=== PATIENT | male | born 1965 | race Caucasian/White ===

== ENCOUNTER → 2017-02-23 | Outpatient (CLI) | payer OTHER ==
[~2017-02-23] MED LIST: ALBUAER19 INH; ALFU10TA2 PO; ASPI81TA28 PO; CIPR-255 PO; COEN50CA2 PO; DTRSR/10 PO; ERGO500037 PO; GLIM4TAB2 PO; HYDC25 PO; HYDR25TA4 PO; LIRA18IN SQ; LOSA50TA6 PO; METF1000 PO; OMEP20TA PO; ROSU5TAB PO; SERT-234 PO; VNTHFA/IN INH
[2017-02-23 13:44] LABS: ESTIMATED AVERAGE GLUCOSE 131 mg/dl; HA1C FLAG Normal (Normal)
[2017-02-23 14:56] LABS: ALT/SGPT 41 U/L (12-78); AST/SGOT 20 U/L (15-37); BLOOD UREA NITROGEN 22 mg/dl (7-18); BUN/CREATININE RATIO 27.2 (10-20); CALCIUM 8.6 mg/dl (8.5-10.1); CARBON DIOXIDE 26 mmol/L (21-32); CHLORIDE 109 mmol/L (98-107); CREATININE 0.82 mg/dl (0.60-1.40); GLUCOSE 101 mg/dl (70-99); POTASSIUM 4.1 mmol/L (3.5-5.1); SODIUM 142 mmol/L (136-145)
[2017-02-23 14:59] LABS: ALKALINE PHOSPHATASE 99 U/L (45-117); CHOLESTEROL 157 mg/dl (0-200); CHOLESTEROL/HDL RATIO 3.9; HDL CHOLESTEROL 40 mg/dl; LDL CHOLESTEROL CALCULATED 63 mg/dl; TRIGLYCERIDES 268 mg/dl (0-150); VERY LOW DENSITY LIPOPROT CALC 54 mg/dl
== END | disposition home or self-care (01) ==
LOC: C.LABBC 10:54
PROVIDERS: ATTEND Internal Medicine Geriatric Medicine
DX: I10 Essential (primary) hypertension (principal); E11.9 Type 2 diabetes mellitus without complications; E66.01 Morbid (severe) obesity due to excess calories; F41.8 Other specified anxiety disorders; E78.5 Hyperlipidemia, unspecified; E55.9 Vitamin D deficiency, unspecified

== ENCOUNTER → 2017-02-26 | Outpatient (CLI) | payer OTHER ==
--- NOTE | 2017-02-26 19:17 | DIAGNOSTIC IMAGING REPORT ---
ULTRASOUND VENOUS DOPPLER LWR EXT BILA CLINICAL HISTORY: Lower extremity swelling COMPARISON STUDY: No previous studies for comparison. FINDINGS: Real-time and color flow Doppler imaging were performed. Flow was seen within the femoral, popliteal and calf veins with no intraluminal thrombus demonstrated. The saphenous vein is patent. IMPRESSION: No evidence of lower extremity DVT. Electronically signed by: Neal Richardson M.D. 02/26/2017 7:16 PM Dictated Date/Time: 02/26/2017 7:15 PM
== END | disposition home or self-care (01) ==
LOC: C.ULTR 18:40
PROVIDERS: ATTEND Internal Medicine Geriatric Medicine
DX: M79.89 Other specified soft tissue disorders (principal)

== ENCOUNTER → 2017-04-23 | Outpatient (CLI) | payer OTHER ==
[2017-04-23 16:43] LABS: URINE APPEARANCE CLEAR (CLEAR); URINE BILIRUBIN NEG (NEG); URINE COLOR YELLOW; URINE EPITHELIAL CELL AUTO 0-5 /lpf (0-5); URINE NITRITE NEG (NEG); URINE PH 5.5 (4.5-7.5); URINE SPECIFIC GRAVITY 1.029 (1.000-1.030); UROBILINOGEN NEG (NEG)
[2017-04-23 16:50] LABS: MANUAL MICROSCOPIC REQUIRED? NO; REVIEW REQ? YES
[2017-04-23 18:28] LABS: LYME DISEASE AB IGG NEG (NEG); LYME DISEASE AB IGM NEG (NEG)
== END ==
LOC: C.LABBC 14:18
PROVIDERS: ATTEND Physician Assistant Medical
DX: N40.1 Benign prostatic hyperplasia with lower urinary tract symptoms (principal); R39.9 Unspecified symptoms and signs involving the genitourinary system; W57.XXXA Bitten or stung by nonvenomous insect and other nonvenomous arthropods, initial encounter; Z11.59 Encounter for screening for other viral diseases

== ENCOUNTER → 2017-05-01 | Outpatient (CLI) | payer OTHER ==
[~2017-05-01] MED LIST changes: -ALFU10TA2 PO; +ALFU10TA30 PO
--- NOTE | 2017-05-01 14:54 | DIAGNOSTIC IMAGING REPORT ---
SCROTAL ULTRASOUND CLINICAL HISTORY: Orchialgia. COMPARISON STUDY: None. TECHNIQUE: Grayscale and color and duplex Doppler sonography of the scrotum was performed. FINDINGS: The right testis measures 4 x 3.2 x 2.8 cm and the left measures 5.1 x 3 x 2.4 cm. There is no testicular mass. Color flow within each testis is symmetric. There is no evidence of epididymitis. There are small bilateral hydroceles. IMPRESSION: 1. Normal sonographic appearance of the testes. No evidence of testicular torsion. No testicular mass. 2. No evidence of epididymitis. 3. Small bilateral hydroceles. Electronically signed by: Karlos Hahn M.D. 05/01/2017 2:52 PM Dictated Date/Time: 05/01/2017 2:51 PM
--- NOTE | 2017-05-01 14:56 | DIAGNOSTIC IMAGING REPORT ---
RENAL ULTRASOUND CLINICAL HISTORY: Low back pain. Urinary incontinence. COMPARISON STUDY: None. TECHNIQUE: Sonography of the kidneys and the urinary bladder was performed. FINDINGS: The right kidney measures 12.5 cm in maximal dimension and the left measures 12.3 cm. There is no hydronephrosis. This exam is mildly compromised by suboptimal penetration but no calculus or mass identified by sonography. The bladder was normal. Both ureteral jets were identified. IMPRESSION: Unremarkable renal ultrasound. No hydronephrosis. Electronically signed by: Karlos Hahn M.D. 05/01/2017 2:54 PM Dictated Date/Time: 05/01/2017 2:53 PM
--- NOTE | 2017-05-01 15:12 | DIAGNOSTIC IMAGING REPORT ---
KUB CLINICAL HISTORY: Low back pain. COMPARISON STUDY: Renal ultrasound performed earlier today. FINDINGS: This exam is compromised by suboptimal penetration related to body habitus. However, no urinary calculi are visualized. Bowel gas pattern is normal. IMPRESSION: 1. No urinary calculi identified although study compromised due to body habitus. 2. No bowel obstruction. Electronically signed by: Karlos Hahn M.D. 05/01/2017 3:11 PM Dictated Date/Time: 05/01/2017 3:08 PM
== END | disposition home or self-care (01) ==
LOC: C.ULTRBC 13:46
PROVIDERS: ATTEND Urology
DX: M54.5 Low back pain (principal); R32 Unspecified urinary incontinence; N50.819 Testicular pain, unspecified

== ENCOUNTER → 2017-05-21 | Outpatient (CLI) | payer OTHER ==
--- NOTE | 2017-05-22 06:28 | PAP/PSG TECHNICIAN REPORT ---
[facility] Production Control Scheduler Polysomnogram Report Study name: None Report date: 05/22/2017 Study date: 05/21/2017 Referring Physician: Alicia Slaughter PA-C Name: ONDINA COSME Interpreting Physician: Julio Fragoso D.O. Date of : 1965 Production Control Scheduler: Mehdi Shea RPSGT. Sex: Male Age: 51 StudyType: PSG Weight: 382 lbs Height: 51 years, Height 5' 8" BMI: 58.08 Medications: SERTRALINE HCL 100 MG, GLIMEPIRIDE 4 MG, METFORMIN HCL 1000 MG, ASPIRIN 81 MG, ATORVASTATIN CALCIUM 20 MG, OMEPRAZOLE 20 MG, HYDROCHLOROTHIAZIDE 25 MG, LOSARTAN POTASSIUM 50 MG, ALFUZOSIN HCL ER 10 MG, VENTOLIN HFA 108 (90) BASE, VITAMIN D, OXYBUTYNIN CHLORIDE ER 10 MG Patient History PATIENT HAS HISTORY OF MAC. HE CURRENTLY WEARS CPAP BUT HAS BEEN EXPERIENCE FATIGUE AND LACK OF ENERGY DURING THE DAY. ALSO HAS DAYTIME SLEEPINESS. HE IS HERE TODAY FOR AN UPDATE ON HIS PRESSURE. ESS = 9 RM 5 Parameters Monitored NPSG: E1-M2, E2-M1, Fp1-M2, Fp2-M1, F3-M2, F4-M2, F4-M1, C3-M2, C4-M2, C4-M1, O1-M2, O2-M2, O2-M1, T3-M2, T4-M1, P3-M2, P4-M1, CHIN1, CHIN2, HR, EKG, Legs, PFLOW, SNOR, FLOW, CFLOW, Tidal Volume, THOR, ABDO, SpO2, PLTH, CPRESS, ETCO2 Wave, ETCO2, pH Sleep Architecture Sleep Stages Time at Lights Off 9:14:38 PM STAGES Time (min.) TST (%) Time at Lights On 5:18:38 AM Wake 127.0 -- Total Recording Time (TRT) 484.50 min. N1 20.5 6 Total Sleep Period (TSP) 465.5 min. N2 166.0 46 Total Sleep Time (TST) 357.0min. N3 107.5 30 Awake Time 127.5 min. REM 63.0 18 Wake after Sleep Onset 113.0 min. Sleep Efficiency (SE) 74 % Sleep Onset Latency (CHARMAINE) 14.0 min. Number of Stage 1 Shifts None Awakenings 33 Stage Changes 102 Number of REM periods 3 REM 63.0 18 REM Latency 249.5 min. NREM 294.0 82 Body Position Analysis Supine Right Left Side Prone Vertical Total Sleep Time (min.) 55.2 129.6 182.5 312.12 0.0 0.0 Total Sleep Time (%) 13% 36% 51% 87 0% N/A% Total Sleep Time REM (min.) 25.5 0.0 37.5 None 0.0 0.0 Total Sleep Time NREM (min.) 19.4 129.6 145.0 None 0.0 0.0 Intermittent Wake (min.) 10.3 70.0 46.7 None 0.0 0.0 Total Sleep Period (%) 11% None None None None None Arousals Myoclonus (PLM) * Events Count Index Events Count Index Spontaneous 50 8 Events Awake (PLMW) 125 59.1 Respiratory 15 2.4 Events Asleep w/ Arousal (PLMA) 5 0.8 PLM 4 1 Events Asleep w/o Arousal (PLMS) 130 21.8 Snoring 9 2 Total Asleep 135 22.7 Total 77 13 Total 260 32 Respiratory Analysis * CA OA MA CH H RERA Total Count 1 0 0 0 52 4 53 Index 0.2 0.0 0.0 0 8.7 1 9.6 Mean Duration 11.4 0.0 0.0 0.00 14.5 12.3 14.3 Longest Duration 11.4 0.0 0.0 0.00 0.0 15.6 21.6 Respiratory Event Summary Total Supine ~Supine Right Left Prone REM NREM Apneas Count 1 0 1 0 1 N/A 1 0 Index 0.2 0 0 0.0 0.3 N/A 1 0 Hypopneas (4% Desat) Count 52 6 46 25 21 N/A 20 32 Index 8.7 8.0 9 11.6 6.9 N/A 19.0 6.5 Apneas & All Hypopneas Count 53 6 47 25 22 N/A 21 32 Index 8.9 8 9 12 7 N/A 20.0 6.5 Respiratory Events (Credit Compliance Officer+All Hyp+RERA) Count 53 6 51 28 23 N/A 21 32 Index 9.6 8 10 13.0 7.6 N/A 21.0 7.1 Respiratory Related Arousal Count 15 6 14 12 2 N/A 1 13 Index 2.4 0 3 6 1 N/A 1 3 Snoring Analysis Supine Right Left Prone REM NREM Total Snore duration 2.0 min Snores count 4 97 8 N/A 3 106 109 Snore mean duration 1.1 Sec Snores index 5 45 3 N/A 2.9 21.6 18.3 TST with snoring (%) 0.6% Desaturation Event Summary: Minimum %SpO2 Event Count Mean/Min/Max Duration(sec.) Desaturation Index % Time In Bed > 90 87 21.9 / 5.8 / 58.8 19.3 57.8 86 - 90 46 16.8 / 6.5 / 34.3 14.1 41.9 81 - 85 0 N/A 0.0 0.3 76 - 80 0 N/A 0.0 0.0 71 - 75 0 N/A 0.0 0.0 66 - 70 0 N/A 0.0 0.0 61 - 65 0 N/A 0.0 0.0 56 - 60 0 N/A 0.0 0.0 51 - 55 0 N/A 0.0 0.0 < 50 0 N/A 0.0 0.0 Total REM NREM Awake <50% 0.0 min. 0.0 min. 0.0 min. 0.0 min. 51 - 60% 0.0 min. 0.0 min. 0.0 min. 0.0 min. 61 - 70% 0.0 min. 0.0 min. 0.0 min. 0.0 min. 71 - 80% 0.0 min. 0.0 min. 0.0 min. 0.0 min. 81 - 90% 197.5 min. 37.7 min. 125.6 min. 34.3 min. 91 - 100% 270.3 min. 25.3 min. 167.9 min. 77.0 min. Average 91 90 90 92 Minimum SpO2 83 83 84 85 Desaturation Event Index 12.5 20.0 7.3 21.7 # Desat. Events below 89% 71 18 27 26 Time(%) with Saturation below 89% 13.1 2.7 8.4 2.0 Time(min.) with Saturation below 89% 61.2 12.5 39.2 9.5 Time (mins) REM (mins) NREM (mins) % of TST SpO2 Below 90% 56 21 N35 27.8 SpO2 Below 88% 16 0 0 5 Heart Rate Analysis Min (bpm) Max (bpm) Average (bpm) Awake 50 136 73 NREM 52 86 67 REM 51 76 62 Overall 51 86 66 Supplemental O2 Values Minimum O2 level: None Value Start Time End Time Production Control Scheduler Comments Mr. Cosme slept in the right, left and supine positions. No cardiac arrhythmia noted. Leg movements noted. No bruxism noted. CPAP was initiated at +4 CMH2O and up-titrated to an optimal level of +14 CMH2O, which nearly eliminated all respiratory events and snoring. The patient brought in his own mask that was used during titration Mr. Cosme awoke to use the restroom 3 times during the night. Mr. Cosme stated I slept as well as I do when I am in my own bed. The final report will be interpreted and signed by a sleep physician. The completed physician report will then be placed in the patient medical record. Therapy Event: Therapy (cm H20) 4 5 6 8 9 10 12 13 14 Total Time at Pressure (min.) 51.9 4.5 12.6 106.6 84.8 12.3 125.8 21.0 64.5 TST at Pressure (min.) 7.9 4.0 12.6 81.6 76.3 12.3 90.3 20.0 52.0 # Periods 1 1 1 1 1 1 1 1 1 Sleep Onset (min.) 14.0 0.0 0.0 0.0 0.0 0.0 0.0 0.0 0.0 REM Onset (min.) N/A N/A N/A N/A N/A 3.1 0.0 0.0 0.0 Sleep Efficiency % 15 88 100 76 90 100 71 95 80 Wakefulness (%) 84.7 11.2 0.0 23.5 10.0 0.0 28.2 4.8 19.4 Wakefulness (min.) 44.0 0.5 0.0 25.0 8.5 0.0 35.5 1.0 12.5 NREM 1 (%) 14.3 34.7 0.0 4.7 2.4 0.0 2.0 2.4 2.3 NREM 1 (min.) 7.4 1.6 0.0 5.0 2.0 0.0 2.5 0.5 1.5 NREM 2 (%) 1.0 54.1 100.0 35.2 39.9 25.1 39.4 2.4 40.3 NREM 2 (min.) 0.5 2.4 12.6 37.6 33.8 3.1 49.5 0.5 26.0 NREM 3 (%) 0.0 0.0 0.0 36.6 47.7 0.0 15.9 0.0 12.4 NREM 3 (min.) 0.0 0.0 0.0 39.0 40.5 0.0 20.0 0.0 8.0 REM (%) 0.0 0.0 0.0 0.0 0.0 74.9 14.5 90.5 25.6 REM (min.) 0.0 0.0 0.0 0.0 0.0 9.2 18.3 19.0 16.5 # Arousals 11 5 10 25 10 1 10 1 4 Arousal Index 83.0 75.6 47.6 18.4 7.9 4.9 6.6 3.0 4.6 # Snore 0 5 86 6 8 1 2 0 1 Snore Index 0.0 75.6 409.2 4.4 6.3 4.9 1.3 0.0 1.2 AHI 52.8 60.5 42.8 5.1 3.9 38.9 5.3 12.0 1.2 AHI Supine N/A N/A N/A N/A 6.3 N/A N/A 19.2 3.6 AHI Non-Supine 52.8 60.5 42.8 5.1 3.1 38.9 5.3 5.7 0.0 NREM AHI 52.8 60.5 42.8 5.1 3.9 0.0 0.0 0.0 0.0 REM AHI N/A N/A N/A N/A N/A 52.0 26.3 12.6 3.6 RDI 52.8 60.5 57.1 5.1 3.9 38.9 6.0 12.0 1.2 # Obstructive 0 0 0 0 0 0 0 0 0 # Central Ap 0 0 0 0 0 1 0 0 0 # Mixed 0 0 0 0 0 0 0 0 0 # Hypopneas 7 4 9 7 5 7 8 4 1 RERAS 0 0 3 0 0 0 1 0 0 Total Respiratory Events 7 4 12 7 5 8 9 4 1 Time Below SpO2 89.00% (min.) 4.3 1.1 1.5 2.6 29.4 3.7 5.8 2.8 0.5 Mean NREM SpO2 (%) 88 89 90 91 89 89 91 91 92 Mean REM SpO2 (%) N/A N/A N/A N/A N/A 89 90 90 91 Mean Sleep SpO2 (%) 88 89 90 91 89 89 91 90 91 Min NREM SpO2 (%) 86 86 85 86 84 88 87 89 90 Min REM SpO2 (%) N/A N/A N/A N/A N/A 83 86 83 88 Position Supine (min.) 0.0 0.0 0.0 0.0 19.0 0.0 0.0 9.4 16.5 Position Non-supine (min.) 7.9 4.0 12.6 81.6 57.3 12.3 90.3 10.6 35.5 LM Index Sleep 0.0 15.1 33.3 75.8 4.7 14.6 4.7 3.0 8.1 LM Index NREM 0.0 15.1 33.3 75.8 4.7 19.4 4.2 0.0 3.4 LM Index REM N/A N/A N/A N/A N/A 13.0 6.6 3.2 18.2 Mean Heart Rate (bpm) 80 79 80 74 65 64 61 61 59 Min Heart Rate (bpm) 77 75 71 64 58 56 52 51 52
--- NOTE | 2017-05-24 09:40 | Sleep Study ---
Sleep Study Report Date of Service: 05/21/2017 Sleep Study Report Clinical data: The patient is a 51-year-old male who was referred for a CPAP re-titration study by Alicia Slaughter PA-C. His BMI is 58.08. Patient has a history of sleep apnea for longer than 10 years. He has been wearing nasal CPAP but he has had increased fatigue and decreased energy level along with daytime somnolence. His Daisy Sleepiness Scale score is 9. Sleep architecture: The total sleep period was 465.5 minutes. The total sleep time was 357.0 minutes. Sleep efficiency was moderately reduced to 74 percent. The sleep latency was normal at 14 minutes. Wake after sleep onset was prolonged to 113 minutes. REM latency was prolonged to 249.5 minutes. Sleep consisted of stage N1 6 percent, stage N2 46 percent, stage N3 30 percent , stage REM 18 percent. Arousal data: The patient had a total of 77 arousals including 50 spontaneous arousals, 15 respiratory arousals, 4 PLM arousals, and 9 snoring arousals. The arousal index was 13. PLM data: The patient had a total of 135 periodic limb movements of sleep for a PLM index of 22.7. There were 5 arousals associated with limb movements for a PLM arousal index of 0.8. EKG: The underlying cardiac rhythm was normal sinus. The cardiac rates ranged from 51 to 86 beats per minute. No cardiac arrhythmia was noted. Respiratory data: The patient's nocturnal respiratory events were treated with nasal CPAP up to a final pressure of 14 centimeters. For the night he had a total of 53 respiratory events including 1 central apnea and 52 hypopneas. Hypopneas were scored according to the 4 percent desaturation rule. Apnea-hypopnea index was 8.9. The mean duration of hypopneas was 14.5 seconds. He also had 4 RERAS. At the final pressure of 14 centimeters he had only 1 hypopnea and his apnea- hypopnea index was 1.2. He was at that pressure for 64.5 minutes. Oximetry data: The average oxygen saturation was 91 percent. Minimum saturation was 83 percent. The patient had a total of 61.2 minutes with saturations less than 89 percent. At the final pressure there was no significant desaturations. Knitter Operator's comments: The patient slept on the right, left, and supine positions. No cardiac arrhythmia noted. Leg movements noted. No bruxism noted. CPAP was initiated at 4 centimeters and up titrated to an optimal level of 14 centimeters which nearly eliminated all respiratory events and snoring. Patient used his own mask during the titration. He did awaken to use the restroom 3 times during the night. Impressions: 1. Obstructive sleep apnea-resolved with nasal CPAP at 14 centimeters 2. Periodic limb movement disorder Comments: The patient had a lower sleep efficiency than anticipated considering he is accustomed to wearing nasal CPAP. Although his sleep latency was normal it took approximately 1 hour or longer to have continuous sleep. He did have 3 awakenings to go to the restroom. It is noted that he does take Alfuzosin which could suggest prostate disease. This may be contributing to his disturbed sleep. He had a modest number of leg movements but with few arousals. Thus it seems unlikely the leg movements are disturbing his sleep significantly. At the final pressure he did very well and his oxygenation was normalized Recommendations: 1. It is advised that the patient CPAP be adjusted to 14 centimeters. 2. Clinical follow-up is then required to evaluate his response to the change in the CPAP pressure. 3. Patient has a severe elevation of body mass index of 58.08. Weight reduction is advised. 4. It is suggested that the patient avoid sleeping in the supine position. There is typically more respiratory events and snoring while supine. During this study he only spent 11 percent of the night in the supine position. Copies To 1: Julio Fragoso DO; Alicia Slaughter PAC
== END | disposition home health service (06) ==
LOC: C.NEUR 20:00
PROVIDERS: ATTEND Physician Assistant Medical
DX: G47.33 Obstructive sleep apnea (adult) (pediatric) (principal); G47.61 Periodic limb movement disorder

== ENCOUNTER 2017-07-12 08:49 | Emergency (ER) | payer OTHER ==
[~2017-07-12] VITALS: Ht 175.3 cm; Wt 166.0 kg
[~2017-07-12 08:49] MED LIST changes: -ALFU10TA30 PO; -ASPI81TA28 PO; -CIPR-255 PO; -COEN50CA2 PO; -DTRSR/10 PO; -ERGO500037 PO; -HYDR25TA4 PO; -LIRA18IN SQ; -ROSU5TAB PO; -VNTHFA/IN INH
[2017-07-12 08:54] VITALS: TEMP 36.6; Ht 175.3 cm; Wt 166.0 kg
[2017-07-12] MEDS ORDERED: SODIUM CHLORIDE 0.9% 1000ML 1,000 ML IV STA (09:07)
[2017-07-12 09:30] LABS: BASO % 0.2 %; BASO ABS # 0.02 K/uL (0-0.2); COMPLETE YES; EOS % 3.3 %; HEMATOCRIT 42.5 % (42-52); IG% 0.2 %; LYMPH % 23.2 %; LYMPH ABS # 2.16 K/uL (1.2-3.4); MEAN CELL VOLUME 88.5 fL (80-100); MEAN CORPUSCULAR HEMOGLOBIN 29.6 pg (25-34); MEAN CORPUSCULAR HGB CONC 33.4 g/dl (32-36); MEAN PLATELET VOLUME 9.5 fL (7.4-10.4); MONO % 9.8 %; NEUT % 63.3 %; PLATELET COUNT 265 K/uL (130-400)
[2017-07-12 09:33] LABS: URINE APPEARANCE CLEAR (CLEAR); URINE BILIRUBIN NEG (NEG); URINE COLOR YELLOW; URINE EPITHELIAL CELL AUTO 0-5 /lpf (0-5); URINE NITRITE NEG (NEG); URINE PH 6.5 (4.5-7.5); URINE SPECIFIC GRAVITY 1.017 (1.000-1.030); UROBILINOGEN NEG (NEG); ZZUR CULT IF INDIC CLEAN CATCH NO
[2017-07-12 09:36] LABS: MANUAL MICROSCOPIC REQUIRED? NO; REVIEW REQ? NO
[2017-07-12] MEDS ORDERED: COEN50CA2 PO (09:43)
[2017-07-12] MEDS ORDERED: SERT-234 PO (09:43)
[2017-07-12] MEDS ORDERED: VNTHFA/IN INH (09:43)
[2017-07-12] MEDS ORDERED: ALFU10TA30 PO (09:43)
[2017-07-12] MEDS ORDERED: ERGO500037 PO (09:43)
[2017-07-12] MEDS ORDERED: HYDR25TA4 PO (09:43)
[2017-07-12] MEDS ORDERED: LIRA18IN SQ (09:43)
[2017-07-12] MEDS ORDERED: DTRSR/10 PO (09:43)
[2017-07-12] MEDS ORDERED: ASPI81TA28 PO (09:43)
[2017-07-12] MEDS ORDERED: ROSU5TAB PO (09:43)
[2017-07-12 09:46] LABS: BUN/CREATININE RATIO 21.7 (10-20); CALCIUM 9.6 mg/dl (8.5-10.1); CREATININE 0.86 mg/dl (0.60-1.40)
[2017-07-12] MEDS ORDERED: OPTIRAY 320 IV PRN (10:00)
--- NOTE | 2017-07-12 12:47 | DIAGNOSTIC IMAGING REPORT ---
ABD/PELVIS IV AND ORAL CONT CT DOSE: 2269.09 mGy.cm HISTORY: Pain lower abd pain, urinary symptoms, constipation TECHNIQUE: Multiaxial CT images of the abdomen and pelvis were performed following the use of intravenous and oral contrast. A dose lowering technique was utilized adhering to the principles of ALARA. COMPARISON STUDY: None. FINDINGS: Lung bases are clear. Liver spleen and pancreas are unremarkable. No evidence for gallbladder distention. Moderate adrenal hyperplastic change bilaterally. Kidneys negative for hydronephrosis. Bowel pattern is nonobstructive throughout. Scattered colonic and sigmoid diverticulosis. No evidence for acute diverticulitis. No evidence for obstruction. Normal appendix. Bladder is midline. Inguinal regions are unremarkable. IMPRESSION: 1. Mild chronic colonic diverticulosis. No evidence for diverticulitis. 2. Otherwise negative study. The above report was generated using voice recognition software. It may contain grammatical, syntax or spelling errors. Electronically signed by: Grady Akins M.D. 07/12/2017 12:46 PM Dictated Date/Time: 07/12/2017 12:41 PM
[2017-07-12] MEDS ORDERED: CIPROFLOXACIN 500 MG TAB PO STA ×2 (15:04)
[2017-07-12] MEDS ORDERED: CIPR-255 PO (15:06)
[2017-07-12 15:10] VITALS: BP 124/68; PULSE 86; O2SAT 95
--- NOTE | 2017-07-12 16:22 | EMERGENCY ROOM VISIT NOTE ---
History Report prepared by Stephanie: Kat Garcia Under the Supervision of: Dr. Jame Quick M.D. First contact with patient: 09:07 Chief Complaint: OTHER COMPLAINT Stated Complaint: CONSTIPATION X1 WEEK,UPSET STOMACH,FREQ URINATION History of Present Illness The patient is a 52 year old male who presents to the Emergency Room with complaints of abdominal pain beginning 5 days ago. The patient describes the pain as being tight and rates it at a 3/10. He states that he is also constipated. He also complains of knee pain. The patient states that he took Miralax last night for his symptoms and has been urinating at night. He reports that he has been eating at irregular times due to his job and that sometimes he will feel "out of it." The patient reports that he has also been diaphoretic. The patient denies a history of abdominal surgeries. Pt denies LOC , headache, fevers, chills, visual changes, neck pain, chest pain, breathing difficulties, nausea, vomiting, back pain, melena, hematochezia, numbness, weakness, lymphadenopathy, rash, or other complaints. Source of History: patient Onset: 5 days ago Position: abdomen Symptom Intensity: rated at a 3/10 Quality: other (tight) Associated Symptoms: + diaphoresis, No chest pain Note: additional symptoms: constipation, knee pain Review of Systems See HPI for pertinent positives and negatives. A total of ten systems were reviewed and were otherwise negative. Past Medical & Surgical Medical Problems: (1) Asthma (2) Diabetes (3) Hernia (4) Hypertension (5) Sleep apnea (6) Stomach problems Family History Diabetes mellitus Heart disease Hypertension Social History Smoking Status: Never Smoker Alcohol Use: none Drug Use: none Marital Status: single Housing Status: lives alone Occupation Status: employed Current/Historical Medications Scheduled Alfuzosin Hcl (Uroxatral), 10 MG PO QDD Aspirin (Aspirin Ec), 81 MG PO DAILY Ciprofloxacin Hcl (Cipro), 500 MG PO BID Coenzyme Q10 (Ubidecarenone) (Co Q-10), 50 MG PO DAILY Ergocalciferol (Vitamin D 28926 Unit), 50,000 UNIT PO WK Glimepiride (Glimepiride), 2 MG PO QAM Hydrochlorothiazide (Hctz), 12.5 MG PO DAILY Liraglutide (Victoza), 0.6-1.8 MG SQ UD Losartan Potassium (Cozaar), 50 MG PO QAM Metformin Hcl (Glucophage), 1,000 MG PO BID Omeprazole (Eql Omeprazole), 20 MG PO DAILY Oxybutynin Chloride (Oxybutynin Chloride ER), 10 MG PO DAILY Rosuvastatin Calcium (Crestor), 5 MG PO DAILY Sertraline (Zoloft), 150 MG PO DAILY Scheduled PRN Albuterol Hfa (Ventolin Hfa), 2-4 PUFFS INH Q6H PRN for Wheezing Allergies Coded Allergies: Penicillins (Verified Allergy, Intermediate, RASH, 07/12/17) Sulfamethoxazole w/Trimethoprim (Verified Allergy, Unknown, ., 07/12/17) Physical Exam Vital Signs Date Time Temp Pulse Resp B/P (MAP) Pulse Ox O2 Delivery O2 Flow Rate FiO2 07/12/17 15:10 86 18 124/68 95 Room Air 07/12/17 14:15 75 21 94 07/12/17 14:01 141/78 07/12/17 14:00 77 23 94 07/12/17 13:45 81 18 93 07/12/17 13:31 127/72 07/12/17 13:30 75 17 96 07/12/17 13:15 78 19 96 07/12/17 13:01 133/71 07/12/17 13:00 76 22 07/12/17 12:54 91 139/77 91 Room Air 07/12/17 12:54 07/12/17 12:15 79 20 95 07/12/17 12:10 80 23 92 07/12/17 12:00 121/71 07/12/17 11:55 76 23 96 07/12/17 11:50 89 95 07/12/17 11:35 76 24 93 07/12/17 11:30 120/67 07/12/17 11:20 71 17 97 07/12/17 11:05 86 21 92 07/12/17 11:01 122/70 07/12/17 10:50 77 22 94 07/12/17 10:45 74 19 95 07/12/17 10:09 78 16 96 07/12/17 10:04 83 22 94 07/12/17 10:01 146/83 07/12/17 09:59 78 16 96 07/12/17 09:54 78 21 93 07/12/17 09:49 81 15 96 07/12/17 09:44 81 24 92 07/12/17 09:39 80 23 97 07/12/17 09:34 84 22 93 07/12/17 09:31 144/79 07/12/17 09:29 85 07/12/17 09:24 156/83 07/12/17 08:54 36.6 82 18 144/80 98 Room Air Physical Exam GENERAL: Awake, alert, well-appearing, in no distress HENT: Normocephalic, atraumatic. Oropharynx unremarkable. EYES: Normal conjunctiva. Sclera non-icteric. NECK: Supple. No nuchal rigidity. FROM. No JVD. RESPIRATORY: Clear to auscultation. CARDIAC: Regular rate, normal rhythm. Extremities warm and well perfused. Pulses equal. ABDOMEN: Soft, non-distended. Mild lower abdominal discomfort. No rebound or guarding. No masses. RECTAL: Deferred. MUSCULOSKELETAL: Chest examination reveals no tenderness. The back is symmetrical on inspection without obvious abnormality. There is no CVA tenderness to palpation. No joint edema. LOWER EXTREMITIES: Calves are equal size bilaterally and non-tender. No edema. No discoloration. NEURO: Normal sensorium. No sensory or motor deficits noted. SKIN: No rash or jaundice noted. Medical Decision & Procedures ER Provider Diagnostic Interpretation: Radiology results as stated below per my review and radiologist interpretation: ABD/PELVIS IV AND ORAL CONT CT DOSE: 2269.09 mGy.cm HISTORY: Pain lower abd pain, urinary symptoms, constipation TECHNIQUE: Multiaxial CT images of the abdomen and pelvis were performed following the use of intravenous and oral contrast. A dose lowering technique was utilized adhering to the principles of ALARA. COMPARISON STUDY: None. FINDINGS: Lung bases are clear. Liver spleen and pancreas are unremarkable. No evidence for gallbladder distention. Moderate adrenal hyperplastic change bilaterally. Kidneys negative for hydronephrosis. Bowel pattern is nonobstructive throughout. Scattered colonic and sigmoid diverticulosis. No evidence for acute diverticulitis. No evidence for obstruction. Normal appendix. Bladder is midline. Inguinal regions are unremarkable. IMPRESSION: 1. Mild chronic colonic diverticulosis. No evidence for diverticulitis. 2. Otherwise negative study. The above report was generated using voice recognition software. It may contain grammatical, syntax or spelling errors. Electronically signed by: Grady Akins M.D. 07/12/2017 12:46 PM Dictated Date/Time: 07/12/2017 12:41 PM Laboratory Results 07/12/17 09:20 Red Blood Count 4.80, Mean Corpuscular Volume 88.5, Mean Corpuscular Hemoglobin 29.6, Mean Corpuscular Hemoglobin Concent 33.4, Mean Platelet Volume 9.5, Neutrophils (%) (Auto) 63.3, Lymphocytes (%) (Auto) 23.2, Monocytes (%) (Auto) 9.8, Eosinophils (%) (Auto) 3.3, Basophils (%) (Auto) 0.2, Neutrophils # (Auto) 5.88, Lymphocytes # (Auto) 2.16, Monocytes # (Auto) 0.91, Eosinophils # (Auto) 0.31, Basophils # (Auto) 0.02 07/12/17 09:20 Test 07/12/17 09:15 07/12/17 09:20 Urine Color YELLOW Urine Appearance CLEAR (CLEAR) Urine pH 6.5 (4.5-7.5) Urine Specific [place] 1.017 (1.000-1.030) Urine Protein NEG (NEG) Urine Glucose (UA) NEG (NEG) Urine Ketones NEG (NEG) Urine Occult Blood NEG (NEG) Urine Nitrite NEG (NEG) Urine Bilirubin NEG (NEG) Urine Urobilinogen NEG (NEG) Urine Leukocyte Esterase TRACE (NEG) Urine WBC (Auto) 0 /hpf (0-5) Urine RBC (Auto) 0-4 /hpf (0-4) Urine Hyaline Casts (Auto) 0 /lpf (0-5) Urine Epithelial Cells (Auto) 0-5 /lpf (0-5) Urine Bacteria (Auto) NEG (NEG) White Blood Count 9.30 K/uL (4.8-10.8) Red Blood Count 4.80 M/uL (4.7-6.1) Hemoglobin 14.2 g/dL (14.0-18.0) Hematocrit 42.5 % (42-52) Mean Corpuscular Volume 88.5 fL (80-100) Mean Corpuscular Hemoglobin 29.6 pg (25-34) Mean Corpuscular Hemoglobin Concent 33.4 g/dl (32-36) Platelet Count 265 K/uL (130-400) Mean Platelet Volume 9.5 fL (7.4-10.4) Neutrophils (%) (Auto) 63.3 % Lymphocytes (%) (Auto) 23.2 % Monocytes (%) (Auto) 9.8 % Eosinophils (%) (Auto) 3.3 % Basophils (%) (Auto) 0.2 % Neutrophils # (Auto) 5.88 K/uL (1.4-6.5) Lymphocytes # (Auto) 2.16 K/uL (1.2-3.4) Monocytes # (Auto) 0.91 K/uL (0.11-0.59) Eosinophils # (Auto) 0.31 K/uL (0-0.5) Basophils # (Auto) 0.02 K/uL (0-0.2) RDW Standard Deviation 42.7 fL (36.4-46.3) RDW Coefficient of Variation 13.2 % (11.5-14.5) Immature Granulocyte % (Auto) 0.2 % Immature Granulocyte # (Auto) 0.02 K/uL (0.00-0.02) Anion Gap 7.0 mmol/L (3-11) Est Creatinine Clear Calc Drug Dose 151.2 ml/min Estimated GFR () 113.9 Estimated GFR (Non- 98.3 BUN/Creatinine Ratio 21.7 (10-20) Calcium Level 9.6 mg/dl (8.5-10.1) Total Bilirubin 1.2 mg/dl (0.2-1) Direct Bilirubin 0.3 mg/dl (0-0.2) Aspartate Amino Transf (AST/SGOT) 29 U/L (15-37) Alanine Aminotransferase (ALT/SGPT) 43 U/L (12-78) Alkaline Phosphatase 109 U/L (45-117) Total Protein 7.9 gm/dl (6.4-8.2) Albumin 3.9 gm/dl (3.4-5.0) Lipase 238 U/L (73-393) Laboratory results reviewed by me Medications Administered Medications (Trade) Dose Ordered Sig/Sheyla Route Start Time Stop Time Status Last Admin Dose Admin Sodium Chloride 1,000 ml @ 125 mls/hr Q8H STAT IV 07/12/17 09:07 07/12/17 17:06 07/12/17 10:10 125 MLS/HR Ciprofloxacin (Cipro Tab) 500 mg NOW STAT PO 07/12/17 15:04 07/12/17 15:05 DC 07/12/17 15:14 500 MG Ciprofloxacin (Cipro Tab) 500 mg NOW STAT PO 07/12/17 15:04 07/12/17 15:05 DC 07/12/17 15:14 500 MG ED Course 0907: Ordered Sodium Chloride 1,000 ml @ 125 mls.hr IV. 0945: The patient was evaluated in room B11B. A complete history and physical exam was performed. 1200: I checked on and reassessed the patient. 1504: Ordered Cipro Tab 500 mg PO, Cipro Tab 500 mg PO. 1510: I reevaluated the patient. Discussed results and discharge instructions: He verbalized understanding and agreement. The patient is ready for discharge. Medical Decision Triage Nursing notes reviewed and agree them. The patient's history was concerning for constipation, abdominal pain and urinary symptoms. Differential diagnosis: Etiologies such as UTI, prostatitis, functional constipation, impaction, obstruction, volvulus, metabolic abnormality, infection, neurologic, as well as others were entertained. Physical examination findings: As above. ER treatment provided: Saline hydration. The patient declined analgesia On reassessment the patient felt better. Cipro Diagnostics interpreted by me: The labs revealed an unremarkable CT scan chemical panel. Urinalysis did not reveal any clear signs of infection. Culture pending. Imaging studies: CT scan as above The patient has significant urinary symptoms. There is no obstruction or fecal impaction. He has no intra-abdominal findings to be concerned about infection or surgical process. As he has urinary symptoms prostatitis is a possibility. There is no stranding on CT imaging although his symptoms seem to be progressive. I discussed treating her conservatively and the patient was in agreement. Cipro was initiated as he is allergic to penicillin and sulfa. He will need close outpatient follow-up. By the evaluation outlined above emergent etiologies such as obstruction, volvulus, metabolic abnormality, bowel infection, neurologic, as well as others were deemed relatively unlikely. The patient was informed about the findings as listed above. All questions were answered and he was pleased with the treatment. Return instructions were outlined and the patient was discharged in stable condition. Outpatient prescription management: Cipro Referral: The patient was referred back to their primary care physician for follow-up in 2 to 3 days for a recheck of the current condition. Medication Reconcilliation Current Medication List: was personally reviewed by me Blood Pressure Screening Patient's blood pressure: Elevated blood pressure Blood pressure disposition: Referred to PCP Impression Primary Impression: Lower abdominal pain Additional Impression: Symptoms involving urinary system Scribe Attestation The scribe's documentation has been prepared under my direction and personally reviewed by me in its entirety. I confirm that the note above accurately reflects all work, treatment, procedures, and medical decision making performed by me. Departure Information Dispostion Home / Self-Care Prescriptions Ciprofloxacin Hcl (CIPRO) 500 Mg Tab 500 MG PO BID, #14 TAB Prov: Jame Quick MD 07/12/17 Referrals Josafat Medrano M.D. (PCP) Forms HOME CARE DOCUMENTATION FORM, IMPORTANT VISIT INFORMATION, WORK / SCHOOL INSTRUCTIONS Patient Instructions My [facility] Additional Instructions Ciprofloxacin(Cipro) 500mg: Take one pill twice daily for 7 days. All antibiotics can cause diarrhea. If this occurs and you feel worse or it does not resolve in 1-2 days follow up with your doctor or return to the Emergency Department as this could be signs of serious underlying problems. If you experience any pain in your tendons or any tendon injury return to the ER for re -evaluation. Any medication can cause an allergic reaction, stop the pills immediately and return to the ER for rash, hives, breathing difficulties, or swelling. Hold your metformin for 2 days. Watch your sugar and carbohydrate intake. Monitor blood glucose for your primary follow-up. Occasionally the Cipro in combination with the other medications may cause blood sugar to go low. It is important to maintain a healthy diet. Review the package insert for all your medications. This is necessary as important health information is provided for your benefit and current care. Ibuprofen(Motrin, Advil) may be used for fever or pain. Use 600mg every six hours as needed. Take with food. Avoid using more than 2400mg in a 24 hour period. Do not use 2400mg per day for more than three consecutive days without physician direction. Prolonged inappropriate use can lead to stomach upset or ulcers. (AND/OR) Acetaminophen(Tylenol) may be used for fever or pain. Use 1000mg every six hours as needed. Avoid using more than 4000mg in a 24 hour period. Rest and drink plenty of fluids. Continue current medications. Return to the ER immediately for worsening or persistent urinary issues, abdominal pain, vomiting, fevers, back or flank pain, worsening of your condition, or as needed. Follow up with your primary physician within 2-3 days for a recheck of the current condition. Problem Qualifiers
== END 2017-07-12 15:23 | disposition home or self-care (01) ==
LOC: C.EDB 08:50
DX: R10.30 Lower abdominal pain, unspecified (principal); R39.9 Unspecified symptoms and signs involving the genitourinary system; E11.9 Type 2 diabetes mellitus without complications; I10 Essential (primary) hypertension; G47.30 Sleep apnea, unspecified; J45.909 Unspecified asthma, uncomplicated; Z83.3 Family history of diabetes mellitus; Z82.49 Family history of ischemic heart disease and other diseases of the circulatory system; Z79.82 Long term (current) use of aspirin

== ENCOUNTER → 2017-08-18 | Outpatient (CLI) | payer OTHER ==
[~2017-08-18] MED LIST changes: -ALBUAER19 INH; +ALFU10TA30 PO; +ASPI81TA28 PO; +CIPR-255 PO; +COEN50CA2 PO; +DTRSR/10 PO; +ERGO500037 PO; -HYDC25 PO; +HYDR25TA4 PO; +LIRA18IN SQ; +ROSU5TAB PO; +VNTHFA/IN INH
[2017-08-18 17:05] LABS: BLOOD UREA NITROGEN 20 mg/dl (7-18); CALCIUM 9.6 mg/dl (8.5-10.1); CARBON DIOXIDE 25 mmol/L (21-32); CHLORIDE 104 mmol/L (98-107); CHOLESTEROL 149 mg/dl (0-200); CREATININE 0.96 mg/dl (0.60-1.40); GLUCOSE 97 mg/dl (70-99); SODIUM 136 mmol/L (136-145); TRIGLYCERIDES 133 mg/dl (0-150); VERY LOW DENSITY LIPOPROT CALC 27 mg/dl
[2017-08-18 17:09] LABS: CHOLESTEROL/HDL RATIO 2.7; HDL CHOLESTEROL 55 mg/dl; LDL CHOLESTEROL CALCULATED 67 mg/dl; PROSTATE SPECIFIC ANTIGEN 0.481 ng/ml (0.000-4.000)
[2017-08-19 07:51] LABS: ESTIMATED AVERAGE GLUCOSE 137 mg/dl; HA1C FLAG Normal (Normal)
== END | disposition home or self-care (01) ==
LOC: C.LABBC 12:18
PROVIDERS: ATTEND Internal Medicine Geriatric Medicine
DX: E78.5 Hyperlipidemia, unspecified (principal); I10 Essential (primary) hypertension; E11.9 Type 2 diabetes mellitus without complications; R39.9 Unspecified symptoms and signs involving the genitourinary system

== ENCOUNTER 2017-10-14 14:38 | Emergency (ER) | payer OTHER ==
[~2017-10-14] VITALS: Ht 175.3 cm; Wt 171.4 kg
[~2017-10-14 14:38] MED LIST changes: +ALFU10TA2 PO; -ALFU10TA30 PO
[2017-10-14 14:43] VITALS: TEMP 36.8; Ht 175.3 cm; Wt 171.4 kg
[2017-10-14 15:40] LABS: BASO % 0.2 %; BASO ABS # 0.03 K/uL (0-0.2); COMPLETE YES; EOS % 1.8 %; HEMATOCRIT 39.3 % (42-52); IG% 0.2 %; LYMPH % 18.8 %; LYMPH ABS # 2.34 K/uL (1.2-3.4); MEAN CELL VOLUME 88.7 fL (80-100); MEAN CORPUSCULAR HGB CONC 33.8 g/dl (32-36); MONO % 8.1 %; NEUT % 70.9 %; PLATELET COUNT 246 K/uL (130-400); RED BLOOD COUNT 4.43 M/uL (4.7-6.1); WHITE BLOOD COUNT 12.46 K/uL (4.8-10.8)
[2017-10-14 15:49] LABS: BUN/CREATININE RATIO 29.2 (10-20); CREATININE 0.87 mg/dl (0.60-1.40); POTASSIUM 3.7 mmol/L (3.5-5.1)
--- NOTE | 2017-10-14 16:06 | DIAGNOSTIC IMAGING REPORT ---
RIGHT UPPER EXTREMITY VENOUS DOPPLER HISTORY: right arm swelling, redness COMPARISON STUDY: None. FINDINGS: The right internal jugular vein is patent. There is normal flow within the right subclavian vein. There is normal flow and compressibility within the right axillary, basilic, brachial, radial, ulnar, and visualized cephalic veins. Subcutaneous edema and increased echogenicity within the fat at the medial elbow. This favors a cellulitis. IMPRESSION: No DVT within the right upper extremity. Electronically signed by: Rip Castellano M.D. 10/14/2017 4:04 PM Dictated Date/Time: 10/14/2017 4:04 PM
[2017-10-14] MEDS ORDERED: CALC500C70 PO (16:19)
[2017-10-14] MEDS ORDERED: DOXY100C PO (16:35)
--- NOTE | 2017-10-14 16:36 | EMERGENCY ROOM VISIT NOTE ---
History First contact with patient: 14:46 Chief Complaint: SWELLING TO EXTREMITY Stated Complaint: R ARM SWOLLEN FROM ELBOW TO WRIST, WARM History of Present Illness The patient is a 52 year old male who presents to the Emergency Room with complaints of right arm redness and swelling. The patient states that yesterday , he noticed some redness of his right forearm. He states that today, the redness has been spreading. He has noticed some swelling. He denies pain but states that the area feels tight. He rates his discomfort a 3/10. He is concerned about a possible blood clot. He denies any history of blood clots. He is not a smoker. He denies recent travel. He has no cancer history. He denies any previous injury to the area. Review of Systems A complete 10 point review of systems was reviewed with the patient with pertinent positives and negatives as per history of present illness. All else were negative. Past Medical/Surgical History Medical Problems: (1) Asthma (2) Diabetes (3) Hernia (4) Hypertension (5) Sleep apnea (6) Stomach problems Family History Diabetes mellitus Heart disease Hypertension Social History Smoking Status: Never Smoker Alcohol Use: none Drug Use: none Marital Status: single Housing Status: lives alone Occupation Status: employed Current/Historical Medications Scheduled Alfuzosin Hcl (Uroxatral), 10 MG PO QDD Aspirin (Aspirin Ec), 81 MG PO DAILY Calcium/Vitamin D (Os-[place] A 500 Plus D), 1 TAB PO BID Coenzyme Q10 (Ubidecarenone) (Co Q-10), 50 MG PO DAILY Doxycycline Hyclate (Vibramycin), 100 MG PO BID Ergocalciferol (Vitamin D 80281 Unit), 50,000 UNIT PO WK Glimepiride (Glimepiride), 2 MG PO QAM Hydrochlorothiazide (Hctz), 12.5 MG PO DAILY Liraglutide (Victoza), 1.8 MG SQ UD Losartan Potassium (Cozaar), 100 MG PO QAM Metformin Hcl (Glucophage), 1,000 MG PO BID Omeprazole (Eql Omeprazole), 20 MG PO DAILY Oxybutynin Chloride (Oxybutynin Chloride ER), 10 MG PO DAILY Rosuvastatin Calcium (Crestor), 5 MG PO DAILY Sertraline (Zoloft), 150 MG PO DAILY Scheduled PRN Albuterol Hfa (Ventolin Hfa), 2-4 PUFFS INH Q6H PRN for Wheezing Physical Exam Vital Signs Date Time Temp Pulse Resp B/P (MAP) Pulse Ox O2 Delivery O2 Flow Rate FiO2 10/14/17 16:45 77 20 113/62 97 10/14/17 16:22 77 20 113/62 97 Room Air 10/14/17 14:43 36.8 97 18 105/68 94 Room Air Physical Exam VITALS: Vitals are noted on the nurse's note and reviewed by myself. Vital signs stable. GENERAL: This is a 52-year-old male, in no acute distress, nondiaphoretic, well- developed well-nourished. SKIN: There is an area of erythema and warmth extending from mid way up the right forearm to just above the right elbow. HEART: Regular rate and rhythm without murmurs gallops or rubs. LUNGS: Clear to auscultation bilaterally without wheezes, rales or rhonchi. MUSCULOSKELETAL: Full range of motion of the right elbow. Radial pulse 2+. NEURO: Patient was alert and oriented to person place and time. Medical Decision & Procedures ER Provider Diagnostic Interpretation: RIGHT UPPER EXTREMITY VENOUS DOPPLER HISTORY: right arm swelling, redness COMPARISON STUDY: None. FINDINGS: The right internal jugular vein is patent. There is normal flow within the right subclavian vein. There is normal flow and compressibility within the right axillary, basilic, brachial, radial, ulnar, and visualized cephalic veins. Subcutaneous edema and increased echogenicity within the fat at the medial elbow. This favors a cellulitis. IMPRESSION: No DVT within the right upper extremity Laboratory Results 10/14/17 15:05 Red Blood Count 4.43, Mean Corpuscular Volume 88.7, Mean Corpuscular Hemoglobin 30.0, Mean Corpuscular Hemoglobin Concent 33.8, Mean Platelet Volume 10.0, Neutrophils (%) (Auto) 70.9, Lymphocytes (%) (Auto) 18.8, Monocytes (%) (Auto) 8.1, Eosinophils (%) (Auto) 1.8, Basophils (%) (Auto) 0.2, Neutrophils # (Auto) 8.84, Lymphocytes # (Auto) 2.34, Monocytes # (Auto) 1.01, Eosinophils # (Auto) 0.22, Basophils # (Auto) 0.03 10/14/17 15:05 Test 10/14/17 15:05 White Blood Count 12.46 K/uL (4.8-10.8) Red Blood Count 4.43 M/uL (4.7-6.1) Hemoglobin 13.3 g/dL (14.0-18.0) Hematocrit 39.3 % (42-52) Mean Corpuscular Volume 88.7 fL (80-100) Mean Corpuscular Hemoglobin 30.0 pg (25-34) Mean Corpuscular Hemoglobin Concent 33.8 g/dl (32-36) Platelet Count 246 K/uL (130-400) Mean Platelet Volume 10.0 fL (7.4-10.4) Neutrophils (%) (Auto) 70.9 % Lymphocytes (%) (Auto) 18.8 % Monocytes (%) (Auto) 8.1 % Eosinophils (%) (Auto) 1.8 % Basophils (%) (Auto) 0.2 % Neutrophils # (Auto) 8.84 K/uL (1.4-6.5) Lymphocytes # (Auto) 2.34 K/uL (1.2-3.4) Monocytes # (Auto) 1.01 K/uL (0.11-0.59) Eosinophils # (Auto) 0.22 K/uL (0-0.5) Basophils # (Auto) 0.03 K/uL (0-0.2) RDW Standard Deviation 45.5 fL (36.4-46.3) RDW Coefficient of Variation 14.0 % (11.5-14.5) Immature Granulocyte % (Auto) 0.2 % Immature Granulocyte # (Auto) 0.02 K/uL (0.00-0.02) Anion Gap 7.0 mmol/L (3-11) Est Creatinine Clear Calc Drug Dose 152.4 ml/min Estimated GFR () 113.4 Estimated GFR (Non- 97.8 BUN/Creatinine Ratio 29.2 (10-20) Calcium Level 9.0 mg/dl (8.5-10.1) Medical Decision Differential diagnosis includes cellulitis, DVT, superficial thrombosis, among others. The patient is a 52-year-old male who presents today complaining of right arm redness and swelling. Labs revealed mild leukocytosis. Patient is afebrile. Ultrasound negative. Exam consistent with cellulitis. The redness does extend over the elbow, but does not appear to be joint infection. Patient has full range of motion of the elbow and there is no significant tenderness over the elbow. Patient has allergy to Bactrim and developed hives when he receives penicillins. The area of cellulitis was outlined with a skin marker. The patient was advised to return here if there is worsening redness/swelling, fevers or any other worsening symptoms. He was instructed to make an appointment with his primary care provider in 2 days for a recheck. The patient's case was reviewed with Dr. Britton, ED attending physician, who agreed with my assessment and treatment plan. Based on the patient's presentation and work up, I feel the patient is stable for outpatient treatment. The patient was educated to return to the emergency department for any worsening of their current condition or new/concerning symptoms. He will follow up with his PCP. Medication Reconcilliation Current Medication List: was personally reviewed by me Blood Pressure Screening Patient's blood pressure: Normal blood pressure Impression Primary Impression: Cellulitis of right upper extremity Departure Information Dispostion Home / Self-Care Condition GOOD Prescriptions Doxycycline Hyclate (VIBRAMYCIN) 100 Mg Cap 100 MG PO BID for 10 Days, #20 CAP Prov: Katja Benoit ., JADA 10/14/17 Referrals Josafat Medrano M.D. (PCP) Patient Instructions My [facility] Additional Instructions You were prescribed doxycycline to be taken twice daily for 10 days. This is an antibiotic. All antibiotics have the potential to cause diarrhea. Stop this medication and contact a medical provider if you were to develop any significant adverse side effects including: wheezing, shortness of breath, passing out, vomiting, or a diffuse rash. Always take antibiotics as directed and COMPLETE the ENTIRE course regardless of the improvement of your symptoms. For pain control, you can use the following [id number] medicines (if >12 yo): - Regular strength (325mg/tab) Tylenol (acetaminophen) 2 tabs every 4-6 hours as needed. Do not exceed 12 tablets in a 24 hour period. Avoid taking more than 4 grams (4000 mg) of Tylenol per day. This includes any other sources of acetaminophen you may take on a regular basis. - Regular strength (200 mg/tab) Advil (ibuprofen) 1-2 tabs every 4-6 hours as needed. Do not exceed a dose of 3200 mg per day. Call your primary care provider. You should have a follow-up appointment in 2 days for a recheck. Return here if there is worsening swelling, redness, fevers or any other new/ concerning symptoms.
[2017-10-14 16:45] VITALS: BP 113/62; PULSE 77; O2SAT 97
== END 2017-10-14 16:46 | disposition home or self-care (01) ==
LOC: C.EDB 14:39 → C.EDA 16:46
DX: L03.111 Cellulitis of right axilla (principal); J45.909 Unspecified asthma, uncomplicated; E11.9 Type 2 diabetes mellitus without complications; I10 Essential (primary) hypertension; Z83.3 Family history of diabetes mellitus; Z82.49 Family history of ischemic heart disease and other diseases of the circulatory system; Z79.82 Long term (current) use of aspirin

== ENCOUNTER 2017-12-10 09:39 | Emergency (ER) | payer OTHER ==
[~2017-12-10] VITALS: Ht 172.7 cm; Wt 174.8 kg
[~2017-12-10 09:39] MED LIST changes: +CALC500C70 PO; -CIPR-255 PO
[2017-12-10 09:41] VITALS: Ht 172.7 cm; Wt 174.8 kg
[2017-12-10 11:08] LABS: BASO % 0.3 %; BASO ABS # 0.04 K/uL (0-0.2); EOS ABS # 0.24 K/uL (0-0.5); HEMATOCRIT 39.4 % (42-52); HEMOGLOBIN 13.3 g/dL (14.0-18.0); IG# 0.04 K/uL (0.00-0.02); LYMPH ABS # 1.71 K/uL (1.2-3.4); MEAN CELL VOLUME 88.3 fL (80-100); MEAN CORPUSCULAR HEMOGLOBIN 29.8 pg (25-34); MEAN CORPUSCULAR HGB CONC 33.8 g/dl (32-36); MEAN PLATELET VOLUME 9.6 fL (7.4-10.4); MONO % 6.4 %; MONO ABS # 0.78 K/uL (0.11-0.59); NEUT ABS # 9.43 K/uL (1.4-6.5); PLATELET COUNT 219 K/uL (130-400); RED CELL DISTRIBUTION WIDTH CV 14.2 % (11.5-14.5); RED CELL DISTRIBUTION WIDTH SD 45.9 fL (36.4-46.3); WHITE BLOOD COUNT 12.24 K/uL (4.8-10.8)
[2017-12-10 11:28] LABS: CREATININE 0.82 mg/dl (0.60-1.40); POTASSIUM 3.7 mmol/L (3.5-5.1)
[2017-12-10 12:20] VITALS: TEMP 36.8
[2017-12-10 12:39] VITALS: BP 154/80; PULSE 75; O2SAT 97
--- NOTE | 2017-12-10 13:45 | EMERGENCY ROOM VISIT NOTE ---
History Report prepared by Stephanie: Rodriguez Lawton Under the Supervision of: Dr. Monster Newman M.D. First contact with patient: 09:52 Chief Complaint: HAND PAIN/INJURY Stated Complaint: MIDDLE FINGER, LEFT HAND, INFECTION History of Present Illness The patient is a 52 year old male who presents to the Emergency Room with complaints of worsening left middle finger infection. The patient noticed the infection this morning. He is concerned because he has noticed red streaks up his arm. The patient has a history of Type II diabetes. He states that his blood sugar has been running high recently. States he was recently on Prednisone for URI. He notes that he has a prescription for Doxycycline for his URI that he has not picked up yet. The patient denies any fevers. He denies recent chemical exposure. Source of History: patient Onset: this morning Position: finger(s) (left middle) Quality: other (infection) Timing: worsening Associated Symptoms: No fevers Review of Systems See HPI for pertinent positives and negatives. A total of ten systems were reviewed and were otherwise negative. Past Medical & Surgical Medical Problems: (1) Asthma (2) Diabetes (3) Hernia (4) Hypertension (5) Sleep apnea (6) Stomach problems Family History Diabetes mellitus Heart disease Hypertension Social History Smoking Status: Never Smoker Alcohol Use: none Drug Use: none Marital Status: single Housing Status: lives alone Occupation Status: employed Current/Historical Medications Scheduled Alfuzosin Hcl (Uroxatral), 10 MG PO QDD Aspirin (Aspirin Ec), 81 MG PO DAILY Calcium/Vitamin D (Os-Jorge A 500 Plus D), 1 TAB PO BID Coenzyme Q10 (Ubidecarenone) (Co Q-10), 50 MG PO DAILY Ergocalciferol (Vitamin D 35871 Unit), 50,000 UNIT PO WK Glimepiride (Glimepiride), 2 MG PO QAM Hydrochlorothiazide (Hctz), 12.5 MG PO DAILY Losartan Potassium (Cozaar), 100 MG PO QAM Metformin Hcl (Glucophage), 1,000 MG PO BID Omeprazole (Eql Omeprazole), 20 MG PO DAILY Oxybutynin Chloride (Oxybutynin Chloride ER), 10 MG PO DAILY Rosuvastatin Calcium (Crestor), 5 MG PO DAILY Sertraline (Zoloft), 150 MG PO DAILY Scheduled PRN Albuterol Hfa (Ventolin Hfa), 2-4 PUFFS INH Q6H PRN for Wheezing Allergies Coded Allergies: Penicillins (Verified Allergy, Intermediate, RASH, 10/14/17) Sulfamethoxazole w/Trimethoprim (Verified Allergy, Unknown, ., 10/14/17) Physical Exam Vital Signs Date Time Temp Pulse Resp B/P (MAP) Pulse Ox O2 Delivery O2 Flow Rate FiO2 12/10/17 12:39 75 20 154/80 97 12/10/17 12:20 36.8 12/10/17 11:11 79 20 144/95 96 Room Air 12/10/17 09:41 36.9 94 18 166/83 95 Room Air Physical Exam GENERAL: Awake, alert, well-appearing, in no distress HENT: Normocephalic, Atraumatic. no hemotympanum bilaterally, villafana sign negative bilaterally. Oropharynx unremarkable. EYES: Normal conjunctiva. Sclera non-icteric. PERRL bilaterally. EOMI bilaterally. NECK: Supple. No nuchal rigidity. FROM. No JVD. No C-spine tenderness. RESPIRATORY: Clear to auscultation. No wheezes, rhonchi or rales bilaterally. CARDIAC: Regular rate, normal rhythm. Extremities warm and well perfused. Equal palpable radial pulses to the bilateral upper extremities. Equal palpable DP pulses to the bilateral lower extremities. ABDOMEN: Obese, soft, non-distended. No tenderness to palpation. No rebound or guarding. No masses. Rovsig Negative. RECTAL: Deferred. UPPER EXTREMITIES: LUE: Redness around the left middle finger with mild streak garcia going up his wrist and to his distal forearm. Nikolsky negative. No obvious felon or paronychia. No fluctuance. No obvious abscess. Compartments are soft. No pain with flexion or extension of his wrist. No pain on palpation of the flexor tendons of the forearm. No swelling of the upper extremities. B/l Motor and sensation intact in radial, median, and ulnar nerve distribution. RUE: Compartments soft. Full range of motion all joints. Motor and sensation intact in the median radial ulnar nerve distribution. LOWER EXTREMITIES: Calves are equal size bilaterally and non-tender. No edema. No discoloration. NEURO: Normal sensorium. No sensory or motor deficits noted. No pronator drift. No facial droop. No dysarthria. SKIN: No rash or jaundice noted. Medical Decision & Procedures Laboratory Results 12/10/17 10:20 Red Blood Count 4.46, Mean Corpuscular Volume 88.3, Mean Corpuscular Hemoglobin 29.8, Mean Corpuscular Hemoglobin Concent 33.8, Mean Platelet Volume 9.6, Neutrophils (%) (Auto) 77.0, Lymphocytes (%) (Auto) 14.0, Monocytes (%) (Auto) 6.4, Eosinophils (%) (Auto) 2.0, Basophils (%) (Auto) 0.3, Neutrophils # (Auto) 9.43, Lymphocytes # (Auto) 1.71, Monocytes # (Auto) 0.78, Eosinophils # (Auto) 0.24, Basophils # (Auto) 0.04 12/10/17 10:20 Test 12/10/17 10:16 12/10/17 10:20 Bedside Glucose 145 mg/dl (70-99) White Blood Count 12.24 K/uL (4.8-10.8) Red Blood Count 4.46 M/uL (4.7-6.1) Hemoglobin 13.3 g/dL (14.0-18.0) Hematocrit 39.4 % (42-52) Mean Corpuscular Volume 88.3 fL (80-100) Mean Corpuscular Hemoglobin 29.8 pg (25-34) Mean Corpuscular Hemoglobin Concent 33.8 g/dl (32-36) Platelet Count 219 K/uL (130-400) Mean Platelet Volume 9.6 fL (7.4-10.4) Neutrophils (%) (Auto) 77.0 % Lymphocytes (%) (Auto) 14.0 % Monocytes (%) (Auto) 6.4 % Eosinophils (%) (Auto) 2.0 % Basophils (%) (Auto) 0.3 % Neutrophils # (Auto) 9.43 K/uL (1.4-6.5) Lymphocytes # (Auto) 1.71 K/uL (1.2-3.4) Monocytes # (Auto) 0.78 K/uL (0.11-0.59) Eosinophils # (Auto) 0.24 K/uL (0-0.5) Basophils # (Auto) 0.04 K/uL (0-0.2) RDW Standard Deviation 45.9 fL (36.4-46.3) RDW Coefficient of Variation 14.2 % (11.5-14.5) Immature Granulocyte % (Auto) 0.3 % Immature Granulocyte # (Auto) 0.04 K/uL (0.00-0.02) Anion Gap 7.0 mmol/L (3-11) Est Creatinine Clear Calc Drug Dose 161.6 ml/min Estimated GFR () 116.2 Estimated GFR (Non- 100.3 BUN/Creatinine Ratio 18.2 (10-20) Calcium Level 9.0 mg/dl (8.5-10.1) Laboratory results reviewed by fl ED Course 0958: The patient was evaluated in room B12B. A complete history and physical exam was performed. 1232: The patient's vital signs are stable. He has a mild leukocytosis, most like due to recent Prednisone usage. Patient has not been taking Doxycycline, prescribe by his PCP. I spoke with his PCP who feels comfortable with outpatient follow up. PCP will see the patient in two days for wound check.. Patient will start taking the Doxycycline the PCP prescribed which will help his cellulitis as well as the upper respiratory tract infection.. No signs of flexor tenosynovitis. Discussed return precautions. The patient was discharged. DISCHARGE - Plan of care discussed with patient and questions answered. The patient was given both verbal and printed discharge instructions. The patient verbalized understanding and ability to comply. The patient is to seek outpatient follow up as noted in the discharge instructions. The patient verbalized understanding and ability to comply. The patient is discharged in stable condition. The patient was instructed to return for worsening symptoms. Medical Decision The patient's vital signs are stable. He has a mild leukocytosis, most like due to recent Prednisone usage. Patient has not been taking Doxycycline, prescribe by his PCP. I spoke with his PCP who feels comfortable with outpatient follow up. PCP will see the patient in two days for wound check.. Patient will start taking the Doxycycline the PCP prescribed which will help his cellulitis as well as the upper respiratory tract infection.. No signs of flexor tenosynovitis. Discussed return precautions. The patient was discharged. DISCHARGE - Plan of care discussed with patient and questions answered. The patient was given both verbal and printed discharge instructions. The patient verbalized understanding and ability to comply. The patient is to seek outpatient follow up as noted in the discharge instructions. The patient verbalized understanding and ability to comply. The patient is discharged in stable condition. The patient was instructed to return for worsening symptoms. Medication Reconcilliation Current Medication List: was personally reviewed by me Blood Pressure Screening Patient's blood pressure: Elevated blood pressure Blood pressure disposition: Elevated BP felt to be situational Consults Time Called: 1220 Consulting Physician: Dr. Josafat Medrano - Primary Care Returned Call: 1226 Discussed the patient's case. Dr. Medrano agrees to follow up with the patient in two days for outpatient wound check. Impression Primary Impression: Cellulitis Scribe Attestation The scribe's documentation has been prepared under my direction and personally reviewed by me in its entirety. I confirm that the note above accurately reflects all work, treatment, procedures, and medical decision making performed by me. The chart was completed utilizing [employer] Speech voice recognition software. Grammatical errors, random word insertions, pronoun errors, and incomplete sentences are an occasional consequence of this system due to software limitations, ambient noise, and hardware issues. Any formal questions or concerns about the content, text, or information contained within the body of this dictation should be directly addressed to the physician for clarification. Departure Information Dispostion Home / Self-Care Referrals Josafat Medrano M.D. (PCP) Forms HOME CARE DOCUMENTATION FORM, IMPORTANT VISIT INFORMATION Patient Instructions Cellulitis [place], My [facility] Additional Instructions Return to the emergency department if you develop fever greater than 100.4, difficulty moving your finger or arm, your blood sugars are out of control greater than 200, or your symptoms of the redness on your upper extremity become worse. Make sure to leaf size picker your already called in prescription for doxycycline and take as instructed. Problem Qualifiers Primary Impression: Cellulitis Site of cellulitis: extremity Site of cellulitis of extremity: upper extremity Laterality: left Qualified Codes: L03.114 - Cellulitis of left upper limb
== END 2017-12-10 12:41 | disposition home or self-care (01) ==
LOC: C.EDB 09:41
DX: L03.114 Cellulitis of left upper limb (principal); E11.9 Type 2 diabetes mellitus without complications; J45.909 Unspecified asthma, uncomplicated; I10 Essential (primary) hypertension; G47.30 Sleep apnea, unspecified; Z83.3 Family history of diabetes mellitus; Z82.49 Family history of ischemic heart disease and other diseases of the circulatory system; Z79.82 Long term (current) use of aspirin; Z79.84 Long term (current) use of oral hypoglycemic drugs; Z79.899 Other long term (current) drug therapy

== ENCOUNTER → 2018-01-25 | Outpatient (CLI) | payer OTHER ==
[~2018-01-25] MED LIST changes: -LIRA18IN SQ
[2018-01-25 13:51] LABS: BASO % 0.2 %; BASO ABS # 0.02 K/uL (0-0.2); EOS % 4.8 %; EOS ABS # 0.39 K/uL (0-0.5); HEMATOCRIT 40.2 % (42-52); HEMOGLOBIN 13.4 g/dL (14.0-18.0); IG# 0.02 K/uL (0.00-0.02); LYMPH % 25.6 %; LYMPH ABS # 2.07 K/uL (1.2-3.4); MEAN CELL VOLUME 88.2 fL (80-100); MEAN CORPUSCULAR HEMOGLOBIN 29.4 pg (25-34); MEAN CORPUSCULAR HGB CONC 33.3 g/dl (32-36); MEAN PLATELET VOLUME 9.7 fL (7.4-10.4); MONO % 7.4 %; NEUT % 61.8 %; NEUT ABS # 4.98 K/uL (1.4-6.5); PLATELET COUNT 266 K/uL (130-400); RED CELL DISTRIBUTION WIDTH CV 15.1 % (11.5-14.5); RED CELL DISTRIBUTION WIDTH SD 48.5 fL (36.4-46.3); WHITE BLOOD COUNT 8.08 K/uL (4.8-10.8)
[2018-01-25 14:13] LABS: HEMOGLOBIN A1C 6.8 % (4.5-5.6)
[2018-01-25 14:20] LABS: ALBUMIN 3.4 gm/dl (3.4-5.0); ALT/SGPT 37 U/L (12-78); BLOOD UREA NITROGEN 16 mg/dl (7-18); CARBON DIOXIDE 27 mmol/L (21-32); CREATININE 0.69 mg/dl (0.60-1.40); GLUCOSE 164 mg/dl (70-99); POTASSIUM 3.9 mmol/L (3.5-5.1); SODIUM 139 mmol/L (136-145)
[2018-01-25 14:23] LABS: ALKALINE PHOSPHATASE 82 U/L (45-117); AST/SGOT 18 U/L (15-37); TOTAL PROTEIN 7.4 gm/dl (6.4-8.2)
== END | disposition home or self-care (01) ==
LOC: C.LABBC 09:59
PROVIDERS: ATTEND Internal Medicine Geriatric Medicine
DX: I10 Essential (primary) hypertension (principal); E11.9 Type 2 diabetes mellitus without complications; F41.8 Other specified anxiety disorders; E78.5 Hyperlipidemia, unspecified; E55.9 Vitamin D deficiency, unspecified; B35.1 Tinea unguium; Z68.43 Body mass index [BMI] 50.0-59.9, adult

== ENCOUNTER → 2018-05-22 | Outpatient (CLI) | payer OTHER ==
[2018-05-22 09:09] LABS: BASO % 0.4 %; BASO ABS # 0.03 K/uL (0-0.2); EOS % 5.7 %; EOS ABS # 0.38 K/uL (0-0.5); HEMATOCRIT 40.2 % (42-52); HEMOGLOBIN 13.6 g/dL (14.0-18.0); IG# 0.01 K/uL (0.00-0.02); LYMPH % 31.7 %; LYMPH ABS # 2.13 K/uL (1.2-3.4); MEAN CELL VOLUME 86.3 fL (80-100); MEAN CORPUSCULAR HEMOGLOBIN 29.2 pg (25-34); MEAN CORPUSCULAR HGB CONC 33.8 g/dl (32-36); MEAN PLATELET VOLUME 9.9 fL (7.4-10.4); MONO % 7.3 %; MONO ABS # 0.49 K/uL (0.11-0.59); NEUT % 54.8 %; NEUT ABS # 3.67 K/uL (1.4-6.5); PLATELET COUNT 221 K/uL (130-400); RED CELL DISTRIBUTION WIDTH CV 14.1 % (11.5-14.5); RED CELL DISTRIBUTION WIDTH SD 44.2 fL (36.4-46.3); WHITE BLOOD COUNT 6.71 K/uL (4.8-10.8)
== END | disposition home or self-care (01) ==
LOC: C.LAB 08:47
PROVIDERS: ATTEND Family Medicine
DX: E29.1 Testicular hypofunction (principal)

== ENCOUNTER → 2018-06-07 | Outpatient (CLI) | payer OTHER | END | disposition home or self-care (01) | LOC: C.LABBC 11:35 | PROVIDERS: ATTEND Urology | DX: N40.0 Benign prostatic hyperplasia without lower urinary tract symptoms (principal) ==

== ENCOUNTER → 2018-06-07 | Outpatient (CLI) | payer OTHER ==
--- NOTE | 2018-06-07 13:18 | DIAGNOSTIC IMAGING REPORT ---
CERVICAL SPINE 2 OR 3 VIEWS HISTORY: Pain. Neuropathy. R20.2 Paresthesia of upper extremitytingling in both hands and h COMPARISON: None. FINDINGS: The cervical spine is visualized from C1 through the superior endplate of T1. There is no fracture. No subluxation. Disc spaces are preserved. Prevertebral soft tissues and the atlantodens interval are intact. IMPRESSION: No fracture or subluxation within the cervical spine. The above report was generated using voice recognition software. It may contain grammatical, syntax or spelling errors. Electronically signed by: Grady Akins M.D. 06/07/2018 1:16 PM Dictated Date/Time: 06/07/2018 1:16 PM
== END | disposition home or self-care (01) ==
LOC: C.RADBC 12:15
PROVIDERS: ATTEND Family Medicine Adult Medicine
DX: R20.2 Paresthesia of skin (principal)

== ENCOUNTER 2024-05-03 12:53 | Inpatient (IN) ==
[2024-05-03 14:41] LABS: Basophils # (auto) 0.03 K/uL (0.00-0.20); Basophils % (auto) 0.2 %; Eosinophils # (auto) 0.09 K/uL (0.00-0.50); Eosinophils % (auto) 0.7 %; Hematocrit (blood only) 33.7 % (42.0-52.0); Hemoglobin 11.1 g/dl (14.0-18.0); Immature Granulocytes # (auto) 0.05 K/uL (0.01-0.20); Immature Granulocytes % (auto) 0.4 %; Lymphocytes % (auto) 13.4 %; Mean Corpuscular Hemoglobin 30.3 pg (25.0-34.0); Mean Corpuscular Hgb Conc 32.9 g/dL (32.0-36.0); Mean Corpuscular Volume 92.1 fL (80.0-100.0); Mean Platelet Volume 10.3 fL (9.4-12.4); Monocytes # (auto) 1.16 K/uL (0.11-0.59); Monocytes % (auto) 8.6 %; Neutrophils # (auto) 10.32 K/uL (1.40-6.50); Neutrophils % (auto) 76.7 %; Platelet Count 257 K/uL (130-400); RDW Coefficient of Variation 14.4 % (11.5-14.5); RDW Standard Deviation 48.8 fL (36.4-46.3); Red Blood Count 3.66 M/uL (4.70-6.10); White Blood Count 13.45 K/ul (4.8-10.8)
[2024-05-03 14:46] LABS: BUN Creatinine Ratio 21.3 (10-20); Calcium 9.3 mg/dl (8.6-10.3); Creatinine Clr Calc Pharmacy 90.3 ml/min; Est GFR (African American) 70.7 ml/min; Potassium 3.7 mmol/L (3.5-5.1)
--- NOTE | 2024-05-03 14:49 | History & Physical Report ---
Date of Service May 03, 2024 Assessment & Plan (1) Infection of left knee: Plan: Left TKR with Dr. Houston on 03/25/24 Patient was at PT on Sunday 04/29 and opened stitches; prescribed Cefadroxil 500mg BID Knee has gradually worsened since then; erythematous and swollen with purulent drainage Planned I&D with Dr. Houston on 05/04 at 11:00 AM Leukocytosis at 13.45 with neutrophil predominance; afebrile on arrival Left knee x-ray ordered, pending Gram stain / wound culture ordered, pending CRP, ESR, and PCT ordered, pending Daily wound care Ancef x 1 in the ED Will switch to daptomycin IV q24h as patient failed outpatient therapy with Cefadroxil Follow blood cultures Acetaminophen as needed for pain/fever N.p.o. at midnight Will scheduled AM medications to be taken at noon on 05/04 (after procedure) Hold ASA prior to surgery (patient reports he takes for primary ppx; no hx of stents) A.m. CBC, BMP (2) Type 2 diabetes mellitus: Plan: Last A1c at 6.0% on 02/16/2024 Hold metformin SSI; with target BSG range 110-140mg/dL, CF 30, carb ratio 10 T2DM diet BSG ACHS Adjust regimen as needed (3) MAC on CPAP: Plan: CPAP at bedtime (4) GAVE (gastric antral vascular ectasia): Plan Disposition: Admit to [facility] Full code T2DM diet (n.p.o. at midnight) DVT PPx: Hold chemical DVT PPx prior to I&D History of Present Illness Chief Complaint: Recent left knee replacement, stitches opened/infected Primary Care Provider: DO Christopher Degroot is a 58-year-old male with PMH of T2DM, MCA, GERD, dyslipidemia, BPH, anxiety depression, asthma, HTN, GAVE, metabolic syndrome, and left DJD. He presented at the behest of Ortho for a planned I&D of his left knee on 05/04. History of recent left total knee surgery on 03/25/2024. He reports that he was at PT on Sunday 04/29, and was using a sliding board when he felt his knee split open. The knee was bleeding at the time, and first-aid was administered, he then went to [facility] Thursday afternoon to have it formally addressed; was started on Keflex 500mg BID outpatient on Thursday. Patient was told to lay low over the weekend, then told to come in today when the knee became erythematous/swollen with drainage. Patient is unsure if it has been purulent drainage, but does note it has been mostly clear liquid and blood. He endorses left knee pain at the incision site. No radiation. Worse when walking. He has been ambulating with a walker at baseline recently. He reports that he took all his regular morning medications today; no recent change in medications. He denies blood thinners, but does take aspirin 81 mg twice daily; reports he takes this for preventative prophylaxis. No PMH of DVT/PE, MA, or stents. He denies smoking, tobacco use, or alcohol use. Patient's vitals are stable, admission. ED course: Ancef 1000 mg IV ROS: Patient endorses sweating this morning, intermittent left knee pain and drainage, and left leg swelling (which patient attributes to rain bandage being too tight). Patient denies fever, chills, dizziness, lightheadedness, MAHER, chest pain, SOB, chest pressure, chest palpitations, cough, wheezing, abdominal pain, N/V/D, change in urinary/ bowel habits, or numbness/tingling in the left leg. Allergies Allergy/AdvReac Type Severity Reaction Status Date / Time Penicillins Allergy Intermediate Rash Verified 05/03/24 15:53 sulfamethoxazole Allergy Intermediate Rash Verified 05/03/24 15:53 trimethoprim Allergy Intermediate Rash Verified 05/03/24 15:53 peanut AdvReac Intermediate Diarrhea, Verified 05/03/24 15:53 indigestion soy AdvReac Intermediate diarrhea, Verified 05/03/24 15:53 indigestion wheat AdvReac Intermediate Diarrhea, Verified 05/03/24 15:53 indigestion atorvastatin AdvReac Mild Myalgia Verified 05/03/24 15:53 ezetimibe [From Zetia] AdvReac Mild Myalgia Verified 05/03/24 15:53 rosuvastatin AdvReac Mild Muscle Pain Verified 05/03/24 15:53 Home Medications Medication Instructions Recorded Confirmed Type albuterol sulfate 90 mcg/actuation 2 puff inhalation Q6H PRN 04/10/19 05/03/24 History aerosol inhaler (Ventolin HFA) Shortness Of Breath Or Wheezing bupropion HCl 150 mg tablet,12 hr 150 mg PO QAM 09/19/21 05/03/24 History sustained-release (Wellbutrin SR) multivitamin 1 tab PO QPM 06/24/22 05/03/24 History lancets 30 gauge (OneTouch Delica #100 ea 11/10/22 05/03/24 Rx Lancets) furosemide 20 mg tablet (Lasix) 20 mg PO DAILY PRN edema #30 tabs 12/22/22 05/03/24 Rx metformin 500 mg tablet,extended 500 mg PO TIDWMEAL 04/07/23 05/03/24 History release 24 hr cyanocobalamin (vitamin B-12) 3,000 mcg PO QAM 06/03/23 05/03/24 History 3,000 mcg capsule sertraline 100 mg tablet (Zoloft) 200 mg PO QAM 09/10/23 05/03/24 History montelukast 10 mg tablet 10 mg PO QPM #90 tabs 11/09/23 05/03/24 Rx chlorthalidone 50 mg tablet 50 mg PO QPM 01/06/24 05/03/24 History alfuzosin 10 mg tablet,extended 10 mg PO QPM 02/03/24 05/03/24 History release 24 hr (Uroxatral) losartan 100 mg tablet 100 mg PO QAM 02/03/24 05/03/24 History omeprazole 20 mg capsule,delayed 20 mg PO QAM 02/03/24 05/03/24 History release aspirin 81 mg tablet,delayed 81 mg PO BID #60 tabs 03/27/24 05/03/24 Rx release cefadroxil 500 mg capsule 500 mg PO BID #28 caps 03/27/24 05/03/24 Rx oxycodone 5 mg tablet 5 mg PO Q8H PRN pain #30 tabs 03/27/24 05/03/24 Rx potassium chloride 20 mEq 20 meq PO .COMPLEX #90 tabs 04/26/24 05/03/24 Rx tablet,extended release acetaminophen 500 mg tablet 1,000 mg PO TID fever or pain 05/03/24 05/03/24 History (Tylenol Extra Strength) cholecalciferol (vitamin D3) 50 50 mcg PO BID 05/03/24 05/03/24 History mcg (2,000 unit) tablet (Vitamin D3) tirzepatide 7.5 mg/0.5 mL 7.5 mg subcut .HOLD 05/03/24 05/03/24 History subcutaneous pen injector (Mounjaro) Past Med/Surg History Problem List (Updated 05/03/24 @ 14:53 by RAMON SchafferC) Infection of left knee Degenerative joint disease of knee, left Obesity Physical deconditioning Dietary counseling and surveillance Bilateral primary osteoarthritis of knee Metabolic syndrome GAVE (gastric antral vascular ectasia) (2022) dx in 2022 Encounter for pre-operative examination Hypokalemia Venous insufficiency Diabetic neuropathy "Mild" Type 2 diabetes mellitus NIDDM MAC on CPAP Compliant Gastroesophageal reflux disease Dyslipidemia Per records, patient unsure BPH with obstruction/lower urinary tract symptoms Anxiety and depression Anemia Asthma (Chronic) Hypertension (Chronic) Medical History (Updated 05/03/24 @ 14:53 by Rip Hickman PA-C) Diabetes mellitus Morbid obesity BPH (benign prostatic hyperplasia) Osteoarthritis Bilateral chronic knee pain Allergic rhinitis Surgical History History of esophageal dilatation Hx of prior ablation treatment venous ablation History of hernia surgery As child History of colonoscopy 06/2022 History of esophagogastroduodenoscopy (EGD) History of wisdom tooth extraction History of tooth extraction Status post uvulopalatopharyngoplasty History of repair of anterior cruciate ligament of right knee 1991 History of sinus surgery Family History Mother Diabetes Depression Father Heart disease Myocardial infarction Hypertension Prostate cancer Other No family history of adverse response to anesthesia Denies family history of Ovarian cancer Breast cancer Lung cancer Colorectal cancer Stroke Social History Smoking Status: Never smoker Second Hand Exposure: No; Do You Dip or Chew Tobacco: No; Hx Alcohol Use: No Hx Substance Use: No Preferred Language: Telugu Communication Ability: Effective Visual Impairment: Limited Hearing Ability: Normal [employer] Required: No Beliefs That Will Affect Care: None marital status: Single Current Living Situation: Family Current Living Situation Comment: lives with father needs help current occupational status: employed Feels Safe at Home: Yes Childhood Exposure to Second-Hand Smoke: No Diet: regular caffeine: No during the past year weight has: remained stable Dental Care, Regularly: Yes Physical Activity Frequency: Does not Exercise Seatbelt Use: always Sunscreen Use: No Assistive Devices: Walker Review of Systems 2 Review of Systems: See HPI above Physical Exam 2 Physical Exam: General: no acute distress; non-toxic appearing; well-nourished; cooperative; SpO2 100% on RA HEENT: normocephalic, atraumatic; no scleral icterus; PERRLA; moist mucus membrane; vision and hearing grossly intact Neck: supple; trachea midline Skin: warm, dry without signs of tenting; no cyanosis; no rashes, bruising, lesions, or erythema noted CV: chest wall NTP; RRR; S1/S2 normal; no murmurs/rubs/gallops; pulses intact and symmetric at radial, DP, and PT Lungs: no acute respiratory distress; symmetrical chest wall expansion; clear breath sounds across all lung christiansen w/o adventitious sounds; no wheezing ABD: Soft, NTP; BS present; no rebound/guarding; no distention MSK: no tics or fasciculations; no edema noted in the LEs b/l, nonerythematous Left knee; swollen, erythematous, and warm to touch; incision site split at the center (see photo below); patient demonstrates ability to wiggle toes, plantarflex/dorsiflex ankle against resistance (albeit with some pain) Neuro: A&Ox3; normal mood and affect; fluent speech; no focal deficits; patient reports diminished sensation in the LLE assessed via light touch Results & Data Results & Data Vital Signs (Past 12 Hours) Vital Signs Temp Pulse Pulse Resp BP BP Pulse Ox 05/03/24 14:23 18 98 05/03/24 13:17 80 20 120/72 96 05/03/24 13:11 37.3 C 86 20 124/72 96 05/03/24 13:07 86 O2 Del Method 05/03/24 14:23 Room Air 05/03/24 13:17 Room Air 05/03/24 13:11 Room Air 05/03/24 13:07 Laboratory Results Abnormal lab results 05/03/24 Range/Units 13:05 WBC 13.45 H (4.8-10.8) K/ul RBC 3.66 L (4.70-6.10) M/uL Hgb 11.1 L (14.0-18.0) g/dl Hct 33.7 L (42.0-52.0) % RDW Std Deviation 48.8 H (36.4-46.3) fL Neut # (Auto) 10.32 H (1.40-6.50) K/uL [place] # (Auto) 1.16 H (0.11-0.59) K/uL BUN 27 H (6-23) mg/dl BUN/Creatinine Ratio 21.3 H (10-20) Glucose 215 H (70-99(Fasting)) mg/dl Code Status & VTE Plan Code Status Full code VTE Prophylaxis Plan VTE Prophylaxis will be ordered: Yes Supervising Physician Co-Signing Physician Notes patient was seen and examined, left knee replacement , presents with left knee incision dehiscence, swelling, erythema he was treated with Cefadroxil obtain wound culture iv antibiotics ortho consult npo after midnight washout in am continue meds for chronic medical conditions pain control PG Care Time/CCT Total # of Minutes Spent Total Time Spent with Patient: Total time spent is greater than 50% in coordination of care (as documented) at patient's floor/unit and/or counseling patient: Coding [place] [address] INT INP/OBS CARE 2/55MIN Patient Type Established Medical Decision Making Moderate Complexity Diagnoses Infection of left knee M00.9 Type 2 diabetes mellitus E11.9 MAC on CPAP G47.33; Z99.89 GAVE (gastric antral vascular ectasia) K31.819
[2024-05-03] MEDS ORDERED: GLUCAGON FOR INJ 1 MG VIAL SQ PRN (14:56)
[2024-05-03] MEDS ORDERED: CARBOHYDRATES FOR HYPOGLYCEMIA PO PRN (14:56)
[2024-05-03] MEDS ORDERED: DEXTROSE 50% 50 ML SYRINGE IV PRN (14:56)
[2024-05-03] MEDS ORDERED: GLUCOSE 40% GEL 15 GM TUBE PO PRN (14:56)
[2024-05-03] MEDS ORDERED: GLUCOSE 10 TAB/TUBE PO PRN (14:56)
[2024-05-03] MEDS: ceFAZolin 1000MG 1,000 MG/7.5 ML SYR IV SCH (14:57)
[2024-05-03 15:09] LABS: Partial Thromboplastin Time 28 Seconds (21-31); Prothrombin Time 11.3 Seconds (9.0-12.0)
[2024-05-03 16:10] LABS: C Reactive Protein 23.85 mg/dl (0-0.5)
--- NOTE | 2024-05-03 16:45 | XRay Report ---
XR knee LT 1 or 2V routine CLINICAL HISTORY: Left knee infection COMPARISON STUDY: Left knee 03/21/2014. FINDINGS: There is a left total knee arthroplasty. The hardware is intact. No abnormal periprosthetic lucency. No acute fracture. Moderate to large knee effusion. Mild soft tissue swelling within the le ft knee. Inferior displacement of the patella which could be displaced by the joint effusion. A quadr iceps tendon injury/tear also remains in the differential diagnosis. IMPRESSION: 1. Moderate to large left knee effusion. 2. Inferior displacement of the patella which could be displaced by the joint effusion. A quadriceps tendon injury/tear also remains in the differential diagnosis. 3. No acute fractures. ACT 112: Negative or not required by law. Electronically signed by: Rip Castellano M.D. 05/03/2024 4:44 PM
--- NOTE | 2024-05-03 16:58 | Orthopedic Consultation ---
Date of Consultation May 03, 2024 Assessment & Plan (1) Infection of left knee: Patient has had a traumatic dehiscence of his wound as a result of aggressive physical therapy. He now has communication with the joint and most likely now has secondary infection due to traumatic disruption of the capsule because of aggressive physical therapy. He will be admitted to medical management taken to the operating room on 7 3 for I&D synovectomy polyethylene exchange and then IV antibiotics most likely followed by oral antibiotics. History of Present Illness Reason for Consultation: Left knee open traumatic wound with drainage History of Present Illness patient is a 66-year-old morbidly obese male with a complex medical history who underwent uncomplicated total knee replacement approximately 3 to 4 weeks ago. The patient was doing well until a few days prior when in physical therapy he was doing an exercise where his knee was hyperflexed and it sounds like with a weighted leg press his leg was pushed into the deeper fraction resulting in his incision popping open. At that point he had little pain. It appeared to be superficial. He presented today in the office 3 days later with increased pain and now drainage and obvious that he has had a traumatic dehiscence of his capsular repair due to hyperflexion in the early postop. He is admitted now will need urgent I&D polyethylene exchange and at minimum of 6 weeks IV antibiotics. He is extremely high risk because of his previous comorbidities and his morbid obesity. Allergies Allergy/AdvReac Type Severity Reaction Status Date / Time Penicillins Allergy Intermediate Rash Verified 05/03/24 15:53 sulfamethoxazole Allergy Intermediate Rash Verified 05/03/24 15:53 trimethoprim Allergy Intermediate Rash Verified 05/03/24 15:53 peanut AdvReac Intermediate Diarrhea, Verified 05/03/24 15:53 indigestion soy AdvReac Intermediate diarrhea, Verified 05/03/24 15:53 indigestion wheat AdvReac Intermediate Diarrhea, Verified 05/03/24 15:53 indigestion atorvastatin AdvReac Mild Myalgia Verified 05/03/24 15:53 ezetimibe [From Zetia] AdvReac Mild Myalgia Verified 05/03/24 15:53 rosuvastatin AdvReac Mild Muscle Pain Verified 05/03/24 15:53 Home Medications Medication Instructions Recorded Confirmed Type albuterol sulfate 90 mcg/actuation 2 puff inhalation Q6H PRN 04/10/19 05/03/24 History aerosol inhaler (Ventolin HFA) Shortness Of Breath Or Wheezing bupropion HCl 150 mg tablet,12 hr 150 mg PO QAM 09/19/21 05/03/24 History sustained-release (Wellbutrin SR) multivitamin 1 tab PO QPM 06/24/22 05/03/24 History lancets 30 gauge (OneTouch Delica #100 ea 11/10/22 05/03/24 Rx Lancets) furosemide 20 mg tablet (Lasix) 20 mg PO DAILY PRN edema #30 tabs 12/22/22 05/03/24 Rx metformin 500 mg tablet,extended 500 mg PO TIDWMEAL 04/07/23 05/03/24 History release 24 hr cyanocobalamin (vitamin B-12) 3,000 mcg PO QAM 06/03/23 05/03/24 History 3,000 mcg capsule sertraline 100 mg tablet (Zoloft) 200 mg PO QAM 09/10/23 05/03/24 History montelukast 10 mg tablet 10 mg PO QPM #90 tabs 11/09/23 05/03/24 Rx chlorthalidone 50 mg tablet 50 mg PO QPM 01/06/24 05/03/24 History alfuzosin 10 mg tablet,extended 10 mg PO QPM 02/03/24 05/03/24 History release 24 hr (Uroxatral) losartan 100 mg tablet 100 mg PO QAM 02/03/24 05/03/24 History omeprazole 20 mg capsule,delayed 20 mg PO QAM 02/03/24 05/03/24 History release aspirin 81 mg tablet,delayed 81 mg PO BID #60 tabs 03/27/24 05/03/24 Rx release cefadroxil 500 mg capsule 500 mg PO BID #28 caps 03/27/24 05/03/24 Rx oxycodone 5 mg tablet 5 mg PO Q8H PRN pain #30 tabs 03/27/24 05/03/24 Rx potassium chloride 20 mEq 20 meq PO .COMPLEX #90 tabs 04/26/24 05/03/24 Rx tablet,extended release acetaminophen 500 mg tablet 1,000 mg PO TID fever or pain 05/03/24 05/03/24 History (Tylenol Extra Strength) cholecalciferol (vitamin D3) 50 50 mcg PO BID 05/03/24 05/03/24 History mcg (2,000 unit) tablet (Vitamin D3) tirzepatide 7.5 mg/0.5 mL 7.5 mg subcut .HOLD 05/03/24 05/03/24 History subcutaneous pen injector (Delores) Patient History Medical History (Updated 05/03/24 @ 14:53 by Rip Hickman PA-C) Diabetes mellitus Morbid obesity BPH (benign prostatic hyperplasia) Osteoarthritis Bilateral chronic knee pain Allergic rhinitis Surgical History History of esophageal dilatation Hx of prior ablation treatment venous ablation History of hernia surgery As child History of colonoscopy 06/2022 History of esophagogastroduodenoscopy (EGD) History of wisdom tooth extraction History of tooth extraction Status post uvulopalatopharyngoplasty History of repair of anterior cruciate ligament of right knee 1991 History of sinus surgery Family History Mother Diabetes Depression Father Heart disease Myocardial infarction Hypertension Prostate cancer Other No family history of adverse response to anesthesia Denies family history of Ovarian cancer Breast cancer Lung cancer Colorectal cancer Stroke Social History Smoking Status: Never smoker Second Hand Exposure: No; Do You Dip or Chew Tobacco: No; Hx Alcohol Use: No Hx Substance Use: No Preferred Language: Wolof Communication Ability: Effective Visual Impairment: Limited Hearing Ability: Normal Fulfillment Coordinator Required: No Beliefs That Will Affect Care: None marital status: Single Current Living Situation: Family Current Living Situation Comment: lives with father needs help current occupational status: employed Feels Safe at Home: Yes Childhood Exposure to Second-Hand Smoke: No Diet: regular caffeine: No during the past year weight has: remained stable Dental Care, Regularly: Yes Physical Activity Frequency: Does not Exercise Seatbelt Use: always Sunscreen Use: No Assistive Devices: Walker Physical Exam Physical Exam: Patient's exam today showed about a 3 sonometer opening at the medial side of the patella the patella is mobile and the opening now appears to communicate with the knee joint it is draining some serous and slightly sanguinous fluid there is pain on range of motion. Results & Data Vital Signs (Past 12 Hours) Vital Signs Temp Pulse Pulse Resp BP BP Pulse Ox 05/03/24 16:00 78 20 141/72 H 98 05/03/24 15:54 72 24 100 05/03/24 15:42 72 23 99 05/03/24 15:33 73 15 99 05/03/24 15:30 131/68 05/03/24 15:30 131/68 05/03/24 15:27 75 22 99 05/03/24 15:12 72 18 100 05/03/24 15:00 73 21 100 05/03/24 14:56 130/73 05/03/24 14:56 130/73 05/03/24 14:56 75 20 130/73 98 05/03/24 14:54 75 24 99 05/03/24 14:51 73 21 98 05/03/24 14:42 72 17 98 05/03/24 14:33 73 23 99 05/03/24 14:30 114/66 05/03/24 14:30 114/66 05/03/24 14:23 18 98 05/03/24 14:21 79 28 H 99 05/03/24 14:12 78 25 H 05/03/24 14:00 121/65 05/03/24 14:00 121/65 05/03/24 13:57 76 25 H 99 05/03/24 13:42 79 19 97 05/03/24 13:33 77 24 97 05/03/24 13:30 121/63 05/03/24 13:21 81 20 96 05/03/24 13:17 80 20 120/72 96 05/03/24 13:11 37.3 C 86 20 124/72 96 05/03/24 13:07 86 05/03/24 13:03 87 20 94 05/03/24 13:00 120/72 05/03/24 13:00 120/72 05/03/24 13:00 120/72 O2 Del Method 05/03/24 16:00 Room Air 05/03/24 15:54 05/03/24 15:42 05/03/24 15:33 05/03/24 15:30 05/03/24 15:30 05/03/24 15:27 05/03/24 15:12 05/03/24 15:00 05/03/24 14:56 05/03/24 14:56 05/03/24 14:56 Room Air 05/03/24 14:54 05/03/24 14:51 05/03/24 14:42 05/03/24 14:33 05/03/24 14:30 05/03/24 14:30 05/03/24 14:23 Room Air 05/03/24 14:21 05/03/24 14:12 05/03/24 14:00 05/03/24 14:00 05/03/24 13:57 05/03/24 13:42 05/03/24 13:33 05/03/24 13:30 05/03/24 13:21 05/03/24 13:17 Room Air 05/03/24 13:11 Room Air 05/03/24 13:07 05/03/24 13:03 05/03/24 13:00 05/03/24 13:00 05/03/24 13:00
[2024-05-03] MEDS: DAPTOmycin 425 MG in SYRINGE 0 ML IV STA (18:06)
[2024-05-03] MEDS ORDERED: ONDANSETRON INJ 2 MG/ML 2 ML VIAL IV PRN (18:09)
[2024-05-03] MEDS ORDERED: ALBUTEROL HFA 8 GM INHALER INH PRN (18:09)
[2024-05-03] MEDS: INSULIN ASPART PER UNIT CHARGE SC SCH (18:24)
[2024-05-03] MEDS: ACETAMINOPHEN 325 MG TAB PO PRN (18:32)
--- NOTE | 2024-05-03 19:10 | Emergency Department Note ---
History of Present Illness General Chief complaint: Referred by Doctor Stated complaint: OPEN STICHES, POSSIBLE INFECTION Time Seen by Provider: 05/03/24 13:23 History of Present Illness Provider complaint: Left knee wound Maximum Pain Intensity: 6 58-year-old male presents emergency department for left knee pain. Patient states he had his left knee replaced by Dr. Houston on March 25. Patient reports that yesterday while he was at physical therapy he was doing some exercises and then the stitches and wound opened. He states he went to Dr. Houston's office who told him to come to the office to be admitted. Home Medications Medication Instructions Recorded Confirmed Type albuterol sulfate 90 mcg/actuation 2 puff inhalation Q6H PRN 04/10/19 05/03/24 History aerosol inhaler (Ventolin HFA) Shortness Of Breath Or Wheezing bupropion HCl 150 mg tablet,12 hr 150 mg PO QAM 09/19/21 05/03/24 History sustained-release (Wellbutrin SR) multivitamin 1 tab PO QPM 06/24/22 05/03/24 History lancets 30 gauge (OneTouch Delica #100 ea 11/10/22 05/03/24 Rx Lancets) furosemide 20 mg tablet (Lasix) 20 mg PO DAILY PRN edema #30 tabs 12/22/22 05/03/24 Rx metformin 500 mg tablet,extended 500 mg PO TIDWMEAL 04/07/23 05/03/24 History release 24 hr cyanocobalamin (vitamin B-12) 3,000 mcg PO QAM 06/03/23 05/03/24 History 3,000 mcg capsule sertraline 100 mg tablet (Zoloft) 200 mg PO QAM 09/10/23 05/03/24 History montelukast 10 mg tablet 10 mg PO QPM #90 tabs 11/09/23 05/03/24 Rx chlorthalidone 50 mg tablet 50 mg PO QPM 01/06/24 05/03/24 History alfuzosin 10 mg tablet,extended 10 mg PO QPM 02/03/24 05/03/24 History release 24 hr (Uroxatral) losartan 100 mg tablet 100 mg PO QAM 02/03/24 05/03/24 History omeprazole 20 mg capsule,delayed 20 mg PO QAM 02/03/24 05/03/24 History release aspirin 81 mg tablet,delayed 81 mg PO BID #60 tabs 03/27/24 05/03/24 Rx release cefadroxil 500 mg capsule 500 mg PO BID #28 caps 03/27/24 05/03/24 Rx oxycodone 5 mg tablet 5 mg PO Q8H PRN pain #30 tabs 03/27/24 05/03/24 Rx potassium chloride 20 mEq 20 meq PO .COMPLEX #90 tabs 04/26/24 05/03/24 Rx tablet,extended release acetaminophen 500 mg tablet 1,000 mg PO TID fever or pain 05/03/24 05/03/24 History (Tylenol Extra Strength) cholecalciferol (vitamin D3) 50 50 mcg PO BID 05/03/24 05/03/24 History mcg (2,000 unit) tablet (Vitamin D3) tirzepatide 7.5 mg/0.5 mL 7.5 mg subcut .HOLD 05/03/24 05/03/24 History subcutaneous pen injector (Delores) Allergies Allergy/AdvReac Type Severity Reaction Status Date / Time Penicillins Allergy Intermediate Rash Verified 05/03/24 15:53 sulfamethoxazole Allergy Intermediate Rash Verified 05/03/24 15:53 trimethoprim Allergy Intermediate Rash Verified 05/03/24 15:53 peanut AdvReac Intermediate Diarrhea, Verified 05/03/24 15:53 indigestion soy AdvReac Intermediate diarrhea, Verified 05/03/24 15:53 indigestion wheat AdvReac Intermediate Diarrhea, Verified 05/03/24 15:53 indigestion atorvastatin AdvReac Mild Myalgia Verified 05/03/24 15:53 ezetimibe [From Zetia] AdvReac Mild Myalgia Verified 05/03/24 15:53 rosuvastatin AdvReac Mild Muscle Pain Verified 05/03/24 15:53 Past Med/Surg History Problem List (Updated 05/03/24 @ 19:10 by Monster Newman MD) Infection of left knee (Acute) Degenerative joint disease of knee, left Obesity Physical deconditioning Dietary counseling and surveillance Bilateral primary osteoarthritis of knee Metabolic syndrome GAVE (gastric antral vascular ectasia) (2022) dx in 2022 Encounter for pre-operative examination Hypokalemia Venous insufficiency Diabetic neuropathy "Mild" Type 2 diabetes mellitus NIDDM MAC on CPAP Compliant Gastroesophageal reflux disease Dyslipidemia Per records, patient unsure BPH with obstruction/lower urinary tract symptoms Anxiety and depression Anemia Asthma (Chronic) Hypertension (Chronic) Medical History Diabetes mellitus Morbid obesity BPH (benign prostatic hyperplasia) Osteoarthritis Bilateral chronic knee pain Allergic rhinitis Surgical History History of esophageal dilatation Hx of prior ablation treatment venous ablation History of hernia surgery As child History of colonoscopy 06/2022 History of esophagogastroduodenoscopy (EGD) History of wisdom tooth extraction History of tooth extraction Status post uvulopalatopharyngoplasty History of repair of anterior cruciate ligament of right knee 1991 History of sinus surgery Family History Mother Diabetes Depression Father Heart disease Myocardial infarction Hypertension Prostate cancer Other No family history of adverse response to anesthesia Denies family history of Ovarian cancer Breast cancer Lung cancer Colorectal cancer Stroke Social History Smoking Status: Never smoker Second Hand Exposure: No; Do You Dip or Chew Tobacco: No (did in the past); Hx Alcohol Use: No Hx Substance Use: No Preferred Language: Thai Communication Ability: Effective Visual Impairment: Limited Hearing Ability: Normal Telecommunications Clerk Required: No Beliefs That Will Affect Care: None marital status: Single Current Living Situation: Alone Current Living Situation Comment: with father in one story home, stairs to enter home current occupational status: employed Other Information That Helps Us Care for You: No Feels Safe at Home: Yes Safety Concerns: Feels Safe At This Time Childhood Exposure to Second-Hand Smoke: No Diet: regular caffeine: No during the past year weight has: remained stable Dental Care, Regularly: Yes Physical Activity Frequency: Does not Exercise Seatbelt Use: always Sunscreen Use: No Assistive Devices: Glasses Physical Exam Vital Signs Vital Signs - 24 hr 05/03/24 13:00 05/03/24 13:00 05/03/24 13:00 Temperature Temperature Source Pulse Rate Pulse Rate [Apical] Pulse Rate from SpO2 Sensor Pulse Rhythm [Apical] Respiratory Rate Respiratory Effort / Characteristics Respiratory Depth Respiratory Pattern Blood Pressure 120/72 120/72 120/72 Blood Pressure [Left Arm] Blood Pressure Mean 89 89 89 Blood Pressure Mean [Left Arm] Blood Pressure Position [Left Arm] Pulse Oximetry Oxygen Delivery Method Sepsis Recent Fever Within 48 Hours Sepsis New/Unexplained Change in Mental Status Sepsis Action Taken by Nursing 05/03/24 13:03 05/03/24 13:07 05/03/24 13:11 Temperature 37.3 C Temperature Source Oral Pulse Rate 87 86 86 Pulse Rate [Apical] Pulse Rate from SpO2 Sensor 87 Pulse Rhythm [Apical] Respiratory Rate 20 20 Respiratory Effort / Characteristics Non-Labored Spontaneous Respiratory Depth Normal Respiratory Pattern Regular Blood Pressure 124/72 Blood Pressure [Left Arm] Blood Pressure Mean 89 Blood Pressure Mean [Left Arm] Blood Pressure Position [Left Arm] Pulse Oximetry 94 96 Oxygen Delivery Method Room Air Sepsis Recent Fever Within 48 Hours Yes Sepsis New/Unexplained Change in Mental Status No Sepsis Action Taken by Nursing No Action Required 05/03/24 13:17 05/03/24 13:21 05/03/24 13:30 Temperature Temperature Source Pulse Rate 81 Pulse Rate [Apical] 80 Pulse Rate from SpO2 Sensor 81 Pulse Rhythm [Apical] Regular Respiratory Rate 20 20 Respiratory Effort / Characteristics Non-Labored Spontaneous Respiratory Depth Normal Respiratory Pattern Regular Blood Pressure 121/63 Blood Pressure [Left Arm] 120/72 Blood Pressure Mean 88 Blood Pressure Mean [Left Arm] 88 Blood Pressure Position [Left Arm] Pulse Oximetry 96 96 Oxygen Delivery Method Room Air Sepsis Recent Fever Within 48 Hours Sepsis New/Unexplained Change in Mental Status Sepsis Action Taken by Nursing 05/03/24 13:33 05/03/24 13:42 05/03/24 13:57 Temperature Temperature Source Pulse Rate 77 79 76 Pulse Rate [Apical] Pulse Rate from SpO2 Sensor 78 79 77 Pulse Rhythm [Apical] Respiratory Rate 24 19 25 H Respiratory Effort / Characteristics Respiratory Depth Respiratory Pattern Blood Pressure Blood Pressure [Left Arm] Blood Pressure Mean Blood Pressure Mean [Left Arm] Blood Pressure Position [Left Arm] Pulse Oximetry 97 97 99 Oxygen Delivery Method Sepsis Recent Fever Within 48 Hours Sepsis New/Unexplained Change in Mental Status Sepsis Action Taken by Nursing 05/03/24 14:00 05/03/24 14:00 05/03/24 14:12 Temperature Temperature Source Pulse Rate 78 Pulse Rate [Apical] Pulse Rate from SpO2 Sensor Pulse Rhythm [Apical] Respiratory Rate 25 H Respiratory Effort / Characteristics Respiratory Depth Respiratory Pattern Blood Pressure 121/65 121/65 Blood Pressure [Left Arm] Blood Pressure Mean 80 80 Blood Pressure Mean [Left Arm] Blood Pressure Position [Left Arm] Pulse Oximetry Oxygen Delivery Method Sepsis Recent Fever Within 48 Hours Sepsis New/Unexplained Change in Mental Status Sepsis Action Taken by Nursing 05/03/24 14:21 05/03/24 14:23 05/03/24 14:30 Temperature Temperature Source Pulse Rate 79 Pulse Rate [Apical] Pulse Rate from SpO2 Sensor 80 Pulse Rhythm [Apical] Respiratory Rate 28 H 18 Respiratory Effort / Characteristics Respiratory Depth Respiratory Pattern Blood Pressure 114/66 Blood Pressure [Left Arm] Blood Pressure Mean 74 Blood Pressure Mean [Left Arm] Blood Pressure Position [Left Arm] Pulse Oximetry 99 98 Oxygen Delivery Method Room Air Sepsis Recent Fever Within 48 Hours Sepsis New/Unexplained Change in Mental Status Sepsis Action Taken by Nursing 05/03/24 14:30 05/03/24 14:33 05/03/24 14:42 Temperature Temperature Source Pulse Rate 73 72 Pulse Rate [Apical] Pulse Rate from SpO2 Sensor 73 72 Pulse Rhythm [Apical] Respiratory Rate 23 17 Respiratory Effort / Characteristics Respiratory Depth Respiratory Pattern Blood Pressure 114/66 Blood Pressure [Left Arm] Blood Pressure Mean 74 Blood Pressure Mean [Left Arm] Blood Pressure Position [Left Arm] Pulse Oximetry 99 98 Oxygen Delivery Method Sepsis Recent Fever Within 48 Hours Sepsis New/Unexplained Change in Mental Status Sepsis Action Taken by Nursing 05/03/24 14:51 05/03/24 14:54 05/03/24 14:56 Temperature Temperature Source Pulse Rate 73 75 Pulse Rate [Apical] 75 Pulse Rate from SpO2 Sensor 73 74 Pulse Rhythm [Apical] Respiratory Rate 21 24 20 Respiratory Effort / Characteristics Non-Labored Spontaneous Respiratory Depth Normal Respiratory Pattern Regular Blood Pressure Blood Pressure [Left Arm] 130/73 Blood Pressure Mean Blood Pressure Mean [Left Arm] 92 Blood Pressure Position [Left Arm] Lying Pulse Oximetry 98 99 98 Oxygen Delivery Method Room Air Sepsis Recent Fever Within 48 Hours Sepsis New/Unexplained Change in Mental Status Sepsis Action Taken by Nursing 05/03/24 14:56 05/03/24 14:56 05/03/24 15:00 Temperature Temperature Source Pulse Rate 73 Pulse Rate [Apical] Pulse Rate from SpO2 Sensor 73 Pulse Rhythm [Apical] Respiratory Rate 21 Respiratory Effort / Characteristics Respiratory Depth Respiratory Pattern Blood Pressure 130/73 130/73 Blood Pressure [Left Arm] Blood Pressure Mean 81 81 Blood Pressure Mean [Left Arm] Blood Pressure Position [Left Arm] Pulse Oximetry 100 Oxygen Delivery Method Sepsis Recent Fever Within 48 Hours Sepsis New/Unexplained Change in Mental Status Sepsis Action Taken by Nursing 05/03/24 15:12 05/03/24 15:27 Temperature Temperature Source Pulse Rate 72 75 Pulse Rate [Apical] Pulse Rate from SpO2 Sensor 73 75 Pulse Rhythm [Apical] Respiratory Rate 18 22 Respiratory Effort / Characteristics Respiratory Depth Respiratory Pattern Blood Pressure Blood Pressure [Left Arm] Blood Pressure Mean Blood Pressure Mean [Left Arm] Blood Pressure Position [Left Arm] Pulse Oximetry 100 99 Oxygen Delivery Method Sepsis Recent Fever Within 48 Hours Sepsis New/Unexplained Change in Mental Status Sepsis Action Taken by Nursing Left knee: Open wound over the anterior surface of the left knee. Course Course 1323: The patient was evaluated in room C8. A complete history and physical exam was performed Cardiac monitoring: An order was placed for continuous cardiac monitoring. The monitor shows a rate of 70 with sinus rhythm interpreted by me 1426: Vital signs stable. Discussed with Dr. Houston via [place] text who states to admit to medicine and start antibiotics and they will plan on operating on the patient tomorrow. 1740: Dr. Houston states he saw the patient in the ER and will take him to the OR tomorrow. Administered Medications Acetaminophen (Acetaminophen 325 Mg Tab) 650 mg PO Q4H PRN PRN Reason: pain/fever Stop: 06/02/24 18:08 Last Admin: 05/03/24 18:32 Dose: 650 mg Documented By: JESSI Insulin Aspart (Insulin Aspart Per Unit Charge) 0 units SC ACHS [facility] Stop: 06/02/24 16:29 Last Admin: 05/03/24 18:24 Dose: 6 units Documented By: JESSI Co-signed By: KD Discontinued Medications Cefazolin Sodium (Ancef 1000mg) 1,000 mg in 7.5 mls @ 2.5 mls/min IV Q8H [facility] Stop: 06/14/24 14:29 Last Admin: 05/03/24 14:57 Dose: 2.5 mls/min Documented By: SHERYL Daptomycin 425 mg/ Syringe 8.5 mls @ 4.25 mls/min IV NOW STA; Protocol Stop: 05/03/24 15:41 Last Admin: 05/03/24 18:06 Dose: 4.25 mls/min Documented By: JESSI Medical Decision Making Laboratory Data Attestation: I reviewed the patient's lab results. 05/03/24 13:05 05/03/24 13:05 Lab Results 05/03/24 Range/Units 13:05 WBC 13.45 H (4.8-10.8) K/ul RBC 3.66 L (4.70-6.10) M/uL Hgb 11.1 L (14.0-18.0) g/dl Hct 33.7 L (42.0-52.0) % MCV 92.1 (80.0-100.0) fL MCH 30.3 (25.0-34.0) pg MCHC 32.9 (32.0-36.0) g/dL RDW Std Deviation 48.8 H (36.4-46.3) fL RDW Coeff of Migue 14.4 (11.5-14.5) % Plt Count 257 (130-400) K/uL MPV 10.3 (9.4-12.4) fL Immature Gran % (Auto) 0.4 % Neut % (Auto) 76.7 % Lymph % (Auto) 13.4 % Pitt % (Auto) 8.6 % Eos % (Auto) 0.7 % Baso % (Auto) 0.2 % Neut # (Auto) 10.32 H (1.40-6.50) K/uL Lymph # (Auto) 1.80 (1.20-3.40) K/uL Pitt # (Auto) 1.16 H (0.11-0.59) K/uL Eos # (Auto) 0.09 (0.00-0.50) K/uL Baso # (Auto) 0.03 (0.00-0.20) K/uL Immature Gran # (Auto) 0.05 (0.01-0.20) K/uL ESR 54 H (0-20) mm/hr PT 11.3 (9.0-12.0) Seconds INR 1.0 (0.9-1.1) APTT 28 (21-31) Seconds PTT Ratio 1.0 Sodium 136 (136-145) mmol/L Potassium 3.7 (3.5-5.1) mmol/L Chloride 101 (98-107) mmol/L Carbon Dioxide 29 (21-32) mmol/L Anion Gap 6 (3-11) BUN 27 H (6-23) mg/dl Creatinine 1.27 (0.6-1.4) mg/dl Est Cr Clr Drug Dosing 90.3 ml/min Est GFR ( Amer) 70.7 ml/min Est GFR (Non-Af Amer) 61.0 ml/min BUN/Creatinine Ratio 21.3 H (10-20) Glucose 215 H (70-99(Fasting)) mg/dl Calcium 9.3 (8.6-10.3) mg/dl C-Reactive Protein 23.85 H (0-0.5) mg/dl Procalcitonin 0.47 (0-0.5) ng/ml Imaging Data Radiologist's Impression: Knee X-Ray 05/03/24 15:23 XR knee LT 1 or 2V routine CLINICAL HISTORY: Left knee infection COMPARISON STUDY: Left knee 03/21/2014. FINDINGS: There is a left total knee arthroplasty. The hardware is intact. No abnormal periprosthetic lucency. No acute fracture. Moderate to large knee effusion. Mild soft tissue swelling within the left knee. Inferior displacement of the patella which could be displaced by the joint effusion. A quadriceps tendon injury/tear also remains in the differential diagnosis. IMPRESSION: 1. Moderate to large left knee effusion. 2. Inferior displacement of the patella which could be displaced by the joint effusion. A quadriceps tendon injury/tear also remains in the differential diagnosis. 3. No acute fractures. ACT 112: Negative or not required by law. Electronically signed by: Rip Castellano M.D. 05/03/2024 4:44 PM [facility] Narrative 1323: The patient was evaluated in room C8. A complete history and physical exam was performed Cardiac monitoring: An order was placed for continuous cardiac monitoring. The monitor shows a rate of 70 with sinus rhythm interpreted by me 1426: Vital signs stable. Discussed with Dr. Houston via [place] text who states to admit to medicine and start antibiotics and they will plan on operating on the patient tomorrow. 1740: Dr. Houston states he saw the patient in the ER and will take him to the OR tomorrow. Impression & Plan Infection of left knee Discharge Plan Visit Data Chief Complaint: Referred by Doctor Stated Complaint: OPEN STICHES, POSSIBLE INFECTION ED Provider: Monster Newman Discharge Problem: Infection of left knee Patient Disposition: Admitted As Inpatient Discharge Instructions Interventions: ED Discharge Assessment Last Done: 05/03/24 16:14
[2024-05-03] MEDS: CHLORTHALIDONE 25 MG TAB PO SCH (21:21)
[2024-05-03] MEDS: MONTELUKAST SODIUM 10 MG TABLET PO SCH (21:21)
[2024-05-03] MEDS: TAMSULOSIN HCL 0.4 MG CAP PO SCH (21:22)
[2024-05-03] MEDS: KETOROLAC TROMETHAMINE 15 MG/ML VIAL IV PRN (21:30)
[2024-05-04] MEDS ORDERED: Nursing to Pharmacy Communication SCH (01:00)
[2024-05-04] MEDS: HYDROmorphone INJ 0.5 MG/0.5 ML SYR IV PRN (01:38)
--- OUTSIDE RECORDS SUMMARY | 2024-05-04 04:16 | External Medical Summary | Summary of Care ---
Author Name Unknown Organization [facility] Address [address] [place] [address] Phone [phone] Care Team Providers Care Respooler Name Role Phone Nicolasa Sales DO Primary Car e Provider Encounter Details Date Type Department Care Team (Late st Contact Info) Description 04/25/2024 Orders Only Outcomes Research Department [address] [place] [address] Lu Wade CHRA MyCode Research Other*[id number] Allergies Active Allergy Reactions Criticality Noted Date Comments Sulfamethoxazole-Trimethoprim 2023 Rash Penicillins 11/07/2002 rash documented as of this encounter (statuses as of 04/25/2024) Medications Medication Sig Dispensed Refills Start Date End Date Status montelukast (SINGULAIR) 10 MG Tablet 12/12/2018 Active Aspirin 81 MG Oral Tablet Chewable Take 1 Tab by mouth daily. with food. 01/14/2021 Active buPROPion HCl ER (SR) 150 MG Oral Tablet Extended Release 12 Hour (Wellbutrin SR) Take by mouth 150 mg in the morning. Active Sertraline HCl 100 MG Oral Tablet (Zoloft) Take 2 Tablets by mouth in the morning. 03/02/2024 Active metFORMIN HCl ER 500 MG Oral Tablet Extended Release 24 Hour (Glucophage XR) Take 1 Tablet by mouth in the morning and 1 Tablet at noon and 1 Tablet in the evening. 03/02/2024 Active Mounjaro 7.5 MG/0.5ML Subcutaneous Solution Pen-injector (Tirzepatide) Inject 7.5 mg under the skin once a week. 03/02/2024 Active Ventolin HFA 108 (90 Base) MCG/ACT Inhalation Aerosol Solution Inhale 2 Puffs by mouth every 4 hours as needed for Wheezing. 03/02/2024 Active Potassium Chloride Ada ER 20 MEQ Oral Tablet Extended Release Daily and an extra with lasix 03/02/2024 Active Furosemide 40 MG Oral Tablet (Lasix) Take 1 Tablet by mouth daily as needed. for fluid accumulation or weight gain 03/02/2024 Active Losartan Potassium 100 MG Oral Tablet (Cozaar) Take 1 Tablet by mouth in the morning. 03/02/2024 Active Omeprazole 20 MG Oral Capsule Delayed Release (PriLOSEC) Take 1 Capsule by mouth in the morning. 1 hour before the first meal of the day. 03/02/2024 Active Vitamin B Complex w/B-12 Oral Tablet Take by mouth. 03/02/2024 Ac tive Chlorthalidone 50 MG Oral Tablet (Hygroton) Take 1 Tablet by mouth in the morning. In the morning.. 03/02/2024 Active Alfuzosin HCl ER 10 MG Oral Tablet Extended Release 24 Hour (Uroxatral) Take 1 Tablet by mouth in the morning. 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 01/14/2021 Testicular hypofunction 01/14/2021 Hypokalemia 01/14/2021 Other obstructive and reflux uropathy 01/14/2021 Other hammer toe(s) (acquired), right foot 01/14 Type 2 diabetes mellitus wit h diabetic neuropathy, unspecified 01/14/2021 Gastro-esophageal reflux disease without esophag itis 01/14/2021 Benign prostatic hyperplasia with lower urinary tract symptoms 01/14/2021 Hemoptysis 01/14/2021 Cellulitis of unspecified toe 01/14/2021 Type 2 diabetes mellitus wit h hemoglobin A1c goal of less than 7.0% 12/13/2018 OSTEOARTHROS NOS - LOWER LEG 01/28/2010 CHR ALLRG CONJUNCTIV NEC 04/15/2004 Deviated nasal septum 11/07/2002 Allergic rhinitis 11/07/2002 Sleep apnea 11/07/2002 OBESITY, UNSPECIFIED 11/07/2002 HYPERTENSION NOS 11/07/2002 documented as of this encounter (statuses as of 04/25/2024) Immunizations Name Administration Dates Next Due Seasonal Influenza, Quad, Nasal (Flumist) 2017,08/16/2017 Seasonal Influenza, Quadrivalent, No Preserve, I M 09/17/2019 documented as of this encounter Social History Tobacco Use Types Packs/Day Years Used Date Smoking Tobacco: Former Cigarettes 0.5 1 0 04/02/1976 - 04/02/1977 Smokeless Tobacco: Never Comments:Passive smoke expos ure at work and in bars only Alcohol Use Standard Drinks/Week Comments No 0 (1 standard drink = 0.6 oz pur e alcohol) quit alcohol in 1991 PHQ-2 Answer Date Recorded PHQ-2 Score -1 07/22/2020 Hunger Vital Sign Answer Date Recorded Worried About Running Out of Food in the Last Ye ar Never true 01/14/2021 Ran Out of Food in the Last Year Never true 01/14/2021 Sex and Gender Information Value Date Recorded Sex Assigned at Male 02/20/2024 3:59 PM EDT Gender Identity Male 02/20/2024 3:59 PM EDT Sexual Orientation Straight 02/20/2024 3: 59 PM EDT Job Start Date Occupation Industry Not on file Not on file Not on file documented as of this encounter Plan of Treatment Upcoming Encounters Date Type Department Care Team (Late st Contact Info) Description 04/03/2025 12:20 PM EDT Office Visit Family Medicine [facility] [place] [place] [phone] Luz Arciniega PA-C [address] [place] [address] [place] [id number] Scheduled Orders Name Type Priority Associated Diagnoses Orde r Schedule MYCODE SUBSEQUENT ADULT Lab Routine MyCode Research Other*[id number] Every 6 Months for 2 Occurrences starting 04/25/2024 until 05/15/2025 Scheduled Procedures Name Priority Associated Diagnoses Date/Ti me COLONOSCOPY FLEXIBLE PROXIMAL DIAGNOSTIC Recall History of colon polyps Health Maintenance Due Date Last Done Comments GFR 1963 Lipid Panel 1963 HbA1c 1969 Pneumococcal Vaccine: Pediatrics (0 to 5 Years) and At-Risk Patients (6 to 64 Years) (1 of 2 - PCV) 1969 HIV Screening 1978 B-12 1981 Diabetic Eye Exam 1981 Diabetic Foot Exam 1981 Hepatitis C Screening 1981 DTaP,Tdap,and Td Vaccines (1 - Tdap) 1982 Cologuard 2008 Fecal Occult Blood Test 2008 Sigmoidoscopy 2008 Zoster Vaccines (1 of 2) 2013 Depression Screening 01/01/2021 01/02/2020 COVID-19 Vaccine (1 - 2022-2 4 season) 2023 Albumin/Creatinine Ratio 10/30/2023 10/30/2022 Influenza Vaccine (FLU shot) (Season Ended) 2024 09/17/2019, 08/30/2018, 08/16/2017 Colonoscopy 07/02/2029 07/02/2022, 12/12/2011 Colorectal Cancer Screening 07/02/2029 GARDASIL-HPV IMMUNIZATION SERIES Aged Out No longer eligible b ased on patient's age to complete this topic Hepatitis B Aged Out No longer eligi ble based on patient's age to complete this topic MENINGOCOCCAL (MENACTRA/MENVEO) Aged Out No longer eligible b ased on patient's age to complete this topic documented as of this encounter Medical Devices Not on filedocumented as of this encounter Visit Diagnoses Diagnosis MyCode Research Other*[id number] documented in this encounter Care Teams Respooler Relationship Specialty Start Date End Date Nicolasa Sales DO [address] [facility] [place] [address] PCP - General Family Medicine 12/10/22 documented as of this encounter
[2024-05-04] MEDS: INSULIN ASPART PER UNIT CHARGE SC SCH ×2 (06:05→16:55)
[2024-05-04] MEDS ORDERED: BUPIVACAINE 0.5 % 5 MG/1 ML PF 10ML VIAL ONE (06:25)
[2024-05-04] MEDS ORDERED: ROPIVACAINE 0.5% 5 MG/ML 30 ML VIAL ONE (06:25)
[2024-05-04 06:32] LABS: Basophils # (auto) 0.06 K/uL (0.00-0.20); Basophils % (auto) 0.5 %; Eosinophils # (auto) 0.63 K/uL (0.00-0.50); Eosinophils % (auto) 5.7 %; Hematocrit (blood only) 32.1 % (42.0-52.0); Hemoglobin 10.8 g/dl (14.0-18.0); Immature Granulocytes # (auto) 0.05 K/uL (0.01-0.20); Immature Granulocytes % (auto) 0.5 %; Lymphocytes # (auto) 2.63 K/uL (1.20-3.40); Lymphocytes % (auto) 23.8 %; Mean Corpuscular Hgb Conc 33.6 g/dL (32.0-36.0); Mean Corpuscular Volume 92.2 fL (80.0-100.0); Mean Platelet Volume 9.9 fL (9.4-12.4); Monocytes # (auto) 0.88 K/uL (0.11-0.59); Neutrophils # (auto) 6.78 K/uL (1.40-6.50); Neutrophils % (auto) 61.5 %; Platelet Count 248 K/uL (130-400); RDW Coefficient of Variation 14.3 % (11.5-14.5); RDW Standard Deviation 48.4 fL (36.4-46.3); Red Blood Count 3.48 M/uL (4.70-6.10); White Blood Count 11.03 K/ul (4.8-10.8)
[2024-05-04 06:53] LABS: BUN Creatinine Ratio 26.8 (10-20); Calcium 9.1 mg/dl (8.6-10.3); Creatinine Clr Calc Pharmacy 113.7 ml/min; Est GFR (African American) 97.9 ml/min; Est GFR (Non-African American) 84.5 ml/min; Potassium 3.7 mmol/L (3.5-5.1)
[2024-05-04] MEDS: ACETAMINOPHEN 1,000 MG/100 ML VIAL IV PRN (07:29)
[2024-05-04] MEDS ORDERED: PROPOFOL IV EMULSION 10 MG/ML 20 ML VIAL IV ONE ×2 (09:35→09:37)
[2024-05-04] MEDS ORDERED: ONDANSETRON INJ 2 MG/ML 2 ML VIAL ONE (09:35)
[2024-05-04] MEDS ORDERED: LIDOCAINE 2% 2 ML VIAL/AMP(20MG/ML) INFIL ONE ×3 (09:35→09:50)
[2024-05-04] MEDS ORDERED: MIDAZOLAM HCL 1 MG/ML 2ML VIAL ONE (09:36)
[2024-05-04] MEDS ORDERED: fentaNYL citrate PF 100 MCG/2 ML VIAL ONE ×2 (09:36→12:04)
[2024-05-04] MEDS ORDERED: ROCURONIUM BROMIDE 10 MG/ML 5 ML VIAL IV ONE ×10 (09:52→11:59)
[2024-05-04] MEDS: LACTATED RINGER'S 1,000 ML IV SCH (10:40)
--- NOTE | 2024-05-04 11:24 | History & Physical Bridge Note ---
Date of Service May 04, 2024 History & Physical Bridge Note I have examined the patient, reviewed the History & Physical and in the interval since the performance of the History & Physical I have noted the following changes of clinical significance: no changes noted
[2024-05-04] MEDS ORDERED: fentaNYL citrate PF 100 MCG/2 ML VIAL IV PRN (11:26)
[2024-05-04] MEDS ORDERED: ONDANSETRON INJ 2 MG/ML 2 ML VIAL IV PRN (11:26)
[2024-05-04] MEDS ORDERED: ePHEDrine sulfate 50 MG/ML AMP IV PRN (11:26)
[2024-05-04] MEDS ORDERED: ATROPINE SULFATE 0.1 MG/ML 10ML SYR IV PRN (11:26)
--- NOTE | 2024-05-04 11:28 | Anesthesiology Consultation ---
Date of Service May 04, 2024 Assessment & Plan Chart Review Chart Review: Acceptable Risk for Surgery and Patient NOT seen in Pre Admission Testing Consults Requested none ASA ASA3 Proposed Anesthesia Anesthesia Type: General Regional Regional Laterality: Left Site: Adductor Canal Risk / Benefits Reviewed With: PT / POA / Parent / Guardian, Accepts Plan and Informed Consent Obtained Additional Notes infected knee, will proceed with GA due to infection risk with spinal History Surgery Operation Date: 05/04/24 11:00 Proposed Procedures p Incision and Drainage, Poly Exchange Left Total Knee Arthroplasty - Lukas Houston MD Height/Weight Height: 5 ft 9 in Weight: 142.2 kg Allergies Allergy/AdvReac Type Severity Reaction Status Date / Time Penicillins Allergy Intermediate Rash Verified 05/03/24 15:53 sulfamethoxazole Allergy Intermediate Rash Verified 05/03/24 15:53 trimethoprim Allergy Intermediate Rash Verified 05/03/24 15:53 peanut AdvReac Intermediate Diarrhea, Verified 05/03/24 15:53 indigestion soy AdvReac Intermediate diarrhea, Verified 05/03/24 15:53 indigestion wheat AdvReac Intermediate Diarrhea, Verified 05/03/24 15:53 indigestion atorvastatin AdvReac Mild Myalgia Verified 05/03/24 15:53 ezetimibe [From Zetia] AdvReac Mild Myalgia Verified 05/03/24 15:53 rosuvastatin AdvReac Mild Muscle Pain Verified 05/03/24 15:53 Medications Home Medications Medication Instructions Recorded Confirmed Last Taken albuterol sulfate 90 mcg/actuation 2 puff inhalation Q6H PRN 04/10/19 05/03/24 Unknown aerosol inhaler (Ventolin HFA) Shortness Of Breath Or Wheezing bupropion HCl 150 mg tablet,12 hr 150 mg PO QAM 09/19/21 05/03/24 03/24/24 03:00 sustained-release (Wellbutrin SR) multivitamin 1 tab PO QPM 06/24/22 05/03/24 03/24/24 18:00 lancets 30 gauge (OneTouch Delica #100 ea 11/10/22 05/03/24 Unknown Lancets) furosemide 20 mg tablet (Lasix) 20 mg PO DAILY PRN edema #30 tabs 12/22/22 05/03/24 03/18/24 metformin 500 mg tablet,extended 500 mg PO TIDWMEAL 04/07/23 05/03/24 03/24/24 18:00 release 24 hr cyanocobalamin (vitamin B-12) 3,000 mcg PO QAM 06/03/23 05/03/24 03/24/24 03:00 3,000 mcg capsule sertraline 100 mg tablet (Zoloft) 200 mg PO QAM 09/10/23 05/03/24 03/24/24 03:00 montelukast 10 mg tablet 10 mg PO QPM #90 tabs 11/09/23 05/03/24 03/24/24 18:00 chlorthalidone 50 mg tablet 50 mg PO QPM 01/06/24 05/03/24 03/23/24 alfuzosin 10 mg tablet,extended 10 mg PO QPM 02/03/24 05/03/24 03/24/24 18:00 release 24 hr (Uroxatral) losartan 100 mg tablet 100 mg PO QAM 02/03/24 05/03/24 03/24/24 03:00 omeprazole 20 mg capsule,delayed 20 mg PO QAM 02/03/24 05/03/24 03/25/24 04:00 release aspirin 81 mg tablet,delayed 81 mg PO BID #60 tabs 03/27/24 05/03/24 Unknown release cefadroxil 500 mg capsule 500 mg PO BID #28 caps 03/27/24 05/03/24 05/03/24 09:00 oxycodone 5 mg tablet 5 mg PO Q8H PRN pain #30 tabs 03/27/24 05/03/24 Unknown potassium chloride 20 mEq 20 meq PO .COMPLEX #90 tabs 04/26/24 05/03/24 Unknown tablet,extended release acetaminophen 500 mg tablet 1,000 mg PO TID fever or pain 05/03/24 05/03/24 Unknown (Tylenol Extra Strength) cholecalciferol (vitamin D3) 50 50 mcg PO BID 05/03/24 05/03/24 Unknown mcg (2,000 unit) tablet (Vitamin D3) tirzepatide 7.5 mg/0.5 mL 7.5 mg subcut .HOLD 05/03/24 05/03/24 Unknown subcutaneous pen injector (Delores) Active Medications Generic Name Dose Route Start Last Admin Trade Name Freq PRN Reason Stop Dose Admin Acetaminophen 650 mg 05/03/24 18:09 05/03/24 18:32 Acetaminophen 325 Mg Tab PO 06/02/24 18:08 650 mg Q4H PRN Administration pain/fever Chlorthalidone 50 mg 05/03/24 21:00 05/03/24 21:21 Chlorthalidone 25 Mg Tab PO 06/02/24 20:59 50 mg QPM LISA Administration Hydromorphone HCl 0.25 mg 05/03/24 20:01 05/04/24 01:38 Hydromorphone Inj 0.5 Mg/0.5 Ml Syr IV 05/17/24 20:00 0.25 mg Q6H PRN Administration Pain Acetaminophen 1,000 mg in 100 mls @ 400 mls/hr 05/03/24 20:01 05/04/24 07:49 Ofirmev IV 05/06/24 20:00 Infused Q8H PRN Infusion Pain or Fever Lactated Ringer's 1,000 mls @ 15 mls/hr 05/04/24 10:45 05/04/24 10:40 Lr IV 06/03/24 10:44 15 mls/hr .Q24H LISA Administration Insulin Aspart 0 units 05/04/24 06:00 05/04/24 06:05 Insulin Aspart Per Unit Charge SC 06/03/24 05:59 1 units Q6 LISA Administration Ketorolac Tromethamine 15 mg 05/03/24 20:01 05/04/24 05:58 Ketorolac Tromethamine 15 Mg/Ml Vial IV 05/08/24 20:00 15 mg Q6H PRN Administration Pain Montelukast Sodium 10 mg 05/03/24 21:00 05/03/24 21:21 Montelukast Sodium 10 Mg Tablet PO 06/02/24 20:59 10 mg QPM LISA Administration Tamsulosin HCl 0.4 mg 05/03/24 21:00 05/03/24 21:22 Tamsulosin Hcl 0.4 Mg Cap PO 06/02/24 20:59 Not Given QPM [facility] Protocol NPO Date Last Intake of Fluids: 05/03/24 Time Last Intake of Fluids: 20:00 Date Last Intake of Solids: 05/03/24 Time Last Intake of Solids: 20:00 Past Medical History Medical History Diabetes mellitus Morbid obesity BPH (benign prostatic hyperplasia) Osteoarthritis Bilateral chronic knee pain Allergic rhinitis Exercise / Class Metabolic Activity II 4-5 Yardwork/Stairs/Walk up hill Past Family History Family History Mother Diabetes Depression Father Heart disease Myocardial infarction Hypertension Prostate cancer Other No family history of adverse response to anesthesia Denies family history of Ovarian cancer Breast cancer Lung cancer Colorectal cancer Stroke Past Surgical History Surgical History History of esophageal dilatation Hx of prior ablation treatment venous ablation History of hernia surgery As child History of colonoscopy 06/2022 History of esophagogastroduodenoscopy (EGD) History of wisdom tooth extraction History of tooth extraction Status post uvulopalatopharyngoplasty History of repair of anterior cruciate ligament of right knee 1991 History of sinus surgery Past Anesthesia History No Hx of Anesthesia Complications and No Family Hx of Anesthesia Complications History of PONV No Hx of PONV and No Hx of Motion Sickness Social History Smoking Status: Never smoker Do You Dip or Chew Tobacco: No (did in the past) Hx Alcohol Use: No Hx Substance Use: No substance use type: does not use Physical Exam Vital Signs Last Vital Signs Temp 98.4 F 05/04/24 10:13 Pulse 73 05/04/24 10:13 Resp 18 05/04/24 10:13 BP 128/74 05/04/24 10:13 Pulse Ox 96 05/04/24 10:13 O2 Del Method Room Air 05/04/24 10:13 Constitutional + obese ENMT Mouth: no dentition abnormality Thyromental Distance: > or= 3.5 Finger Breadths Mallampati Class: II Neck normal visual inspection Respiratory normal respiratory effort Auscultation: lungs clear to auscultation bilaterally Cardiovascular Rate/Rhythm: regular rate and regular rhythm Neurologic moves all extremities Psychiatric Orientation: alert and oriented x 3 Testing Laboratory Results 05/04/24 05:52 05/04/24 05:52 PT 11.3 Seconds (9.0-12.0) 05/03/24 13:05 INR 1.0 (0.9-1.1) 05/03/24 13:05 APTT 28 Seconds (21-31) 05/03/24 13:05 Blood Type A Positive 05/04/24 05:52 Antibody Screen NEGATIVE 05/04/24 05:52 05/03/24 15:53 Gram Stain - Final Knee,Left Wound Culture - Preliminary Pin-point growth present, reincubating. 05/04/24 05/04/24 10:18 05:51 POC Glucose 148 H 145 H
[2024-05-04] MEDS ORDERED: SUGAMMADEX SODIUM 200 MG/2 ML VIAL IV ONE (12:01)
[2024-05-04] MEDS ORDERED: KETAMINE HCL 10MG/ML SYR ONE (12:08)
[2024-05-04] MEDS ORDERED: METOPROLOL TARTRATE 1 MG/ML VIAL IV ONE (12:50)
[2024-05-04] MEDS ORDERED: KETOROLAC 30 MG/ML VIAL ONE (13:03)
[2024-05-04] MEDS ORDERED: MoRPHine SULFATE 2 MG/ML CARP ONE (13:23)
--- NOTE | 2024-05-04 13:23 | Post Operative Brief Note ---
Immediate Post Op Note Date of Surgery May 04, 2024 Pre & Post Diagnosis Operation Date: 05/04/24 11:00 Pre-Op Diagnosis: Left Knee Infection post Left Total Knee Arthroplasty Post-Op Diagnosis: Left Knee Infection post Left Total Knee Arthroplasty I identified the patient and participated in the time-out.: Yes Procedure Operation Date: 05/04/24 11:00 Actual Procedures p Incision and Drainage,Poly Exchange, Synovectomy Left Total Knee Arthroplasty(Left) - Lukas Houston MD Surgeon Lukas Houston MD Cloth Classer Derick Canales PAAndre Estimated Blood Loss 25 Findings Consistent with Post-Op Diagnosis Drains Hemovac Drain
--- NOTE | 2024-05-04 13:32 | Operative Report ---
Post Operative Report Pre & Post Diagnosis Operation Date: 05/04/24 11:00 Pre-Op Diagnosis: traumatic dehiscence left total knee replacement with probable wound contamination #2 morbid obesity BMI 46 Post-Op Diagnosis: same I identified the patient and participated in the time-out.: Yes Procedure Operation Date: 05/04/24 11:00 Actual Procedures p Incision and Drainage,Poly Exchange, Synovectomy Left Total Knee Arthroplasty(Left) (D AIR procedure) - Lukas Houston MD Surgeon Lukas Houston MD Hydroelectric Machinery Mechanic Derick Canales PA-C Estimated Blood Loss 25 Findings Consistent with Post-Op Diagnosis traumatic disruption of the medial retinaculum and a site different than the surgical repair site which measured approximately 3 cm in length and communicated with the knee joint the synovial tissue looked injected and inflamed Specimens synovial tissue and explanted polyethylene Indications patient is a morbidly obese 58-year-old male who underwent uncomplicated left total knee replacement approximately 3-1/2 to 4 weeks ago. He was doing extremely well but while in outpatient therapy was placed on a leg press with weight. When his knee was in a flexed position on the leg press apparently the therapist pushed on the plates to increase flexion resulting in immediate pain and an opening of his skin and disruption of the extensor mechanism. Description of Procedure Following satisfactory general anesthesia a tourniquet was placed on the lower extremity. The lower extremity was prepared with Betadine scrub paint and alcohol paint and draped sterilely. A surgical timeout was performed. The tourniquet was inflated to 350 mmHg. Total tourniquet time was 85 minutes at 350 mmHg. The open site was obvious. The old knee incision was extended through the subcutaneous tissues using the previous knee incision proximally and distally down to the capsular layer. The rent in the capsule was immediately identified. The tissue overall was healthy and showed disruption through the medial retinaculum and the site other than where the repair itself was which was intact. The Versajet was used to clean the open anterior surface of the patella. With the knee open the Versajet was then very systemic systematically used to clean the injected synovial lining starting with the superior gutter, followed by the medial gutter, followed by the lateral gutter and then eventually the inferior lateral gutter in the region of the patella tendon. The synovial tissue cleaned up very nicely using the Versajet system. The synovium was cleaned down to the bone and to the bone prosthetic reflection throughout these regions. Wound was irrigated with 3 L of pulse lavage. Multiple small bleeding points were controlled using the aqua mantis. the tibial polyethylene was removed. Using a lamina sustainable systems analyst the posterior gutter was accessed. Again the Versajet was used to clean the synovial tissue and a curette was used to clean the intercondylar region. The wound was then irrigated with another 2 L of pulsatile lavage and appeared very clean. A Betadine scrub was then used to scrub and mechanically debride all metal surfaces using a combination of a Betadine scrub brush and a toothbrush to get into the recesses of the tibial baseplate. A Betadine soak was then continued. The wound was irrigated with another 1 L of pulse lavage. A trial reduction with a 6 x 13 constrained insert sure good tensioning on the collateral ligaments. The patella did track slightly laterally but the capsule at this time was opened. The trial component was removed. The entire surgical team then regowned and redraped with a new set of sterile instruments. The wound was irrigated with 500 cc of experience irrigation. The knee appeared to be very clean. A final 6 x 13 constrained poly was placed and locked into position with the knee showing good stability. Another 500 cc of experience irrigation was used. A total of 1 L of experience irrigation, 6 L of pulsatile lavage, and 2 L of Versajet were used to irrigate and clean the knee. A Hemovac drain was placed. The arthrotomy was closed with interrupted sutures of #2 FiberWire. The retinacular rent was oversewn in a pants over vest fast and using #2 FiberWire. This affected a very nice repair and the knee was checked now in flexion and the patella tracked very well. The repair was then oversewn with interrupted [id number] sutures of 1 Vicryl. Following irrigation the subcutaneous tissues were closed with 0 and 2- 0 Vicryl in the deep fatty layers. The skin was then closed with surgical bello. A Acticoat and negative pressure wound dressing were followed applied followed by a Souza dressing compressive bandage. The tourniquet was deflated. The patient was returned to his bed in stable condition. Note: Derick YOUNG was present and assisted throughout due to the complicated nature of this case. He help with preparation and set up, he assistant drafter throughout. He assisted with hemostasis and exposure throughout the entire procedure. He also closed the capsular subcutaneous and skin layers and applied the postop dressing. I attest to the content of the Intraoperative Record and any orders documented therein. Any exceptions are noted below.
--- NOTE | 2024-05-04 14:23 | Anesthesiology Progress Note ---
Date of Service May 04, 2024 Anesthesia Post Procedure Vital Signs Vital Signs: Temp Pulse Pulse Pulse Resp BP BP 05/04/24 14:15 98.1 F 73 15 05/04/24 14:05 69 15 05/04/24 13:55 70 12 05/04/24 13:46 96.8 F L 73 21 05/04/24 10:13 98.4 F 73 18 05/04/24 07:28 98.1 F 69 18 148/74 H 05/03/24 22:00 73 18 05/03/24 20:24 98.1 F 72 16 05/03/24 18:03 98.4 F 72 16 05/03/24 17:38 97.5 F L 81 18 153/81 H 05/03/24 16:00 78 20 141/72 H 05/03/24 15:54 72 24 05/03/24 15:42 72 23 05/03/24 15:33 73 15 05/03/24 15:30 131/68 05/03/24 15:30 131/68 05/03/24 15:27 75 22 05/03/24 15:12 72 18 05/03/24 15:00 73 21 05/03/24 14:56 130/73 05/03/24 14:56 130/73 05/03/24 14:56 75 20 130/73 05/03/24 14:54 75 24 05/03/24 14:51 73 21 05/03/24 14:42 72 17 05/03/24 14:33 73 23 05/03/24 14:30 114/66 05/03/24 14:30 114/66 BP Pulse Ox O2 Del Method O2 Flow Rate 05/04/24 14:15 147/77 H 97 Oxymask 3 05/04/24 14:05 136/74 99 Oxymask 6 05/04/24 13:55 150/73 H 99 Oxymask 8 05/04/24 13:46 141/77 H 98 Oxymask 9 05/04/24 10:13 128/74 96 Room Air 05/04/24 07:28 94 Room Air 05/03/24 22:00 97 05/03/24 20:24 137/69 96 Room Air 05/03/24 18:03 138/76 97 Room Air 05/03/24 17:38 95 Room Air 05/03/24 16:00 98 Room Air 05/03/24 15:54 100 05/03/24 15:42 99 05/03/24 15:33 99 05/03/24 15:30 05/03/24 15:30 05/03/24 15:27 99 05/03/24 15:12 100 05/03/24 15:00 100 05/03/24 14:56 05/03/24 14:56 05/03/24 14:56 98 Room Air 05/03/24 14:54 99 05/03/24 14:51 98 05/03/24 14:42 98 05/03/24 14:33 99 05/03/24 14:30 05/03/24 14:30 Pain Intensity Left Knee: Pain Intensity: 2 Transfer of Care Handoff Completed per policy Notes Mental Status: alert / awake / arousable and participated in evaluation Patient Amnestic to Procedure: Yes Nausea / Vomiting: adequately controlled Pain: adequately controlled Airway Patency, RR, SpO2: stable & adequate BP & HR: stable & adequate Hydration State: stable & adequate Anesthetic Complications: no major complications apparent and Pt Satisfied with anesthetic care
--- NOTE | 2024-05-04 14:33 | Hospitalist Progress Note ---
Date of Service May 04, 2024 Assessment & Plan (1) Infection of left knee: Plan: Left TKR with Dr. Houston on 03/25/24. Patient was at PT on Sunday 04/29 and opened stitches; prescribed Cefadroxil 500mg BID - knee has worsened since then Knee x-ray: Moderate to large knee effusion inferior displacement of patella Planned I&D with Dr. Houston on 05/04 at 11:00 AM Surface wound culture: pinpoint growth, reincubating Surgical wound culture: pending Blood cultures: Pending CRP and ESR elevated - will trend Continue dapto q24hr Infectious disease consulted - will see patient sunday 05/06 - spoke with them - continue dapto at 8mg/kg, and add cefepime for gram ne gative coverage Pain control - scheduled Tylenol, prn oxycodone and Dilaudid A.m. CBC, BMP, CRP and ESR (2) Type 2 diabetes mellitus: Plan: Last A1c at 6.0% on 02/16/2024. Home regiment: Metformin & monjaro (on hold) SSI; pharmacy glycemic consult by Ortho (3) Hypertension: Plan: Chlorathalidone and losartan on hold for post op day 1 Has prn home lasix Plan Chronic Medical conditions: * MAC - continue CPAP HS * BPH - continue flomax * Mental Health - continue wellbutrin, Zoloft * Gerd - continue PPI Dispo: continued inpatient stay DVT proh: Eliquis 2.5mg BID per ortho Admission and Anticipated Discharge Date Admission Date: May 03, 2024 Supervising Physician Co-Signing Physician Notes PA Supervision Note: I did not personally see or examine the patient today, but I verified all pete points of HANNAH Mas's assessment and plan with the following exceptions/additions: None Subjective Patient seen prior to surgery. Pain relatively well controlled last BM 05/03 no fevers or chills Review of Systems Review of Systems: All systems reviewed & are unremarkable except as noted in Subjective Physical Exam Physical Exam: General: NAD, VS as above Resp: normal respiratory effort, lungs clear to auscultation CV: RRR, no murmur, Abd: normal bowel sounds, non tender, no hepatosplenomegaly Extremities: Moves all extremities, dressing over left knee c/d/i Neuro: A&O x3, Skin: intact, no lesions noted Results & Data Results & Data Vital Signs (Past 12 Hours) Vital Signs Temp Pulse Pulse Resp BP BP Pulse Ox 05/04/24 14:25 75 13 141/79 H 95 05/04/24 14:15 36.7 C 73 15 147/77 H 97 05/04/24 14:05 69 15 136/74 99 05/04/24 13:55 70 12 150/73 H 99 05/04/24 13:46 36 C L 73 21 141/77 H 98 05/04/24 10:13 36.9 C 73 18 128/74 96 05/04/24 07:28 36.7 C 69 18 148/74 H 94 O2 Del Method O2 Flow Rate 05/04/24 14:25 Room Air 05/04/24 14:15 Oxymask 3 05/04/24 14:05 Oxymask 6 05/04/24 13:55 Oxymask 8 05/04/24 13:46 Oxymask 9 05/04/24 10:13 Room Air 05/04/24 07:28 Room Air Laboratory Results CBC and chemistry, wound culture and blood cultures reviewed PG Care Time/CCT Total # of Minutes Spent Total Time Spent with Patient: Total time spent is greater than 50% in coordination of care (as documented) at patient's floor/unit and/or counseling patient: Coding Level of Care Code 48529 SUB INP/OBS CARE 3/50MIN Diagnoses Infection of left knee M00.9 Type 2 diabetes mellitus E11.9 Hypertension I10
[2024-05-04] MEDS ORDERED: NALOXONE HCL 0.4 MG/1 ML VIAL/CARP IV PRN (15:01)
[2024-05-04] MEDS ORDERED: METOCLOPRAMIDE HCL INJ 5 MG/ML 2 ML VIAL IV PRN (15:01)
[2024-05-04] MEDS ORDERED: bisacodyL 10 MG SUPP PR PRN (15:01)
[2024-05-04] MEDS ORDERED: FUROSEMIDE 20 MG TAB PO PRN (15:01)
[2024-05-04] MEDS ORDERED: PHARMACY GLYCEMIC MGMT CONSULT PRN (15:01)
[2024-05-04] MEDS ORDERED: MAGNESIUM HYDROXIDE SUSP 30 ML UDC PO PRN (15:01)
[2024-05-04] MEDS ORDERED: metFORMIN HCL ER 500 MG TABCR PO SCH (15:01)
[2024-05-04] MEDS: SERTRALINE HCL 100 MG TABLET PO SCH (15:06)
[2024-05-04] MEDS: PANTOprazole 40 MG TAB PO SCH (15:07)
[2024-05-04] MEDS: buPROPion SR 150 MG TABCR PO SCH (15:07)
--- NOTE | 2024-05-04 15:18 | Pharmacy Report ---
Pharmacy Glycemic Short Note 2 - Date of Service May 04, 2024 - Glycemic Short BSG Results (Last 24 hours): 05/03/24 05/03/24 05/04/24 17:40 20:23 05:51 Glucose POC Glucose 143 H 149 H 145 H 05/04/24 05/04/24 05/04/24 05:52 10:18 13:46 Glucose 144 H POC Glucose 148 H 138 H OUTPATIENT ANTIDIABETIC REGIMEN: * Metformin 500mg PO TID with meals * Mounjaro 7.5mg SQ weekly * A1c 6.0% 02/16/24 ASSESSMENT: * 58 yo M, s/p I&D infected left knee (TKA 03/25/24), on IV daptomycin, no steroids, pharmacy consulted for glycemic control. * Blood sugars well controlled so far this admission on NovoLog insulin alone, will tighten CF/CR slightly at this time to improve glycemic control. PLAN FOR INPATIENT GLYCEMIC CONTROL: * Hold outpatient diabetes medications * Basal insulin * none at this time * Bolus insulin * NovoLog per scale ACHS or Q6hrs while NPO * Goal Range: Low 110 mg/dL - High 140 mg/dL * Correction Factor: 25 mg/dL/unit * Nutritional / Prandial insulin per carb ratio of 1 unit per 8 grams CHO consumed
[2024-05-04] MEDS ORDERED: LANCETS SCH (16:00)
[2024-05-04] MEDS: SODIUM CHLORIDE 0.9% 1,000 ML IV SCH (16:02)
[2024-05-04] MEDS: ACETAMINOPHEN 500 MG TAB PO SCH (16:05)
[2024-05-04] MEDS: oxyCODONE HCL IR 5 MG TAB (IMMEDIATE RELEASE) PO PRN (16:55)
[2024-05-04] MEDS: CEFEPIME 2,000 MG in SYRINGE 0 ML IV SCH (17:25)
[2024-05-04] MEDS: DAPTOmycin 800 MG in SYRINGE 0 ML IV SCH (17:48)
[2024-05-04] MEDS ORDERED: DAPTOmycin 425 MG in SYRINGE 0 ML IV SCH (18:00)
[2024-05-04] MEDS ORDERED: NON-FORMULARY MEDICATION (Multivitamin tablet) PO SCH (21:00)
[2024-05-04] MEDS ORDERED: ASPIRIN 81 MG ECTAB PO SCH (21:00)
[2024-05-04] MEDS: DOCUSATE SODIUM 100 MG CAP PO SCH (21:20)
[2024-05-04] MEDS: SENNA 8.6 MG TAB PO SCH (21:20)
[2024-05-04] MEDS: CHOLECALCIFEROL 25 MCG (1000 UNITS) TAB PO SCH (21:20)
[2024-05-04] MEDS: APIXABAN 2.5 MG TAB PO SCH (21:20)
[2024-05-05 06:24] LABS: Basophils # (auto) 0.06 K/uL (0.00-0.20); Basophils % (auto) 0.6 %; Eosinophils # (auto) 0.85 K/uL (0.00-0.50); Eosinophils % (auto) 8.7 %; Hematocrit (blood only) 30.1 % (42.0-52.0); Immature Granulocytes # (auto) 0.04 K/uL (0.01-0.20); Immature Granulocytes % (auto) 0.4 %; Lymphocytes # (auto) 1.73 K/uL (1.20-3.40); Lymphocytes % (auto) 17.7 %; Mean Corpuscular Hemoglobin 30.7 pg (25.0-34.0); Mean Corpuscular Hgb Conc 33.2 g/dL (32.0-36.0); Mean Corpuscular Volume 92.3 fL (80.0-100.0); Mean Platelet Volume 9.7 fL (9.4-12.4); Monocytes % (auto) 7.2 %; Neutrophils % (auto) 65.4 %; Platelet Count 249 K/uL (130-400); RDW Coefficient of Variation 13.8 % (11.5-14.5); RDW Standard Deviation 46.9 fL (36.4-46.3); Red Blood Count 3.26 M/uL (4.70-6.10); White Blood Count 9.78 K/ul (4.8-10.8)
[2024-05-05 06:40] LABS: BUN Creatinine Ratio 27.7 (10-20); C Reactive Protein 22.29 mg/dl (0-0.5); Calcium 8.4 mg/dl (8.6-10.3); Creatinine Clr Calc Pharmacy 117.4 ml/min; Est GFR (African American) 101.7 ml/min; Est GFR (Non-African American) 87.8 ml/min; Potassium 3.9 mmol/L (3.5-5.1)
[2024-05-05] MEDS: MULTIVITAMIN TAB PO SCH (07:57)
[2024-05-05] MEDS: POTASSIUM CHLORIDE CRTAB 20 MEQ TABCR PO SCH (07:57)
[2024-05-05] MEDS: CYANOCOBALAMIN 1000 MCG/ML VIAL SC SCH (08:06)
--- NOTE | 2024-05-05 09:00 | Orthopedic Progress Note ---
Date of Service May 05, 2024 Assessment & Plan (1) Infection of left knee: Plan: 58 yo morbidly obese male stable POD #1 s/p left TKA I&D, poly change s/p wound dehiscence left TKA 1. Med management- cont IV abx, need for PICC line? 2. DVT prophylaxis- resume Eliquis 24 hours postop, SCDs 3. PT/OT 4. D/C planning- Admission and Anticipated Discharge Date Admission Date: May 03, 2024 Subjective Pt resting in bed, states moderate pain overnight Physical Exam Physical Exam: Dressing/drain intact, toes mobile, NVI Results & Data Vital Signs (Past 12 Hours) Vital Signs Temp Pulse Pulse Resp BP BP Pulse Ox 05/05/24 07:37 36.7 C 78 18 156/77 H 96 05/05/24 03:19 36.7 C 79 18 141/70 H 97 05/05/24 00:13 84 24 96 05/04/24 22:46 36.9 C 81 18 154/71 H 96 O2 Del Method 05/05/24 07:37 Room Air 05/05/24 03:19 Room Air 05/05/24 00:13 05/04/24 22:46 Room Air Laboratory Results 05/05/24 05/05/24 05/04/24 Range/Units 07:36 05:42 20:27 WBC 9.78 (4.8-10.8) K/ul RBC 3.26 L (4.70-6.10) M/uL Hgb 10.0 L (14.0-18.0) g/dl Hct 30.1 L (42.0-52.0) % MCV 92.3 (80.0-100.0) fL MCH 30.7 (25.0-34.0) pg MCHC 33.2 (32.0-36.0) g/dL RDW Std Deviation 46.9 H (36.4-46.3) fL RDW Coeff of [place] 13.8 (11.5-14.5) % Plt Count 249 (130-400) K/uL MPV 9.7 (9.4-12.4) fL Immature Gran % (Auto) 0.4 % Neut % (Auto) 65.4 % Lymph % (Auto) 17.7 % [place] % (Auto) 7.2 % Eos % (Auto) 8.7 % Baso % (Auto) 0.6 % Neut # (Auto) 6.40 (1.40-6.50) K/uL Lymph # (Auto) 1.73 (1.20-3.40) K/uL [place] # (Auto) 0.70 H (0.11-0.59) K/uL Eos # (Auto) 0.85 H (0.00-0.50) K/uL Baso # (Auto) 0.06 (0.00-0.20) K/uL Immature Gran # (Auto) 0.04 (0.01-0.20) K/uL ESR 74 H (0-20) mm/hr Sodium 134 L (136-145) mmol/L Potassium 3.9 (3.5-5.1) mmol/L Chloride 100 (98-107) mmol/L Carbon Dioxide 27 (21-32) mmol/L Anion Gap 7 (3-11) BUN 26 H (6-23) mg/dl Creatinine 0.94 (0.6-1.4) mg/dl Est Cr Clr Drug Dosing 117.4 ml/min Est GFR ( Amer) 101.7 ml/min Est GFR (Non-Af Amer) 87.8 ml/min BUN/Creatinine Ratio 27.7 H (10-20) Glucose 155 H (70-99(Fasting)) mg/dl POC Glucose 161 H 129 H (70-99) mg/dl Calcium 8.4 L (8.6-10.3) mg/dl C-Reactive Protein 22.29 H (0-0.5) mg/dl 05/04/24 05/04/24 05/04/24 Range/Units 16:36 13:46 10:18 WBC (4.8-10.8) K/ul RBC (4.70-6.10) M/uL Hgb (14.0-18.0) g/dl Hct (42.0-52.0) % MCV (80.0-100.0) fL MCH (25.0-34.0) pg MCHC (32.0-36.0) g/dL RDW Std Deviation (36.4-46.3) fL RDW Coeff of [place] (11.5-14.5) % Plt Count (130-400) K/uL MPV (9.4-12.4) fL Immature Gran % (Auto) % Neut % (Auto) % Lymph % (Auto) % [place] % (Auto) % Eos % (Auto) % Baso % (Auto) % Neut # (Auto) (1.40-6.50) K/uL Lymph # (Auto) (1.20-3.40) K/uL [place] # (Auto) (0.11-0.59) K/uL Eos # (Auto) (0.00-0.50) K/uL Baso # (Auto) (0.00-0.20) K/uL Immature Gran # (Auto) (0.01-0.20) K/uL ESR (0-20) mm/hr Sodium (136-145) mmol/L Potassium (3.5-5.1) mmol/L Chloride (98-107) mmol/L Carbon Dioxide (21-32) mmol/L Anion Gap (3-11) BUN (6-23) mg/dl Creatinine (0.6-1.4) mg/dl Est Cr Clr Drug Dosing ml/min Est GFR ( Amer) ml/min Est GFR (Non-Af Amer) ml/min BUN/Creatinine Ratio (10-20) Glucose (70-99(Fasting)) mg/dl POC Glucose 184 H 138 H 148 H (70-99) mg/dl Calcium (8.6-10.3) mg/dl C-Reactive Protein (0-0.5) mg/dl Microbiology 05/03/24 15:53 Gram Stain - Final Knee,Left Wound Culture - Final Coag negative Staphylococcus 05/03/24 16:23 Aerobic Blood Culture - Preliminary Blood No growth in Aerobic bottle after 24 hours. Anaerobic Blood Culture - Preliminary No growth in Anaerobic bottle after 24 hours. 05/03/24 15:53 Aerobic Blood Culture - Preliminary Blood No growth in Aerobic bottle after 24 hours. Anaerobic Blood Culture - Preliminary No growth in Anaerobic bottle after 24 hours. 05/04/24 12:14 Gram Stain - Final Knee,Left Intraop cultures pending
--- NOTE | 2024-05-05 10:19 | Hospitalist Progress Note ---
Date of Service May 05, 2024 Assessment & Plan (1) Infection of left knee: Plan: Left TKR with Dr. Houston on 03/25/24. Patient was at PT on Sunday 04/29 and opened stitches; prescribed Cefadroxil 500mg BID - knee has worsened since then Knee x-ray: Moderate to large knee effusion inferior displacement of patella S/P I&D and poly exhcnage with Dr. Houston on 05/04 - Eliquis for DVT Proh Surface wound culture: coag negative staph Surgical wound culture: probable enterococus Blood cultures: no growth 24 hours CRP downtrending, ESR elevated Continue dapto q24hr Infectious disease consulted - will see patient sunday 05/06 - spoke with them - continue dapto at 8mg/kg, and add cefepime for gram negative coverage Pain control - scheduled Tylenol, prn oxycodone and Dilaudid PT/OT - recommend rehab, CM following A.m. CBC, BMP, (2) Type 2 diabetes mellitus: Plan: Last A1c at 6.0% on 02/16/2024. Home regiment: Metformin & monjaro (on hold) SSI; pharmacy glycemic consult by Ortho (3) Hypertension: Plan: Chlorthalidone and losartan on hold for post op day 1 - resume losartan 7.5 - chlorthalidone pending AM Labs Has prn home lasix Plan Chronic Medical conditions: * MAC - continue CPAP HS * BPH - continue flomax * Mental Health - continue wellbutrin, Zoloft * Gerd - continue PPI Dispo: continued inpatient stay DVT proh: Eliquis 2.5mg BID per ortho Father updated at bedside 05/06 Admission and Anticipated Discharge Date Admission Date: May 03, 2024 Supervising Physician Co-Signing Physician Notes PA Supervision Note: I did not personally see or examine the patient today, but I verified all pete points of HANNAH Mas's assessment and plan with the following exceptions/additions: None Subjective Patient seen sitting on the edge of the bed. Reports frustration with therapy this morning because he had to get out of bed had a BM this morning pain is overall well controlled discussed that he may need rehab Review of Systems Review of Systems: All systems reviewed & are unremarkable except as noted in Subjective Physical Exam Physical Exam: General: NAD, VS as above Resp: normal respiratory effort, lungs clear to auscultation CV: RRR, no murmur, Abd: normal bowel sounds, non tender, no hepatosplenomegaly Extremities: Left knee with rain wrap in place, edema to b/l ankles Neuro: A&O x3, Skin: intact, no lesions noted Results & Data Results & Data Vital Signs (Past 12 Hours) Vital Signs Temp Pulse Pulse Resp BP BP Pulse Ox 05/05/24 08:00 05/05/24 07:37 36.7 C 78 18 156/77 H 96 05/05/24 03:19 36.7 C 79 18 141/70 H 97 05/05/24 00:13 84 24 96 05/04/24 22:46 36.9 C 81 18 154/71 H 96 O2 Del Method 05/05/24 08:00 Room Air 05/05/24 07:37 Room Air 05/05/24 03:19 Room Air 05/05/24 00:13 05/04/24 22:46 Room Air Laboratory Results CBC, chemistry and CRP reviewed PG Care Time/CCT Total # of Minutes Spent Total Time Spent with Patient: Total time spent is greater than 50% in coordination of care (as documented) at patient's floor/unit and/or counseling patient: Coding Level of Care Code 82454 SUB INP/OBS CARE 3/50MIN Diagnoses Infection of left knee M00.9 Type 2 diabetes mellitus E11.9 Hypertension I10
[2024-05-05] MEDS: MELATONIN 3 MG TAB PO PRN (20:50)
[2024-05-05] MEDS: oxyCODONE HCL IR 5 MG TAB (IMMEDIATE RELEASE) PO PRN (20:51)
[2024-05-06 06:02] LABS: Basophils # (auto) 0.04 K/uL (0.00-0.20); Basophils % (auto) 0.5 %; Eosinophils # (auto) 1.21 K/uL (0.00-0.50); Eosinophils % (auto) 13.9 %; Hematocrit (blood only) 28.3 % (42.0-52.0); Hemoglobin 9.4 g/dl (14.0-18.0); Immature Granulocytes # (auto) 0.03 K/uL (0.01-0.20); Immature Granulocytes % (auto) 0.3 %; Lymphocytes # (auto) 1.83 K/uL (1.20-3.40); Lymphocytes % (auto) 21.1 %; Mean Corpuscular Hemoglobin 30.4 pg (25.0-34.0); Mean Corpuscular Hgb Conc 33.2 g/dL (32.0-36.0); Mean Corpuscular Volume 91.6 fL (80.0-100.0); Mean Platelet Volume 9.8 fL (9.4-12.4); Monocytes # (auto) 0.64 K/uL (0.11-0.59); Monocytes % (auto) 7.4 %; Neutrophils # (auto) 4.93 K/uL (1.40-6.50); Neutrophils % (auto) 56.8 %; Platelet Count 257 K/uL (130-400); RDW Coefficient of Variation 13.8 % (11.5-14.5); RDW Standard Deviation 46.7 fL (36.4-46.3); Red Blood Count 3.09 M/uL (4.70-6.10); White Blood Count 8.68 K/ul (4.8-10.8)
[2024-05-06 06:12] LABS: BUN Creatinine Ratio 23.3 (10-20); Calcium 8.6 mg/dl (8.6-10.3); Creatinine Clr Calc Pharmacy 107.1 ml/min; Est GFR (African American) 91.1 ml/min; Est GFR (Non-African American) 78.6 ml/min; Potassium 3.3 mmol/L (3.5-5.1)
--- NOTE | 2024-05-06 07:47 | Pharmacy Report ---
Pharmacy Glycemic Short Note 2 - Date of Service May 06, 2024 - Glycemic Short BSG Results (Last 24 hours): 05/05/24 05/05/24 05/05/24 07:36 11:31 16:24 Glucose POC Glucose 161 H 180 H 177 H 05/05/24 05/06/24 05/06/24 20:33 05:19 07:37 Glucose 146 H POC Glucose 150 H 166 H OUTPATIENT ANTIDIABETIC REGIMEN: * Metformin 500mg PO TID with meals * Mounjaro 7.5mg SQ weekly * A1c 6.0% 02/16/24 ASSESSMENT: 05/06/24: * Blood sugars mildly elevated yesterday, ranging 150-180 mg/dL * Received 22 units of prandial/correctional bolus, no basal insulin * Fasting blood sugar has been elevated since 05/04/24, will add basal insulin today 05/04/24: * 58 yo M, s/p I&D infected left knee (TKA 03/25/24), on IV daptomycin, no steroids, pharmacy consulted for glycemic control. * Blood sugars well controlled so far this admission on NovoLog insulin alone, will tighten CF/CR slightly at this time to improve glycemic control. PLAN FOR INPATIENT GLYCEMIC CONTROL: * Hold outpatient diabetes medications * Basal insulin * Lantus 15 units SC daily (~0.1 unit/kg) * Bolus insulin * NovoLog per scale ACHS or Q6hrs while NPO * Goal Range: Low 110 mg/dL - High 140 mg/dL * Correction Factor: 25 mg/dL/unit * Nutritional / Prandial insulin per carb ratio of 1 unit per 8 grams CHO consumed
[2024-05-06] MEDS: POTASSIUM CHLORIDE CRTAB 20 MEQ TABCR PO STA (08:27)
[2024-05-06] MEDS: LANTUS PER UNIT CHARGE SC SCH (08:28)
[2024-05-06] MEDS: LOSARTAN POTASSIUM 50 MG TAB PO SCH (08:34)
--- NOTE | 2024-05-06 08:59 | Orthopedic Progress Note ---
Date of Service May 06, 2024 Assessment & Plan (1) Infection of left knee: Plan: Patient is postoperative day #2 Derra procedure for traumatic disruption of his extensor mechanism and probable contamination of the knee. Awaiting infectious disease recommendations but will likely need PICC line and 6 weeks of IV antibiotics followed by oral suppression. Patient is morbidly obese and extremely deconditioned prior to his operation. He has a tenuous extensor mechanism which was repaired surgically after a traumatic disruption. He may weight-bear as tolerated with a walker but would prefer that he be not forced to get up out of a low chair which requires a great deal of quadricep strength and again no active or forced flexion. We will discontinue his drain today as last shift was 50 cc. Will leave the bulky Souza dressing on until Thursday when I will change it and evaluated his incision. Patient most likely is going to need SNF or some sort of ECF for recuperation as he lives alone and his living situation is poor. Admission and Anticipated Discharge Date Admission Date: May 03, 2024 Subjective Postoperative day #2 exploration repair synovectomy and repair disrupted extensor mechanism Subjective: Patient reports some problems yesterday getting up from a low chair. He was a little frustrated with therapy. His pain is well-controlled. He offers no other complaints this morning. Physical Exam Physical Exam: Patient is examined in bed. He has bulky dressing is clean dry and intact his toes are warm with good capillary refill he is neurologically and vascularly intact. Results & Data Vital Signs (Past 12 Hours) Vital Signs Temp Pulse Pulse Resp BP Pulse Ox O2 Del Method 05/06/24 07:38 36.6 C 80 18 146/73 H 97 Room Air 05/05/24 21:00 85 18 98 Laboratory Results Inflammatory markers are elevated but at this point this would be normal we will be watching for trends. Cultures deep cultures are looking like Enterococcus.
[2024-05-06] MEDS ORDERED: LANTUS PER UNIT CHARGE SC SCH (09:00)
[2024-05-06] MEDS: CYANOCOBALAMIN (B-12) 500 MCG TABLET PO ONE (10:43)
--- NOTE | 2024-05-06 10:47 | Infectious Disease Consult ---
Date of Consultation May 06, 2024 Assessment & Plan (1) Infection of left knee: Plan This is a 58 yo male DM2, osteoarthritis, GAVE, metabolic syndrome, obesity, recent L knee arthroplasty 03/25/25 sent in by ortho for I & D of L knee. He was working with physical therapy on 04/29 and was using a sliding board when he felt his knee split open. He was started on Keflex but the area worsened with increased pain, erythema and swollen with drainage. He denied fever, chills, nausea, vomiting. Pain worsens with ambulation and he had increased sweating the day of admission. In the ED he is afebrile and HDS. Labs with wbc 13.45, bun 27, cr 1.27, esr 54-->74-->77, esr -->22.29-->23, procal 0.47. Knee xay demonstrated a left total knee arthroplasty; hardware intact w/o periprosthetic lucency. Moderate to large knee effusion w/ soft tissue swelling within the left knee. Inferior displacement of the patella which could be displaced by the joint effusion. A wound culture obtained from the wound on 05/03 grew CONS. He underwent incision and Drainage,Poly Exchange, Synovectomy of Left Total Knee Arthroplasty ( DAIR) on 05/04. The wound communicated with the knee joint and appeared inflamed per OP report. Intraoperative cultures are growing PanS E faecalis so far. He is currently on Daptomycin and Cefepime. ID consulted for antibiotic managed of Left knee infection sp poly exchange. Micro Blood culture 05/03 NGTD Wound culture superficial 05/03 Intraop wound culture 05/04 E faecalis PanS ( prelim) Abx: Dapto 05/03- ongoing Cefepime05/04- ongoing Cefazolin 05/03 # Prosthetic Left knee infection s/p traumatic wound dehiscence with communication with the knee joint - s/p DAIR 05/04 #PCN allergy- rash # TMP-Sulf allergy- rash Ideally Ampicillin would be an optimal antibiotic as the E feacalis is panS, but he has a PCN allergy where he gets rash. It may be difficult to orally suppress with PO abx after IV abx. Will ask micro to test doxycycline. Unclear if CONS from prior wound cx is also contaminate. It has not grown in OR culture so far( earlY). CONS likes to stick to hardware, will cover both for now. Since hardware has been retained, He will need 6 weeks of IV antibiotics followed by PO antibiotics Recommendations: Discontinued Cefepime Continue IV daptomycin 8 mg/kg IV q24 Check CPK Follow up Finalization of OR cultures Follow up Blood culture Anticipate 6 wks of pathogen targeted therapy followed by po suppression. Thank you for this consult. ID will continue to follow ID will not cover over the weekend. Please call covering provider at [phone] with questions. Snow Bonds MD, MPH Infectious Disease [facility], ID Division Consultation Information Consultation was provided via telemedicine using two-way real-time interactive telecommunication between the patient and the telemedicine provider. For the duration of the visit, the provider was performing the assessment from a different facility than the patient. This includesuse of bluetooth stethoscope forauscultationperformed by the telepresenter that the telemedicine provider can hear if described in the physical exam. Pacs Administrator contact information: Please call [facility] Call Center . (Phone Number For Physician Use Only) After establishing a telemedicine visit, patient was: Patient was verified with two unique identifiers Time Spent with Patient: Initial => 75 min History of Present Illness Reason for Consultation: s/p poly exchange, left knee Requesting Physician: HANNAH Wilder Attending Physician: Becky Alvarez MD History of Present Illness This is a 58 yo male DM2, osteoarthritis, GAVE, metabolic syndrome, obesity, recent L knee arthroplasty 03/25/25 sent in by ortho for I & D of L knee. He was working with physical therapy on 04/29 and was using a sliding board when he felt his knee split open. He was started on Keflex but the area worsened with incr eased pain, erythema and swollen with drainage. He denied fever, chills, nausea, vomiting. Pain worsens with ambulation and he had increased sweating the day of admission. In the ED he is afebrile and HDS. Labs with wbc 13.45, bun 27, cr 1.27, esr 54-->74-->77, esr -->22.29-->23, procal 0.47. Knee xay demonstrated a left total knee arthroplasty; hardware intact w/o periprosthetic lucency. Moderate to large knee effusion w/ soft tissue swelling within the left knee. Inferior displacement of the patella which could be displaced by the joint effusion. A wound culture obtained from the wound on 05/03 grew CONS. He underwent incision and Drainage,Poly Exchange, Synovectomy of Left Total Knee Arthroplasty ( DAIR) on 05/04. The wound communicated with the knee joint and appeared inflamed per OP report. Intraoperative cultures are growing PanS E faecalis so far. He is currently on Daptomycin and Cefepime. ID consulted for antibiotic managed of Left knee infection sp poly exchange. Allergies Allergy/AdvReac Type Severity Reaction Status Date / Time Penicillins Allergy Intermediate Rash Verified 05/03/24 15:53 sulfamethoxazole Allergy Intermediate Rash Verified 05/03/24 15:53 trimethoprim Allergy Intermediate Rash Verified 05/03/24 15:53 peanut AdvReac Intermediate Diarrhea, Verified 05/03/24 15:53 indigestion soy AdvReac Intermediate diarrhea, Verified 05/03/24 15:53 indigestion wheat AdvReac Intermediate Diarrhea, Verified 05/03/24 15:53 indigestion atorvastatin AdvReac Mild Myalgia Verified 05/03/24 15:53 ezetimibe [From Zetia] AdvReac Mild Myalgia Verified 05/03/24 15:53 rosuvastatin AdvReac Mild Muscle Pain Verified 05/03/24 15:53 Home Medications Medication Instructions Recorded Confirmed Type albuterol sulfate 90 mcg/actuation 2 puff inhalation Q6H PRN 04/10/19 05/03/24 History aerosol inhaler (Ventolin HFA) Shortness Of Breath Or Wheezing bupropion HCl 150 mg tablet,12 hr 150 mg PO QAM 09/19/21 05/03/24 History sustained-release (Wellbutrin SR) multivitamin 1 tab PO QPM 06/24/22 05/03/24 History lancets 30 gauge (OneTouch Delica #100 ea 11/10/22 05/03/24 Rx Lancets) furosemide 20 mg tablet (Lasix) 20 mg PO DAILY PRN edema #30 tabs 12/22/22 05/03/24 Rx metformin 500 mg tablet,extended 500 mg PO TIDWMEAL 04/07/23 05/03/24 History release 24 hr cyanocobalamin (vitamin B-12) 3,000 mcg PO QAM 06/03/23 05/03/24 History 3,000 mcg capsule sertraline 100 mg tablet (Zoloft) 200 mg PO QAM 09/10/23 05/03/24 History montelukast 10 mg tablet 10 mg PO QPM #90 tabs 11/09/23 05/03/24 Rx chlorthalidone 50 mg tablet 50 mg PO QPM 01/06/24 05/03/24 History alfuzosin 10 mg tablet,extended 10 mg PO QPM 02/03/24 05/03/24 History release 24 hr (Uroxatral) losartan 100 mg tablet 100 mg PO QAM 02/03/24 05/03/24 History omeprazole 20 mg capsule,delayed 20 mg PO QAM 02/03/24 05/03/24 History release aspirin 81 mg tablet,delayed 81 mg PO BID #60 tabs 03/27/24 05/03/24 Rx release cefadroxil 500 mg capsule 500 mg PO BID #28 caps 03/27/24 05/03/24 Rx oxycodone 5 mg tablet 5 mg PO Q8H PRN pain #30 tabs 03/27/24 05/03/24 Rx potassium chloride 20 mEq 20 meq PO .COMPLEX #90 tabs 04/26/24 05/03/24 Rx tablet,extended release acetaminophen 500 mg tablet 1,000 mg PO TID fever or pain 05/03/24 05/03/24 History (Tylenol Extra Strength) cholecalciferol (vitamin D3) 50 50 mcg PO BID 05/03/24 05/03/24 History mcg (2,000 unit) tablet (Vitamin D3) tirzepatide 7.5 mg/0.5 mL 7.5 mg subcut .HOLD 05/03/24 05/03/24 History subcutaneous pen injector (Mounjaro) Patient History Medical History Diabetes mellitus Morbid obesity BPH (benign prostatic hyperplasia) Osteoarthritis Bilateral chronic knee pain Allergic rhinitis Surgical History History of esophageal dilatation Hx of prior ablation treatment venous ablation History of hernia surgery As child History of colonoscopy 06/2022 History of esophagogastroduodenoscopy (EGD) History of wisdom tooth extraction History of tooth extraction Status post uvulopalatopharyngoplasty History of repair of anterior cruciate ligament of right knee 1991 History of sinus surgery Family History Mother Diabetes Depression Father Heart disease Myocardial infarction Hypertension Prostate cancer Other No family history of adverse response to anesthesia Denies family history of Ovarian cancer Breast cancer Lung cancer Colorectal cancer Stroke Social History Smoking Status: Never smoker Second Hand Exposure: No; Do You Dip or Chew Tobacco: No (did in the past); Hx Alcohol Use: No Hx Substance Use: No Preferred Language: Dutch Communication Ability: Effective Visual Impairment: Limited Hearing Ability: Normal Drug Enforcement Agent Required: No Beliefs That Will Affect Care: None marital status: Single Current Living Situation: Alone Current Living Situation Comment: with father in one story home, stairs to enter home current occupational status: employed Other Information That Helps Us Care for You: No Feels Safe at Home: Yes Safety Concerns: Feels Safe At This Time Childhood Exposure to Second-Hand Smoke: No Diet: regular caffeine: No during the past year weight has: remained stable Dental Care, Regularly: Yes Physical Activity Frequency: Does not Exercise Seatbelt Use: always Sunscreen Use: No Assistive Devices: CPAP and Walker Review of System A 10 point ROS obtained. Pertinent positives as per HPI Physical Exam Physical Exam: DORA GARDINER, Was working in room with PT, Now sitting and comfortable, obese HEENT- anicteric sclera Lung- No increased work of breathing, On RA Abdomen- Soft , obese Ext RLE with no Edema. LLE dressed from above knee to ankle. Lateral drain in place draining blood. Minimal TTP to knee palpation Neuro- AAO*3 Psych- Normal mood, appropriate Results & Data Vital Signs (Past 12 Hours) Vital Signs Temp Pulse Resp BP Pulse Ox O2 Del Method 05/06/24 07:38 36.6 C 80 18 146/73 H 97 Room Air Laboratory Results 05/03/24 16:23 Aerobic Blood Culture - Preliminary Blood No growth in Aerobic bottle after 48 hours. Anaerobic Blood Culture - Preliminary No growth in Anaerobic bottle after 48 hours. 05/03/24 15:53 Aerobic Blood Culture - Preliminary Blood No growth in Aerobic bottle after 48 hours. Anaerobic Blood Culture - Preliminary No growth in Anaerobic bottle after 48 hours. 05/04/24 12:14 Gram Stain - Final Knee,Left Aerobic and Anaerobic Culture - Preliminary Probable Enterococcus 05/03/24 15:53 Gram Stain - Final Knee,Left Wound Culture - Final Coag negative Staphylococcus 05/06/24 05/06/24 05/05/24 07:37 05:19 20:33 WBC 8.68 RBC 3.09 L Hgb 9.4 L Hct 28.3 L MCV 91.6 MCH 30.4 MCHC 33.2 RDW Std Deviation 46.7 H RDW Coeff of [place] 13.8 Plt Count 257 MPV 9.8 Immature Gran % (Auto) 0.3 Neut % (Auto) 56.8 Lymph % (Auto) 21.1 [place] % (Auto) 7.4 Eos % (Auto) 13.9 Baso % (Auto) 0.5 Neut # (Auto) 4.93 Lymph # (Auto) 1.83 [place] # (Auto) 0.64 H Eos # (Auto) 1.21 H Baso # (Auto) 0.04 Immature Gran # (Auto) 0.03 ESR 77 H Sodium 137 Potassium 3.3 L Chloride 101 Carbon Dioxide 28 Anion Gap 8 BUN 24 H Creatinine 1.03 Est Cr Clr Drug Dosing 107.1 Est GFR ( Amer) 91.1 Est GFR (Non-Af Amer) 78.6 BUN/Creatinine Ratio 23.3 H Glucose 146 H POC Glucose 166 H 150 H Calcium 8.6 05/05/24 05/05/24 16:24 11:31 WBC RBC Hgb Hct MCV MCH MCHC RDW Std Deviation RDW Coeff of Migue Plt Count MPV Immature Gran % (Auto) Neut % (Auto) Lymph % (Auto) [place] % (Auto) Eos % (Auto) Baso % (Auto) Neut # (Auto) Lymph # (Auto) [place] # (Auto) Eos # (Auto) Baso # (Auto) Immature Gran # (Auto) ESR Sodium Potassium Chloride Carbon Dioxide Anion Gap BUN Creatinine Est Cr Clr Drug Dosing Est GFR ( Amer) Est GFR (Non-Af Amer) BUN/Creatinine Ratio Glucose POC Glucose 177 H 180 H Calcium Diagnostic Findings Knee X-Ray 05/03/24 15:23 XR knee LT 1 or 2V routine CLINICAL HISTORY: Left knee infection COMPARISON STUDY: Left knee 03/21/2014. FINDINGS: There is a left total knee arthroplasty. The hardware is intact. No abnormal periprosthetic lucency. No acute fracture. Moderate to large knee effusion. Mild soft tissue swelling within the left knee. Inferior displacement of the patella which could be displaced by the joint effusion. A quadriceps tendon injury/tear also remains in the differential diagnosis. IMPRESSION: 1. Moderate to large left knee effusion. 2. Inferior displacement of the patella which could be displaced by the joint effusion. A quadriceps tendon injury/tear also remains in the differential diagnosis. 3. No acute fractures. ACT 112: Negative or not required by law. Electronically signed by: Rip Castellano M.D. 05/03/2024 4:44 PM Medications Administered Home Medications Medication Instructions Recorded Confirmed Last Taken albuterol sulfate 90 mcg/actuation 2 puff inhalation Q6H PRN 04/10/19 05/03/24 Unknown aerosol inhaler (Ventolin HFA) Shortness Of Breath Or Wheezing bupropion HCl 150 mg tablet,12 hr 150 mg PO QAM 09/19/21 05/03/24 03/24/24 03:00 sustained-release (Wellbutrin SR) multivitamin 1 tab PO QPM 06/24/22 05/03/24 03/24/24 18:00 lancets 30 gauge (OneTouch Delica #100 ea 11/10/22 05/03/24 Unknown Lancets) furosemide 20 mg tablet (Lasix) 20 mg PO DAILY PRN edema #30 tabs 12/22/22 05/03/24 03/18/24 metformin 500 mg tablet,extended 500 mg PO TIDWMEAL 04/07/23 05/03/24 03/24/24 18:00 release 24 hr cyanocobalamin (vitamin B-12) 3,000 mcg PO QAM 06/03/23 05/03/24 03/24/24 03:00 3,000 mcg capsule sertraline 100 mg tablet (Zoloft) 200 mg PO QAM 09/10/23 05/03/24 03/24/24 03:00 montelukast 10 mg tablet 10 mg PO QPM #90 tabs 11/09/23 05/03/24 03/24/24 18:00 chlorthalidone 50 mg tablet 50 mg PO QPM 01/06/24 05/03/24 03/23/24 alfuzosin 10 mg tablet,extended 10 mg PO QPM 02/03/24 05/03/2403/24/24 18:00 release 24 hr (Uroxatral) losartan 100 mg tablet 100 mg PO QAM 02/03/24 05/03/24 03/24/24 03:00 omeprazole 20 mg capsule,delayed 20 mg PO QAM 02/03/24 05/03/24 03/25/24 04:00 release aspirin 81 mg tablet,delayed 81 mg PO BID #60 tabs 03/27/24 05/03/24 Unknown release cefadroxil 500 mg capsule 500 mg PO BID #28 caps 03/27/24 05/03/24 05/03/24 09:00 oxycodone 5 mg tablet 5 mg PO Q8H PRN pain #30 tabs 03/27/24 05/03/24 Unknown potassium chloride 20 mEq 20 meq PO .COMPLEX #90 tabs 04/26/24 05/03/24 Unknown tablet,extended release acetaminophen 500 mg tablet 1,000 mg PO TID fever or pain 05/03/24 05/03/24 Unknown (Tylenol Extra Strength) cholecalciferol (vitamin D3) 50 50 mcg PO BID 05/03/24 05/03/24 Unknown mcg (2,000 unit) tablet (Vitamin D3) tirzepatide 7.5 mg/0.5 mL 7.5 mg subcut .HOLD 05/03/24 05/03/24 Unknown subcutaneous pen injector (Delores) Active Medications Generic Name Dose Route Start Last Admin Trade Name Freq PRN Reason Stop Dose Admin Acetaminophen 1,000 mg 05/04/24 15:01 05/06/24 08:33 Acetaminophen 500 Mg Tab PO 06/03/24 15:00 1,000 mg TID LISA Administration Apixaban 2.5 mg 05/04/24 21:00 05/06/24 08:35 Apixaban 2.5 Mg Tab PO 06/03/24 20:59 2.5 mg BID LISA Administration Bupropion HCl 150 mg 05/04/24 12:00 05/06/24 08:36 Bupropion Sr 150 Mg Tabcr PO 06/03/24 11:59 150 mg QAM LISA Administration Docusate Sodium 100 mg 05/04/24 21:00 05/06/24 08:37 Docusate Sodium 100 Mg Cap PO 06/03/24 20:59 100 mg BID LISA Administration Hydromorphone HCl 0.25 mg 05/03/24 20:01 05/05/24 05:56 Hydromorphone Inj 0.5 Mg/0.5 Ml Syr IV 05/17/24 20:00 0.25 mg Q6H PRN Administration Pain Daptomycin 800 mg/ Syringe 16 mls @ 8 mls/min 05/04/24 18:00 05/05/24 17:45 IV 05/11/24 17:59 8 mls/min Q24H LISA Administration Protocol Cefepime HCl 2,000 mg/ Syringe 20 mls @ 5 mls/min 05/04/24 17:00 05/06/24 08:39 IV 06/15/24 16:59 5 mls/min Q8H LISA Administration Protocol Insulin Aspart 0 units 05/04/24 16:30 05/06/24 08:27 Insulin Aspart Per Unit Charge SC 06/03/24 16:29 4 units ACHS LISA Administration Protocol Insulin Glargine 15 units 05/06/24 09:00 05/06/24 08:28 Lantus Per Unit Charge SC 06/05/24 08:59 15 units QAM LISA Administration Losartan Potassium 100 mg 05/05/24 09:00 05/06/24 08:34 Losartan Potassium 50 Mg Tab PO 06/04/24 08:59 100 mg QAM LISA Administration Melatonin 3 mg 05/03/24 18:09 05/05/24 20:50 Melatonin 3 Mg Tab PO 06/02/24 18:08 3 mg HS PRN Administration Insomnia Montelukast Sodium 10 mg 05/03/24 21:00 05/05/24 20:50 Montelukast Sodium 10 Mg Tablet PO 06/02/24 20:59 10 mg QPM LISA Administration Multivitamins 1 tab 05/05/24 09:00 05/06/24 08:33 Multivitamin Tab PO 06/04/24 08:59 1 tab QAM LISA Administration Oxycodone HCl 5 mg 05/05/24 11:43 05/05/24 20:51 Oxycodone Hcl Ir 5 Mg Tab (Immediate Release) PO 05/18/24 15:00 5 mg Q6H PRN Administration pain Pantoprazole Sodium 40 mg 05/04/24 12:00 05/06/24 08:36 Pantoprazole 40 Mg Tab PO 06/03/24 11:59 40 mg QAM LISA Administration Protocol Potassium Chloride 20 meq 05/05/24 09:00 05/06/24 08:49 Potassium Chloride Crtab 20 Meq Tabcr PO 06/04/24 08:59 20 meq DAILY LISA Administration Sennosides 17.2 mg 05/04/24 21:00 05/05/24 20:28 Senna 8.6 Mg Tab PO 06/03/24 20:59 Not Given HS LISA Sertraline HCl 200 mg 05/04/24 12:00 05/06/24 08:35 Sertraline Hcl 100 Mg Tablet PO 06/03/24 11:59 200 mg QAM LISA Administration Tamsulosin HCl 0.4 mg 05/03/24 21:00 05/05/24 20:50 Tamsulosin Hcl 0.4 Mg Cap PO 06/02/24 20:59 0.4 mg QPM LISA Administration Protocol Vitamin D 50 mcg 05/04/24 21:00 05/06/24 08:34 Cholecalciferol 25 Mcg (1000 Units) Tab PO 06/03/24 20:59 50 mcg BID LISA Administration
--- NOTE | 2024-05-06 16:43 | Hospitalist Progress Note ---
Date of Service May 06, 2024 Assessment & Plan (1) Infection of left knee: Plan: Left TKR with Dr. Houston on 03/25/24. Patient was at PT on Sunday 04/29 and opened stitches; prescribed Cefadroxil 500mg BID - knee has worsened since then Knee x-ray: Moderate to large knee effusion inferior displacement of patella S/P I&D and poly exchange with Dr. Houston on 05/04 - Eliquis for DVT Proh Surface wound culture: coag negative staph Surgical wound culture: enterococus faecalis Blood cultures: no growth 48 hours CRP downtrending, ESR elevated Infectious disease consulted - cefepime discontinued - continue dapto 8mg/kg - check CPK (ordered) Picc consent obtained 05/06 Pain control - scheduled Tylenol, prn oxycodone and Dilaudid PT/OT - recommend rehab, CM following A.m. CBC, BMP,CPK (2) Type 2 diabetes mellitus: Plan: Last A1c at 6.0% on 02/16/2024. Home regiment: Metformin & monjaro (on hold) SSI; pharmacy glycemic consult by Ortho (3) Hypertension: Plan: Chlorthalidone and losartan on hold for post op day 1 - resume losartan 7.5 - chlorthalidone pending AM Labs Has prn home lasix - patient states he may be takes this on the weekends but has not taken at all recently K replaced PO today AM BMP Plan Chronic Medical conditions: * MAC - continue CPAP HS * BPH - continue flomax * Mental Health - continue wellbutrin, Zoloft * Gerd - continue PPI Dispo: continued inpatient stay DVT proh: Eliquis 2.5mg BID per ortho Father updated at bedside 05/06 and 05/07 Admission and Anticipated Discharge Date Admission Date: May 03, 2024 Supervising Physician Co-Signing Physician Notes PA Supervision Note: I did not personally see or examine the patient today, but I verified all pete points of HANNAH Mas's assessment and plan with the following exceptions/additions: None Subjective Patient seen sitting up in the chair, father present in the room. Was able to walk with therapy today. Discussed rehab, he is worried about the cleanliness as he does not want to get another infection. Moving bowels good appetite Review of Systems Review of Systems: All systems reviewed & are unremarkable except as noted in Subjective Physical Exam Physical Exam: General: NAD, VS as above Resp: normal respiratory effort, lungs clear to auscultation CV: RRR, no murmur, Abd: normal bowel sounds, non tender, no hepatosplenomegaly Extremities: Left knee with rain wrap in place, edema to b/l ankles Neuro: A&O x3, Skin: intact, no lesions noted Results & Data Results & Data Vital Signs (Past 12 Hours) Vital Signs Temp Pulse Resp BP Pulse Ox O2 Del Method 05/06/24 16:07 36.8 C 85 18 154/75 H 94 Room Air 05/06/24 07:38 36.6 C 80 18 146/73 H 97 Room Air Laboratory Results CBC and chemistry reviewed PG Care Time/CCT Total # of Minutes Spent Total Time Spent with Patient: Total time spent is greater than 50% in coordination of care (as documented) at patient's floor/unit and/or counseling patient: Coding Level of Care Code 66293 SUB INP/OBS CARE 3/50MIN Diagnoses Infection of left knee M00.9 Type 2 diabetes mellitus E11.9 Hypertension I10
[2024-05-07 05:55] LABS: Basophils # (auto) 0.03 K/uL (0.00-0.20); Basophils % (auto) 0.3 %; Eosinophils # (auto) 1.32 K/uL (0.00-0.50); Eosinophils % (auto) 12.8 %; Hematocrit (blood only) 29.1 % (42.0-52.0); Hemoglobin 9.5 g/dl (14.0-18.0); Immature Granulocytes # (auto) 0.04 K/uL (0.01-0.20); Immature Granulocytes % (auto) 0.4 %; Lymphocytes # (auto) 1.81 K/uL (1.20-3.40); Lymphocytes % (auto) 17.6 %; Mean Corpuscular Hemoglobin 30.4 pg (25.0-34.0); Mean Corpuscular Hgb Conc 32.6 g/dL (32.0-36.0); Mean Platelet Volume 9.6 fL (9.4-12.4); Monocytes # (auto) 0.89 K/uL (0.11-0.59); Monocytes % (auto) 8.6 %; Neutrophils # (auto) 6.22 K/uL (1.40-6.50); Neutrophils % (auto) 60.3 %; Platelet Count 285 K/uL (130-400); RDW Standard Deviation 47.8 fL (36.4-46.3); Red Blood Count 3.13 M/uL (4.70-6.10); White Blood Count 10.31 K/ul (4.8-10.8)
[2024-05-07 06:18] LABS: BUN Creatinine Ratio 28.2 (10-20); Calcium 8.9 mg/dl (8.6-10.3); Creatinine Clr Calc Pharmacy 100.3 ml/min; Est GFR (African American) 84.1 ml/min; Est GFR (Non-African American) 72.6 ml/min; Magnesium 1.8 mg/dl (1.7-2.4); Potassium 4.1 mmol/L (3.5-5.1)
--- NOTE | 2024-05-07 08:25 | Orthopedic Progress Note ---
Date of Service May 07, 2024 Assessment & Plan (1) Infection of left knee: Plan: 58 yo morbidly obese male stable POD #3 s/p left TKA I&D, poly change; intraop cultures growing E faecalis(thomas sensitive) 1. Med management- ID consult noted, PICC line ordered, cont IV Dapto 2. DVT prophylaxis- Eliquis, SCDs 3. PT/OT- limit deep knee flexion 4. D/C planning- pt likely to require SNF upon d/c Admission and Anticipated Discharge Date Admission Date: May 03, 2024 Subjective Pt resting in bed, feeling better, has done some limited PT Physical Exam Physical Exam: Dressing intact(will remain in place until 05/09/24), toes mobile, NVI Results & Data Vital Signs (Past 12 Hours) Vital Signs Temp Pulse Resp BP BP Pulse Ox Pulse Ox 05/07/24 07:22 36.9 C 80 18 127/81 93 05/06/24 21:18 05/06/24 21:18 95 05/06/24 20:55 36.7 C 103 H 14 130/68 95 O2 Del Method O2 Del Method 05/07/24 07:22 Room Air 05/06/24 21:18 Room Air, CPAP 05/06/24 21:18 Room Air 05/06/24 20:55 Room Air Laboratory Results 05/07/24 05/07/24 05/06/24 Range/Units 07:38 05:25 20:40 WBC 10.31 (4.8-10.8) K/ul RBC 3.13 L (4.70-6.10) M/uL Hgb 9.5 L (14.0-18.0) g/dl Hct 29.1 L (42.0-52.0) % MCV 93.0 (80.0-100.0) fL MCH 30.4 (25.0-34.0) pg MCHC 32.6 (32.0-36.0) g/dL RDW Std Deviation 47.8 H (36.4-46.3) fL RDW Coeff of [place] 14.0 (11.5-14.5) % Plt Count 285 (130-400) K/uL MPV 9.6 (9.4-12.4) fL Immature Gran % (Auto) 0.4 % Neut % (Auto) 60.3 % Lymph % (Auto) 17.6 % [place] % (Auto) 8.6 % Eos % (Auto) 12.8 % Baso % (Auto) 0.3 % Neut # (Auto) 6.22 (1.40-6.50) K/uL Lymph # (Auto) 1.81 (1.20-3.40) K/uL [place] # (Auto) 0.89 H (0.11-0.59) K/uL Eos # (Auto) 1.32 H (0.00-0.50) K/uL Baso # (Auto) 0.03 (0.00-0.20) K/uL Immature Gran # (Auto) 0.04 (0.01-0.20) K/uL Sodium 137 (136-145) mmol/L Potassium 4.1 D (3.5-5.1) mmol/L Chloride 103 (98-107) mmol/L Carbon Dioxide 29 (21-32) mmol/L Anion Gap 5 (3-11) BUN 31 H (6-23) mg/dl Creatinine 1.10 (0.6-1.4) mg/dl Est Cr Clr Drug Dosing 100.3 ml/min Est GFR ( Amer) 84.1 ml/min Est GFR (Non-Af Amer) 72.6 ml/min BUN/Creatinine Ratio 28.2 H (10-20) Glucose 143 H (70-99(Fasting)) mg/dl POC Glucose 162 H 166 H (70-99) mg/dl Calcium 8.9 (8.6-10.3) mg/dl Magnesium 1.8 (1.7-2.4) mg/dl Total Creatine Kinase 40 (30-223) U/L 05/06/24 05/06/24 05/06/24 Range/Units 16:31 11:24 05:19 WBC (4.8-10.8) K/ul RBC (4.70-6.10) M/uL Hgb (14.0-18.0) g/dl Hct (42.0-52.0) % MCV (80.0-100.0) fL MCH (25.0-34.0) pg MCHC (32.0-36.0) g/dL RDW Std Deviation (36.4-46.3) fL RDW Coeff of [place] (11.5-14.5) % Plt Count (130-400) K/uL MPV (9.4-12.4) fL Immature Gran % (Auto) % Neut % (Auto) % Lymph % (Auto) % [place] % (Auto) % Eos % (Auto) % Baso % (Auto) % Neut # (Auto) (1.40-6.50) K/uL Lymph # (Auto) (1.20-3.40) K/uL [place] # (Auto) (0.11-0.59) K/uL Eos # (Auto) (0.00-0.50) K/uL Baso # (Auto) (0.00-0.20) K/uL Immature Gran # (Auto) (0.01-0.20) K/uL Sodium (136-145) mmol/L Potassium (3.5-5.1) mmol/L Chloride (98-107) mmol/L Carbon Dioxide (21-32) mmol/L Anion Gap (3-11) BUN (6-23) mg/dl Creatinine (0.6-1.4) mg/dl Est Cr Clr Drug Dosing ml/min Est GFR ( Amer) ml/min Est GFR (Non-Af Amer) ml/min BUN/Creatinine Ratio (10-20) Glucose (70-99(Fasting)) mg/dl POC Glucose 144 H 158 H (70-99) mg/dl Calcium (8.6-10.3) mg/dl Magnesium (1.7-2.4) mg/dl Total Creatine Kinase 37 (30-223) U/L Microbiology 05/03/24 15:53 Gram Stain - Final Knee,Left Wound Culture - Preliminary Coag negative Staphylococcus 05/04/24 12:14 Gram Stain - Final Knee,Left Aerobic and Anaerobic Culture - Preliminary Enterococcus faecalis
[2024-05-07] MEDS: CYANOCOBALAMIN (B-12) 500 MCG TABLET PO SCH (08:37)
--- NOTE | 2024-05-07 17:52 | Hospitalist Progress Note ---
Date of Service May 07, 2024 Assessment & Plan (1) Infection of left knee: Plan: Left TKR with Dr. Houston on 03/25/24. Patient was at PT on Sunday 04/29 and opened stitches; prescribed Cefadroxil 500mg BID - knee has worsened since then Knee x-ray: Moderate to large knee effusion inferior displacement of patella S/P I&D and poly exchange with Dr. Houston on 05/04 - Eliquis for DVT Proh Surface wound culture: coag negative staph Surgical wound culture: enterococus faecalis Blood cultures: no growth 48 hours CRP downtrending, ESR elevated Infectious disease consulted - cefepime discontinued - continue dapto 8mg/kg - check CPK (ordered) Picc consent obtained 05/06, has not been placed yet Pain control - scheduled Tylenol, prn oxycodone and Dilaudid PT/OT - recommend rehab, CM following A.m. CBC, BMP, (2) Type 2 diabetes mellitus: Plan: Last A1c at 6.0% on 02/16/2024. Home regiment: Metformin & monjaro (on hold) SSI; pharmacy glycemic consult by Ortho (3) Hypertension: Plan: Chlorthalidone and losartan on hold for post op day 1 - resume losartan 05/06 - resume chlorthalidone Has prn home lasix - patient states he may be takes this on the weekends but has not taken at all recently AM BMP Plan Chronic Medical conditions: * MAC - continue CPAP HS * BPH - continue flomax * Mental Health - continue wellbutrin, Zoloft * Gerd - continue PPI Dispo: continued inpatient stay DVT proh: Eliquis 2.5mg BID per ortho Father updated at bedside 05/06 and 05/07 Admission and Anticipated Discharge Date Admission Date: May 03, 2024 Supervising Physician Co-Signing Physician Notes PA Supervision Note: I did not personally see or examine the patient today, but I verified all pete p oints of HANNAH Mas's assessment and plan with the following exceptions/additions: None Subjective patient seen later this afternoon. states that he was able to walk in the halls twice today pain controlled Review of Systems Review of Systems: All systems reviewed & are unremarkable except as noted in Subjective Physical Exam Physical Exam: General: NAD, VS as above Resp: normal respiratory effort, lungs clear to auscultation CV: RRR, no murmur, Abd: normal bowel sounds, non tender, no hepatosplenomegaly Extremities: Left knee with rain wrap in place, edema to b/l ankles Neuro: A&O x3, Skin: intact, no lesions noted Results & Data Results & Data Vital Signs (Past 12 Hours) Vital Signs Temp Pulse Resp BP Pulse Ox O2 Del Method 05/07/24 16:47 37.1 C 98 H 16 156/77 H 94 Room Air 05/07/24 07:22 36.9 C 80 18 127/81 93 Room Air Laboratory Results CBC, chemistry and mag reviewed PG Care Time/CCT Total # of Minutes Spent Total Time Spent with Patient: Total time spent is greater than 50% in coordination of care (as documented) at patient's floor/unit and/or counseling patient: Coding Level of Care Code 11986 SUB INP/OBS CARE 3/50MIN Diagnoses Infection of left knee M00.9 Type 2 diabetes mellitus E11.9 Hypertension I10
[2024-05-07] MEDS: ONDANSETRON INJ 2 MG/ML 2 ML VIAL IV PRN (18:37)
[2024-05-08 06:27] LABS: Basophils # (auto) 0.05 K/uL (0.00-0.20); Basophils % (auto) 0.4 %; Eosinophils # (auto) 1.43 K/uL (0.00-0.50); Eosinophils % (auto) 12.7 %; Hematocrit (blood only) 28.1 % (42.0-52.0); Hemoglobin 9.2 g/dl (14.0-18.0); Immature Granulocytes # (auto) 0.07 K/uL (0.01-0.20); Immature Granulocytes % (auto) 0.6 %; Lymphocytes # (auto) 2.16 K/uL (1.20-3.40); Lymphocytes % (auto) 19.3 %; Mean Corpuscular Hemoglobin 30.7 pg (25.0-34.0); Mean Corpuscular Hgb Conc 32.7 g/dL (32.0-36.0); Mean Corpuscular Volume 93.7 fL (80.0-100.0); Mean Platelet Volume 9.7 fL (9.4-12.4); Monocytes # (auto) 0.86 K/uL (0.11-0.59); Monocytes % (auto) 7.7 %; Neutrophils # (auto) 6.65 K/uL (1.40-6.50); Neutrophils % (auto) 59.3 %; Platelet Count 318 K/uL (130-400); White Blood Count 11.22 K/ul (4.8-10.8)
[2024-05-08 06:35] LABS: BUN Creatinine Ratio 35.6 (10-20); Creatinine Clr Calc Pharmacy 122.6 ml/min; Est GFR (African American) 107.2 ml/min; Est GFR (Non-African American) 92.5 ml/min; Potassium 3.7 mmol/L (3.5-5.1)
--- NOTE | 2024-05-08 08:05 | Pharmacy Report ---
Pharmacy Glycemic Short Note 2 - Date of Service May 08, 2024 - Glycemic Short BSG Results (Last 24 hours): 05/07/24 05/07/24 05/07/24 11:51 16:36 20:37 Glucose POC Glucose 153 H 166 H 159 H 05/08/24 05/08/24 05:21 07:46 Glucose 129 H POC Glucose 144 H OUTPATIENT ANTIDIABETIC REGIMEN: * Metformin 500mg PO TID with meals * Mounjaro 7.5mg SQ weekly * A1c 6.0% 02/16/24 ASSESSMENT: 05/08/24: * Blood sugars reasonably well-controlled over past 48 hours, ranging 144-166 mg/dL * Received 27 units of insulin (15 units of basal and 12 units of bolus yesterday) * Fasting blood sugar of 144 mg/dL * Will tighten Novolog and increase basal today 05/06/24: * Blood sugars mildly elevated yesterday, ranging 150-180 mg/dL * Received 22 units of prandial/correctional bolus, no basal insulin * Fasting blood sugar has been elevated since 05/04/24, will add basal insulin today 05/04/24: * 58 yo M, s/p I&D infected left knee (TKA 03/25/24), on IV daptomycin, no steroids, pharmacy consulted for glycemic control. * Blood sugars well controlled so far this admission on NovoLog insulin alone, will tighten CF/CR slightly at this time to improve glycemic control. PLAN FOR INPATIENT GLYCEMIC CONTROL: * Hold outpatient diabetes medications * Basal insulin - increase ~20% * Lantus 18 units SC daily * Bolus insulin - tighten * NovoLog per scale ACHS or Q6hrs while NPO * Goal Range: Low 110 mg/dL - High 140 mg/dL * Correction Factor: 20 mg/dL/unit * Nutritional / Prandial insulin per carb ratio of 1 unit per 7 grams CHO consumed
[2024-05-08] MEDS: CHLORTHALIDONE 25 MG TAB PO SCH (08:14)
[2024-05-08] MEDS: LANTUS PER UNIT CHARGE SC SCH (08:22)
--- NOTE | 2024-05-08 15:09 | Hospitalist Progress Note ---
Date of Service May 08, 2024 Assessment & Plan (1) Infection of left knee: Plan: Left TKR with Dr. Houston on 03/25/24. Patient was at PT on Sunday 04/29 and opened stitches; prescribed Cefadroxil 500mg BID - knee has worsened since then Knee x-ray: Moderate to large knee effusion inferior displacement of patella S/P I&D and poly exchange with Dr. Houston on 05/04 - Eliquis for DVT Proh Surface wound culture: coag negative staph Surgical wound culture: enterococus faecalis Blood cultures: no growth 48 hours CRP downtrending, ESR elevated Infectious disease consulted - cefepime discontinued - continue dapto 8mg/kg - check CPK - WNL Picc consent obtained 05/06, has not been placed yet - 05/08 WBC with slight elevation, defer placement until repeat CBC tomorrow. tylenol is schedule so may be masking fever Pain control - scheduled Tylenol, prn oxycodone PT/OT - recommend rehab, CM following A.m. CBC, BMP, and CRP (2) Type 2 diabetes mellitus: Plan: Last A1c at 6.0% on 02/16/2024. Home regiment: Metformin & monjaro (on hold) SSI; pharmacy glycemic consult by Ortho (3) Hypertension: Plan: Chlorthalidone and losartan on hold for post op day 1 - resume losartan 05/06 - resume chlorthalidone Has prn home lasix - patient states he may be takes this on the weekends but has not taken at all recently. BPs acceptable does not appear volume overloaded at present AM BMP Plan Chronic Medical conditions: * MAC - continue CPAP HS * BPH - continue flomax * Mental Health - continue wellbutrin, Zoloft * Gerd - continue PPI Dispo: continued inpatient stay DVT proh: Eliquis 2.5mg BID per ortho Father updated at bedside 05/06 and 05/07 Admission and Anticipated Discharge Date Admission Date: May 03, 2024 Supervising Physician Co-Signing Physician Notes PA Supervision Note: I did not personally see or examine the patient today, but I verified all pete points of HANNAH Mas's assessment and plan with the following exceptions/additions: None Subjective patient sitting up in the chair. States pain is well-controlled. Moving bowels. No fevers or chills overnight but did have difficulty getting comfortable in bed. Has walked in the hallway once today. Review of Systems Review of Systems: All systems reviewed & are unremarkable except as noted in Subjective Physical Exam Physical Exam: General: NAD, VS as above Resp: normal respiratory effort, lungs clear to auscultation CV: RRR, no murmur, Abd: normal bowel sounds, non tender, no hepatosplenomegaly Extremities: Left knee with rain wrap in place - I did not remove dressing completely as Ortho plans to tomorrow however visualize top of the incision without signs of infection, edema to b/l ankles Neuro: A&O x3, Skin: intact, no lesions noted Results & Data Results & Data Vital Signs (Past 12 Hours) Vital Signs Temp Pulse Resp BP BP Pulse Ox O2 Del Method 05/08/24 14:49 116/65 05/08/24 14:35 37.1 C 78 15 193/122 H 97 Room Air 05/08/24 08:00 Room Air 05/08/24 07:07 36.5 C 80 17 143/73 H 95 Room Air Laboratory Results CBC and chemistry reviewed PG Care Time/CCT Total # of Minutes Spent Total Time Spent with Patient: Total time spent is greater than 50% in coordination of care (as documented) at patient's floor/unit and/or counseling patient: Coding Level of Care Code 67824 SUB INP/OBS CARE 3/50MIN Diagnoses Infection of left knee M00.9 Type 2 diabetes mellitus E11.9 Hypertension I10
[2024-05-09 07:07] LABS: Basophils # (auto) 0.07 K/uL (0.00-0.20); Basophils % (auto) 0.7 %; Eosinophils # (auto) 1.37 K/uL (0.00-0.50); Eosinophils % (auto) 12.7 %; Hematocrit (blood only) 27.8 % (42.0-52.0); Hemoglobin 9.2 g/dl (14.0-18.0); Immature Granulocytes # (auto) 0.05 K/uL (0.01-0.20); Immature Granulocytes % (auto) 0.5 %; Lymphocytes # (auto) 2.12 K/uL (1.20-3.40); Lymphocytes % (auto) 19.7 %; Mean Corpuscular Hemoglobin 30.9 pg (25.0-34.0); Mean Corpuscular Hgb Conc 33.1 g/dL (32.0-36.0); Mean Corpuscular Volume 93.3 fL (80.0-100.0); Mean Platelet Volume 9.4 fL (9.4-12.4); Monocytes # (auto) 0.73 K/uL (0.11-0.59); Monocytes % (auto) 6.8 %; Neutrophils # (auto) 6.41 K/uL (1.40-6.50); Neutrophils % (auto) 59.6 %; Platelet Count 348 K/uL (130-400); RDW Coefficient of Variation 13.8 % (11.5-14.5); RDW Standard Deviation 47.1 fL (36.4-46.3); Red Blood Count 2.98 M/uL (4.70-6.10); White Blood Count 10.75 K/ul (4.8-10.8)
[2024-05-09 07:21] LABS: BUN Creatinine Ratio 35.8 (10-20); C Reactive Protein 18.2 mg/dl (0-0.5); Calcium 9.2 mg/dl (8.6-10.3); Creatinine Clr Calc Pharmacy 116.1 ml/min; Est GFR (African American) 100.4 ml/min; Est GFR (Non-African American) 86.7 ml/min; Potassium 3.4 mmol/L (3.5-5.1)
--- NOTE | 2024-05-09 11:57 | Hospitalist Progress Note ---
Date of Service May 09, 2024 Assessment & Plan (1) Infection of left knee: Plan: Patient underwent a TKR with Dr. Houston on 03/25/2024. He was at physical therapy 04/29 and opened stitiches. He was given Cefadroxil 500mg BID but knee has worsened and he presented to the ED on 05/03/2024 for further care. -Knee x-ray 05/03: moderate to large knee effusion, inferior displacement of patella which could be displaced by joint effusions. no acute fractures -s/p I&D w/ Dr. Houston 05/04. -Surface wound culture 05/03: coag negative staph -Surgical wound culture 05/04: enterococcus faecalis -Blood cultures 05/03: negative 5 day lila -Reviewed CRp 05/09: downtrending 18.20 -Infectious disease consulted, discussed case w/ Dr. Bonds 05/09 -Continue daptomycin for now -Patient would benefit from ampicillin desensitization, if desensitized 6 weeks IV ampicillin followed by PO suppression with Amoxicillin -Patient will need transferred to ICU for desensitization -Consult allergy/immunology, appreciate recommendations -Discussed case with ICU, this is to take place on 05/11 tentatively -Reviewed CPK 05/07: 40 -Patient unable to recieve PICC line on 05/08 due to elevation of WBC. -reviewed CBC 05/09 with normal WBC of 10.75 -PICC line placed 05/09. -Pain control: scheduled tylenol, prn oxycodone -PT/OT recommend rehab, CM following AM CBC, BMP, CRP, Tryptase level (2) Type 2 diabetes mellitus: Plan: -Last A1c at 6.0% on 02/16/2024. Home regiment: Metformin & monjaro (on hold) -SSI; pharmacy glycemic consult by Ortho (3) Hypertension: Plan: -Chlorthalidone and losartan held post op day 1 - resume losartan 05/06 - resume chlorthalidone -Has prn home lasix - patient states he may be takes this on the weekends but has not taken at all recently. BPs acceptable does not appear volume overloaded at present AM BMP Plan Chronic Medical conditions: * MAC - continue CPAP HS * BPH - continue flomax * Mental Health - continue wellbutrin, Zoloft * Gerd - continue PPI Dispo: continued inpatient stay, plan for transfer to ICU AM of 05/11 for antibiotic desensitization DVT proh: Eliquis 2.5mg BID per ortho Spoke with sister (JANET) and updated her extensively on phone 05/09. All questions answered at end of call. Admission and Anticipated Discharge Date Admission Date: May 03, 2024 Subjective Patient was seen and examined this morning. Patient reports to be feeling well today. He denies any complaints. He denies chest pain or shortness of breath. He states he is not experiencing any pain in his knee at time of encounter. He is awaiting orthopedics to evaluate him today. He also reports he was seen by ID this morning. Discussed with ID provider this afternoon. Recommending ampicillin desensitization. Discussed with ICU nurse, will plan this for 05/11 based upon allergy/immunology recommendations. Physical Exam 2 Constitutional: WD/WN, vitals as above Eyes: PERRL, conjunctivae normal, anicteric sclerae Respiratory: normal respiratory effort, lungs clear to auscultation Cardiovascular: RRR, no murmur, no edema Psychiatric: A+Ox3, euthymic affect Results & Data Results & Data Vital Signs (Past 12 Hours) Vital Signs Temp Pulse Pulse Pulse Resp BP BP 05/09/24 08:05 05/09/24 07:37 36.4 C L 72 20 124/76 05/09/24 07:18 36.6 C 68 18 115/70 05/09/24 05:48 70 19 Pulse Ox O2 Del Method 05/09/24 08:05 Room Air 05/09/24 07:37 98 CPAP 05/09/24 07:18 97 Room Air 05/09/24 05:48 98 Laboratory Results 05/09/24 06:36 05/09/24 06:36 PG Care Time/CCT Total # of Minutes Spent Total Time Spent with Patient: Total time spent is greater than 50% in coordination of care (as documented) at patient's floor/unit and/or counseling patient: Coding Level of Care Code 44520 SUB INP/OBS CARE 3/50MIN Diagnoses Infection of left knee M00.9 Type 2 diabetes mellitus without complication, without long-term current use of insulin E11.9 Diabetes mellitus assisted insulin use: without terminal operator use Diabetes mellitus complication status: without complication Primary hypertension I10 Hypertension type: primary hypertension (2) Type 2 diabetes mellitus Diabetes mellitus assisted insulin use: without assisted use Diabetes mellitus complication status: without complication Qualified Code(s): E11.9 - Type 2 diabetes mellitus without complications (3) Hypertension Hypertension type: primary hypertension Qualified Code(s): I10 - Essential (primary) hypertension
--- NOTE | 2024-05-09 12:48 | Infectious Disease Progress Nt ---
Date of Service May 09, 2024 Assessment & Plan (1) Infection of left knee: Plan This is a 58 yo male DM2, osteoarthritis, GAVE, metabolic syndrome, obesity, recent L knee arthroplasty 03/25/25 sent in by ortho for I & D of L knee. He was working with physical therapy on 04/29 and was using a sliding board when he felt his knee split open. He was started on Keflex but the area worsened with increased pain, erythema and swollen with drainage. He denied fever, chills, nausea, vomiting. Pain worsens with ambulation and he had increased sweating the day of admission. In the ED he is afebrile and HDS. Labs with wbc 13.45, bun 27, cr 1.27, esr 54-->74-->77, esr -->22.29-->23, procal 0.47. Knee xay demonstrated a left total knee arthroplasty; hardware intact w/o periprosthetic lucency. Moderate to large knee effusion w/ soft tissue swelling within the left knee. Inferior displacement of the patella which could be displaced by the joint effusion. A wound culture obtained from the wound on 05/03 grew CONS. He underwent incision and Drainage,Poly Exchange, Synovectomy of Left Total Knee Arthroplasty ( DAIR) on 05/04. The wound communicated with the knee joint and appeared inflamed per OP report. Intraoperative cultures are growing PanS E faecalis so far. He is currently on Daptomycin and Cefepime. ID consulted for antibiotic managed of Left knee infection sp poly exchange. Micro Blood culture 05/03 NG Wound culture superficial 05/03 Intraop wound culture 05/04 E faecalis PanS ( Amp, van, dapto, cipr/lev ) Abx: Dapto 05/03- ongoing Cefepime05/04- 05/06 Cefazolin 05/03 # Prosthetic Left knee infection s/p traumatic wound dehiscence with communication with the knee joint - s/p DAIR 05/04 #PCN allergy- rash # TMP-Sulf allergy- rash Ideally Ampicillin would be an optimal antibiotic as the E feacalis is panS, but he has a PCN allergy where he gets rash. It may be difficult to orally suppress with PO abx after IV abx. Unclear if CONS from prior wound cx is a contaminate. It has not grown in OR culture, so will focus on E feacalis. 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 If desensitized, can treat with 6 wks IV ampicillin followed by PO suppression with amoxicillin. Discussed with pharmacy and he will need to be transferred to ICU for desensitization. -Continue IV daptomycin 8 mg/kg IV q24 pending Ampicillin desensitization Anticipate 6 wks of pathogen targeted therapy followed by po suppression. I d/w medicine team and ID pharm to coordinate. ID will continue to follow. Snow Bonds MD, MPH Infectious Disease [facility], [facility] Call [phone] with questions. Admission and Anticipated Discharge Date Admission Date: May 03, 2024 Subjective Subsequent visit was provided via telemedicine using two-way real-time interactive telecommunication between the patient and the telemedicine provider. For the duration of the visit, the provider was performing the assessment from a different facility than the patient. This includesuse of bluetooth stethoscope forauscultationperformed by the telepresenter that the telemedicine provider can hear if described in the physical exam. Credit Card Specialist contact information: Please call [facility] Call Center . (Phone Number For Physician Use Only) After establishing a telemedicine visit, patient was: Patient was verified with two unique identifiers Time Spent with Patient: Subsequent => 35 min Physical Exam Physical Exam: GEN- NAD, Was working in room with PT, Now sitting and comfortable, obese HEENT- anicteric sclera Lung- No increased work of breathing, On RA Abdomen- Soft , obese Ext RLE with no Edema. LLE dressed . Minimal TTP to knee palpation Neuro- AAO*3 Psych- Normal mood, appropriate Results & Data Vital Signs (Past 12 Hours) Vital Signs Temp Pulse Pulse Pulse Resp BP BP 05/09/24 12:38 36.6 C 70 18 124/70 05/09/24 08:05 05/09/24 07:37 36.4 C L 72 20 124/76 05/09/24 07:18 36.6 C 68 18 115/70 05/09/24 05:48 70 19 Pulse Ox O2 Del Method 05/09/24 12:38 98 Room Air 05/09/24 08:05 Room Air 05/09/24 07:37 98 CPAP 05/09/24 07:18 97 Room Air 05/09/24 05:48 98 Laboratory Results Laboratory Results - last 48 hr 05/07/24 05/07/24 05/08/24 16:36 20:37 05:21 WBC 11.22 H RBC 3.00 L Hgb 9.2 L Hct 28.1 L MCV 93.7 MCH 30.7 MCHC 32.7 RDW Std Deviation 48.0 H RDW Coeff of M[place] 14.0 Plt Count 318 MPV 9.7 Immature Gran % (Auto) 0.6 Neut % (Auto) 59.3 Lymph % (Auto) 19.3 [place] % (Auto) 7.7 Eos % (Auto) 12.7 Baso % (Auto) 0.4 Neut # (Auto) 6.65 H Lymph # (Auto) 2.16 [place] # (Auto) 0.86 H Eos # (Auto) 1.43 H Baso # (Auto) 0.05 Immature Gran # (Auto) 0.07 Sodium 138 Potassium 3.7 Chloride 103 Carbon Dioxide 27 Anion Gap 8 BUN 32 H Creatinine 0.90 Est Cr Clr Drug Dosing 122.6 Est GFR ( Amer) 107.2 Est GFR (Non-Af Amer) 92.5 BUN/Creatinine Ratio 35.6 H Glucose 129 H POC Glucose 166 H 159 H Calcium 9.0 C-Reactive Protein 05/08/24 05/08/24 05/08/24 07:46 11:24 16:13 WBC RBC Hgb Hct MCV MCH MCHC RDW Std Deviation RDW Coeff of [place] Plt Count MPV Immature Gran % (Auto) Neut % (Auto) Lymph % (Auto) [place] % (Auto) Eos % (Auto) Baso % (Auto) Neut # (Auto) Lymph # (Auto) [place] # (Auto) Eos # (Auto) Baso # (Auto) Immature Gran # (Auto) Sodium Potassium Chloride Carbon Dioxide Anion Gap BUN Creatinine Est Cr Clr Drug Dosing Est GFR ( Amer) Est GFR (Non-Af Amer) BUN/Creatinine Ratio Glucose POC Glucose 144 H 114 H 137 H Calcium C-Reactive Protein 05/08/24 05/09/24 05/09/24 20:57 06:36 07:42 WBC 10.75 RBC 2.98 L Hgb 9.2 L Hct 27.8 L MCV 93.3 MCH 30.9 MCHC 33.1 RDW Std Deviation 47.1 H RDW Coeff of [place] 13.8 Plt Count 348 MPV 9.4 Immature Gran % (Auto) 0.5 Neut % (Auto) 59.6 Lymph % (Auto) 19.7 [place] % (Auto) 6.8 Eos % (Auto) 12.7 Baso % (Auto) 0.7 Neut # (Auto) 6.41 Lymph # (Auto) 2.12 [place] # (Auto) 0.73 H Eos # (Auto) 1.37 H Baso # (Auto) 0.07 Immature Gran # (Auto) 0.05 Sodium 137 Potassium 3.4 L Chloride 101 Carbon Dioxide 28 Anion Gap 8 BUN 34 H Creatinine 0.95 Est Cr Clr Drug Dosing 116.1 Est GFR ( Amer) 100.4 Est GFR (Non-Af Amer) 86.7 BUN/Creatinine Ratio 35.8 H Glucose 123 H POC Glucose 146 H 133 H Calcium 9.2 C-Reactive Protein 18.20 H 05/09/24 11:54 WBC RBC Hgb Hct MCV MCH MCHC RDW Std Deviation RDW Coeff of [place] Plt Count MPV Immature Gran % (Auto) Neut % (Auto) Lymph % (Auto) [place] % (Auto) Eos % (Auto) Baso % (Auto) Neut # (Auto) Lymph # (Auto) [place] # (Auto) Eos # (Auto) Baso # (Auto) Immature Gran # (Auto) Sodium Potassium Chloride Carbon Dioxide Anion Gap BUN Creatinine Est Cr Clr Drug Dosing Est GFR ( Amer) Est GFR (Non-Af Amer) BUN/Creatinine Ratio Glucose POC Glucose 131 H Calcium C-Reactive Protein Diagnostic Findings Microbiology 05/04/24 12:14 Knee,Left Gram Stain - Final 05/04/24 12:14 Knee,Left Aerobic and Anaerobic Culture - Final Enterococcus faecalis 05/03/24 15:53 Knee,Left Gram Stain - Final 05/03/24 15:53 Knee,Left Wound Culture - Final Coag negative Staphylococcus 05/03/24 16:23 Blood Aerobic Blood Culture - Final No growth in Aerobic bottle after 5 days. 05/03/24 16:23 Blood Anaerobic Blood Culture - Final No growth in Anaerobic bottle after 5 days. 05/03/24 15:53 Blood Aerobic Blood Culture - Final No growth in Aerobic bottle after 5 days. 05/03/24 15:53 Blood Anaerobic Blood Culture - Final No growth in Anaerobic bottle after 5 days. Medications Administered Home Medications Medication Instructions Recorded Confirmed Last Taken albuterol sulfate 90 mcg/actuation 2 puff inhalation Q6H PRN 04/10/19 05/03/24 Unknown aerosol inhaler (Ventolin HFA) Shortness Of Breath Or Wheezing bupropion HCl 150 mg tablet,12 hr 150 mg PO QAM 09/19/21 05/03/24 03/24/24 03:00 sustained-release (Wellbutrin SR) multivitamin 1 tab PO QPM 06/24/22 05/03/24 03/24/24 18:00 lancets 30 gauge (OneTouch Delica #100 ea 11/10/22 05/03/24 Unknown Lancets) furosemide 20 mg tablet (Lasix) 20 mg PO DAILY PRN edema #30 tabs 12/22/22 05/03/24 03/18/24 metformin 500 mg tablet,extended 500 mg PO TIDWMEAL 04/07/23 05/03/24 03/24/24 18:00 release 24 hr cyanocobalamin (vitamin B-12) 3,000 mcg PO QAM 06/03/23 05/03/24 03/24/24 03:00 3,000 mcg capsule sertraline 100 mg tablet (Zoloft) 200 mg PO QAM 09/10/23 05/03/24 03/24/24 03:00 montelukast 10 mg tablet 10 mg PO QPM #90 tabs 11/09/23 05/03/24 03/24/24 18:00 chlorthalidone 50 mg tablet 50 mg PO QPM 01/06/24 05/03/24 03/23/24 alfuzosin 10 mg tablet,extended 10 mg PO QPM 02/03/24 05/03/24 03/24/24 18:00 release 24 hr (Uroxatral) losartan 100 mg tablet 100 mg PO QAM 02/03/24 05/03/24 03/24/24 03:00 omeprazole 20 mg capsule,delayed 20 mg PO QAM 02/03/24 05/03/24 03/25/24 04:00 release aspirin 81 mg tablet,delayed 81 mg PO BID #60 tabs 03/27/24 05/03/24 Unknown release cefadroxil 500 mg capsule 500 mg PO BID #28 caps 03/27/24 05/03/24 05/03/24 09:00 oxycodone 5 mg tablet 5 mg PO Q8H PRN pain #30 tabs 03/27/24 05/03/24 Unknown potassium chloride 20 mEq 20 meq PO .COMPLEX #90 tabs 04/26/24 05/03/24 Unknown tablet,extended release acetaminophen 500 mg tablet 1,000 mg PO TID fever or pain 05/03/24 05/03/24 Unknown (Tylenol Extra Strength) cholecalciferol (vitamin D3) 50 50 mcg PO BID 05/03/24 05/03/24 Unknown mcg (2,000 unit) tablet (Vitamin D3) tirzepatide 7.5 mg/0.5 mL 7.5 mg subcut .HOLD 05/03/24 05/03/24 Unknown subcutaneous pen injector (Delores) Active Medications Generic Name Dose Route Start Last Admin Trade Name Freq PRN Reason Stop Dose Admin Acetaminophen 1,000 mg 05/04/24 15:01 05/09/24 07:55 Acetaminophen 500 Mg Tab PO 06/03/24 15:00 1,000 mg TID LISA Administration Apixaban 2.5 mg 05/04/24 21:00 05/09/24 07:56 Apixaban 2.5 Mg Tab PO 06/03/24 20:59 2.5 mg BID LISA Administration Bupropion HCl 150 mg 05/04/24 12:00 05/09/24 07:52 Bupropion Sr 150 Mg Tabcr PO 06/03/24 11:59 150 mg QAM LISA Administration Chlorthalidone 50 mg 05/08/24 09:00 05/09/24 07:51 Chlorthalidone 25 Mg Tab PO 06/07/24 08:59 50 mg QAM LISA Administration Cyanocobalamin 3,000 mcg 05/07/24 09:00 05/09/24 07:53 Cyanocobalamin (B-12) 500 Mcg Tablet PO 06/05/24 09:59 3,000 mcg QAM LISA Administration Docusate Sodium 100 mg 05/04/24 21:00 05/09/24 07:55 Docusate Sodium 100 Mg Cap PO 06/03/24 20:59 100 mg BID LISA Administration Daptomycin 800 mg/ Syringe 16 mls @ 8 mls/min 05/04/24 18:00 05/08/24 18:12 IV 05/11/24 17:59 8 mls/min Q24H LISA Administration Protocol Insulin Aspart 0 units 05/04/24 16:30 05/09/24 12:18 Insulin Aspart Per Unit Charge SC 06/03/24 16:29 8 units ACHS LISA Administration Protocol Insulin Glargine 18 units 05/08/24 09:00 05/09/24 07:57 Lantus Per Unit Charge SC 06/05/24 08:59 18 units QAM LISA Administration Losartan Potassium 100 mg 05/05/24 09:00 05/09/24 07:53 Losartan Potassium 50 Mg Tab PO 06/04/24 08:59 100 mg QAM LISA Administration Melatonin 3 mg 05/03/24 18:09 05/08/24 20:50 Melatonin 3 Mg Tab PO 06/02/24 18:08 3 mg HS PRN Administration Insomnia Montelukast Sodium 10 mg 05/03/24 21:00 05/08/24 20:50 Montelukast Sodium 10 Mg Tablet PO 06/02/24 20:59 10 mg QPM LISA Administration Multivitamins 1 tab 05/05/24 09:00 05/09/24 07:51 Multivitamin Tab PO 06/04/24 08:59 1 tab QAM LISA Administration Ondansetron HCl 4 mg 05/04/24 15:01 05/07/24 18:37 Ondansetron Inj 2 Mg/Ml 2 Ml Vial IV 06/03/24 15:00 4 mg Q6H PRN Administration Nausea And Vomiting Oxycodone HCl 5 mg 05/05/24 11:43 05/09/24 05:04 Oxycodone Hcl Ir 5 Mg Tab (Immediate Release) PO 05/18/24 15:00 5 mg Q6H PRN Administration pain Pantoprazole Sodium 40 mg 05/04/24 12:00 05/09/24 07:54 Pantoprazole 40 Mg Tab PO 06/03/24 11:59 40 mg QAM LISA Administration Protocol Potassium Chloride 20 meq 05/05/24 09:00 05/09/24 07:51 Potassium Chloride Crtab 20 Meq Tabcr PO 06/04/24 08:59 20 meq DAILY LISA Administration Sennosides 17.2 mg 05/04/24 21:00 05/08/24 20:31 Senna 8.6 Mg Tab PO 06/03/24 20:59 17.2 mg HS LISA Administration Sertraline HCl 200 mg 05/04/24 12:00 05/09/24 07:54 Sertraline Hcl 100 Mg Tablet PO 06/03/24 11:59 200 mg QAM LISA Administration Tamsulosin HCl 0.4 mg 05/03/24 21:00 05/08/24 20:32 Tamsulosin Hcl 0.4 Mg Cap PO 06/02/24 20:59 0.4 mg QPM LISA Administration Protocol Vitamin D 50 mcg 05/04/24 21:00 05/09/24 07:56 Cholecalciferol 25 Mcg (1000 Units) Tab PO 06/03/24 20:59 50 mcg BID LISA Administration
--- NOTE | 2024-05-09 15:30 | Orthopedic Progress Note ---
Date of Service May 09, 2024 Assessment & Plan (1) Infection of left knee: Plan: Appreciate infectious disease input. Plan is to try to desensitize the patient to ampicillin and amoxicillin. He will be transferred to the ICU for monitoring for this in the next 24 to 48 hours. His PICC line is in place. Plan will be for a total of 6 weeks of IV antibiotics which will be 5 weeks from this coming Thursday. I and then switch to orals as long as inflammatory markers are improving. Patient awaiting placement in an ECF or SNF apparently [facility] does not qualify hopefully [facility]. Transfer when medically stable. Patient may weight-bear as tolerated and he is allowed active range of motion on his own but no passive range of motion for the knee and no strengthening exercises for now just ambulation as above. Patient should be seen in our office for a checkup and staple removal on May 18. We will work on making him another arrangements for this. He will most likely need transportation. Admission and Anticipated Discharge Date Admission Date: May 03, 2024 Subjective Postoperative day #5 I&D and synovectomy and polyethylene exchange for traumatic wound dehiscence status post total knee replacement Patient reports feeling well. He was able to ambulate up to 200 feet. He is pleased that he is feeling better and he is inflammatory markers and laboratory values are trending down. Physical Exam Physical Exam: Bulky bandage was removed today. His incision is clean and dry bello are intact. There is a small amount of bruising but no drainage and very little soft tissue swelling. He is neurologically and vascularly intact. He can straight leg against gravity. Results & Data Vital Signs (Past 12 Hours) Vital Signs Temp Pulse Pulse Pulse Resp BP BP 05/09/24 14:51 36.5 C 73 18 103/61 05/09/24 12:38 36.6 C 70 18 124/70 05/09/24 08:05 05/09/24 07:37 36.4 C L 72 20 124/76 05/09/24 07:18 36.6 C 68 18 115/70 05/09/24 05:48 70 19 Pulse Ox O2 Del Method 05/09/24 14:51 96 Room Air 05/09/24 12:38 98 Room Air 05/09/24 08:05 Room Air 05/09/24 07:37 98 CPAP 05/09/24 07:18 97 Room Air 05/09/24 05:48 98
--- NOTE | 2024-05-09 18:00 | Allergy & Immunology Consult ---
Date of Consultation May 09, 2024 Assessment & Plan (1) Penicillin adverse reaction: (2) Infection of left knee: Plan The patient's reported clinical reaction history to a penicillin injection in his mid-20s does not raise concern for a true IgE mediated allergic reaction (as there was no associated history of hives, wheezing/shortness of breath, nausea/vomiting, and/or paleness/lightheadedness within minutes or so of penicillin exposure). It is also reassuring that the patient did not require management with epinephrine and/or even an Emergency Room presentation for management of this suspected reaction. Instead, it was reviewed that the patient likely experienced cellulitis following his penicillin injection (particularly as there was also some degree of low-grade fever and the skin lesion ultimately took about 1 to 2 weeks to fully resolve). Although it was di scussed that it is very unlikely that the patient was truly experiencing an IgE mediated allergic reaction to his penicillin exposure, it was also reviewed that the natural history tendency of true IgE mediated penicillin allergy is to be outgrown with time. Therefore, even presuming the true presence of an allergy when the patient was in his mid-20s the odds of the patient retaining his allergy status are very low. Taking this clinical history into account, it was reviewed that the patient is a low risk candidate for a penicillin challenge and that his ability to tolerate penicillin antibiotics can be assessed with a graded 10%-100% challenge (based on a typical treatment dose of 500mg TID amoxicillin). Furthermore, in an effort to further better objectively assess whether a mast cell degranulating event could be contributing to the patient's symptoms a baseline tryptase level will also be obtained prior to the start of the patient's graded challenge (which can be subsequently compared to an "event related tryptase level" obtained within 2 to 3 hours of any future episodes concerning for an allergic reaction). 1) Obtain baseline tryptase level with next lab draw -To be compared to an "event related tryptase level" (obtained within 2 to 3 hours of any future episodes concerning for an allergic reaction) 2) Proceed with a graded 10%-100% challenge (based on a typical treatment dose of 500mg TID amoxicillin) -50mg (followed by 30min wait period) then 500mg (followed by 60min wait period) -> if challenge is well tolerated, penicillin may be removed from the patient's drug allergy list and the patient may receive penicillin antibiotics as clinically necessary moving forward -NOTE, A GRADED CHALLENGE IS NOT THE SAME A "DESENSITIZATION" AND THEREFORE DOES NOT HAVE TO BE DONE IN AN ICU SETTING -Discussed benefits/risks of proceeding with a graded challenge with the patient and he voiced preference to proceed accordingly 3) Remainder of care per primary team Jostin Gibbs MD Allergy & Immunology [facility] | [address] [place] [address] P: | F: History of Present Illness Attending Physician: Tomi Ballard History of Present Illness The patient is a 58-year-old man with a history of obesity, T2DM, metabolic syndrome, and is also status post left knee arthroplasty on 03/25/24 for management of osteoarthritis who is currently hospitalized for management of left knee dehiscence and subsequent infection. The patient was undergoing aggressive physical therapy and unfortunately developed traumatic dehiscence of his left knee wound. The patient has been subsequently hospitalized for management of his left knee dehiscence/infection since 05/03/24 (and is also status post OR debridement/wound repair on 05/04/24). For management of his acute condition he has had a PICC line placed and he has received a great variety of antibiotics (thus far including daptomycin, cefepime, and cefazolin). Wound cultures have returned positive for pansensitive Enterococcus faecalis. After getting Infectious Diseases input, it was determined that the patient may benefit from transitioning to IV ampicillin (to ultimately facilitate transition to PO amoxicillin for outpatient therapy). However, the patient has a reported history of penicillin allergy which has ultimately prompted consultation of Allergy/Immunology. More specifically regarding the patient's penicillin allergy history, the patient reviews that in his mid-20's or so he was incarcerated and developed penile discharge (concerning for either STD vs. UTI) for which he was subsequently treated by the local onsite/on-call Physician with a penicillin antibiotic (believed to be in the form of an injection). Of note, the patient believes that he has received penicillin antibiotics prior to this episode and he has always tolerated that without issue. However, a few hours (possibly even into the next day after receiving his penicillin injection) the patient reports going on to develop itchiness localized to the injection site (not even associated with any significant/obvious rash). He did not have any associated symptoms of whole body hives, wheezing/shortness of breath, nausea/vomiting, and/or paleness/lightheadedness in association with his itchy skin lesion (though there may have been some degree of low-grade fever associated with his skin lesion). He did not require management in the Emergency Room and/or use of epinephrine. He recalls that his skin lesion ultimately took about 1 to 2 weeks to fully resolve. He has avoided penicillin antibiotics ever since. Allergies Allergy/AdvReac Type Severity Reaction Status Date / Time Penicillins Allergy Intermediate Rash Verified 05/03/24 15:53 sulfamethoxazole Allergy Intermediate Rash Verified 05/03/24 15:53 trimethoprim Allergy Intermediate Rash Verified 05/03/24 15:53 peanut AdvReac Intermediate Diarrhea, Verified 05/03/24 15:53 indigestion soy AdvReac Intermediate diarrhea, Verified 05/03/24 15:53 indigestion wheat AdvReac Intermediate Diarrhea, Verified 05/03/24 15:53 indigestion atorvastatin AdvReac Mild Myalgia Verified 05/03/24 15:53 ezetimibe [From Zetia] AdvReac Mild Myalgia Verified 05/03/24 15:53 rosuvastatin AdvReac Mild Muscle Pain Verified 05/03/24 15:53 Home Medications Medication Instructions Recorded Confirmed Type albuterol sulfate 90 mcg/actuation 2 puff inhalation Q6H PRN 04/10/19 05/03/24 History aerosol inhaler (Ventolin HFA) Shortness Of Breath Or Wheezing bupropion HCl 150 mg tablet,12 hr 150 mg PO QAM 09/19/21 05/03/24 History sustained-release (Wellbutrin SR) multivitamin 1 tab PO QPM 06/24/22 05/03/24 History lancets 30 gauge (OneTouch Delica #100 ea 11/10/22 05/03/24 Rx Lancets) furosemide 20 mg tablet (Lasix) 20 mg PO DAILY PRN edema #30 tabs 12/22/22 05/03/24 Rx metformin 500 mg tablet,extended 500 mg PO TIDWMEAL 04/07/23 05/03/24 History release 24 hr cyanocobalamin (vitamin B-12) 3,000 mcg PO QAM 06/03/23 05/03/24 History 3,000 mcg capsule sertraline 100 mg tablet (Zoloft) 200 mg PO QAM 09/10/23 05/03/24 History montelukast 10 mg tablet 10 mg PO QPM #90 tabs 11/09/23 05/03/24 Rx chlorthalidone 50 mg tablet 50 mg PO QPM 01/06/24 05/03/24 History alfuzosin 10 mg tablet,extended 10 mg PO QPM 02/03/24 05/03/24 History release 24 hr (Uroxatral) losartan 100 mg tablet 100 mg PO QAM 02/03/24 05/03/24 History omeprazole 20 mg capsule,delayed 20 mg PO QAM 02/03/24 05/03/24 History release aspirin 81 mg tablet,delayed 81 mg PO BID #60 tabs 03/27/24 05/03/24 Rx release cefadroxil 500 mg capsule 500 mg PO BID #28 caps 03/27/24 05/03/24 Rx oxycodone 5 mg tablet 5 mg PO Q8H PRN pain #30 tabs 03/27/24 05/03/24 Rx potassium chloride 20 mEq 20 meq PO .COMPLEX #90 tabs 04/26/24 05/03/24 Rx tablet,extended release acetaminophen 500 mg tablet 1,000 mg PO TID fever or pain 05/03/24 05/03/24 History (Tylenol Extra Strength) cholecalciferol (vitamin D3) 50 50 mcg PO BID 05/03/24 05/03/24 History mcg (2,000 unit) tablet (Vitamin D3) tirzepatide 7.5 mg/0.5 mL 7.5 mg subcut .HOLD 05/03/24 05/03/24 History subcutaneous pen injector (Mounjaro) Patient History Medical History Diabetes mellitus Morbid obesity BPH (benign prostatic hyperplasia) Osteoarthritis Bilateral chronic knee pain Allergic rhinitis Surgical History History of esophageal dilatation Hx of prior ablation treatment venous ablation History of hernia surgery As child History of colonoscopy 06/2022 History of esophagogastroduodenoscopy (EGD) History of wisdom tooth extraction History of tooth extraction Status post uvulopalatopharyngoplasty History of repair of anterior cruciate ligament of right knee 1991 History of sinus surgery Family History Mother Diabetes Depression Father Heart disease Myocardial infarction Hypertension Prostate cancer Other No family history of adverse response to anesthesia Denies family history of Ovarian cancer Breast cancer Lung cancer Colorectal cancer Stroke Social History Smoking Status: Never smoker Second Hand Exposure: No; Do You Dip or Chew Tobacco: No (did in the past); Hx Alcohol Use: No Hx Substance Use: No Preferred Language: [place] Communication Ability: Effective Visual Impairment: Limited Hearing Ability: Normal Conference Coordinator Required: No Beliefs That Will Affect Care: None marital status: Single Current Living Situation: Alone Current Living Situation Comment: with father in one story home, stairs to enter home current occupational status: employed Other Information That Helps Us Care for You: No Feels Safe at Home: Yes Safety Concerns: Feels Safe At This Time Childhood Exposure to Second-Hand Smoke: No Diet: regular caffeine: No during the past year weight has: remained stable Dental Care, Regularly: Yes Physical Activity Frequency: Does not Exercise Seatbelt Use: always Sunscreen Use: No Assistive Devices: CPAP and Walker Review of Systems Review of Systems: I reviewed the history of the following medical systems: constitutional, eyes, ears/nose/mouth/throat, respiratory, cardiovascular, gastrointestinal, genitourinary, musculoskeletal, integumentary, neurologic, psychiatric, endocrinologic, hematologic/lymphatic, and allergic/immunologic. Positive and/or significant negative findings are as above, otherwise, ROS was normal. Physical Exam Physical Exam: General: NAD, obese but otherwise well-appearing man resting in hospital bed, pleasant and cooperative, engaged in interview and exam HEENT: NC/AT, MMM, no tonsillar swelling/erythema, no conjunctival injection, no nasal discharge Neck: supple, FROM, no LAD Cardiac: normal S1 and S2, RRR, no M/R/G, brisk cap refill < 2 seconds Lungs: CTAB, no W/R/R, normal work of breathing Abdomen: normal BS, soft, NT/ND, no hepatosplenomegaly, no masses Extremities: left leg edema and erythema with large vertical incision held together with extended series of surgical bello; otherwise 3+ pulses, no gross deformities, no cyanosis/edema Neuro: no focal deficits, appropriate muscle strength and tone Skin: no rashes/lesions, clean/dry/intact Results & Data Vital Signs (Past 12 Hours) Vital Signs Temp Pulse Pulse Resp BP BP Pulse Ox 05/09/24 14:51 36.5 C 73 18 103/61 96 05/09/24 12:38 36.6 C 70 18 124/70 98 05/09/24 08:05 05/09/24 07:37 36.4 C L 72 20 124/76 98 05/09/24 07:18 36.6 C 68 18 115/70 97 O2 Del Method 05/09/24 14:51 Room Air 05/09/24 12:38 Room Air 05/09/24 08:05 Room Air 05/09/24 07:37 CPAP 05/09/24 07:18 Room Air [place] [address] IN/OBS CONSULT LVL 4,60M Patient Type New History Comprehensive Exam Comprehensive Medical Decision Making Moderate Complexity Diagnoses Penicillin adverse reaction T36.0X5A Infection of left knee M00.9
[2024-05-09] MEDS ORDERED: EPINEPHrine INJ 1 MG/ML AMP IM PRN ×2 (18:53→18:58)
[2024-05-09] MEDS ORDERED: diphenhydrAMINE 50 MG/ML VIAL IV PRN ×4 (18:53→18:58)
[2024-05-09] MEDS ORDERED: methylPREDNISolone 125 MG/2 ML VIAL IV PRN ×2 (18:53→18:58)
[2024-05-09] MEDS ORDERED: ANAPHYLAXIS KIT ONE (18:58)
[2024-05-09] MEDS: ANAPHYLAXIS KIT ONE (20:57)
[2024-05-10 06:59] LABS: Hematocrit (blood only) 28.2 % (42.0-52.0); Hemoglobin 9.2 g/dl (14.0-18.0); Mean Corpuscular Hemoglobin 30.1 pg (25.0-34.0); Mean Corpuscular Hgb Conc 32.6 g/dL (32.0-36.0); Mean Corpuscular Volume 92.2 fL (80.0-100.0); Mean Platelet Volume 9.3 fL (9.4-12.4); Platelet Count 376 K/uL (130-400); RDW Coefficient of Variation 13.7 % (11.5-14.5); RDW Standard Deviation 46.5 fL (36.4-46.3); Red Blood Count 3.06 M/uL (4.70-6.10); White Blood Count 9.68 K/ul (4.8-10.8)
[2024-05-10 07:37] LABS: C Reactive Protein 13.85 mg/dl (0-0.5); Calcium 9.2 mg/dl (8.6-10.3); Creatinine Clr Calc Pharmacy 143.3 ml/min; Est GFR (African American) 114.3 ml/min; Est GFR (Non-African American) 98.6 ml/min; Potassium 3.3 mmol/L (3.5-5.1)
[2024-05-10] MEDS: POTASSIUM CHLORIDE CRTAB 20 MEQ TABCR PO PRN (09:00)
[2024-05-10] MEDS ORDERED: AMOXICILLIN PO ONE ×4 (09:00→10:00)
[2024-05-10] MEDS ORDERED: [UNRECOGNIZED DRUG - OTHER] PO ONE (09:00)
[2024-05-10] MEDS ORDERED: [UNRECOGNIZED DRUG - OTHER] PO ONE ×3 (09:00→10:00)
--- NOTE | 2024-05-10 12:15 | Pharmacy Report ---
Pharmacy Glycemic Short Note 2 - Date of Service May 10, 2024 - Glycemic Short BSG Results (Last 24 hours): 05/09/24 05/09/24 05/10/24 16:38 20:23 06:09 Glucose 122 H POC Glucose 131 H 91 05/10/24 05/10/24 07:21 11:38 Glucose POC Glucose 125 H 104 H OUTPATIENT ANTIDIABETIC REGIMEN: * Metformin 500mg PO TID with meals * Mounjaro 7.5mg SQ weekly * A1c 6.0% 02/16/24 ASSESSMENT: 05/10/24: * Patient received 37 units of insulin yesterday with excellent BSG control (133, 131, 131, 91 mg/dL * Fasting BSG near goal. No change in Lantus dosing today. * BSG trending down at lunchtime. Will loosen correctional/carb coverage. 05/08/24: * Blood sugars reasonably well-controlled over past 48 hours, ranging 144-166 mg/dL * Received 27 units of insulin (15 units of basal and 12 units of bolus yesterd ay) * Fasting blood sugar of 144 mg/dL * Will tighten Novolog and increase basal today 05/06/24: * Blood sugars mildly elevated yesterday, ranging 150-180 mg/dL * Received 22 units of prandial/correctional bolus, no basal insulin * Fasting blood sugar has been elevated since 05/04/24, will add basal insulin today 05/04/24: * 58 yo M, s/p I&D infected left knee (TKA 03/25/24), on IV daptomycin, no steroids, pharmacy consulted for glycemic control. * Blood sugars well controlled so far this admission on NovoLog insulin alone, will tighten CF/CR slightly at this time to improve glycemic control. PLAN FOR INPATIENT GLYCEMIC CONTROL: * Hold outpatient diabetes medications * Basal insulin * Lantus 18 units SC daily * Bolus insulin - * NovoLog per scale ACHS or Q6hrs while NPO * Goal Range: Low 110 mg/dL - High 140 mg/dL * Correction Factor: 25 mg/dL/unit * Nutritional / Prandial insulin per carb ratio of 1 unit per 8 grams CHO consumed
--- NOTE | 2024-05-10 13:37 | Hospitalist Progress Note ---
Date of Service May 10, 2024 Assessment & Plan (1) Infection of left knee: Plan: Patient underwent a TKR with Dr. Houston on 03/25/2024. He was at physical therapy 04/29 and opened stitiches. He was given Cefadroxil 500mg BID but knee has worsened and he presented to the ED on 05/03/2024 for further care. -Knee x-ray 05/03: moderate to large knee effusion, inferior displacement of patella which could be displaced by joint effusions. no acute fractures -s/p I&D w/ Dr. Houston 05/04. -Surface wound culture 05/03: coag negative staph -Surgical wound culture 05/04: enterococcus faecalis -Blood cultures 05/03: negative 5 day lila -Infectious disease consulted, discussed case w/ Dr. Bonds 05/09 -Continue daptomycin for now -Patient would benefit from ampicillin desensitization, if desensitized 6 weeks IV ampicillin followed by PO suppression with Amoxicillin -Reviewed CPK 05/07: 40 -Allergy consulted 05/09. Discussed with physician evening of 05/09. -is not consistent with true PCN allergy. Likely cellulitis from PCN injection. -will proceed with graded PCN challenge. -obtain tryptase level - pending. -Due to protocol, patient will still need placement in ICU for challenge -Tentatively planned for 05/11. -Reviewed CBC 05/10 - stable -Reviewed BMP 05/10 - potassium 3.3. Patient given additional 20meq -Reviewed CRP 05/10: 13.85 -s/p PICC line placement 05/10 -Pain control: scheduled tylenol, prn oxycodone -PT/OT recommend rehab, CM following AM CBC, BMP, CRP (2) Type 2 diabetes mellitus: Plan: -Last A1c at 6.0% on 02/16/2024. Home regiment: Metformin & monjaro (on hold) -SSI; pharmacy glycemic consult by Ortho (3) Hypertension: Plan: -Chlorthalidone and losartan held post op day 1 - resume losartan 05/06 - resume chlorthalidone -Has prn home lasix - patient states he may be takes this on the weekends but has not taken at all recently. BPs acceptable does not appear volume overloaded at present AM BMP Plan Chronic Medical conditions: * MAC - continue CPAP HS * BPH - continue flomax * Mental Health - continue wellbutrin, Zoloft * Gerd - continue PPI Dispo: continued inpatient stay, plan for transfer to ICU AM of 05/11 for graded PCN challenge DVT proh: Eliquis 2.5mg BID per ortho Admission and Anticipated Discharge Date Admission Date: May 03, 2024 Subjective Patient seen and examined this afternoon at bedside. Patient reports to be doing well today. He states following his PICC line insertion yesterday he did have joint aches which the oxycodone helped. He denies any new complaints. Denied chest pain, shortness of breath. His appetite has been okay Physical Exam 2 Constitutional: WD/WN, vitals as above Eyes: PERRL, conjunctivae normal, anicteric sclerae Respiratory: normal respiratory effort, lungs clear to auscultation Cardiovascular: RRR, no murmur, no edema Skin: no rashes, warm and dry Psychiatric: A+Ox3, euthymic affect Results & Data Results & Data Vital Signs (Past 12 Hours) Vital Signs Temp Pulse Pulse Resp BP Pulse Ox O2 Del Method 05/10/24 07:50 Room Air, CPAP 05/10/24 07:24 36.8 C 70 18 134/73 95 Room Air 05/10/24 03:55 68 17 97 FiO2 05/10/24 07:50 05/10/24 07:24 05/10/24 03:55 21 Laboratory Results 05/10/24 06:09 05/10/24 06:09 PG Care Time/CCT Total # of Minutes Spent Total Time Spent with Patient: Total time spent is greater than 50% in coordination of care (as documented) at patient's floor/unit and/or counseling patient: Coding Level of Care Code 50424 SUB INP/OBS CARE 3/50MIN Diagnoses Infection of left knee M00.9 Type 2 diabetes mellitus without complication, without long-term current use of insulin E11.9 Diabetes mellitus complication status: without complication 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
[2024-05-11 07:36] LABS: BUN Creatinine Ratio 37.2 (10-20); C Reactive Protein 12.86 mg/dl (0-0.5); Calcium 9.3 mg/dl (8.6-10.3); Creatinine Clr Calc Pharmacy 141.5 ml/min; Est GFR (African American) 113.7 ml/min; Est GFR (Non-African American) 98.1 ml/min; Potassium 3.3 mmol/L (3.5-5.1)
[2024-05-11 07:39] LABS: Hematocrit (blood only) 28.5 % (42.0-52.0); Hemoglobin 9.4 g/dl (14.0-18.0); Mean Corpuscular Hemoglobin 30.1 pg (25.0-34.0); Mean Corpuscular Volume 91.3 fL (80.0-100.0); Mean Platelet Volume 9.3 fL (9.4-12.4); Platelet Count 393 K/uL (130-400); RDW Coefficient of Variation 13.8 % (11.5-14.5); RDW Standard Deviation 46.1 fL (36.4-46.3); Red Blood Count 3.12 M/uL (4.70-6.10); White Blood Count 9.24 K/ul (4.8-10.8)
--- NOTE | 2024-05-11 08:53 | Pharmacy Report ---
Pharmacy Glycemic Sign Off Nt - Date of Service May 11, 2024 - Assessment & Plan ASSESSMENT: * Pharmacy consulted for glycemic management. * Stressors stable. * Consistent basal dose x days w only a slight adjustment in Novolog parameters yesterday. * BSG's since then ranging 105-136 mg/dL. * Pharmacy will sign off glycemic management now - Coty mejia PLAN FOR INPATIENT GLYCEMIC CONTROL: No changes needed to current regimen. * Continue basal insulin with Lantus 18 units SQ daily * Continue NovoLog per scale ACHS/Q6hrs while NPO * Goal range = 110 140 mg/dl * CF = 25 mg/dl/unit * CR = 1 unit for ever 8 g CHO consumed * Pharmacy is signing off of glycemic consult and will no longer be making adjustments to inpatient regimen. Please feel free to re-consult if needed. Thank you.
[2024-05-11] MEDS ORDERED: EPINEPHrine INJ 1 MG/ML AMP IM PRN (09:00)
[2024-05-11] MEDS ORDERED: methylPREDNISolone 125 MG/2 ML VIAL IV PRN (09:00)
[2024-05-11] MEDS ORDERED: diphenhydrAMINE 50 MG/ML VIAL IV PRN ×2 (09:00)
[2024-05-11] MEDS: [UNRECOGNIZED DRUG - OTHER] PO ONE (09:08)
[2024-05-11] MEDS: AMOXICILLIN PO ONE ×2 (09:08→10:14)
[2024-05-11] MEDS: MICONAZOLE NITRATE POWDER 85 GM EXT SCH (09:58)
[2024-05-11] MEDS: [UNRECOGNIZED DRUG - OTHER] PO ONE (10:14)
--- NOTE | 2024-05-11 10:29 | Critical Care Consultation ---
Date of Consultation May 11, 2024 Assessment & Plan (1) Penicillin adverse reaction: Left knee hardware infection requiring antibiotics -History of remote adverse reaction to amoxicillin seen by immunology -Created antibiotic challenge in the ICU, patient consented for possibility of intubation -Risk factors for difficult airway include obesity and MAC (2) Infection of left knee: (3) MAC on CPAP: (4) Obesity: History of Present Illness Reason for Consultation: Antibiotic challenge Attending Physician: Tomi Ballard History of Present Illness Briefly patient is a 58-year-old male with type 2 diabetes osteoarthritis metabolic syndrome, obesity and a left knee arthroplasty on March 25, 2024. He is currently postop day 6 from an I&D and synovectomy and exchange of hardware from a traumatic wound dehiscence with concern for infection. He has been seen by in fectious disease as well as allergy and immunology who are recommending a graded challenge of amoxicillin and ampicillin for an Sean faecalis pansensitive infection Reports no trouble opening mouth full range of motion at neck, has some chipped teeth, no obvious dental pain. Allergies Allergy/AdvReac Type Severity Reaction Status Date / Time Penicillins Allergy Intermediate Rash Verified 05/03/24 15:53 sulfamethoxazole Allergy Intermediate Rash Verified 05/03/24 15:53 trimethoprim Allergy Intermediate Rash Verified 05/03/24 15:53 peanut AdvReac Intermediate Diarrhea, Verified 05/03/24 15:53 indigestion soy AdvReac Intermediate diarrhea, Verified 05/03/24 15:53 indigestion wheat AdvReac Intermediate Diarrhea, Verified 05/03/24 15:53 indigestion atorvastatin AdvReac Mild Myalgia Verified 05/03/24 15:53 ezetimibe [From Zetia] AdvReac Mild Myalgia Verified 05/03/24 15:53 rosuvastatin AdvReac Mild Muscle Pain Verified 05/03/24 15:53 Home Medications Medication Instructions Recorded Confirmed Type albuterol sulfate 90 mcg/actuation 2 puff inhalation Q6H PRN 04/10/19 05/03/24 History aerosol inhaler (Ventolin HFA) Shortness Of Breath Or Wheezing bupropion HCl 150 mg tablet,12 hr 150 mg PO QAM 09/19/21 05/03/24 History sustained-release (Wellbutrin SR) multivitamin 1 tab PO QPM 06/24/22 05/03/24 History lancets 30 gauge (OneTouch Delica #100 ea 11/10/22 05/03/24 Rx Lancets) furosemide 20 mg tablet (Lasix) 20 mg PO DAILY PRN edema #30 tabs 12/22/22 05/03/24 Rx metformin 500 mg tablet,extended 500 mg PO TIDWMEAL 04/07/23 05/03/24 History release 24 hr cyanocobalamin (vitamin B-12) 3,000 mcg PO QAM 06/03/23 05/03/24 History 3,000 mcg capsule sertraline 100 mg tablet (Zoloft) 200 mg PO QAM 09/10/23 05/03/24 History montelukast 10 mg tablet 10 mg PO QPM #90 tabs 11/09/23 05/03/24 Rx chlorthalidone 50 mg tablet 50 mg PO QPM 01/06/24 05/03/24 History alfuzosin 10 mg tablet,extended 10 mg PO QPM 02/03/24 05/03/24 History release 24 hr (Uroxatral) losartan 100 mg tablet 100 mg PO QAM 02/03/24 05/03/24 History omeprazole 20 mg capsule,delayed 20 mg PO QAM 02/03/24 05/03/24 History release aspirin 81 mg tablet,delayed 81 mg PO BID #60 tabs 03/27/24 05/03/24 Rx release cefadroxil 500 mg capsule 500 mg PO BID #28 caps 03/27/24 05/03/24 Rx oxycodone 5 mg tablet 5 mg PO Q8H PRN pain #30 tabs 03/27/24 05/03/24 Rx potassium chloride 20 mEq 20 meq PO .COMPLEX #90 tabs 04/26/24 05/03/24 Rx tablet,extended release acetaminophen 500 mg tablet 1,000 mg PO TID fever or pain 05/03/24 05/03/24 History (Tylenol Extra Strength) cholecalciferol (vitamin D3) 50 50 mcg PO BID 05/03/24 05/03/24 History mcg (2,000 unit) tablet (Vitamin D3) tirzepatide 7.5 mg/0.5 mL 7.5 mg subcut .HOLD 05/03/24 05/03/24 History subcutaneous pen injector (Mounalyssaro) Patient History Medical History Diabetes mellitus Morbid obesity BPH (benign prostatic hyperplasia) Osteoarthritis Bilateral chronic knee pain Allergic rhinitis Surgical History History of esophageal dilatation Hx of prior ablation treatment venous ablation History of hernia surgery As child History of colonoscopy 06/2022 History of esophagogastroduodenoscopy (EGD) History of wisdom tooth extraction History of tooth extraction Status post uvulopalatopharyngoplasty History of repair of anterior cruciate ligament of right knee 1991 History of sinus surgery Family History Mother Diabetes Depression Father Heart disease Myocardial infarction Hypertension Prostate cancer Other No family history of adverse response to anesthesia Denies family history of Ovarian cancer Breast cancer Lung cancer Colorectal cancer Stroke Social History Smoking Status: Never smoker Second Hand Exposure: No; Do You Dip or Chew Tobacco: No (did in the past); Hx Alcohol Use: No Hx Substance Use: No Preferred Language: Nepalese Communication Ability: Effective Visual Impairment: Limited Hearing Ability: Normal 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 Room Required: No Beliefs That Will Affect Care: None marital status: Single Current Living Situation: Alone Current Living Situation Comment: with father in one story home, stairs to enter home current occupational status: employed Other Information That Helps Us Care for You: No Feels Safe at Home: Yes Safety Concerns: Feels Safe At This Time Childhood Exposure to Second-Hand Smoke: No Diet: regular caffeine: No during the past year weight has: remained stable Dental Care, Regularly: Yes Physical Activity Frequency: Does not Exercise Seatbelt Use: always Sunscreen Use: No Assistive Devices: CPAP and Walker Physical Exam Physical Exam: General: Alert. nontoxic. Skin: Warm, dry, Head: Atraumatic, Mallampati 3, greater than 3 finger widths mouth opening full range of motion at the neck Ears, nose, mouth and throat: airway patent Cardiovascular: Normal peripheral perfusion Respiratory: no respiratory distress Gastrointestinal: Non distended Musculoskeletal: No deformity Results & Data Results & Data Vital Signs (Past 12 Hours) Vital Signs Temp Pulse Pulse Pulse Resp BP Pulse Ox 05/11/24 09:44 68 05/11/24 09:24 36.7 C 73 17 127/66 97 05/11/24 09:09 36.8 C 72 74 18 124/65 95 05/11/24 07:40 36.8 C 68 18 102/62 98 05/11/24 07:37 36.8 C 67 18 97/63 L 100 O2 Del Method 05/11/24 09:44 05/11/24 09:24 Room Air 05/11/24 09:09 Room Air 05/11/24 07:40 Room Air 05/11/24 07:37 Room Air Critical Care Results & Data Vital Signs (Past 12 Hours) Vital Signs Temp Pulse Pulse Pulse Resp BP BP 05/11/24 10:00 36.7 C 66 17 117/68 05/11/24 09:44 68 05/11/24 09:24 36.7 C 73 17 127/66 05/11/24 09:09 36.8 C 72 74 18 124/65 05/11/24 07:40 36.8 C 68 18 102/62 05/11/24 07:37 36.8 C 67 18 97/63 L Pulse Ox O2 Del Method 05/11/24 10:00 97 Room Air 05/11/24 09:44 05/11/24 09:24 97 Room Air 05/11/24 09:09 95 Room Air 05/11/24 07:40 98 Room Air 05/11/24 07:37 100 Room Air Lab & Micro Results (Past 24 Hours) RBC 3.12 M/uL (4.70-6.10) L 05/11/24 WBC 9.24 K/ul (4.8-10.8) 05/11/24 Hgb 9.4 g/dl (14.0-18.0) L 05/11/24 Hct 28.5 % (42.0-52.0) L 05/11/24 MCV 91.3 fL (80.0-100.0) 05/11/24 MCH 30.1 pg (25.0-34.0) 05/11/24 MCHC 33.0 g/dL (32.0-36.0) 05/11/24 RDW Standard Deviation 46.1 fL (36.4-46.3) 05/11/24 RDW Coefficient of Variation 13.8 % (11.5-14.5) 05/11/24 Plt Count 393 K/uL (130-400) 05/11/24 MPV 9.3 fL (9.4-12.4) L 05/11/24 Na 138 mmol/L (136-145) 05/11/24 K 3.3 mmol/L (3.5-5.1) L 05/11/24 Cl 101 mmol/L (98-107) 05/11/24 CO2 29 mmol/L (21-32) 05/11/24 Anion Gap 8 (3-11) 05/11/24 BUN 29 mg/dl (6-23) H 05/11/24 Creatinine 0.78 mg/dl (0.6-1.4) 05/11/24 Estimated GFR ( Amer) 113.7 ml/min 05/11/24 Estimated GFR (Non-Af Amer) 98.1 ml/min 05/11/24 BUN/Creatinine Ratio 37.2 (10-20) H 05/11/24 Glu 112 mg/dl (70-99(Fasting)) H 05/11/24 Ca 9.3 mg/dl (8.6-10.3) 05/11/24 Calcium Level 9.3 mg/dl (8.6-10.3) 05/11/24 06:29 I & O Totals 24 Hours 05/10/24 05/11/24 05/12/24 06:59 06:59 06:59 Intake Total 800 / 800 360 / 360 250 / 250 Output Total 3050 / 3050 1100 / 1100 1570 / 1570 Balance -2250 / -2250 -740 / -740 -1320 / -1320 Cumulative 05/03/24 12:40 thru 05/11/24 09:18 Intake Total 5028.333 Output Total 91094 Balance -06630.667 RT Ventilator Mngmt (Last Documented) Ventilator Ordered Settings Respiratory Rate 17 05/11/24 10:00 Fraction of Inspired Oxygen 21 05/10/24 03:55 Ventilator - PT Measurements Respiratory Rate 17 Coding Level of Care Code 19381 IN/OBS CONSULT LVL 5,80M Diagnoses Adverse effect of penicillin, initial encounter T36.0X5A Encounter type: initial encounter Infection of left knee M00.9 MAC on CPAP G47.33; Z99.89 Obesity E66.9 Obesity classification: adult class 3 (BMI >= 40) Serious obesity comorbidity presence: with serious comorbidity Body mass index: BMI 45.0-49.9 (1) Penicillin adverse reaction Encounter type: initial encounter Qualified Code(s): T36.0X5A - Adverse effect of penicillins, initial encounter (4) Obesity Obesity classification: adult class 3 (BMI >= 40) Serious obesity comorbidity presence: with serious comorbidity Body mass index: BMI 45.0-49.9
[2024-05-11] MEDS: ANAPHYLAXIS KIT ONE (12:27)
--- NOTE | 2024-05-11 12:37 | Hospitalist Progress Note ---
Date of Service May 11, 2024 Assessment & Plan (1) Infection of left knee: Plan: Patient underwent a TKR with Dr. Houston on 03/25/2024. He was at physical therapy 04/29 and opened stitiches. He was given Cefadroxil 500mg BID but knee has worsened and he presented to the ED on 05/03/2024 for further care. -Knee x-ray 05/03: moderate to large knee effusion, inferior displacement of patella which could be displaced by joint effusions. no acute fractures -s/p I&D w/ Dr. Houston 05/04. -Surface wound culture 05/03: coag negative staph -Surgical wound culture 05/04: enterococcus faecalis -Blood cultures 05/03: negative 5 day lila -Infectious disease consulted, note reviewed 05/11 -discontinue daptomcyin -start ampicillin 2g IV q 4 hours. upon discharge can be switched to Ampicillin 12g IV q 24h for ease of dosing -Add Ceftriaxone 2g IV q12h -IV abx continue until 06/08, transition to PO amoxicillin 500mg q8hr 06/09 for at least 3-6 months -CBC w/ diff, BMP, LFT, ESR, CRP weekly in IV abx -Allergy consulted 05/09. Discussed with physician evening of 05/09. -is not consistent with true PCN allergy. Likely cellulitis from PCN injection. -will proceed with graded PCN challenge. -obtain tryptase level - pending. -Penicillin challenge completed 05/11. Patient is not allergic to penicillin. removed from his chart, -Reviewed CBC 05/11 - stable -Reviewed BMP 05/11 - potassium 3.3 -Reviewed CRP 05/11: 12.86 -s/p PICC line placement 05/10 -Pain control: scheduled tylenol, prn oxycodone -PT/OT recommend rehab, CM following AM CBC, BMP, CRP (2) Type 2 diabetes mellitus: Plan: -Last A1c at 6.0% on 02/16/2024. Home regiment: Metformin & monjaro (on hold) -SSI; pharmacy glycemic consult by Ortho (3) Hypertension: Plan: -Chlorthalidone and losartan held post op day 1 - resume losartan 05/06 - due to bladder frequency and urgency chlorthalidone discontinued. started on amlodipine 2.5mg PO daily. -Has prn home lasix - patient states he may be takes this on the weekends but has not taken at all recently. BPs acceptable does not appear volume overloaded at present AM BMP Plan Patient likely has fungal infection in groin area. Patient was given Miconazole powder BID. Will continue to monitor for improvement. Chronic Medical conditions: * MAC - continue CPAP HS * BPH - continue flomax * Mental Health - continue Wellbutrin, Zoloft * GERD - continue PPI Dispo: continued inpatient. Awaiting placement for rehab. DVT proh: Eliquis 2.5mg BID per ortho Called and updated sisterJANET on 05/11. All questions answered. Admission and Anticipated Discharge Date Admission Date: May 03, 2024 Subjective Patient seen and examined this afternoon at bedside. Patient reports to be doing well today. he completed his penicillin challenge this morning and no longer has a penicillin allergy. He was transferred back from the ICU to a medical floor bed. Patient does have some discomfort and erythema in his b/l groin area. He was started on anti-fungal powder this morning. Patient also did mention he's been having bladder issues. He admits to having frequency and urgency issues along with some dribbling. He denies any burning of urination. he states that it has been going on for quite some time but wanted to mention it since he was in the hospital. Physical Exam 2 Constitutional: WD/WN, vitals as above Eyes: PERRL, conjunctivae normal, anicteric sclerae Respiratory: normal respiratory effort, lungs clear to auscultation Cardiovascular: RRR, no murmur, no edema Skin: b/l erythema in groin region. erythema of penis. no discharge present. no exudate. no bleeding. nontender to touch Psychiatric: A+Ox3, euthymic affect Results & Data Results & Data Vital Signs (Past 12 Hours) Vital Signs Temp Pulse Pulse Pulse Resp BP BP 05/11/24 12:00 36.1 C L 64 17 110/74 05/11/24 11:00 36.7 C 65 18 123/61 05/11/24 10:00 36.7 C 66 17 117/68 05/11/24 09:44 68 05/11/24 09:24 36.7 C 73 17 127/66 05/11/24 09:09 36.8 C 72 74 18 124/65 05/11/24 07:40 36.8 C 68 18 102/62 05/11/24 07:37 36.8 C 67 18 97/63 L Pulse Ox O2 Del Method 05/11/24 12:00 97 Room Air 05/11/24 11:00 97 Room Air 05/11/24 10:00 97 Room Air 05/11/24 09:44 05/11/24 09:24 97 Room Air 05/11/24 09:09 95 Room Air 05/11/24 07:40 98 Room Air 05/11/24 07:37 100 Room Air Laboratory Results 05/11/24 06:29 05/11/24 06:29 PG Care Time/CCT Total # of Minutes Spent Total Time Spent with Patient: Total time spent is greater than 50% in coordination of care (as documented) at patient's floor/unit and/or counseling patient: Coding Level of Care Code 91524 SUB INP/OBS CARE 3/50MIN Diagnoses Infection of left knee M00.9 Type 2 diabetes mellitus without complication, without long-term current use of insulin E11.9 Diabetes mellitus complication status: without complication Diabetes mellitus terminal block assembler insulin use: without terminal block assembler use Primary hypertension I10 Hypertension type: primary hypertension (2) Type 2 diabetes mellitus Diabetes mellitus complication status: without complication Diabetes mellitus half-way insulin use: without half-way use Qualified Code(s): E11.9 - Type 2 diabetes mellitus without complications (3) Hypertension Hypertension type: primary hypertension Qualified Code(s): I10 - Essential (primary) hypertension
[2024-05-11] MEDS: AMPICILLIN 2,000 MG in SODIUM CHLOR 0.9% MINI-B 100 ML IV SCH (13:27)
--- NOTE | 2024-05-11 14:48 | Infectious Disease Progress Nt ---
Date of Service May 11, 2024 Assessment & Plan (1) Infection of left knee: Plan This is a 58 yo male DM2, osteoarthritis, GAVE, metabolic syndrome, obesity, recent L knee arthroplasty 03/25/25 sent in by ortho for I & D of L knee. He was working with physical therapy on 04/29 and was using a sliding board when he felt his knee split open. He was started on Keflex but the area worsened with increased pain, erythema and swoling with drainage. He denied fever, chills, nausea, vomiting. Pain worsens with ambulation and he had increased sweating the day of admission. In the ED he was afebrile and HDS. Labs with wbc 13.45, bun 27, cr 1.27, esr 54-->74-->77, esr -->22.29-->23, procal 0.47. Knee xay demonstrated a left total knee arthroplasty; hardware intact w/o periprosthetic lucency. Moderate to large knee effusion w/ soft tissue swelling within the left knee. Inferior displacement of the patella which could be displaced by the joint effusion. A superficial wound culture obtained on 05/03 grew CONS. He underwent incision and Drainage,Poly Exchange, Synovectomy of Left Total Knee Arthroplasty ( DAIR) on 05/04. The wound communicated with the knee joint and appeared inflamed per OP report. Intraoperative cultures are growing PanS E faecalis . He is currently on Daptomycin and Cefepime. ID consulted for antibiotic managed of Left knee infection sp poly exchange. 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 Because he would require chcf suppression in the setting of retained hardware, he underwent an Ampicillin graded challenge. He was also evaluated by Immunology/allergy who felt that he did not have a true allergy but likely cellulitis form PCN injection. He successfully completed the graded challenge today. Unclear if CONS from prior wound cx is a contaminant. Since it has not grown in OR culture, will focus on E faecalis. [place] therapy with IV ampicillin is an option but since prosthetic retained with purulence noted, communication with joint, no abx impregnated material containing gentamicin and nature of Enterococcal infection with retained hardware , will also ADD ceftriaxone. In the setting of retained hardware, anticipate 6 wks of pathogen targeted IV abx therapy followed by po suppression . CPK 49 Recommendations: Discontinue daptomycin and start Ampicillin 2 g IV q 4 hrs. This can be switched to Ampicillin 12 g IV q 24 hours ( continuous dosing) for ease of dosing on discharge AND Ceftriaxone 2 g iv q12h. EOT for IV abx is 06/08/24 Followed by po suppresion for at least 3-6 month with amoxicillin 500 mg po q 8hrs to start 06/09/24 Check CBC with diff, BMP, LFT, ESR , CRP weekly on IV abx He should follow up with Orhto as scheduled He should establish care with Local ID provider. d/w medicine team . ID will sign off . Please call with questions Snow Bonds MD, MPH Infectious Disease [facility], ID Division Call [phone] with questions. Admission and Anticipated Discharge Date Admission Date: May 03, 2024 Subjective This patient recommendation is based on a telemedicine consult request which was completed asynchronously through chart review and information provided by the primary physician. The patient was not seen or examined today. The evaluation is consultative in nature and all patient care and treatment decisions can either be accepted or rejected by the patient's primary hospital-based treating physician using their own independent medical judgment for their patient. Time Spent Reviewing Chart: 31+ minutes H is s/p ampicillin graded challenge; Pharmacy , immunology/allergy input appreciated Tolerated,. Results & Data Vital Signs (Past 12 Hours) Vital Signs Temp Pulse Pulse Pulse Resp BP BP 05/11/24 12:00 36.1 C L 64 17 110/74 05/11/24 11:00 36.7 C 65 18 123/61 05/11/24 10:00 36.7 C 66 17 117/68 05/11/24 09:44 68 05/11/24 09:24 36.7 C 73 17 127/66 05/11/24 09:09 36.8 C 72 74 18 124/65 05/11/24 07:40 36.8 C 68 18 102/62 05/11/24 07:37 36.8 C 67 18 97/63 L Pulse Ox O2 Del Method 05/11/24 12:00 97 Room Air 05/11/24 11:00 97 Room Air 05/11/24 10:00 97 Room Air 05/11/24 09:44 05/11/24 09:24 97 Room Air 05/11/24 09:09 95 Room Air 05/11/24 07:40 98 Room Air 05/11/24 07:37 100 Room Air Laboratory Results Short CBC 05/11/24 Range/Units 06:29 WBC 9.24 (4.8-10.8) K/ul Hgb 9.4 L (14.0-18.0) g/dl Hct 28.5 L (42.0-52.0) % Plt Count 393 (130-400) K/uL BMP 05/11/24 06:29 Sodium 138 Potassium 3.3 L Chloride 101 Carbon Dioxide 29 BUN 29 H Creatinine 0.78 Glucose 112 H Calcium 9.3 Microbiology 05/04/24 12:14 Knee,Left Gram Stain - Final 05/04/24 12:14 Knee,Left Aerobic and Anaerobic Culture - Final Enterococcus faecalis 05/03/24 15:53 Knee,Left Gram Stain - Final 05/03/24 15:53 Knee,Left Wound Culture - Final Coag negative Staphylococcus 05/03/24 16:23 Blood Aerobic Blood Culture - Final No growth in Aerobic bottle after 5 days. 05/03/24 16:23 Blood Anaerobic Blood Culture - Final No growth in Anaerobic bottle after 5 days. 05/03/24 15:53 Blood Aerobic Blood Culture - Final No growth in Aerobic bottle after 5 days. 05/03/24 15:53 Blood Anaerobic Blood Culture - Final No growth in Anaerobic bottle after 5 days. Medications Administered Home Medications Medication Instructions Recorded Confirmed Last Taken albuterol sulfate 90 mcg/actuation 2 puff inhalation Q6H PRN 04/10/19 05/03/24 Unknown aerosol inhaler (Ventolin HFA) Shortness Of Breath Or Wheezing bupropion HCl 150 mg tablet,12 hr 150 mg PO QAM 09/19/21 05/03/24 03/24/24 03:00 sustained-release (Wellbutrin SR) multivitamin 1 tab PO QPM 06/24/22 05/03/24 03/24/24 18:00 lancets 30 gauge (OneTouch Delica #100 ea 11/10/22 05/03/24 Unknown Lancets) furosemide 20 mg tablet (Lasix) 20 mg PO DAILY PRN edema #30 tabs 12/22/22 05/03/24 03/18/24 metformin 500 mg tablet,extended 500 mg PO TIDWMEAL 04/07/23 05/03/24 03/24/24 18:00 release 24 hr cyanocobalamin (vitamin B-12) 3,000 mcg PO QAM 06/03/23 05/03/24 03/24/24 03:00 3,000 mcg capsule sertraline 100 mg tablet (Zoloft) 200 mg PO QAM 09/10/23 05/03/24 03/24/24 03:00 montelukast 10 mg tablet 10 mg PO QPM #90 tabs 11/09/23 05/03/24 03/24/24 18:00 chlorthalidone 50 mg tablet 50 mg PO QPM 01/06/24 05/03/24 03/23/24 alfuzosin 10 mg tablet,extended 10 mg PO QPM 02/03/24 05/03/24 03/24/24 18:00 release 24 hr (Uroxatral) losartan 100 mg tablet 100 mg PO QAM 02/03/24 05/03/24 03/24/24 03:00 omeprazole 20 mg capsule,delayed 20 mg PO QAM 02/03/24 05/03/24 03/25/24 04:00 release aspirin 81 mg tablet,delayed 81 mg PO BID #60 tabs 03/27/24 05/03/24 Unknown release cefadroxil 500 mg capsule 500 mg PO BID #28 caps 03/27/24 05/03/24 05/03/24 09:00 oxycodone 5 mg tablet 5 mg PO Q8H PRN pain #30 tabs 03/27/24 05/03/24 Unknown potassium chloride 20 mEq 20 meq PO .COMPLEX #90 tabs 04/26/24 05/03/24 Unknown tablet,extended release acetaminophen 500 mg tablet 1,000 mg PO TID fever or pain 05/03/24 05/03/24 Unknown (Tylenol Extra Strength) cholecalciferol (vitamin D3) 50 50 mcg PO BID 05/03/24 05/03/24 Unknown mcg (2,000 unit) tablet (Vitamin D3) tirzepatide 7.5 mg/0.5 mL 7.5 mg subcut .HOLD 05/03/24 05/03/24 Unknown subcutaneous pen injector (Delores) Active Medications Generic Name Dose Route Start Last Admin Trade Name Freq PRN Reason Stop Dose Admin Acetaminophen 1,000 mg 05/04/24 15:01 05/11/24 13:27 Acetaminophen 500 Mg Tab PO 06/03/24 15:00 1,000 mg TID LISA Administration Apixaban 2.5 mg 05/04/24 21:00 05/11/24 08:24 Apixaban 2.5 Mg Tab PO 06/03/24 20:59 2.5 mg BID LISA Administration Bupropion HCl 150 mg 05/04/24 12:00 05/11/24 08:24 Bupropion Sr 150 Mg Tabcr PO 06/03/24 11:59 150 mg QAM LISA Administration Chlorthalidone 50 mg 05/08/24 09:00 05/11/24 08:24 Chlorthalidone 25 Mg Tab PO 06/07/24 08:59 50 mg QAM LISA Administration Cyanocobalamin 3,000 mcg 05/07/24 09:00 05/11/24 08:24 Cyanocobalamin (B-12) 500 Mcg Tablet PO 06/05/24 09:59 3,000 mcg QAM LISA Administration Docusate Sodium 100 mg 05/04/24 21:00 05/11/24 08:24 Docusate Sodium 100 Mg Cap PO 06/03/24 20:59 100 mg BID LISA Administration Heparin Sodium (Beef Lung) 5 ml 05/09/24 13:24 05/10/24 17:48 Heparin 10 Unit/Ml 5 Ml Flush FLUSH 06/08/24 13:23 5 ml PRN PRN Administration Flush Ampicillin Sodium 2,000 mg/ 100 mls @ 200 mls/hr 05/11/24 14:00 05/11/24 13:57 Sodium Chloride IV 06/22/24 13:59 Infused Q4H LISA Infusion Insulin Aspart 0 units 05/04/24 16:30 05/11/24 12:31 Insulin Aspart Per Unit Charge SC 06/03/24 16:29 5 units ACHS LISA Administration Protocol Insulin Glargine 18 units 05/08/24 09:00 05/11/24 08:49 Lantus Per Unit Charge SC 06/05/24 08:59 18 units QAM LISA Administration Losartan Potassium 100 mg 05/05/24 09:00 05/11/24 08:25 Losartan Potassium 50 Mg Tab PO 06/04/24 08:59 100 mg QAM LISA Administration Melatonin 3 mg 05/03/24 18:09 05/10/24 20:43 Melatonin 3 Mg Tab PO 06/02/24 18:08 3 mg HS PRN Administration Insomnia Miconazole Nitrate 1 appln 05/11/24 09:00 05/11/24 09:58 Miconazole Nitrate Powder 85 Gm EXT 06/10/24 08:59 1 appln BID LISA Administration Montelukast Sodium 10 mg 05/03/24 21:00 05/10/24 20:42 Montelukast Sodium 10 Mg Tablet PO 06/02/24 20:59 10 mg QPM LISA Administration Multivitamins 1 tab 05/05/24 09:00 05/11/24 08:25 Multivitamin Tab PO 06/04/24 08:59 1 tab QAM LISA Administration Ondansetron HCl 4 mg 05/04/24 15:01 05/07/24 18:37 Ondansetron Inj 2 Mg/Ml 2 Ml Vial IV 06/03/24 15:00 4 mg Q6H PRN Administration Nausea And Vomiting Oxycodone HCl 5 mg 05/05/24 11:43 05/11/24 06:14 Oxycodone Hcl Ir 5 Mg Tab (Immediate Release) PO 05/18/24 15:00 5 mg Q6H PRN Administration pain Pantoprazole Sodium 40 mg 05/04/24 12:00 05/11/24 08:25 Pantoprazole 40 Mg Tab PO 06/03/24 11:59 40 mg QAM LISA Administration Protocol Potassium Chloride 20 meq 05/05/24 09:00 05/11/24 08:25 Potassium Chloride Crtab 20 Meq Tabcr PO 06/04/24 08:59 20 meq DAILY LISA Administration Potassium Chloride 20 meq 05/04/24 15:26 05/10/24 09:00 Potassium Chloride Crtab 20 Meq Tabcr PO 06/03/24 15:25 20 meq DAILY PRN Administration GIVE WITH PRN FUROSEMIDE Sennosides 17.2 mg 05/04/24 21:00 05/10/24 20:43 Senna 8.6 Mg Tab PO 06/03/24 20:59 17.2 mg HS LISA Administration Sertraline HCl 200 mg 05/04/24 12:00 05/11/24 08:25 Sertraline Hcl 100 Mg Tablet PO 06/03/24 11:59 200 mg QAM LISA Administration Tamsulosin HCl 0.4 mg 05/03/24 21:00 05/10/24 20:43 Tamsulosin Hcl 0.4 Mg Cap PO 06/02/24 20:59 0.4 mg QPM LISA Administration Protocol Vitamin D 50 mcg 05/04/24 21:00 05/11/24 08:24 Cholecalciferol 25 Mcg (1000 Units) Tab PO 06/03/24 20:59 50 mcg BID LISA Administration
[2024-05-11] MEDS: cefTRIAXone SODIUM 2,000 MG/50 ML BAG IV SCH (16:57)
[2024-05-12 06:53] LABS: Hematocrit (blood only) 29.7 % (42.0-52.0); Hemoglobin 9.8 g/dl (14.0-18.0); Mean Corpuscular Hemoglobin 30.1 pg (25.0-34.0); Mean Corpuscular Volume 91.1 fL (80.0-100.0); Platelet Count 417 K/uL (130-400); RDW Coefficient of Variation 13.5 % (11.5-14.5); RDW Standard Deviation 45.7 fL (36.4-46.3); Red Blood Count 3.26 M/uL (4.70-6.10)
[2024-05-12 07:23] LABS: BUN Creatinine Ratio 40.8 (10-20); C Reactive Protein 10.47 mg/dl (0-0.5); Calcium 9.2 mg/dl (8.6-10.3); Creatinine Clr Calc Pharmacy 145.2 ml/min; Est GFR (African American) 114.9 ml/min; Est GFR (Non-African American) 99.2 ml/min; Potassium 3.3 mmol/L (3.5-5.1)
[2024-05-12] MEDS: POTASSIUM CHLORIDE CRTAB 20 MEQ TABCR PO SCH (08:15)
--- NOTE | 2024-05-12 12:00 | Hospitalist Progress Note ---
Date of Service May 12, 2024 Assessment & Plan (1) Infection of left knee: Plan: Patient underwent a TKR with Dr. Houston on 03/25/2024. He was at physical therapy 04/29 and opened stitiches. He was given Cefadroxil 500mg BID but knee has worsened and he presented to the ED on 05/03/2024 for further care. -Knee x-ray 05/03: moderate to large knee effusion, inferior displacement of patella which could be displaced by joint effusions. no acute fractures -s/p I&D w/ Dr. Houston 05/04. -Surface wound culture 05/03: coag negative staph -Surgical wound culture 05/04: enterococcus faecalis -Blood cultures 05/03: negative 5 day lila -s/p PICC line placement 05/10 -Infectious disease consulted, note reviewed 05/11 -discontinue daptomcyin -start ampicillin 2g IV q 4 hours. upon discharge can be switched to Ampicillin 12g IV q 24h for ease of dosing -Add Ceftriaxone 2g IV q12h -IV abx continue until 06/08, transition to PO amoxicillin 500mg q8hr 06/09 for at least 3-6 months -CBC w/ diff, BMP, LFT, ESR, CRP weekly in IV abx -Allergy consulted 05/09. Discussed with physician evening of 05/09. -is not consistent with true PCN allergy. Likely cellulitis from PCN injection. -obtain tryptase level - pending. -Penicillin challenge completed 05/11. Patient is not allergic to penicillin. removed from his chart -Reviewed CBC 05/12 - stable -Reviewed BMP 05/12 - potassium 3.3, given additional 20meq -Reviewed CRP 05/12: 10.47, downtrending -Pain control: scheduled Tylenol, prn oxycodone -PT/OT recommend rehab, CM following AM CBC, BMP, CRP (2) Type 2 diabetes mellitus: Plan: -Last A1c at 6.0% on 02/16/2024. Home regiment: Metformin & monjaro (on hold) -SSI; pharmacy glycemic consult by Ortho (3) Hypertension: Plan: -Chlorthalidone and losartan held post op day 1 - resume losartan 05/06 - due to bladder frequency and urgency chlorthalidone discontinued. started on amlodipine 2.5mg PO daily. -Has prn home lasix - patient states he may be takes this on the weekends but has not taken at all recently. BPs acceptable does not appear volume overloaded at present AM BMP Plan Patient likely has fungal infection in groin area. Patient was given Miconazole powder BID. Will continue to monitor for improvement. Chronic Medical conditions: * MAC - continue CPAP HS * BPH - continue flomax * Mental Health - continue Wellbutrin, Zoloft * GERD - continue PPI Dispo: continued inpatient. [facility] bed placement. awaiting insurance auth. Hopeful discharge 05/13. DVT proh: Eliquis 2.5mg BID per ortho Admission and Anticipated Discharge Date Admission Date: May 03, 2024 Subjective Patient seen and examined this morning at bedside. Patient reports to be feeling well today. He did state that he had some leakage of blood from his knee incision today while at PT and afterwards. Oliver are still intact. He was icing his knee at time of encounter. He denied any additional complaints. He received news that he has bed at [facility] rehab facility and will likely be able to go there tomorrow. Physical Exam 2 Constitutional: WD/WN, vitals as above Eyes: PERRL, conjunctivae normal, anicteric sclerae Respiratory: normal respiratory effort, lungs clear to auscultation Cardiovascular: RRR, no murmur, no edema Musculoskeletal: left knee with incision. Oliver intact.No blood or discharge oozing from staple line visualized. Blood was on león hose stocking. Skin: no rashes, warm and dry Psychiatric: A+Ox3, euthymic affect Results & Data Results & Data Vital Signs (Past 12 Hours) Vital Signs Temp Pulse Resp BP Pulse Ox O2 Del Method 05/12/24 07:03 36.8 C 69 15 132/71 99 Room Air Laboratory Results 05/12/24 06:19 05/12/24 06:19 PG Care Time/CCT Total # of Minutes Spent Total Time Spent with Patient: Total time spent is greater than 50% in coordination of care (as documented) at patient's floor/unit and/or counseling patient: Coding Level of Care Code 80447 SUB INP/OBS CARE 2/35MIN Diagnoses Infection of left knee M00.9 Type 2 diabetes mellitus without complication, without long-term current use of insulin E11.9 Diabetes mellitus complication status: without complication Diabetes mellitus residential insulin use: without residential use Primary hypertension I10 Hypertension type: primary hypertension (2) Type 2 diabetes mellitus Diabetes mellitus complication status: without complication Diabetes mellitus terminologist insulin use: without terminologist use Qualified Code(s): E11.9 - Type 2 diabetes mellitus without complications (3) Hypertension Hypertension type: primary hypertension Qualified Code(s): I10 - Essential (primary) hypertension
[2024-05-12] MEDS: amLODIPine BESYLATE 5 MG TAB PO SCH (20:50)
[2024-05-13 09:03] LABS: Hematocrit (blood only) 28.7 % (42.0-52.0); Hemoglobin 9.5 g/dl (14.0-18.0); Mean Corpuscular Hgb Conc 33.1 g/dL (32.0-36.0); Mean Corpuscular Volume 90.5 fL (80.0-100.0); Mean Platelet Volume 9.4 fL (9.4-12.4); Platelet Count 431 K/uL (130-400); RDW Coefficient of Variation 13.4 % (11.5-14.5); RDW Standard Deviation 44.8 fL (36.4-46.3); Red Blood Count 3.17 M/uL (4.70-6.10); White Blood Count 10.05 K/ul (4.8-10.8)
[2024-05-13 09:23] LABS: BUN Creatinine Ratio 28.6 (10-20); C Reactive Protein 9.04 mg/dl (0-0.5); Calcium 9.3 mg/dl (8.6-10.3); Creatinine Clr Calc Pharmacy 131.3 ml/min; Est GFR (African American) 110.3 ml/min; Est GFR (Non-African American) 95.2 ml/min; Potassium 3.5 mmol/L (3.5-5.1)
--- NOTE | 2024-05-13 13:00 | Discharge Summary ---
Date of Service May 13, 2024 Admission HPI Per Admitting Provider Christopher is a 58-year-old male with PMH of T2DM, MAC, GERD, dyslipidemia, BPH, anxiety depression, asthma, HTN, GAVE, metabolic syndrome, and left DJD. He presented at the [facility] for a planned I&D of his left knee on 05/04. History of recent left total knee surgery on 03/25/2024. He reports that he was at PT on Sunday 04/29, and was using a sliding board when he felt his knee split open. The knee was bleeding at the time, and first-aid was administered, he then went to [facility] Thursday afternoon to have it formally addressed; was started on Keflex 500mg BID outpatient on Thursday. Patient was told to lay low over the weekend, then told to come in today when the knee became erythematous/swollen with drainage. Patient is unsure if it has been purulent drainage, but does note it has been mostly clear liquid and blood. He endorses left knee pain at the incision site. No radiation. Worse when walking. He has been ambulating with a walker at baseline recently. He reports that he took all his regular morning medications today; no recent change in medications. He denies blood thinners, but does take aspirin 81 mg twice daily; reports he takes this for preventative prophylaxis. No PMH of DVT/PE, SD, or stents. He denies smoking, tobacco use, or alcohol use. Patient's vitals are stable, admission. ED course: Ancef 1000 mg IV ROS: Patient endorses sweating this morning, intermittent left knee pain and drainage, and left leg swelling (which patient attributes to rain bandage being too tight). Patient denies fever, chills, dizziness, lightheadedness, MAHER, chest pain, SOB, chest pressure, chest palpitations, cough, wheezing, abdominal pain, N/V/D, change in urinary/ bowel habits, or numbness/tingling in the left leg. Principal Diagnosis left knee infection Discharge Exam Constitutional WD/WN, vitals as above Eyes PERRL, conjunctivae normal, anicteric sclerae Respiratory normal respiratory effort, lungs clear to auscultation Cardiovascular RRR, no murmur, no edema Skin no rashes, warm and dry Psychiatric A+Ox3, euthymic affect Discharge Data Allergies Allergy/AdvReac Type Severity Reaction Status Date / Time sulfamethoxazole Allergy Intermediate Rash Verified 05/03/24 15:53 trimethoprim Allergy Intermediate Rash Verified 05/03/24 15:53 peanut AdvReac Intermediate Diarrhea, Verified 05/03/24 15:53 indigestion soy AdvReac Intermediate diarrhea, Verified 05/03/24 15:53 indigestion wheat AdvReac Intermediate Diarrhea, Verified 05/03/24 15:53 indigestion atorvastatin AdvReac Mild Myalgia Verified 05/03/24 15:53 ezetimibe [From Zetia] AdvReac Mild Myalgia Verified 05/03/24 15:53 rosuvastatin AdvReac Mild Muscle Pain Verified 05/03/24 15:53 Consultations 05/03/24 14:26 Consult Orthopedic Surgery Stat 05/03/24 14:27 ED Decision to Admit Stat 05/04/24 16:23 Consult Infectious Diseases Routine 05/09/24 13:56 Consult Allergy / Immunology Routine 05/11/24 09:00 Consult Mobile Heavy Equipment Operator Routine Procedures Performed Operation Date: 05/04/24 11:00 Actual Procedures p Synovectomy, Poly Exchange Left Total Knee Arthroplasty(Left) - Lukas Houston MD s Incision and Drainage Knee(Left) - Lukas Houston MD Ordered Studies 05/13/24 07:53 05/13/24 07:53 Vital Signs Temp 36.4 C L 05/13/24 12:54 Pulse 86 05/13/24 12:54 Resp 15 05/13/24 12:54 BP 132/74 05/13/24 12:54 Pulse Ox 98 05/13/24 12:54 O2 Del Method Room Air 05/13/24 12:27 O2 Flow Rate 3 05/04/24 14:15 FiO2 21 05/10/24 03:55 Knee X-Ray 05/03/24 15:23 XR knee LT 1 or 2V routine CLINICAL HISTORY: Left knee infection COMPARISON STUDY: Left knee 03/21/2014. FINDINGS: There is a left total knee arthroplasty. The hardware is intact. No abnormal periprosthetic lucency. No acute fracture. Moderate to large knee effusion. Mild soft tissue swelling within the left knee. Inferior displacement of the patella which could be displaced by the joint effusion. A quadriceps tendon injury/tear also remains in the differential diagnosis. IMPRESSION: 1. Moderate to large left knee effusion. 2. Inferior displacement of the patella which could be displaced by the joint effusion. A quadriceps tendon injury/tear also remains in the differential diagnosis. 3. No acute fractures. ACT 112: Negative or not required by law. Electronically signed by: Rip Castellano M.D. 05/03/2024 4:44 PM Hospital Course (1) Infection of left knee: Patient underwent a TKR with Dr. Houston on 03/25/2024. He was at physical therapy 04/29 and opened stitches. He was given Cefadroxil 500mg BID but knee has worsened and he presented to the ED on 05/03/2024 for further care. He had knee x- ray that revealed moderate to large knee effusion, inferior displacement of patella which could be displaced by joint effusions & no acute fx. He underwent I&D by Dr. Houston on 05/04. Surface wound culture positive for coag negative staph. Surgical wound culture positive for enterococcus faecalis. Blood cultures negative at 5 day lila. He had PICC line placement on 05/10. ID was consulted for his care and had recommended ampicillin however patient had PCN allergy. Immunology was then consulted and patient underwent graded PCN challenge in the ICU on 05/11. He no longer has allergy to PCN. he was then discontinued on daptomycin and swithced to Ampicillin 2g IV q4h + Rocephin 2g IV q 12h. For ease of dosing in outpatient setting, he was switched to Ampicillin 12g IV q24h. IV abx will be completed on 06/08 and he will be transitioned to PO amoxicillin 500mg q8hr for at least 3-6 months. ID recommended he follow with local ID provider. On day of discharge his CBC/BMP was stable and CRP downtrending. Tylenol was used for pain with oxycodone as needed. (2) Type 2 diabetes mellitus: -Last A1c at 6.0% on 02/16/2024. Home regiment: Metformin & monjaro was resumed on discharge. (3) Hypertension: -Chlorthalidone and losartan held post op day 1. Patient had voiced complaints regarding bladder frequency and urgency. Due to this his chlorthalidone was discontinued. He was started on Amlodipine 2.5mg PO HS and continue don his losartan. He does have prn lasix but did not require this during his hospital stay. His BP's were acceptable and he did not appear volume overloaded. Plan Patient likely has fungal infection in groin area. Patient was given Miconazole powder BID. Chronic Medical conditions: * MAC - continue CPAP HS * BPH - continue flomax * Mental Health - continue Wellbutrin, Zoloft * GERD - continue PPI Total Time Total Time Spent Total Time Spent (In Minutes): 41 Total Time Includes: Examination of the Patient, Discharge Planning and Medication Reconciliation Discharge Plan Discharge Items Patient Disposition: Transfer Inpatient Rehab Fac Reason For Visit: LEFT KNEE INFECTION; RECENT LEFT TKR Discharge Diagnosis: Left knee infection Activity: As commented below Activity Comment: per rehab facility Non-emergency contact: Primary Care Provider and Surgeon Call non-emergency contact if: you have any medication questions, your symptoms worsen, you have a fever, your wound has increased redness and your wound has increased drainage Follow-up/Referrals: Ashish Onofre DO [Primary Care Provider] - Diet: Carb Consistent or DM2 Ambulatory Orders: Complete Blood Count with Diff (Routine) Timeframe: 20240520 Location: Determined by Patient Ordered By: Coty Clay Comprehensive Metabolic Panel (Routine) Timeframe: 20240520 Location: Determined by Patient Ordered By: Coty Clay C Reactive Protein (Routine) Timeframe: 20240520 Location: Determined by Patient Ordered By: Coty Clay Erythrocyte Sedimentation Rate (Routine) Timeframe: 20240520 Location: Determined by Patient Ordered By: Coty Clay Addtl Attending Provider Instructions: Mr. Cosme, You were hospitalized for an infection of your left knee. While you were hospitalized you also underwent a penicillin challenge and you are no longer allergic to penicillin. You are being discharged to a rehab facility for continued therapy. Please see recommendations below regarding your discharge. 1. You will be continued on IV Ampicillin and IV Ceftriaxone until June 08. -Following this treatment, you will then be switched to oral antibiotic therapy consisting of amoxicillin -While on IV antibiotics, it is recommended to receive labs once weekly. Your next lab draw will be on 05/20. -An infectious disease specialist office will be in contact with you for an appointment. 2. Please use Tylenol for pain -if pain is not relieved with Tylenol, please use oxycodone 5mg as needed every 6 hours for severe pain. 3. You may resume your previous diabetic medications upon discharge. 4. While hospitalized, you had mentioned issues with urinary urgency. -Your chlorthalidone has been discontinued. -You have been started on Amlodipine 2.5mg nightly. Your next dose is 05/13 evening. 5. While hospitalized, nursing had observed a fungal infection in your groin area. Please continue using the Miconazole powder twice daily for the next 14 days. 6. Please continue CPAP use 7. Please continue Flomax for your enlarged prostate 8. Please continue Wellbutrin and Zoloft for your mental health 9. Please continue your omeprazole for your acid reflux. Your follow up at [facility] with Dr. Houston is on 05/18. Please also arrange a follow up with your PCP within the next 1-2 weeks. If you develop any redness, drainage, or warmth around your incision. Or if you develop any fevers, chills, shortness of breath, chest pain please report to the ER for further evaluation. Sincerely, Coty Clay PA-C Pending Studies at Discharge: No Stand-Alone Forms: My [facility] [employer] Skilled Items Patient informed of condition?: Yes DNR: No Discharge Level of Care: Acute rehab Communicable Disease: No Discharge Prognosis: Improving Lines: PICC Urinary Catheter: No Medications and DC Order Prescriptions: New amlodipine 2.5 mg tablet 2.5 mg PO HS Qty: 30 0RF oxycodone 5 mg capsule 5 mg PO Q6H PRN (Reason: pain) Qty: 14 0RF miconazole nitrate [Desenex] 2 % Powder 1 applic EXT BID 14 Days Qty: 85 0RF ampicillin sodium 2 gram recon soln 12 g IV .q 24 hours 26 Days ceftriaxone 2 gram recon soln 2 g IV Q12H 26 Days Continued furosemide [Lasix] 20 mg tablet 20 mg PO DAILY PRN (Reason: edema) Qty: 30 2RF montelukast 10 mg tablet 10 mg PO QPM Qty: 90 3RF Rx Instructions: Take 1 tablet by mouth once daily potassium chloride 20 mEq tablet extended release 20 meq PO .COMPLEX Qty: 90 3RF Rx Instructions: 20 mEq orally and take 20meq prn with furosemide dose; cyanocobalamin (vitamin B-12) 3,000 mcg capsule 3,000 mcg PO QAM bupropion HCl [Wellbutrin SR] 150 mg tablet sustained-release 12 hr 150 mg PO QAM metformin 500 mg tablet extended release 24 hr 500 mg PO TIDWMEAL Hold Instructions: needs appt albuterol sulfate [Ventolin HFA] 90 mcg/actuation Hfa Aerosol Inhaler 2 puff INHALATION Q6H PRN (Reason: Shortness Of Breath Or Wheezing) sertraline [Zoloft] 100 mg tablet 200 mg PO QAM multivitamin Tablet 1 tab PO QPM omeprazole 20 mg capsule,delayed release(DR/EC) 20 mg PO QAM Rx Instructions: Take 1 capsule by mouth once daily losartan 100 mg tablet 100 mg PO QAM Rx Instructions: Take 1 tablet by mouth once daily alfuzosin [Uroxatral] 10 mg tablet extended release 24 hr 10 mg PO QPM Rx Instructions: administer after the same meal each day aspirin 81 mg tablet,delayed release (DR/EC) 81 mg PO BID Qty: 60 0RF cholecalciferol (vitamin D3) [Vitamin D3] 50 mcg (2,000 unit) Tablet 50 mcg PO BID acetaminophen [Tylenol Extra Strength] 500 mg tablet 1,000 mg PO TID Rx Instructions: Take AM, NOON, PM Mounjaro 7.5 mg/0.5 mL pen injector 7.5 mg subcut .HOLD Discontinued chlorthalidone 50 mg tablet 50 mg PO QPM oxycodone 5 mg tablet 5 mg PO Q8H PRN (Reason: pain) Qty: 30 0RF Rx Instructions: Date of surgery 03/25/2024. cefadroxil 500 mg capsule 500 mg PO BID Qty: 28 0RF No Action (DME) lancets [OneTouch Delica Lancets] 30 gauge misc See Rx Instructions .Route Qty: 100 12RF Rx Instructions: As directed test daily Discharge Orders: Discharge Order (Routine); Ordered 05/13/24 Ordered By: Coty Askew/Other Patient Handouts: Managing Type 2 Diabetes, Healthy Meals for Diabetes Admission Data Admit Date/Time: 05/03/24 15:30 Attending Provider: Tomi Ballard Admit Provider: Hannah Mccloud Primary Care Provider: Ashish Onofre Other Providers: Rachel Krishna [facility] [place]; Sal Torres [facility]; Lukas Houston; Hannah Mccloud; Snow Bonds; Stephanie Raphael; Jame Castellanos; Jostin Gibbs; Earnest Ambrocio; Ashish Sales; Asim Moncada; Filiberto Chandler; Erik Pruett; Xavi Feliciano; Krystyna Crowley; Bobby Domingo; Arleth Ibarra; Claudia Humphries; Travis Parks; Jame Young; Harmony Rob Other Interventions: Discharge Summary Assessment (RN) Last Done: 05/13/24 12:54 Supervising Physician Co-Signing Physician Notes During face to face encounter, I obtained a brief physical examination, discussed hospital stay with patient and discharge instructions with patient. I discussed discharge plan of care with DOMINIQUE Clay. I reviewed above note and agree with it except for the following: Patient with a left knee infection. Patient is now clinically stable for discharge. Patient will be placed on antibiotics for discharge as noted above. Coding Level of Care Code 22493 INP/OBS DISCH >30 MIN Diagnoses Infection of left knee M00.9 Type 2 diabetes mellitus without complication, without long-term current use of insulin E11.9 Diabetes mellitus complication status: without complication Diabetes mellitus detention insulin use: without middle or intermediate school principal use Primary hypertension I10 Hypertension type: primary hypertension
== END 2024-05-13 15:24 | DRG 467 ==
LOC: ED 12:53 → SUATTDRO 15:30 → 3E 15:30 → 1E 05-11 08:58 → 3E 05-11 15:54

== ENCOUNTER 2024-05-27 23:10 | Inpatient (IN) ==
[2024-05-28 00:43] LABS: Basophils # (auto) 0.05 K/uL (0.00-0.20); Basophils % (auto) 0.5 %; Eosinophils % (auto) 12.8 %; Hematocrit (blood only) 32.1 % (42.0-52.0); Hemoglobin 10.3 g/dl (14.0-18.0); Immature Granulocytes # (auto) 0.03 K/uL (0.01-0.20); Immature Granulocytes % (auto) 0.3 %; Lymphocytes # (auto) 2.19 K/uL (1.20-3.40); Lymphocytes % (auto) 21.6 %; Mean Corpuscular Hemoglobin 29.3 pg (25.0-34.0); Mean Corpuscular Hgb Conc 32.1 g/dL (32.0-36.0); Mean Corpuscular Volume 91.2 fL (80.0-100.0); Mean Platelet Volume 10.2 fL (9.4-12.4); Monocytes # (auto) 0.65 K/uL (0.11-0.59); Monocytes % (auto) 6.4 %; Neutrophils % (auto) 58.4 %; Platelet Count 242 K/uL (130-400); RDW Coefficient of Variation 14.3 % (11.5-14.5); RDW Standard Deviation 47.7 fL (36.4-46.3); Red Blood Count 3.52 M/uL (4.70-6.10); White Blood Count 10.12 K/ul (4.8-10.8)
[2024-05-28 00:53] LABS: Albumin Level 3.6 gm/dl (3.4-5.0); Bilirubin Direct 0.1 mg/dl (0-0.2); Bilirubin,Total 0.4 mg/dl (0.2-1.0); Calcium 9.8 mg/dl (8.6-10.3); Creatinine Clr Calc Pharmacy 143.2 ml/min; Est GFR (African American) 113.1 ml/min; Est GFR (Non-African American) 97.6 ml/min; Magnesium 1.4 mg/dl (1.7-2.4); Total Protein 7.1 gm/dl (6.0-8.3)
[2024-05-28 01:36] LABS: Appearance Urine Clear (Clear); Bacteria Urine Automated None Seen (None Seen); Bilirubin Urine Negative (Negative); Blood Urine Negative (Negative); Calcium Oxalate Crystals Urine Present (None Prsent); Cast Urine Automated 0-2 /lpf (0-2); Color Urine Yellow; Epithelial Cell Urine Auto 0-2 /hpf (0-2); Glucose Urine UA Negative (Negative); Ketones Urine Trace (Negative); Leukocyte Esterase Urine Negative (Negative); Nitrite Urine Negative (Negative); Protein Urine Trace (Negative); RBC Urine Automated 0-2 /hpf (0-2); Specific Gravity Urine 1.027 (1.000-1.030); Urobilinogen Urine Negative (Negative); WBC Urine Automated 0-5 /hpf (0-5); pH Urine 6.5 (4.5-7.5)
[2024-05-28] MEDS ORDERED: VANCOMYCIN CONSULT ACTIVE PRN (04:43)
--- NOTE | 2024-05-28 04:52 | History & Physical Report ---
Date of Service May 28, 2024 Assessment & Plan (1) Infection of left knee: Plan: -Left TKR with Dr. Houston on 03/25/24 -Washout procedure performed on 05/04/2024. -Wounds grew coagulase-negative staph Streptococcus as well as Enterococcus faecalis. -Initially treated with daptomycin and cefepime. Was discharged on 05/13 on ampicillin and Rocephin. -Hives reaction to ampicillin on Thursday, transition to daptomycin. After transition started to have redness and swelling in the knee. -May have daptomycin resistance. Will discontinue daptomycin at this time. -Vancomycin started in ED, continue vancomycin. -Knee x-rays taken, pending results. -Denies any fevers or chills, vital signs stable, no leukocytosis on CBC. -Blood cultures pending. -CBC, BMP, CRP, ESR ordered for morning labs. -Lovenox DVT prophylaxis. -Infectious disease consulted. -Orthopedic surgery consulted. (2) Degenerative joint disease of knee, left: Plan: - as above (3) Type 2 diabetes mellitus: Plan: -Patient's home regimen held on admission -Continue BSG checks, sliding-scale insulin, hypoglycemic protocol (4) MAC on CPAP: Plan: -Continue CPAP at night. (5) Gastroesophageal reflux disease: Plan: -Continue omeprazole 20 mg. (6) Anxiety and depression: Plan: -Continue Zoloft 200 mg and Wellbutrin 150 mg. (7) Hypertension: Plan: -Continue Norvasc 2.5 mg and losartan 100 mg. Plan Fluids: None Nutrition: Type 2 diabetes Code status: Full code DVT ppx: Lovenox Consults: ortho and ID Dispo: med/surg History of Present Illness Chief Complaint: Left knee infection status post knee replacement and washout Primary Care Provider: Ashish Onofre DO Christopher is a 58-year-old male with PMH of T2DM, MAC, GERD, dyslipidemia, BPH, anxiety depression, asthma, HTN, GAVE, metabolic syndrome, and left DJD. Patient presents with postop infection of the left knee. Patient initially underwent knee replacement on March 25, [address] Houston at this facility. Patient then subsequently developed a postop infection that required a washout procedure which was performed on 05/04/2024. Cultures from infection grew coagulase-negative Streptococcus. Deep wound cultures grew Enterococcus faecalis. Patient was initially treated with daptomycin and cefepime. He did c omplete a penicillin allergy challenge with allergy immunology. He was discharged on ampicillin as well as Rocephin. Patient currently has a PICC line in his right arm. Patient states that on Thursday he started to have hives to ampicillin and he was ultimately changed to daptomycin. He followed up with Dr. Houston on Thursday who said that his patellar tendon was torn. He stated that Dr. Bell want to wait until the infection cleared before going in and repairing the patella tendon. Patient arrived to the facility via EMS from rehab due to concerns over infection. He has been having some redness across his incision scar as well as increased pain and discomfort. Denies any fevers or chills. Denies any chest pain, nausea, vomiting. States that he has been wearing his brace which is set at 0 degrees. Pain is well-controlled at time of admission. Allergies Allergy/AdvReac Type Severity Reaction Status Date / Time sulfamethoxazole Allergy Intermediate Rash Verified 05/03/24 15:53 trimethoprim Allergy Intermediate Rash Verified 05/03/24 15:53 peanut AdvReac Intermediate Diarrhea, Verified 05/03/24 15:53 indigestion soy AdvReac Intermediate diarrhea, Verified 05/03/24 15:53 indigestion wheat AdvReac Intermediate Diarrhea, Verified 05/03/24 15:53 indigestion atorvastatin AdvReac Mild Myalgia Verified 05/03/24 15:53 ezetimibe [From Zetia] AdvReac Mild Myalgia Verified 05/03/24 15:53 rosuvastatin AdvReac Mild Muscle Pain Verified 05/03/24 15:53 Home Medications Medication Instructions Recorded Confirmed Type albuterol sulfate 90 mcg/actuation 2 puff inhalation Q6H PRN 04/10/19 05/03/24 History aerosol inhaler (Ventolin HFA) Shortness Of Breath Or Wheezing bupropion HCl 150 mg tablet,12 hr 150 mg PO QAM 09/19/21 05/03/24 History sustained-release (Wellbutrin SR) multivitamin 1 tab PO QPM 06/24/22 05/03/24 History lancets 30 gauge (OneTouch Delgiselle #100 ea 11/10/22 05/03/24 Rx Lancets) furosemide 20 mg tablet (Lasix) 20 mg PO DAILY PRN edema #30 tabs 12/22/22 05/03/24 Rx metformin 500 mg tablet,extended 500 mg PO TIDWMEAL 04/07/23 05/03/24 History release 24 hr cyanocobalamin (vitamin B-12) 3,000 mcg PO QAM 06/03/23 05/03/24 History 3,000 mcg capsule sertraline 100 mg tablet (Zoloft) 200 mg PO QAM 09/10/23 05/03/24 History montelukast 10 mg tablet 10 mg PO QPM #90 tabs 11/09/23 05/03/24 Rx alfuzosin 10 mg tablet,extended 10 mg PO QPM 02/03/24 05/03/24 History release 24 hr (Uroxatral) losartan 100 mg tablet 100 mg PO QAM 02/03/24 05/03/24 History omeprazole 20 mg capsule,delayed 20 mg PO QAM 02/03/24 05/03/24 History release aspirin 81 mg tablet,delayed 81 mg PO BID #60 tabs 03/27/24 05/03/24 Rx release potassium chloride 20 mEq 20 meq PO .COMPLEX #90 tabs 04/26/24 05/03/24 Rx tablet,extended release acetaminophen 500 mg tablet 1,000 mg PO TID fever or pain 05/03/24 05/03/24 History (Tylenol Extra Strength) cholecalciferol (vitamin D3) 50 50 mcg PO BID 05/03/24 05/03/24 History mcg (2,000 unit) tablet (Vitamin D3) tirzepatide 7.5 mg/0.5 mL 7.5 mg subcut .HOLD 05/03/24 05/03/24 History subcutaneous pen injector (Mounjaro) amlodipine 2.5 mg tablet 2.5 mg PO HS #30 tabs 05/13/24 Rx ampicillin sodium 2 gram 12 g IV .q 24 hours 26 days 05/13/24 Rx intravenous solution ceftriaxone 2 gram intravenous 2 g IV Q12H 26 days 05/13/24 Rx solution oxycodone 5 mg capsule 5 mg PO Q6H PRN pain #14 caps 05/13/24 Rx Past Med/Surg History Problem List (Updated 05/28/24 @ 21:22 by Randy James PA-C) Groin rash Penicillin adverse reaction Infection of left knee (Acute) Degenerative joint disease of knee, left Obesity Physical deconditioning Dietary counseling and surveillance Bilateral primary osteoarthritis of knee Metabolic syndrome GAVE (gastric antral vascular ectasia) (2022) dx in 2022 Encounter for pre-operative examination Hypokalemia Venous insufficiency Diabetic neuropathy "Mild" Type 2 diabetes mellitus NIDDM MAC on CPAP Compliant Gastroesophageal reflux disease Dyslipidemia Per records, patient unsure BPH with obstruction/lower urinary tract symptoms Anxiety and depression Anemia Asthma (Chronic) Hypertension (Chronic) Medical History Diabetes mellitus Morbid obesity BPH (benign prostatic hyperplasia) Osteoarthritis Bilateral chronic knee pain Allergic rhinitis Surgical History History of esophageal dilatation Hx of prior ablation treatment venous ablation History of hernia surgery As child History of colonoscopy 06/2022 History of esophagogastroduodenoscopy (EGD) History of wisdom tooth extraction History of tooth extraction Status post uvulopalatopharyngoplasty History of repair of anterior cruciate ligament of right knee 1991 History of sinus surgery Family History Mother Diabetes Depression Father Heart disease Myocardial infarction Hypertension Prostate cancer Other No family history of adverse response to anesthesia Denies family history of Ovarian cancer Breast cancer Lung cancer Colorectal cancer Stroke Social History Smoking Status: Never smoker Tobacco Type: Cigarettes Second Hand Exposure: No; Do You Dip or Chew Tobacco: No; Tobacco Cessation Education Requested by Patient: No Hx Alcohol Use: No Hx Substance Use: No Preferred Language: E[place] Communication Ability: Effective Visual Impairment: Limited Hearing Ability: Normal 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 Beliefs That Will Affect Care: None marital status: Single Current Living Situation: Parent Current Living Situation Comment: father current occupational status: employed Other Information That Helps Us Care for You: No Feels Safe at Home: Yes Safety Concerns: Feels Safe At This Time Childhood Exposure to Second-Hand Smoke: No Diet: regular caffeine: No during the past year weight has: remained stable Dental Care, Regularly: Yes Physical Activity Frequency: Does not Exercise Seatbelt Use: always Sunscreen Use: No Assistive Devices: CPAP, Glasses and Walker Review of Systems Review of Systems: All systems reviewed & are unremarkable except as noted in HPI & below Physical Exam Physical Exam: GENERAL: Well-developed, no acute distress HEAD: Normocephalic atraumatic. HEART: Regular rate and rhythm without murmurs gallops or rubs. LUNGS: Clear to auscultation bilaterally without wheezes, rales or rhonchi. No retractions or accessory muscle use. MUSCULOSKELETAL: Erythema with ecchymosis and tenderness primarily over the anterior aspect of the left knee. This seems to follow around his surgical incision. No obvious fluctuance. No posterior symptoms. NEURO: Patient was alert and oriented to person place and time. CN II through XII grossly intact. Results & Data Results & Data Vital Signs (Past 12 Hours) Vital Signs Temp Pulse Resp BP Pulse Ox O2 Del Method 05/28/24 01:42 72 18 97 05/28/24 01:36 70 18 96 05/28/24 01:31 146/72 H 05/28/24 01:31 146/72 H 05/28/24 01:31 146/72 H 05/28/24 01:27 74 18 05/28/24 01:24 76 20 05/28/24 01:01 141/79 H 05/28/24 01:01 141/79 H 05/28/24 01:01 141/79 H 05/28/24 00:30 133/70 05/28/24 00:30 133/70 05/28/24 00:18 75 16 96 05/28/24 00:12 74 18 98 05/28/24 00:08 146/75 H 05/28/24 00:08 146/75 H 05/28/24 00:08 146/75 H 05/28/24 00:08 146/75 H 05/28/24 00:00 78 17 05/28/24 00:00 155/69 H 05/27/24 23:51 77 17 98 05/27/24 23:42 79 21 96 05/27/24 23:30 80 20 96 05/27/24 23:30 151/79 H 05/27/24 23:29 137/74 05/27/24 23:28 36.9 C 82 20 137/74 97 Room Air Supervising Physician Co-Signing Physician Notes Attending addendum: I have physically seen this patient, have supervised the medical residents activities, and agree with the H&P unless as otherwise noted. Assessment and Plan: Left knee postoperative infection- Status post left TKR with Dr. Houstno on 03/25/2024 Washout procedure performed on 05/04/2024 05/03/2024 culture showed coag negative staph 05/04/2024 culture showed Enterococcus faecalis History of penicillin anaphylaxis She was discharged on ampicillin and Rocephin on 05/13, and developed hives Was changed to daptomycin. 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
--- NOTE | 2024-05-28 04:55 | Emergency Department Note ---
History of Present Illness General Chief complaint: Infection Stated complaint: Infection L Knee Time Seen by Provider: 05/27/24 23:19 History of Present Illness Maximum Pain Intensity: 2 This is a 58-year-old male presenting to the emergency department via EMS from a rehab hospital for evaluation of worsening left knee pain and redness. Patient initially underwent knee replacement on Mar [address] Houston at this facility. The patient subsequently developed postoperative infection that required washout procedure that was performed on 05/04/2024. Patient surface culture did grow coag negative Streptococcus per infectious disease note on 05/06/2024. Deep wound culture grew enteric coccus faecalis. The patient was initially treated with daptomycin and cefepime. He did successfully complete a penicillin challenge with care through allergy and immunology, ultimately being transitioned to ampicillin as well. Patient was ultimately discharged from the facility to follow-up as an outpatient. He currently has a PICC line in his right arm and is receiving daily daptomycin. Initially he felt like the daptomycin was helping, however he has developed distinct redness across his incision scar. He has increased pain and discomfort. No fever. He rates his current discomfort a 2/10. Home Medications Medication Instructions Recorded Confirmed Type albuterol sulfate 90 mcg/actuation 2 puff inhalation Q6H PRN 04/10/19 05/03/24 History aerosol inhaler (Ventolin HFA) Shortness Of Breath Or Wheezing bupropion HCl 150 mg tablet,12 hr 150 mg PO QAM 09/19/21 05/03/24 History sustained-release (Wellbutrin SR) multivitamin 1 tab PO QPM 06/24/22 05/03/24 History lancets 30 gauge (OneTouch Delica #100 ea 11/10/22 05/03/24 Rx Lancets) furosemide 20 mg tablet (Lasix) 20 mg PO DAILY PRN edema #30 tabs 12/22/22 05/03/24 Rx metformin 500 mg tablet,extended 500 mg PO TIDWMEAL 04/07/23 05/03/24 History release 24 hr cyanocobalamin (vitamin B-12) 3,000 mcg PO QAM 06/03/23 05/03/24 History 3,000 mcg capsule sertraline 100 mg tablet (Zoloft) 200 mg PO QAM 09/10/23 05/03/24 History montelukast 10 mg tablet 10 mg PO QPM #90 tabs 11/09/23 05/03/24 Rx alfuzosin 10 mg tablet,extended 10 mg PO QPM 02/03/24 05/03/24 History release 24 hr (Uroxatral) losartan 100 mg tablet 100 mg PO QAM 02/03/24 05/03/24 History omeprazole 20 mg capsule,delayed 20 mg PO QAM 02/03/24 05/03/24 History release aspirin 81 mg tablet,delayed 81 mg PO BID #60 tabs 03/27/24 05/03/24 Rx release potassium chloride 20 mEq 20 meq PO .COMPLEX #90 tabs 04/26/24 05/03/24 Rx tablet,extended release acetaminophen 500 mg tablet 1,000 mg PO TID fever or pain 05/03/24 05/03/24 History (Tylenol Extra Strength) cholecalciferol (vitamin D3) 50 50 mcg PO BID 05/03/24 05/03/24 History mcg (2,000 unit) tablet (Vitamin D3) tirzepatide 7.5 mg/0.5 mL 7.5 mg subcut .HOLD 05/03/24 05/03/24 History subcutaneous pen injector (Mounjaro) amlodipine 2.5 mg tablet 2.5 mg PO HS #30 tabs 05/13/24 Rx ampicillin sodium 2 gram 12 g IV .q 24 hours 26 days 05/13/24 Rx intravenous solution ceftriaxone 2 gram intravenous 2 g IV Q12H 26 days 05/13/24 Rx solution oxycodone 5 mg capsule 5 mg PO Q6H PRN pain #14 caps 05/13/24 Rx Allergies Allergy/AdvReac Type Severity Reaction Status Date / Time sulfamethoxazole Allergy Intermediate Rash Verified 05/03/24 15:53 trimethoprim Allergy Intermediate Rash Verified 05/03/24 15:53 peanut AdvReac Intermediate Diarrhea, Verified 05/03/24 15:53 indigestion soy AdvReac Intermediate diarrhea, Verified 05/03/24 15:53 indigestion wheat AdvReac Intermediate Diarrhea, Verified 05/03/24 15:53 indigestion atorvastatin AdvReac Mild Myalgia Verified 05/03/24 15:53 ezetimibe [From Zetia] AdvReac Mild Myalgia Verified 05/03/24 15:53 rosuvastatin AdvReac Mild Muscle Pain Verified 05/03/24 15:53 Past Med/Surg History Problem List (Updated 05/28/24 @ 21:22 by Randy James PA-C) Groin rash Penicillin adverse reaction Infection of left knee (Acute) Degenerative joint disease of knee, left Obesity Physical deconditioning Dietary counseling and surveillance Bilateral primary osteoarthritis of knee Metabolic syndrome GAVE (gastric antral vascular ectasia) (2022) dx in 2022 Encounter for pre-operative examination Hypokalemia Venous insufficiency Diabetic neuropathy "Mild" Type 2 diabetes mellitus NIDDM MAC on CPAP Compliant Gastroesophageal reflux disease Dyslipidemia Per records, patient unsure BPH with obstruction/lower urinary tract symptoms Anxiety and depression Anemia Asthma (Chronic) Hypertension (Chronic) Medical History Diabetes mellitus Morbid obesity BPH (benign prostatic hyperplasia) Osteoarthritis Bilateral chronic knee pain Allergic rhinitis Surgical History History of esophageal dilatation Hx of prior ablation treatment venous ablation History of hernia surgery As child History of colonoscopy 06/2022 History of esophagogastroduodenoscopy (EGD) History of wisdom tooth extraction History of tooth extraction Status post uvulopalatopharyngoplasty History of repair of anterior cruciate ligament of right knee 1991 History of sinus surgery Family History Mother Diabetes Depression Father Heart disease Myocardial infarction Hypertension Prostate cancer Other No family history of adverse response to anesthesia Denies family history of Ovarian cancer Breast cancer Lung cancer Colorectal cancer Stroke Social History Smoking Status: Never smoker Tobacco Type: Cigarettes Second Hand Exposure: No; Do You Dip or Chew Tobacco: No; Tobacco Cessation Education Requested by Patient: No Hx Alcohol Use: No Hx Substance Use: No Preferred Language: Dominican Communication Ability: Effective Visual Impairment: Limited Hearing Ability: Normal Program Research Specialist Required: No Beliefs That Will Affect Care: None marital status: Single Current Living Situation: Parent Current Living Situation Comment: father current occupational status: employed Other Information That Helps Us Care for You: No Feels Safe at Home: Yes Safety Concerns: Feels Safe At This Time Childhood Exposure to Second-Hand Smoke: No Diet: regular caffeine: No during the past year weight has: remained stable Dental Care, Regularly: Yes Physical Activity Frequency: Does not Exercise Seatbelt Use: always Sunscreen Use: No Assistive Devices: CPAP, Glasses and Walker Review of Systems A total of 10 systems reviewed and were otherwise negative Physical Exam Vital Signs Vital Signs - 24 hr 05/27/24 23:28 05/27/24 23:29 05/27/24 23:30 Temperature 36.9 C Temperature Source Oral Pulse Rate 82 Pulse Rate [Apical] Pulse Rate from SpO2 Sensor Pulse Rhythm Regular Pulse Rhythm [Apical] Pulse Strength Normal Pulse Strength [Apical] Respiratory Rate 20 Respiratory Effort / Characteristics Non-Labored Spontaneous Respiratory Depth Normal Respiratory Pattern Regular Blood Pressure 137/74 137/74 151/79 H Blood Pressure [Left Arm] Blood Pressure Mean 95 99 99 Blood Pressure Mean [Left Arm] Blood Pressure Position Semi-fowlers Blood Pressure Position [Left Arm] Pulse Oximetry 97 Oxygen Delivery Method Room Air Sepsis Recent Fever Within 48 Hours No Sepsis New/Unexplained Change in Mental Status No Sepsis Action Taken by Nursing No Action Required 05/27/24 23:30 05/27/24 23:42 05/27/24 23:51 Temperature Temperature Source Pulse Rate 80 79 77 Pulse Rate [Apical] Pulse Rate from SpO2 Sensor 80 78 77 Pulse Rhythm Pulse Rhythm [Apical] Pulse Strength Pulse Strength [Apical] Respiratory Rate 20 21 17 Respiratory Effort / Characteristics Respiratory Depth Respiratory Pattern Blood Pressure Blood Pressure [Left Arm] Blood Pressure Mean Blood Pressure Mean [Left Arm] Blood Pressure Position Blood Pressure Position [Left Arm] Pulse Oximetry 96 96 98 Oxygen Delivery Method Sepsis Recent Fever Within 48 Hours Sepsis New/Unexplained Change in Mental Status Sepsis Action Taken by Nursing 05/28/24 00:00 05/28/24 00:00 05/28/24 00:08 Temperature Temperature Source Pulse Rate 78 Pulse Rate [Apical] Pulse Rate from SpO2 Sensor Pulse Rhythm Pulse Rhythm [Apical] Pulse Strength Pulse Strength [Apical] Respiratory Rate 17 Respiratory Effort / Characteristics Respiratory Depth Respiratory Pattern Blood Pressure 155/69 H 146/75 H Blood Pressure [Left Arm] Blood Pressure Mean 114 98 Blood Pressure Mean [Left Arm] Blood Pressure Position Blood Pressure Position [Left Arm] Pulse Oximetry Oxygen Delivery Method Sepsis Recent Fever Within 48 Hours Sepsis New/Unexplained Change in Mental Status Sepsis Action Taken by Nursing 05/28/24 00:08 05/28/24 00:08 05/28/24 00:08 Temperature Temperature Source Pulse Rate Pulse Rate [Apical] Pulse Rate from SpO2 Sensor Pulse Rhythm Pulse Rhythm [Apical] Pulse Strength Pulse Strength [Apical] Respiratory Rate Respiratory Effort / Characteristics Respiratory Depth Respiratory Pattern Blood Pressure 146/75 H 146/75 H 146/75 H Blood Pressure [Left Arm] Blood Pressure Mean 98 98 98 Blood Pressure Mean [Left Arm] Blood Pressure Position Blood Pressure Position [Left Arm] Pulse Oximetry Oxygen Delivery Method Sepsis Recent Fever Within 48 Hours Sepsis New/Unexplained Change in Mental Status Sepsis Action Taken by Nursing 05/28/24 00:12 05/28/24 00:18 05/28/24 00:30 Temperature Temperature Source Pulse Rate 74 75 Pulse Rate [Apical] Pulse Rate from SpO2 Sensor 74 75 Pulse Rhythm Pulse Rhythm [Apical] Pulse Strength Pulse Strength [Apical] Respiratory Rate 18 16 Respiratory Effort / Characteristics Respiratory Depth Respiratory Pattern Blood Pressure 133/70 Blood Pressure [Left Arm] Blood Pressure Mean 84 Blood Pressure Mean [Left Arm] Blood Pressure Position Blood Pressure Position [Left Arm] Pulse Oximetry 98 96 Oxygen Delivery Method Sepsis Recent Fever Within 48 Hours Sepsis New/Unexplained Change in Mental Status Sepsis Action Taken by Nursing 05/28/24 00:30 05/28/24 01:01 05/28/24 01:01 Temperature Temperature Source Pulse Rate Pulse Rate [Apical] Pulse Rate from SpO2 Sensor Pulse Rhythm Pulse Rhythm [Apical] Pulse Strength Pulse Strength [Apical] Respiratory Rate Respiratory Effort / Characteristics Respiratory Depth Respiratory Pattern Blood Pressure 133/70 141/79 H 141/79 H Blood Pressure [Left Arm] Blood Pressure Mean 84 91 91 Blood Pressure Mean [Left Arm] Blood Pressure Position Blood Pressure Position [Left Arm] Pulse Oximetry Oxygen Delivery Method Sepsis Recent Fever Within 48 Hours Sepsis New/Unexplained Change in Mental Status Sepsis Action Taken by Nursing 05/28/24 01:01 05/28/24 01:02 05/28/24 01:24 Temperature Temperature Source Pulse Rate 76 Pulse Rate [Apical] 76 Pulse Rate from SpO2 Sensor Pulse Rhythm Pulse Rhythm [Apical] Regular Pulse Strength Pulse Strength [Apical] Normal Respiratory Rate 18 20 Respiratory Effort / Characteristics Non-Labored Spontaneous Respiratory Depth Normal Respiratory Pattern Regular Blood Pressure 141/79 H Blood Pressure [Left Arm] 141/79 H Blood Pressure Mean 91 Blood Pressure Mean [Left Arm] 99 Blood Pressure Position Blood Pressure Position [Left Arm] Semi-fowlers Pulse Oximetry 97 Oxygen Delivery Method Room Air Sepsis Recent Fever Within 48 Hours Sepsis New/Unexplained Change in Mental Status Sepsis Action Taken by Nursing 05/28/24 01:27 05/28/24 01:31 05/28/24 01:31 Temperature Temperature Source Pulse Rate 74 Pulse Rate [Apical] Pulse Rate from SpO2 Sensor Pulse Rhythm Pulse Rhythm [Apical] Pulse Strength Pulse Strength [Apical] Respiratory Rate 18 Respiratory Effort / Characteristics Respiratory Depth Respiratory Pattern Blood Pressure 146/72 H 146/72 H Blood Pressure [Left Arm] Blood Pressure Mean 96 96 Blood Pressure Mean [Left Arm] Blood Pressure Position Blood Pressure Position [Left Arm] Pulse Oximetry Oxygen Delivery Method Sepsis Recent Fever Within 48 Hours Sepsis New/Unexplained Change in Mental Status Sepsis Action Taken by Nursing 05/28/24 01:31 05/28/24 01:36 05/28/24 01:42 Temperature Temperature Source Pulse Rate 70 72 Pulse Rate [Apical] Pulse Rate from SpO2 Sensor 71 70 Pulse Rhythm Pulse Rhythm [Apical] Pulse Strength Pulse Strength [Apical] Respiratory Rate 18 18 Respiratory Effort / Characteristics Respiratory Depth Respiratory Pattern Blood Pressure 146/72 H Blood Pressure [Left Arm] Blood Pressure Mean 96 Blood Pressure Mean [Left Arm] Blood Pressure Position Blood Pressure Position [Left Arm] Pulse Oximetry 96 97 Oxygen Delivery Method Sepsis Recent Fever Within 48 Hours Sepsis New/Unexplained Change in Mental Status Sepsis Action Taken by Nursing 05/28/24 03:00 05/28/24 05:00 Temperature Temperature Source Pulse Rate Pulse Rate [Apical] 71 77 Pulse Rate from SpO2 Sensor Pulse Rhythm Pulse Rhythm [Apical] Regular Regular Pulse Strength Pulse Strength [Apical] Normal Normal Respiratory Rate 18 18 Respiratory Effort / Characteristics Non-Labored Spontaneous Non-Labored Spontaneous Respiratory Depth Normal Normal Respiratory Pattern Regular Regular Blood Pressure Blood Pressure [Left Arm] 147/62 H 164/79 H Blood Pressure Mean Blood Pressure Mean [Left Arm] 90 107 Blood Pressure Position Blood Pressure Position [Left Arm] Semi-fowlers Semi-fowlers Pulse Oximetry 97 95 Oxygen Delivery Method Room Air Room Air Sepsis Recent Fever Within 48 Hours Sepsis New/Unexplained Change in Mental Status Sepsis Action Taken by Nursing VITALS: Vitals are noted on the nurse's note and reviewed by myself. Vital signs stable. GENERAL: Well-developed, well-nourished, white male, who is in no acute distress and resting comfortably. Patient is cooperative with the examination. HEAD: Normocephalic atraumatic. HEART: Regular rate and rhythm without murmurs gallops or rubs. LUNGS: Clear to auscultation bilaterally without wheezes, rales or rhonchi. No retractions or accessory muscle use. MUSCULOSKELETAL: Erythema with ecchymosis and tenderness primarily over the anterior aspect of the left knee. This seems to follow around his surgical incision. No obvious fluctuance. No posterior symptoms. No palpable cord. NEURO: Patient was alert and oriented to person place and time. CN II through XII grossly intact. Course Administered Medications Acetaminophen (Acetaminophen 325 Mg Tab) 650 mg PO Q4H PRN PRN Reason: pain/fever Stop: 06/27/24 08:43 Last Admin: 05/28/24 12:43 Dose: 650 mg Documented By: TAHIRA Amlodipine Besylate (Amlodipine Besylate 5 Mg Tab) 2.5 mg PO HS [facility] Stop: 06/27/24 20:59 Last Admin: 05/28/24 20:27 Dose: 2.5 mg Documented By: JESSICA Bupropion HCl (Bupropion Sr 150 Mg Tabcr) 150 mg PO QAM [facility] Stop: 06/27/24 08:59 Last Admin: 05/28/24 10:46 Dose: 150 mg Documented By: NATALIYA Enoxaparin Sodium (Enoxaparin Inj 40 Mg/0.4 Ml Syr) 40 mg SQ Q12H [facility]ISA Stop: 06/27/24 09:29 Last Admin: 05/28/24 20:28 Dose: 40 mg Documented By: Admin: 05/28/24 14:03 Dose: Not Given Documented By: TAHIRA Vancomycin HCl 1,000 mg/ (Sodium Chloride) 270 mls @ 200 mls/hr IV Q8H [facility]ISA Stop: 07/09/24 15:59 Last Infusion: 05/28/24 17:29 Dose: Infused Documented By: Admin: 05/28/24 15:48 Dose: 200 mls/hr Documented By: TAHIRA Insulin Aspart (Insulin Aspart Per Unit Charge) 0 units SC ACHS [facility] Stop: 06/27/24 08:43 Last Admin: 05/28/24 20:30 Dose: Not Given Documented By: Admin: 05/28/24 17:19 Dose: 4 units Documented By: TAHIRA Co-signed By: [facility] Admin: 05/28/24 13:35 Dose: 4 units Documented By: TAHIRA Co-signed By: DAMON Admin: 05/28/24 10:10 Dose: 2 units Documented By: NATALIYA Co-signed By: CRISS Losartan Potassium (Losartan Potassium 50 Mg Tab) [facility] [place] Stop: 06/27/24 08:59 Last Admin: 05/28/24 10:46 Dose: 100 mg Documented By: NATALIYA Montelukast Sodium (Montelukast Sodium 10 Mg Tablet) 10 mg PO QPM [facility]ISA Stop: 06/27/24 20:59 Last Admin: 05/28/24 20:27 Dose: 10 mg Documented By: JESSICA Multivitamins (Multivitamin Tab) 1 tab PO QPM [facility] Stop: 06/27/24 20:59 Last Admin: 05/28/24 20:27 Dose: 1 tab Documented By: JESSICA Pantoprazole Sodium (Pantoprazole 40 Mg Tab) [facility] [place] Stop: 06/27/24 08:59 Last Admin: 05/28/24 10:46 Dose: 40 mg Documented By: NATALIYA Sertraline HCl (Sertraline Hcl 100 Mg Tablet) [facility] [place] Stop: 06/27/24 08:59 Last Admin: 05/28/24 10:46 Dose: 200 mg Documented By: NATALIYA Discontinued Medications Heparin Sodium (Porcine) (Heparin 100 Unit/Ml 5ml Flush) Confirm Administered Dose 5 ml .ROUTE .STK-MED ONE Stop: 05/28/24 05:55 Last Admin: 05/28/24 05:59 Dose: 5 ml Documented By: TAHIRA(2) Vancomycin HCl 2,750 mg/ (Sodium Chloride) 555 mls @ 200 mls/hr IV NOW ONE Stop: 05/28/24 07:29 Last Infusion: 05/28/24 10:42 Dose: Infused Documented By: Admin: 05/28/24 05:16 Dose: 200 mls/hr Documented By: TAHIRA(2) Magnesium Sulfate/Dextrose (Magnesium Sulfate / D5w) 1 gm in 100 mls @ 50 mls/hr IV ONE ONE Stop: 05/28/24 15:16 Last Infusion: 05/28/24 15:53 Dose: Infused Documented By: Admin: 05/28/24 13:38 Dose: 50 mls/hr Documented By: TAHIRA Medical Decision Making Differential Diagnosis Differential diagnosis includes: Etiologies such as cellulitis, abscess, osteomyelitis, MRSA infection, DVT, necrotizing fasciitis, dermatitis, drug eruption, as well as others were entertained Laboratory Data 05/28/24 00:10 05/28/24 00:10 Lab Results 05/28/24 05/28/24 Range/Units 00:10 00:37 WBC 10.12 (4.8-10.8) K/ul RBC 3.52 L (4.70-6.10) M/uL Hgb 10.3 L (14.0-18.0) g/dl Hct 32.1 L (42.0-52.0) % MCV 91.2 (80.0-100.0) fL MCH 29.3 (25.0-34.0) pg MCHC 32.1 (32.0-36.0) g/dL RDW Std Deviation 47.7 H (36.4-46.3) fL RDW Coeff of Migue 14.3 (11.5-14.5) % Plt Count 242 (130-400) K/uL MPV 10.2 (9.4-12.4) fL Immature Gran % (Auto) 0.3 % Neut % (Auto) 58.4 % Lymph % (Auto) 21.6 % [place] % (Auto) 6.4 % Eos % (Auto) 12.8 % Baso % (Auto) 0.5 % Neut # (Auto) 5.90 (1.40-6.50) K/uL Lymph # (Auto) 2.19 (1.20-3.40) K/uL [place] # (Auto) 0.65 H (0.11-0.59) K/uL Eos # (Auto) 1.30 H (0.00-0.50) K/uL Baso # (Auto) 0.05 (0.00-0.20) K/uL Immature Gran # (Auto) 0.03 (0.01-0.20) K/uL Sodium 137 (136-145) mmol/L Potassium 4.0 (3.5-5.1) mmol/L Chloride 103 (98-107) mmol/L Carbon Dioxide 28 (21-32) mmol/L Anion Gap 6 (3-11) BUN 15 (6-23) mg/dl Creatinine 0.79 (0.6-1.4) mg/dl Est Cr Clr Drug Dosing 143.2 ml/min Est GFR ( Amer) 113.1 ml/min Est GFR (Non-Af Amer) 97.6 ml/min BUN/Creatinine Ratio 19.0 (10-20) Glucose 141 H (70-99(Fasting)) mg/dl Lactate 1.4 (0.4-2.0) mmol/L Calcium 9.8 (8.6-10.3) mg/dl Magnesium 1.4 L (1.7-2.4) mg/dl Total Bilirubin 0.4 (0.2-1.0) mg/dl Direct Bilirubin 0.1 (0-0.2) mg/dl AST 14 (13-39) U/L ALT 11 (7-52) U/L Alkaline Phosphatase 62 (34-104) U/L Total Protein 7.1 (6.0-8.3) gm/dl Albumin 3.6 (3.4-5.0) gm/dl Procalcitonin 0.10 (0-0.5) ng/ml Urine Color Yellow Urine Appearance Clear (Clear) Urine pH 6.5 (4.5-7.5) Ur Specific [place] 1.027 (1.000-1.030) Urine Protein Trace H (Negative) Urine Glucose (UA) Negative (Negative) Urine Ketones Trace H (Negative) Urine Blood Negative (Negative) Urine Nitrite Negative (Negative) Urine Bilirubin Negative (Negative) Urine Urobilinogen Negative (Negative) Ur Leukocyte Esterase Negative (Negative) Urine WBC (Auto) 0-5 (0-5) /hpf Urine RBC (Auto) 0-2 (0-2) /hpf U Hyaline Cast (Auto) 0-2 (0-2) /lpf U Epithel Cells (Auto) 0-2 (0-2) /hpf Urine Bacteria (Auto) None Seen (None Seen) Calcium Oxalate Crystal Present A (None Prsent) MDM Narrative Physical exam and history were performed. Nursing notes, EMR, and Medication List were personally reviewed. No social concerns were identified as barriers to patients care. Patient appears to have infectious findings to his left knee. He has had a somewhat complicated case recently in the postoperative setting. IV access was established and labs were obtained. Patient was hydrated and medicated as above. Patient's blood work is as above and was reviewed. He does not have a significantly elevated white blood cell count, gross anemia, bandemia, or significant electrolyte imbalance. Lactic is negative with blood cultures pending. X-ray does not show obvious acute process. Case was discussed with my attending, who remained involved in care and decision making. Overall the patient has a fairly concerning picture, and escalation of care is felt to be necessary. I did reach out to the on-call hospitalist team who agreed to evaluate the patient here in the ER. Please see their dictation for further patient course, plan, and disposition. The chart was completed utilizing [employer] Voice Recognition Software. Grammatical errors, random word insertions, pronoun errors, and incomplete sentences are an occasional consequence of this system due to software limitations, ambient noise, and hardware issues. Any formal questions or concerns about the content, text, or information contained within the body of this dictation should be directly addressed to the provider for clarification. . Impression & Plan Infection of left knee Discharge Plan Visit Data Chief Complaint: Infection Stated Complaint: Infection L Knee ED Provider: Fatemeh Torres ED Midlevel Provider: Randy James Discharge Problem: Infection of left knee Patient Disposition: Admitted As Inpatient Discharge Instructions Interventions: ED Discharge Assessment Last Done: 05/28/24 08:45
[2024-05-28] MEDS: VANCOMYCIN HCL 2,750 MG in SODIUM CHLORIDE 0.9% 500 ML IV ONE (05:16)
[2024-05-28] MEDS: HEPARIN 100 UNIT/ML 5ML FLUSH ONE (05:59)
--- NOTE | 2024-05-28 07:56 | XRay Report ---
XR knee LT 3V HISTORY: 58 years-old Male left knee infection acute left knee pain COMPARISON: 05/03/2024 TECHNIQUE: 3 views of the left knee FINDINGS: Total arthroplasty with patellar resurfacing. Moderate soft tissue swelling surrounds the patella. No acute fracture or dislocation. Additionally, there is an associated moderate to large joint effusion is seen. IMPRESSION: 1. No acute fracture or dislocation. 2. Soft tissue swelling with joint effusion. ACT 112: Negative or not required by law. The above report was generated using voice recognition software. It may contain grammatical, syntax o r spelling errors. Electronically signed by: Terry Ware M.D. 05/28/2024 7:55 AM
[2024-05-28] MEDS ORDERED: DEXTROSE 50% 50 ML SYRINGE IV PRN (08:44)
[2024-05-28] MEDS ORDERED: GLUCAGON FOR INJ 1 MG VIAL SQ PRN (08:44)
[2024-05-28] MEDS ORDERED: MELATONIN 3 MG TAB PO PRN (08:44)
[2024-05-28] MEDS ORDERED: GLUCOSE 40% GEL 15 GM TUBE PO PRN (08:44)
[2024-05-28] MEDS ORDERED: GLUCOSE 10 TAB/TUBE PO PRN (08:44)
[2024-05-28] MEDS ORDERED: ONDANSETRON INJ 2 MG/ML 2 ML VIAL IV PRN (08:44)
[2024-05-28] MEDS ORDERED: CARBOHYDRATES FOR HYPOGLYCEMIA PO PRN (08:44)
[2024-05-28] MEDS: INSULIN ASPART PER UNIT CHARGE SC SCH (10:10)
[2024-05-28] MEDS: buPROPion SR 150 MG TABCR PO SCH (10:46)
[2024-05-28] MEDS: LOSARTAN POTASSIUM 50 MG TAB PO SCH (10:46)
[2024-05-28] MEDS: PANTOprazole 40 MG TAB PO SCH (10:46)
[2024-05-28] MEDS: SERTRALINE HCL 100 MG TABLET PO SCH (10:46)
[2024-05-28] MEDS: ACETAMINOPHEN 325 MG TAB PO PRN (12:43)
[2024-05-28] MEDS: MAGNESIUM SULFATE / D5W 1 GM/100 ML BAG IV ONE (13:38)
[2024-05-28] MEDS: ENOXAPARIN INJ 40 MG/0.4 ML SYR SQ SCH (14:03)
--- NOTE | 2024-05-28 14:32 | XRay Report ---
XR chest 1V portable HISTORY: 58 years-old Male Check PICC line placement status post placement of a right-sided PICC COMPARISON: 02/16/2024 TECHNIQUE: AP view of the chest FINDINGS: Right-sided PICC distal tip is noted in expected location of the brachiocephalic SVC confluence. Hear t is enlarged. Scattered alveolar opacities. No pneumothorax or large pleural effusion. Degenerative changes of the shoulders and spine. IMPRESSION: 1. Status post placement of a right-sided PICC. No postprocedural pneumothorax. 2. Scattered bilateral mixed interstitial and alveolar opacities suspicious for multifocal pneumonia. ACT 112: Negative or not required by law. The above report was generated using voice recognition software. It may contain grammatical, syntax o r spelling errors. Electronically signed by: Terry Ware M.D. 05/28/2024 2:30 PM
--- NOTE | 2024-05-28 14:49 | Pharmacy Report ---
Pharmacy PK ABX Note - Date of Service May 28, 2024 - Assessment and Plan Assessment 58 year old M receiving vancomycin for treatment of left knee infection status post total knee replacement on 03/25/24. Admitted on 05/03 with redness and purulent drainage from knee, surface wound culture grew CoNS sensitive to daptomycin and vancomycin and deep wound culture grew thomas-sensitive enterococcus faecalis. Complicated by patient allergies. ID consulted and recommended ampicillin and ceftiaxone therapy after a successful amoxicillin challenge (suspected CoNS as a contaminant). Reported hives while on ampicillin/ceftriaxone and thus switched to daptomycin. Presented to ER due to concerns for worsening infection while on daptomycin. Blood cultures 05/28 pending. Orthopedics and Infectious disease consulted this admission. Day #1 of vancomycin therapy Plan Vancomycin * Loading dose: 2750 mg IV x 1 * Maintenance dose: 1000 mg IV every 8 hours * Regimen is predicted to achieve target AUC/TAMMI of 400-600 mg/L.hr * Trough level ordered for: 05/29/24 @ 0730 Pharmacy will continue to follow and will adjust dose/frequency as necessary. Thank you. Pharmacy has transitioned to AUC monitoring for vancomycin. AUC/TAMMI is the preferred PK/PD target and is associated with decreased risk of nephrotoxicity compared to traditional trough targets.
--- NOTE | 2024-05-28 14:50 | Communication Note ---
Date of Service: May 28, 2024 (1) Infection of left knee: Plan: -Left TKR with Dr. Houston on 03/25/24 -Washout procedure performed on 05/04/2024. -Wounds grew coagulase-negative staph Streptococcus as well as Enterococcus faecalis. -Initially treated with daptomycin and cefepime. Was discharged on 05/13 on ampicillin and Rocephin. -Hives reaction to ampicillin on Thursday, transition to daptomycin. After transition started to have redness and swelling in the knee. -concern for daptomycin resistance, transitioned to vancomycin -Knee x-rays taken:no acute fx or dislocation, soft tissue swelling w/ joint effusion -CBC 05/28: WBC WNL -Blood cultures pending. -Infectious disease consulted. -Orthopedic surgery consulted. Chronic conditions: Type 2 diabetes mellitus: Patient's home regimen held on admission -Continue BSG checks, sliding-scale insulin, hypoglycemic protocol MAC on CPAP: Continue CPAP at night. Gastroesophageal reflux disease: Continue omeprazole 20 mg. (6) Anxiety and depression: Continue Zoloft 200 mg and Wellbutrin 150 mg. (7) Hypertension: Continue Norvasc 2.5 mg and losartan 100 mg. Plan Diet: Type 2 diabetes Code status: Full code DVT ppx: Lovenox Dispo: med/surg
[2024-05-28] MEDS: VANCOMYCIN HCL 1,000 MG in SODIUM CHLORIDE 0.9% 250 ML IV SCH (15:48)
[2024-05-28] MEDS: amLODIPine BESYLATE 5 MG TAB PO SCH (20:27)
[2024-05-28] MEDS: MONTELUKAST SODIUM 10 MG TABLET PO SCH (20:27)
[2024-05-28] MEDS: MULTIVITAMIN TAB PO SCH (20:27)
--- NOTE | 2024-05-28 22:17 | Billing Data ---
Date of Service May 28, 2024 Coding Level of Care Code 94810 INT INP/OBS CARE
[2024-05-29 08:01] LABS: Basophils # (auto) 0.06 K/uL (0.00-0.20); Basophils % (auto) 0.7 %; Eosinophils # (auto) 1.84 K/uL (0.00-0.50); Eosinophils % (auto) 20.7 %; Hematocrit (blood only) 34.8 % (42.0-52.0); Hemoglobin 11.3 g/dl (14.0-18.0); Immature Granulocytes # (auto) 0.02 K/uL (0.01-0.20); Immature Granulocytes % (auto) 0.2 %; Lymphocytes # (auto) 1.94 K/uL (1.20-3.40); Lymphocytes % (auto) 21.9 %; Mean Corpuscular Hemoglobin 29.1 pg (25.0-34.0); Mean Corpuscular Hgb Conc 32.5 g/dL (32.0-36.0); Mean Corpuscular Volume 89.7 fL (80.0-100.0); Mean Platelet Volume 9.9 fL (9.4-12.4); Monocytes # (auto) 0.61 K/uL (0.11-0.59); Monocytes % (auto) 6.9 %; Neutrophils % (auto) 49.6 %; Platelet Count 279 K/uL (130-400); RDW Coefficient of Variation 14.3 % (11.5-14.5); RDW Standard Deviation 46.5 fL (36.4-46.3); Red Blood Count 3.88 M/uL (4.70-6.10); White Blood Count 8.87 K/ul (4.8-10.8)
[2024-05-29 08:17] LABS: BUN Creatinine Ratio 18.1 (10-20); C Reactive Protein 11.16 mg/dl (0-0.5); Calcium 9.9 mg/dl (8.6-10.3); Creatinine Clr Calc Pharmacy 132.9 ml/min; Est GFR (African American) 110.8 ml/min; Est GFR (Non-African American) 95.6 ml/min; Magnesium 1.7 mg/dl (1.7-2.4); Potassium 4.3 mmol/L (3.5-5.1)
[2024-05-29] MEDS: VANCOMYCIN LEVEL ONE (08:31)
--- NOTE | 2024-05-29 10:17 | Orthopedic Consultation ---
Date of Consultation May 29, 2024 Assessment & Plan (1) Infection of left knee: -58 year old male with recent history of left TKA with Dr. Houston on 03/25/24 with subsequent traumatic dehiscence of capsular repair due to aggressive physical therapy with development of infection followed by additional surgical intervention for I&D and polyethylene exchange on 05/04/24 -Cultures at that time resulted with coag negative staph as well as Enterococcus faecalis, treated with daptomycin and Cefepime while in patient -The patient was then discharged on ampicillin and Rocephin but unfortunately developed hives (hx PCN anaphylaxis). He was then transitioned to daptomycin -Shortly after changing antibiotics, he developed increased redness and swelling in his left knee concerning for resistance to the daptomycin. He is now admitted to the hospital on IV Vancomycin -Blood cultures so far have been negative -Appreciate ID input -Concerns for medial retinacular repeat tear, known prior to being admitted to the hospital. Plan was to treat the infection before additional surgical intervention -Continue WBAT with immobilizer on. No range of motion at this time -Will discuss with Dr. Houston about additional treatment plan while inpatient History of Present Illness Reason for Consultation: Left knee infection Attending Physician: Johan Daugherty MD History of Present Illness Mr. Cosme is a 58 year old male with recent history of left TKA with Dr. Houston on 03/25/24 with subsequent traumatic dehiscence of capsular repair due to aggressive physical therapy with development of infection followed by additional surgical intervention for I&D and polyethylene exchange on 05/04/24. Cultures at that time resulted with coag negative staph as well as Enterococcus faecalis, treated with daptomycin and Cefepime while in patient. The patient was then discharged on ampicillin and Rocephin but unfortunately developed hives (hx PCN anaphylaxis). He was then transitioned to daptomycin. Shortly after changing antibiotics, he developed increased redness and swelling in his left knee concerning for resistance to the daptomycin. He is now admitted to the hospital on IV Vancomycin. Blood cultures so far have been negative. Currently, the patient states that he is feeling a bit better. He feels that the redness and swelling in his knee is improving. Pain has been controlled. He denies fevers/chills, abdominal pain, nausea, vomiting or diarrhea. He does note urinary frequency but states that this is baseline for him. Of note, when the patient was seen in the office this past week, there were concerns for medial retinacular repeat tear. Plan was to treat the infection before additional surgical intervention. Allergies Allergy/AdvReac Type Severity Reaction Status Date / Time sulfamethoxazole Allergy Intermediate Rash Verified 05/03/24 15:53 trimethoprim Allergy Intermediate Rash Verified 05/03/24 15:53 peanut AdvReac Intermediate Diarrhea, Verified 05/03/24 15:53 indigestion soy AdvReac Intermediate diarrhea, Verified 05/03/24 15:53 indigestion wheat AdvReac Intermediate Diarrhea, Verified 05/03/24 15:53 indigestion atorvastatin AdvReac Mild Myalgia Verified 05/03/24 15:53 ezetimibe [From Zetia] AdvReac Mild Myalgia Verified 05/03/24 15:53 rosuvastatin AdvReac Mild Muscle Pain Verified 05/03/24 15:53 Home Medications Medication Instructions Recorded Confirmed Type albuterol sulfate 90 mcg/actuation 2 puff inhalation Q6H PRN 04/10/19 05/03/24 History aerosol inhaler (Ventolin HFA) Shortness Of Breath Or Wheezing bupropion HCl 150 mg tablet,12 hr 150 mg PO QAM 09/19/21 05/03/24 History sustained-release (Wellbutrin SR) multivitamin 1 tab PO QPM 06/24/22 05/03/24 History lancets 30 gauge (OneTouch Delica #100 ea 11/10/22 05/03/24 Rx Lancets) furosemide 20 mg tablet (Lasix) 20 mg PO DAILY PRN edema #30 tabs 12/22/22 05/03/24 Rx metformin 500 mg tablet,extended 500 mg PO TIDWMEAL 04/07/23 05/03/24 History release 24 hr cyanocobalamin (vitamin B-12) 3,000 mcg PO QAM 06/03/23 05/03/24 History 3,000 mcg capsule sertraline 100 mg tablet (Zoloft) 200 mg PO QAM 09/10/23 05/03/24 History montelukast 10 mg tablet 10 mg PO QPM #90 tabs 11/09/23 05/03/24 Rx alfuzosin 10 mg tablet,extended 10 mg PO QPM 02/03/24 05/03/24 History release 24 hr (Uroxatral) losartan 100 mg tablet 100 mg PO QAM 02/03/24 05/03/24 History omeprazole 20 mg capsule,delayed 20 mg PO QAM 02/03/24 05/03/24 History release aspirin 81 mg tablet,delayed 81 mg PO BID #60 tabs 03/27/24 05/03/24 Rx release potassium chloride 20 mEq 20 meq PO .COMPLEX #90 tabs 04/26/24 05/03/24 Rx tablet,extended release acetaminophen 500 mg tablet 1,000 mg PO TID fever or pain 05/03/24 05/03/24 History (Tylenol Extra Strength) cholecalciferol (vitamin D3) 50 50 mcg PO BID 05/03/24 05/03/24 History mcg (2,000 unit) tablet (Vitamin D3) tirzepatide 7.5 mg/0.5 mL 7.5 mg subcut .HOLD 05/03/24 05/03/24 History subcutaneous pen injector (Mounjaro) amlodipine 2.5 mg tablet 2.5 mg PO HS #30 tabs 05/13/24 Rx ampicillin sodium 2 gram 12 g IV .q 24 hours 26 days 05/13/24 Rx intravenous solution ceftriaxone 2 gram intravenous 2 g IV Q12H 26 days 05/13/24 Rx solution oxycodone 5 mg capsule 5 mg PO Q6H PRN pain #14 caps 05/13/24 Rx Patient History Medical History Diabetes mellitus Morbid obesity BPH (benign prostatic hyperplasia) Osteoarthritis Bilateral chronic knee pain Allergic rhinitis Surgical History History of esophageal dilatation Hx of prior ablation treatment venous ablation History of hernia surgery As child History of colonoscopy 06/2022 History of esophagogastroduodenoscopy (EGD) History of wisdom tooth extraction History of tooth extraction Status post uvulopalatopharyngoplasty History of repair of anterior cruciate ligament of right knee 1991 History of sinus surgery Family History Mother Diabetes Depression Father Heart disease Myocardial infarction Hypertension Prostate cancer Other No family history of adverse response to anesthesia Denies family history of Ovarian cancer Breast cancer Lung cancer Colorectal cancer Stroke Social History Smoking Status: Never smoker Tobacco Type: Cigarettes Second Hand Exposure: No; Do You Dip or Chew Tobacco: No; Tobacco Cessation Education Requested by Patient: No Hx Alcohol Use: No Hx Substance Use: No Preferred Language: Belarusian Communication Ability: Effective Visual Impairment: Limited Hearing Ability: Normal 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 Required: No Beliefs That Will Affect Care: None marital status: Single Current Living Situation: Parent Current Living Situation Comment: father current occupational status: employed Other Information That Helps Us Care for You: No Feels Safe at Home: Yes Safety Concerns: Feels Safe At This Time Childhood Exposure to Second-Hand Smoke: No Diet: regular caffeine: No during the past year weight has: remained stable Dental Care, Regularly: Yes Physical Activity Frequency: Does not Exercise Seatbelt Use: always Sunscreen Use: No Assistive Devices: CPAP, Raised Toilet Seat and Walker Review of Systems Review of Systems: Systems have been reviewed and were negative unless otherwise stated above Physical Exam Physical Exam: Resting in bed, no acute distress Musculoskeletal: LLE: Incision site healing without remaining open wounds. Mild erythema and edema about the incision site which is about 2 cm inside of the lines that were drawn around the boarder. No significant warmth or fluctuance to palpation. Compartments are soft and compressible. There is lateral translation of the patella with firing of the quadriceps. Flexion not tested due to current restrictions. Dorsi/plantar flexion intact. D/p pulse intact, NVI Results & Data Vital Signs (Past 12 Hours) Vital Signs Temp Pulse Resp BP Pulse Ox O2 Del Method 05/29/24 07:42 36.4 C L 87 18 143/83 H 97 Room Air Laboratory Results Laboratory Tests 05/29/24 07:42 WBC 8.87 RBC 3.88 L Hgb 11.3 L Hct 34.8 L Mcleod # (Auto) 0.61 H Eos # (Auto) 1.84 H ESR 94 H C-Reactive Protein 11.16 H Diagnostic Findings Left knee x-ray: S/p total arthroplasty with patellar resurfacing. Moderate soft tissue swelling surrounds the patella. No acute fracture or dislocation. Moderate to large joint effusion is seen.
--- NOTE | 2024-05-29 13:52 | Hospitalist Progress Note ---
Date of Service May 29, 2024 Assessment & Plan (1) Infection of left knee: Plan: -Left TKR with Dr. Houston on 03/25/24 -Washout procedure performed on 05/04/2024. -Wounds grew coagulase-negative staph Streptococcus as well as Enterococcus faecalis. -Initially treated with daptomycin and cefepime. Was discharged on 05/13 on ampicillin and Rocephin. -Hives reaction to ampicillin on Thursday, transition to daptomycin. After transition started to have redness and swelling in the knee. -concern for daptomycin resistance, transitioned to vancomycin -Knee x-rays taken:no acute fx or dislocation, soft tissue swelling w/ joint effusion -CBC 05/29: WBC WNL -CRP 05/29: 11.16 -Blood cultures negative at 24 hour lila -Infectious disease consulted. -Orthopedic surgery consulted, note reviewed 05/29 -Continue IV abx -Discuss further 05/[address] Houston AM CBC, BMP, CRP Plan Chronic conditions: Type 2 diabetes mellitus: Patient's home regimen held on admission -Continue BSG checks, sliding-scale insulin, hypoglycemic protocol MAC on CPAP: Continue CPAP at night. Gastroesophageal reflux disease: Continue omeprazole 20 mg. (6) Anxiety and depression: Continue Zoloft 200 mg and Wellbutrin 150 mg. (7) Hypertension: Continue Norvasc 2.5 mg and losartan 100 mg. Diet: carb consistent Code status: Full code DVT ppx: Lovenox Dispo: med/surg Admission and Anticipated Discharge Date Admission Date: May 28, 2024 Supervising Physician Co-Signing Physician Notes The patient was not seen by me. The chart was reviewed. Case discussed with HANNAH Mcintyre. Agree with assessment and plan Subjective Patient seen and examined this afternoon. Family at bedside. patient reports minimal discomfort in his knee. He feels as if the erythema is decreasing around his incision. He denies any drainage from his incision. Denies any other complaints. Physical Exam 2 Constitutional: WD/WN, vitals as above Eyes: PERRL, conjunctivae normal, anicteric sclerae Respiratory: normal respiratory effort, lungs clear to auscultation Cardiovascular: RRR, no murmur, no edema Skin: left knee erythema, decreased from 05/28 Psychiatric: A+Ox3, euthymic affect Results & Data Results & Data Vital Signs (Past 12 Hours) Vital Signs Temp Pulse Resp BP Pulse Ox O2 Del Method 05/29/24 07:42 36.4 C L 87 18 143/83 H 97 Room Air Laboratory Results 05/29/24 07:42 05/29/24 07:42 PG Care Time/CCT Total # of Minutes Spent Total Time Spent with Patient: Total time spent is greater than 50% in coordination of care (as documented) at patient's floor/unit and/or counseling patient: Coding Level of Care Code 02119 SUB INP/OBS CARE 2/35MIN Diagnoses Infection of left knee M00.9
--- NOTE | 2024-05-29 13:59 | Pharmacy Report ---
Pharmacy PK ABX Note - Date of Service May 29, 2024 - Assessment and Plan Assessment 05/29: Reviewed vancomycin level, predicting therapeutic AUC/TAMMI, continue current regimen. Blood cultures negative x24 hours. Repeat level in 2 days, patient is high risk for accumulation. 05/28: 58 year old M receiving vancomycin for treatment of left knee infection status post total knee replacement on 03/25/24. Admitted on 05/03 with redness and purulent drainage from knee, surface wound culture grew CoNS sensitive to daptomycin and vancomycin and deep wound culture grew thomas-sensitive enterococcus faecalis. Complicated by patient allergies. ID consulted and recommended ampicillin and ceftiaxone therapy after a successful amoxicillin challenge (suspected CoNS as a contaminant). Reported hives while on ampicillin/ceftriaxone and thus switched to daptomycin. Presented to ER due to concerns for worsening infection while on daptomycin. Blood cultures 05/28 pending. Orthopedics and Infectious disease consulted this admission. Day #1 of vancomycin therapy Plan Vancomycin * Loading dose: 2750 mg IV x 1 * Maintenance dose: 1000 mg IV every 8 hours * Regimen is predicted to achieve target AUC/TAMMI of 400-600 mg/L.hr * Trough level ordered for: 05/31/24 @ 0730 Pharmacy will continue to follow and will adjust dose/frequency as necessary. Thank you. Pharmacy has transitioned to AUC monitoring for vancomycin. AUC/TAMMI is the preferred PK/PD target and is associated with decreased risk of nephrotoxicity compared to traditional trough targets.
[2024-05-30 07:00] LABS: Hematocrit (blood only) 32.5 % (42.0-52.0); Hemoglobin 10.5 g/dl (14.0-18.0); Mean Corpuscular Hemoglobin 29.1 pg (25.0-34.0); Mean Corpuscular Hgb Conc 32.3 g/dL (32.0-36.0); Mean Platelet Volume 10.1 fL (9.4-12.4); Platelet Count 276 K/uL (130-400); RDW Coefficient of Variation 14.4 % (11.5-14.5); RDW Standard Deviation 47.2 fL (36.4-46.3); Red Blood Count 3.61 M/uL (4.70-6.10); White Blood Count 8.94 K/ul (4.8-10.8)
[2024-05-30 07:17] LABS: BUN Creatinine Ratio 22.1 (10-20); C Reactive Protein 8.09 mg/dl (0-0.5); Calcium 9.4 mg/dl (8.6-10.3); Creatinine Clr Calc Pharmacy 128.3 ml/min; Est GFR (African American) 109.2 ml/min; Est GFR (Non-African American) 94.3 ml/min; Magnesium 1.7 mg/dl (1.7-2.4); Potassium 3.9 mmol/L (3.5-5.1)
[2024-05-30 07:21] LABS: Basophils # (auto) 0.08 K/uL (0.00-0.20); Basophils % (auto) 0.9 %; Eosinophils # (auto) 1.95 K/uL (0.00-0.50); Eosinophils % (auto) 21.8 %; Immature Granulocytes # (auto) 0.02 K/uL (0.01-0.20); Immature Granulocytes % (auto) 0.2 %; Lymphocytes # (auto) 2.32 K/uL (1.20-3.40); Monocytes # (auto) 0.62 K/uL (0.11-0.59); Monocytes % (auto) 6.9 %; Neutrophils # (auto) 3.95 K/uL (1.40-6.50); Neutrophils % (auto) 44.2 %
--- NOTE | 2024-05-30 13:31 | Infectious Disease Consult ---
Date of Consultation May 30, 2024 Assessment & Plan (1) Infection of left knee: Plan This is a 58 yo male DM2, osteoarthritis, GAVE, metabolic syndrome, obesity, L knee arthroplasty 03/25/25 He was admitted 05/04-05/13 for PJI left knee infection He was working with physical therapy on 04/29 and was using a sliding board when he felt his knee split open. He was started on Keflex but the area worsened with increased pain, erythema and swelling with drainage.. A superficial wound culture obtained on 05/03 grew CONS. He underwent incision and drainage,Poly Exchange, Synovectomy with orthopedics on 05/04 The wound communicated with the knee joint and appeared inflamed per OP report. Intraoperative cultures grew sensitive E faecalis. He was seen by ID . He initially received Daptomycin and Cefepime. He has a Penicillin allergy ( hives). Since there was no plan for hardware removal and he would require penitentiary oral antibiotic suppression in the setting of retained hardware, he underwent PCN desensitization in the ICU during the last admission. He was also evaluated by Immunology/allergy who felt that he did not have a true Penicillin allergy but likely cellulitis form PCn injection. He tolerated Ampicillin and was discharged on combination therapy with IV ampicillin/Ceftriaxone for 6 weeks to end 06/08/24 followed by po suppression for at least 3-6 month with amoxicillin 500 mg po q 8hrs to start 06/09/24. He was discharged to a SNF. While there he apparently developed hives thought to be secondary to Ampicillin approximately 1 week ago. His SNF contact ID and his antibiotics were switched to Daptomycin as his Enterococcus was sensitive. On therapy with PCN as well as Daptomycin, he reports increasing Left knee swelling and erythema with continued pain. He was seen by orthopedics outpatient. Knee X-rays showed there was lateral translation of the patella. Plans were to continue Daptomycin with follow up on 05/31 for review of possible surgical intervention. He denied fever, chills, nausea, vomiting. He returns to the ED from rehab on 05/27 for increasing Left knee swelling and redness. In the ED he was afebrile and HDS. WBC 10.12, hemoglobin 10.3, hematocrit 32.1, platelets 242, BUN 15, creatinine 0.83, CRP i11.16 --->8.09, ESR 94. Left knee xray w/o acute fracture or dislocation.There is soft tissue swelling with joint effusion. He was evaluated by orthopedics. They have concerns for medial retinacular repeat tear. He is currently on IV vancomycin. ID consulted for left knee PJI. Micro: BC 05/28 NGTD Prior Micro: Blood culture 05/03 NG Wound culture superficial 05/03 CONS Intraop wound culture 05/04 E faecalis PanS ( Amp, van, dapto, cipr/lev ) Aero/Barbra Cult Final 05/09/24-1236 Organism 1 Enterococcus faecalis Quantity Moderate Sens Sensitivities to Follow No Anaerobes Isolated No Anaerobes Isolated E faecalis RX M.I.C. --- --------- Ampicillin S <=2 Ciprofloxacin S <=1 Daptomycin S 2 Gent Synergy S <=500 Levofloxacin S <=1 Penicillin S 2 Strep Synergy S <=1000 Tetracycline R >8 Vancomycin S 4 Abx: Vanco 05/27- ongoing #Worsening L knee erythema, swelling on IV antibiotics: # Prosthetic Left knee infection s/p traumatic wound dehiscence with communication with the knee joint - s/p DAIR 05/04, cx Pans E faecalis #Recent admission for PJI of left knee 05/04-05/13 #PCN allergy- rash - desensitized to Ampicillin 05/2024 but apparently developed rash outpatient on therapy # TMP-Sulf allergy- rash # Increased inflammatory markers On the last admission he grew SENSITIVE Enterococcus Faecalis ( Sensitive to Am picillin, Daptomycin and Vancomycin) in OR cultures. Although he underwent Ampicillin graded challenge last admission, he apparently developed hives on therapy outpatient. On Amp/ Ceftriaxone--> daptomycin he developed worsening L knee erythema, swelling and increased inflammatory markers ( ESR 94 on 05/29- 77 on 05/13; CRP 11.16 on 05/29 -9.04 on 05/13. Recommendations: -He seems to be failing IV antibiotic therapy. He has been receiving targeted Enterococcus Faecalis antibiotics since his OR on 05/04 and on discharge ( IV ampicillin--->daptomycin for at least 3 weeks) with s/o of continued infection of L knee. -Continue IV vancomycin per pharmacy protocol , which should also cover Enterococcus Faecalis. -May need ortho reevaluation for surgical intervention as he appears to be failing medical management with antibiotics Thank you for this consult. ID will continue to follow Snow Bonds MD, MPH Infectious Disease [facility], [facility] Call [phone] with questions. Consultation Information Consultation was provided via telemedicine using two-way real-time interactive telecommunication between the patient and the telemedicine provider. For the duration of the visit, the provider was performing the assessment from a different facility than the patient. This includesuse of bluetooth stethoscope forauscultationperformed by the telepresenter that the telemedicine provider can hear if described in the physical exam. Group Account Director contact information: Please call [facility] Call Center [phone]. (Phone Number For Physician Use Only) After establishing a telemedicine visit, patient was: Patient was verified with two unique identifiers Time Spent with Patient: Initial => 75 min History of Present Illness Reason for Consultation: Prosthetic knee infection Attending Physician: Becky Alvarez MD History of Present Illness This is a 58 yo male DM2, osteoarthritis, GAVE, metabolic syndrome, obesity, L knee arthroplasty 03/25/25 He was admitted 05/04-05/13 for PJI left knee infection He was working with physical therapy on 04/29 and was using a sliding board when he felt his knee split open. He was started on Keflex but the area worsened with increased pain, erythema and swelling with drainage.. A superficial wound culture obtained on 05/03 grew CONS. He underwent incision and drainage,Poly Exchange, Synovectomy with orthopedics on 05/04 The wound communicated with the knee joint and appeared inflamed per OP report. Intraoperative cultures grew sensitive E faecalis. He was seen by ID . He initially received Daptomycin and Cefepime. He has a Penicillin allergy ( hives). Since there was no plan for hardware removal and he would require penitentiary oral antibiotic suppression in the setting of retained hardware, he underwent PCN desensitization in the ICU during the last admission. He was also evaluated by Immunology/allergy who felt that he did not have a true Penicillin allergy but likely cellulitis form PCn injection. He tolerated Ampicillin and was discharged on combination therapy with IV ampicillin/Ceftriaxone for 6 weeks to end 06/08/24 followed by po suppression for at least 3-6 month with amoxicillin 500 mg po q 8hrs to start 06/09/24. He was discharged to a SNF. While there he apparently developed hives thought to be secondary to Ampicillin approximately 1 week ago. His SNF contact ID and his antibiotics were switched to Daptomycin as his Enterococcus was sensitive. On therapy with PCN as well as Daptomycin, he reports increasing Left knee swelling and erythema with continued pain. He was seen by orthopedics outpatient. Knee X-rays showed there was lateral translation of the patella. Plans were to continue Daptomycin with follow up on 05/31 for review of possible surgical intervention. He denied fever, chills, nausea, vomiting. He returns to the ED from rehab on 05/27 for increasing Left knee swelling and redness. In the ED he was afebrile and HDS. WBC 10.12, hemoglobin 10.3, hematocrit 32.1, platelets 242, BUN 15, creatinine 0.83, CRP i11.16 --->8.09, ESR 94. Left knee xray w/o acute fracture or dislocation.There is soft tissue swelling with joint effusion. He was evaluated by orthopedics. They have concerns for medial retinacular repeat tear. He is currently on IV vancomycin. ID consulted for left knee PJI. Allergies Allergy/AdvReac Type Severity Reaction Status Date / Time sulfamethoxazole Allergy Intermediate Rash Verified 05/03/24 15:53 trimethoprim Allergy Intermediate Rash Verified 05/03/24 15:53 peanut AdvReac Intermediate Diarrhea, Verified 05/03/24 15:53 indigestion soy AdvReac Intermediate diarrhea, Verified 05/03/24 15:53 indigestion wheat AdvReac Intermediate Diarrhea, Verified 05/03/24 15:53 indigestion atorvastatin AdvReac Mild Myalgia Verified 05/03/24 15:53 ezetimibe [From Zetia] AdvReac Mild Myalgia Verified 05/03/24 15:53 rosuvastatin AdvReac Mild Muscle Pain Verified 05/03/24 15:53 Home Medications Medication Instructions Recorded Confirmed Type albuterol sulfate 90 mcg/actuation 2 puff inhalation Q6H PRN 04/10/19 05/03/24 History aerosol inhaler (Ventolin HFA) Shortness Of Breath Or Wheezing bupropion HCl 150 mg tablet,12 hr 150 mg PO QAM 09/19/21 05/03/24 History sustained-release (Wellbutrin SR) multivitamin 1 tab PO QPM 06/24/22 05/03/24 History lancets 30 gauge (OneTouch Delgiselle #100 ea 11/10/22 05/03/24 Rx Lancets) furosemide 20 mg tablet (Lasix) 20 mg PO DAILY PRN edema #30 tabs 12/22/2205/03 Rx metformin 500 mg tablet,extended 500 mg PO TIDWMEAL 04/07/23 05/03/24 History release 24 hr cyanocobalamin (vitamin B-12) 3,000 mcg PO QAM 06/03/23 05/03/24 History 3,000 mcg capsule sertraline 100 mg tablet (Zoloft) 200 mg PO QAM 09/10/23 05/03/24 History montelukast 10 mg tablet 10 mg PO QPM #90 tabs 11/09/23 05/03/24 Rx alfuzosin 10 mg tablet,extended 10 mg PO QPM 02/03/24 05/03/24 History release 24 hr (Uroxatral) losartan 100 mg tablet 100 mg PO QAM 02/03/24 05/03/24 History omeprazole 20 mg capsule,delayed 20 mg PO QAM 02/03/24 05/03/24 History release aspirin 81 mg tablet,delayed 81 mg PO BID #60 tabs 03/27/24 05/03/24 Rx release potassium chloride 20 mEq 20 meq PO .COMPLEX #90 tabs 04/26/24 05/03/24 Rx tablet,extended release acetaminophen 500 mg tablet 1,000 mg PO TID fever or pain 05/03/24 05/03/24 History (Tylenol Extra Strength) cholecalciferol (vitamin D3) 50 50 mcg PO BID 05/03/24 05/03/24 History mcg (2,000 unit) tablet (Vitamin D3) tirzepatide 7.5 mg/0.5 mL 7.5 mg subcut .HOLD 05/03/24 05/03/24 History subcutaneous pen injector (Mounjaro) amlodipine 2.5 mg tablet 2.5 mg PO HS #30 tabs 05/13/24 Rx ampicillin sodium 2 gram 12 g IV .q 24 hours 26 days 05/13/24 Rx intravenous solution ceftriaxone 2 gram intravenous 2 g IV Q12H 26 days 05/13/24 Rx solution oxycodone 5 mg capsule 5 mg PO Q6H PRN pain #14 caps 05/13/24 Rx Patient History Medical History Diabetes mellitus Morbid obesity BPH (benign prostatic hyperplasia) Osteoarthritis Bilateral chronic knee pain Allergic rhinitis Surgical History History of esophageal dilatation Hx of prior ablation treatment venous ablation History of hernia surgery As child History of colonoscopy 06/2022 History of esophagogastroduodenoscopy (EGD) History of wisdom tooth extraction History of tooth extraction Status post uvulopalatopharyngoplasty History of repair of anterior cruciate ligament of right knee 1991 History of sinus surgery Family History Mother Diabetes Depression Father Heart disease Myocardial infarction Hypertension Prostate cancer Other No family history of adverse response to anesthesia Denies family history of Ovarian cancer Breast cancer Lung cancer Colorectal cancer Stroke Social History Smoking Status: Never smoker Tobacco Type: Cigarettes Second Hand Exposure: No; Do You Dip or Chew Tobacco: No; Tobacco Cessation Education Requested by Patient: No Hx Alcohol Use: No Hx Substance Use: No Preferred Language: Bengali Communication Ability: Effective Visual Impairment: Limited Hearing Ability: Normal Information Security Analyst Required: No Beliefs That Will Affect Care: None marital status: Single Current Living Situation: Parent Current Living Situation Comment: father current occupational status: employed Other Information That Helps Us Care for You: No Feels Safe at Home: Yes Safety Concerns: Feels Safe At This Time Childhood Exposure to Second-Hand Smoke: No Diet: regular caffeine: No during the past year weight has: remained stable Dental Care, Regularly: Yes Physical Activity Frequency: Does not Exercise Seatbelt Use: always Sunscreen Use: No Assistive Devices: CPAP, Raised Toilet Seat and Walker Review of System A 10 point ROS obtained. Pertinent positive as per HPI. Physical Exam Physical Exam: GEN- NAD, obese, laying in bed HEENT- anicteric sclera Lung- No increased work of breathing, On RA Abdomen- Soft , obese, not tender Ext- RLE with no Edema. LLE small effusion and knee erythema. Not war. Mild tenderness Neuro- AAO*3 Psych- Normal mood, appropriate Results & Data Vital Signs (Past 12 Hours) Vital Signs Temp Pulse Resp BP Pulse Ox O2 Del Method 05/30/24 08:40 36.7 C 77 16 130/78 100 Room Air Laboratory Results Laboratory Results - last 48 hr 05/29/24 05/29/24 05/29/24 07:42 07:45 11:30 WBC 8.87 RBC 3.88 L Hgb 11.3 L Hct 34.8 L MCV 89.7 MCH 29.1 MCHC 32.5 RDW Std Deviation 46.5 H RDW Coeff of [place] 14.3 Plt Count 279 MPV 9.9 Immature Gran % (Auto) 0.2 Neut % (Auto) 49.6 Lymph % (Auto) 21.9 [place] % (Auto) 6.9 Eos % (Auto) 20.7 Baso % (Auto) 0.7 Neut # (Auto) 4.40 Lymph # (Auto) 1.94 [place] # (Auto) 0.61 H Eos # (Auto) 1.84 H Baso # (Auto) 0.06 Immature Gran # (Auto) 0.02 ESR 94 H Sodium 138 Potassium 4.3 Chloride 103 Carbon Dioxide 26 Anion Gap 9 BUN 15 Creatinine 0.83 Est Cr Clr Drug Dosing 132.9 Est GFR ( Amer) 110.8 Est GFR (Non-Af Amer) 95.6 BUN/Creatinine Ratio 18.1 Glucose 152 H POC Glucose 153 H 100 H Calcium 9.9 Magnesium 1.7 C-Reactive Protein 11.16 H Random Vancomycin 14.2 05/29/24 05/29/24 05/30/24 16:26 20:40 06:08 WBC 8.94 RBC 3.61 L Hgb 10.5 L Hct 32.5 L MCV 90.0 MCH 29.1 MCHC 32.3 RDW Std Deviation 47.2 H RDW Coeff of [place] 14.4 Plt Count 276 MPV 10.1 Immature Gran % (Auto) 0.2 Neut % (Auto) 44.2 Lymph % (Auto) 26.0 [place] % (Auto) 6.9 Eos % (Auto) 21.8 Baso % (Auto) 0.9 Neut # (Auto) 3.95 Lymph # (Auto) 2.32 [place] # (Auto) 0.62 H Eos # (Auto) 1.95 H Baso # (Auto) 0.08 Immature Gran # (Auto) 0.02 ESR Sodium 138 Potassium 3.9 Chloride 103 Carbon Dioxide 29 Anion Gap 6 BUN 19 Creatinine 0.86 Est Cr Clr Drug Dosing 128.3 Est GFR ( Amer) 109.2 Est GFR (Non-Af Amer) 94.3 BUN/Creatinine Ratio 22.1 H Glucose 132 H POC Glucose 170 H 105 H Calcium 9.4 Magnesium 1.7 C-Reactive Protein 8.09 H Random Vancomycin 05/30/24 05/30/24 05/30/24 07:51 11:28 16:19 WBC RBC Hgb Hct MCV MCH MCHC RDW Std Deviation RDW Coeff of [place] Plt Count MPV Immature Gran % (Auto) Neut % (Auto) Lymph % (Auto) [place] % (Auto) Eos % (Auto) Baso % (Auto) Neut # (Auto) Lymph # (Auto) [place] # (Auto) Eos # (Auto) Baso # (Auto) Immature Gran # (Auto) ESR Sodium Potassium Chloride Carbon Dioxide Anion Gap BUN Creatinine Est Cr Clr Drug Dosing Est GFR ( Amer) Est GFR (Non-Af Amer) BUN/Creatinine Ratio Glucose POC Glucose 146 H 106 H 109 H Calcium Magnesium C-Reactive Protein Random Vancomycin Diagnostic Findings Microbiology 05/28/24 00:42 Blood Aerobic Blood Culture - Preliminary No growth in Aerobic bottle after 48 hours. 05/28/24 00:42 Blood Anaerobic Blood Culture - Preliminary No growth in Anaerobic bottle after 48 hours. 05/28/24 00:10 Blood Aerobic Blood Culture - Preliminary No growth in Aerobic bottle after 48 hours. 05/28/24 00:10 Blood Anaerobic Blood Culture - Preliminary No growth in Anaerobic bottle after 48 hours. Knee X-Ray 05/27/24 23:28 XR knee LT 3V HISTORY: 58 years-old Male left knee infection acute left knee pain COMPARISON: 05/03/2024 TECHNIQUE: 3 views of the left knee FINDINGS: Total arthroplasty with patellar resurfacing. Moderate soft tissue swelling surrounds the patella. No acute fracture or dislocation. Additionally, there is an associated moderate to large joint effusion is seen. IMPRESSION: 1. No acute fracture or dislocation. 2. Soft tissue swelling with joint effusion. ACT 112: Negative or not required by law. The above report was generated using voice recognition software. It may contain grammatical, syntax or spelling errors. Electronically signed by: Terry Ware M.D. 05/28/2024 7:55 AM Chest X-Ray 05/28/24 14:09 XR chest 1V portable HISTORY: 58 years-old Male Check PICC line placement status post placement of a right-sided PICC COMPARISON: 02/16/2024 TECHNIQUE: AP view of the chest FINDINGS: Right-sided PICC distal tip is noted in expected location of the brachiocephalic SVC confluence. Heart is enlarged. Scattered alveolar opacities. No pneumothorax or large pleural effusion. Degenerative changes of the shoulders and spine. IMPRESSION: 1. Status post placement of a right-sided PICC. No postprocedural pneumothorax. 2. Scattered bilateral mixed interstitial and alveolar opacities suspicious for multifocal pneumonia. ACT 112: Negative or not required by law. The above report was generated using voice recognition software. It may contain grammatical, syntax or spelling errors. Electronically signed by: Terry Ware M.D. 05/28/2024 2:30 PM
[2024-05-30] MEDS ORDERED: POLYETHYLENE (MIRALAX) 17 GM PACK PO PRN (13:34)
--- NOTE | 2024-05-30 13:39 | Hospitalist Progress Note ---
Date of Service May 30, 2024 Assessment & Plan (1) Infection of left knee: Plan: -Left TKR with Dr. Houston on 03/25/24, with Washout procedure performed on 05/04/2024. -Wounds grew coagulase-negative staph as well as Enterococcus faecalis. -Initially treated with daptomycin and cefepime. Was discharged on 05/13 on ampicillin and Rocephin. -Hives reaction to ampicillin on 05/23, transition to daptomycin. After transition started to have redness and swelling in the knee. -concern for daptomycin resistance, transitioned to vancomycin -Knee x-rays taken:no acute fx or dislocation, soft tissue swelling w/ joint effusion -Blood cultures negative at 48 hour -Infectious disease consulted. - failing IV therapy will be difficult to suppress if hardware remains - continue vanco for now -Orthopedic surgery consulted, note reviewed 05/29 -Continue IV abx -Possible OR 8/ AM CBC, BMP, CRP Plan Chronic conditions: * Type 2 diabetes mellitus: Patient's home regimen held on admission -Continue BSG checks, sliding-scale insulin, hypoglycemic protocol * MAC on CPAP: Continue CPAP at night. * Gastroesophageal reflux disease: Continue omeprazole 20 mg. * Anxiety and depression: Continue Zoloft 200 mg and Wellbutrin 150 mg. * Hypertension: Continue Norvasc 2.5 mg and losartan 100 mg. DVT ppx: Lovenox Dispo: continued inpatient stay Admission and Anticipated Discharge Date Admission Date: May 28, 2024 Supervising Physician Co-Signing Physician Notes PA Supervision Note: I did not personally see or examine the patient today, but I verified all pete points of HANNAH Mas's assessment and plan with the following excepti ons/additions: None Subjective Patient seen after lunch, sitting in bed. Pain has been well controlled. Has not seen Dr. Houston yet. Did see infectious disease and states they were talking about removing hardware for a certain period of time while infection heals - note not finished Good appetite Review of Systems Review of Systems: All systems reviewed & are unremarkable except as noted in Subjective Physical Exam Physical Exam: General: NAD, VS as above Resp: normal respiratory effort, lungs clear to auscultation CV: RRR, no murmur, Abd: normal bowel sounds, non tender, no hepatosplenomegaly Extremities:Left leg in immobilzer with rain wrap on place. Erythema and warmth around incsison Neuro: A&O x3, \ Results & Data Results & Data Vital Signs (Past 12 Hours) Vital Signs Temp Pulse Resp BP Pulse Ox O2 Del Method 05/30/24 08:40 36.7 C 77 16 130/78 100 Room Air Laboratory Results CBC, chemistry and crp reviewed PG Care Time/CCT Total # of Minutes Spent Total Time Spent with Patient: Total time spent is greater than 50% in coordination of care (as documented) at patient's floor/unit and/or counseling patient: Coding Level of Care Code 42504 SUB INP/OBS CARE 2/35MIN Diagnoses Infection of left knee M00.9
--- NOTE | 2024-05-30 14:08 | Orthopedic Progress Note ---
Date of Service May 30, 2024 Assessment & Plan (1) Infection of left knee: Plan: Patient is a 58-year-old male who is status post left total knee arthroplasty in the recent past. patient developed a wound dehiscence early on during his recovery. This dehiscence was on the small side. He later returned to the office early the following next week with a larger noted wound dehiscence which appeared to go into the joint. Patient states at the time of his physical therapy, he had noted with flexion of the knee with his therapist a possible patellar dislocation at that time. When the patient returned with the larger wound dehiscence, he was then sent to the hospital and admitted. At that point in time a DAIR procedure was performed. He grew out Enterococcus faecalis with his OR cultures. A coag negative staph also grown out but not with the OR cultures and was felt to be likely contaminant. Patient went under ID consultation and initially was placed on ampicillin/Rocephin after undergoing ampicillin the sensitivity secondary to penicillin allergy. Patient had developed a moderate to severe drug rash over his trunk and upper extremities later on in the process with his ampicillin/Rocephin. Plans were to change him to dalbavancin initially however this was denied by his insurance and he was eventually put on daptomycin. Patient was then seen back in the office for follow-up. the patient's wound was healing fine however he had moderate erythema around the noted medial retinacular region and infrapatellar region and also what felt to be a retinacular tear. X-rays confirmed this with lateral translation of the patella. Plans were to keep him on daptomycin and have him come into the office on Thursday which would be tomorrow, 05/31/2024, to discuss further treatment and/or surgery for his retinacular tear. Patient was thusly admitted with the above noted likely failure of daptomycin treatment and is currently on vancomycin. WBC count was 10 on admission and is now down to 8. CRP is 8 and his sed rate was 94. Infectious disease team currently recommending the continuation of vancomycin. Dr. Houston is currently thinking about taking the patient to surgery this for repeat irrigation and debridement with repair of his medial retinaculum. We also discussed the possibility of full hardware removal with implantation of antibiotic spacer however this would have to be discussed with Dr. Houston further and finalized by him. Plans will be for him to see the patient over the next day of so to discuss plans for treatment of his left knee. Likely surgical procedure this . Admission and Anticipated Discharge Date Admission Date: May 28, 2024 Subjective Patient sitting up in bed awake and alert. No complaints today. Pain is controlled. He states that he feels that the redness of his knee is getting better. Patient had a noted increase of erythema and swelling in the knee and had been readmitted on Thursday. Patient was then started on vancomycin. He was on daptomycin prior to this. The patient had been seen in our office last week and at that time it was felt that he had ruptured the medial retinaculum. Patient had been seen by one of our [facility] physicians at the same time I saw him and was in agreement. x-rays were taken of the knee at that time last week which showed lateral translation of the patella. This was mostly noted on the lateral x-ray as well as the sunrise view. Patient was placed in a Shayla brace kept in extension. Plans were to continue the daptomycin and plan for the surgical repair of his medial retinaculum, however it appears that he was feeling daptomycin therapy. Patient was placed on vancomycin on admission and he was seen by infectious disease team today Via Zoom conference. Physical Exam Physical Exam: Patient continues to have his Shayla brace in place. He does have an Kwame wrap around the knee. This is loosened to examine his left knee. There are markings on the knee showing where his original erythema was when he was admitted. The erythema is now resolving at this time. He continues to have an area over the medial retinacular region and infrapatellar region medially that is mild to moderately erythematous but is nontender to palpation. This appears to be better than when I saw him last week in the office. He continues to have an area that likely it shows a medial retinacular tear on palpation. There are no open wounds and his incision has been healing well. Calves are soft and NT. There is no gross motor or sensory loss seen at this time. Results & Data Vital Signs (Past 12 Hours) Vital Signs Temp Pulse Resp BP Pulse Ox O2 Del Method 05/30/24 08:40 36.7 C 77 16 130/78 100 Room Air Laboratory Results 05/30/24 05/30/2405/30/24 Range/Units 11:28 07:51 06:08 WBC 8.94 (4.8-10.8) K/ul RBC 3.61 L (4.70-6.10) M/uL Hgb 10.5 L (14.0-18.0) g/dl Hct 32.5 L (42.0-52.0) % MCV 90.0 (80.0-100.0) fL MCH 29.1 (25.0-34.0) pg MCHC 32.3 (32.0-36.0) g/dL RDW Std Deviation 47.2 H (36.4-46.3) fL RDW Coeff of Migue 14.4 (11.5-14.5) % Plt Count 276 (130-400) K/uL MPV 10.1 (9.4-12.4) fL Immature Gran % (Auto) 0.2 % Neut % (Auto) 44.2 % Lymph % (Auto) 26.0 % [place] % (Auto) 6.9 % Eos % (Auto) 21.8 % Baso % (Auto) 0.9 % Neut # (Auto) 3.95 (1.40-6.50) K/uL Lymph # (Auto) 2.32 (1.20-3.40) K/uL [place] # (Auto) 0.62 H (0.11-0.59) K/uL Eos # (Auto) 1.95 H (0.00-0.50) K/uL Baso # (Auto) 0.08 (0.00-0.20) K/uL Immature Gran # (Auto) 0.02 (0.01-0.20) K/uL Sodium 138 (136-145) mmol/L Potassium 3.9 (3.5-5.1) mmol/L Chloride 103 (98-107) mmol/L Carbon Dioxide 29 (21-32) mmol/L Anion Gap 6 (3-11) BUN 19 (6-23) mg/dl Creatinine 0.86 (0.6-1.4) mg/dl Est Cr Clr Drug Dosing 128.3 ml/min Est GFR ( Amer) 109.2 ml/min Est GFR (Non-Af Amer) 94.3 ml/min BUN/Creatinine Ratio 22.1 H (10-20) Glucose 132 H (70-99(Fasting)) mg/dl POC Glucose 106 H 146 H (70-99) mg/dl Calcium 9.4 (8.6-10.3) mg/dl Magnesium 1.7 (1.7-2.4) mg/dl C-Reactive Protein 8.09 H (0-0.5) mg/dl 05/29/24 05/29/24 Range/Units 20:40 16:26 WBC (4.8-10.8) K/ul RBC (4.70-6.10) M/uL Hgb (14.0-18.0) g/dl Hct (42.0-52.0) % MCV (80.0-100.0) fL MCH (25.0-34.0) pg MCHC (32.0-36.0) g/dL RDW Std Deviation (36.4-46.3) fL RDW Coeff of Migue (11.5-14.5) % Plt Count (130-400) K/uL MPV (9.4-12.4) fL Immature Gran % (Auto) % Neut % (Auto) % Lymph % (Auto) % [place] % (Auto) % Eos % (Auto) % Baso % (Auto) % Neut # (Auto) (1.40-6.50) K/uL Lymph # (Auto) (1.20-3.40) K/uL [place] # (Auto) (0.11-0.59) K/uL Eos # (Auto) (0.00-0.50) K/uL Baso # (Auto) (0.00-0.20) K/uL Immature Gran # (Auto) (0.01-0.20) K/uL Sodium (136-145) mmol/L Potassium (3.5-5.1) mmol/L Chloride (98-107) mmol/L Carbon Dioxide (21-32) mmol/L Anion Gap (3-11) BUN (6-23) mg/dl Creatinine (0.6-1.4) mg/dl Est Cr Clr Drug Dosing ml/min Est GFR ( Amer) ml/min Est GFR (Non-Af Amer) ml/min BUN/Creatinine Ratio (10-20) Glucose (70-99(Fasting)) mg/dl POC Glucose 105 H 170 H (70-99) mg/dl Calcium (8.6-10.3) mg/dl Magnesium (1.7-2.4) mg/dl C-Reactive Protein (0-0.5) mg/dl
--- NOTE | 2024-05-31 07:55 | Orthopedic Progress Note ---
Date of Service May 31, 2024 Assessment & Plan (1) Infection of left knee: Plan: Patient is a 58-year-old male who is status post left total knee arthroplasty in the recent past. patient developed a wound dehiscence early on during his recovery. This dehiscence was on the small side. He later returned to the office early the following next week with a larger noted wound dehiscence which appeared to go into the joint. Patient states at the time of his physical therapy, he had noted with flexion of the knee with his therapist a possible patellar dislocation at that time. When the patient returned with the larger wound dehiscence, he was then sent to the hospital and admitted. At that point in time a DAIR procedure was performed. He grew out Enterococcus faecalis with his OR cultures. A coag negative staph also grown out but not with the OR cultures and was felt to be likely contaminant. Patient went under ID consultation and initially was placed on ampicillin/Rocephin after undergoing ampicillin the sensitivity secondary to penicillin allergy. Patient had developed a moderate to severe drug rash over his trunk and upper extremities later on in the process with his ampicillin/Rocephin. Plans were to change him to dalbavancin initially however this was denied by his insurance and he was eventually put on daptomycin. Patient was then seen back in the office for follow-up. the patient's wound was healing fine however he had moderate erythema around the noted medial retinacular region and infrapatellar region and also what felt to be a retinacular tear. X-rays confirmed this with lateral translation of the patella. Plans were to keep him on daptomycin and have him come into the office on Thursday which would be tomorrow, 05/31/2024, to discuss further treatment and/or surgery for his retinacular tear. Patient was thusly admitted with the above noted likely failure of daptomycin treatment and is currently on vancomycin. WBC count was 10 on admission and is now down to 8. CRP is 8 and his sed rate was 94. Infectious disease team currently recommending the continuation of vancomycin. Dr. Houston is currently thinking about taking the patient to surgery this for repeat irrigation and debridement with repair of his medial retinaculum. We also discussed the possibility of full hardware removal with implantation of antibiotic spacer however this would have to be discussed with Dr. Houston further and finalized by him. Plans will be for him to see the patient over the next day of so to discuss plans for treatment of his left knee. Likely surgical procedure this . Today had a lengthy discussion at the bedside with the patient. Unfortunately his postoperative course has been complicated by an iatrogenic injury and therapy. Since then he has had reactions to antibiotics and it sounds like therapy in the rehab center was too excessive and now has a retinacular tear. This is a very challenging case he presents with well-fixed components and a pansensitive bacteria. Given his multiple comorbidities which include morbid obesity and diabetes I would lean against removal of components and antibiotic spacer at this time. Plan would be to explore the knee cleaned it out repair the extensor mechanism and then immobilize his knee for an extended period of time. Because he has had interruptions of IV antibiotics with allergy and I would recommend that he have an additional 3 weeks of IV vancomycin after his surgical procedure. He will be immobilized strictly in a Shayla brace for an extended period of time. Hopefully then switch to oral suppression may be with clindamycin due to his multiple drug allergies. He may still fail this procedure as he is extremely high risk but I feel he deserves a chance to save his knee. This was discussed at length with patient today and he agrees plan will be for surgery on Admission and Anticipated Discharge Date Admission Date: May 28, 2024 Subjective Patient sitting up in bed awake and alert. No complaints today. Pain is controlled. He states that he feels that the redness of his knee is getting better. Patient had a noted increase of erythema and swelling in the knee and had been readmitted on Thursday. Patient was then started on vancomycin. He was on daptomycin prior to this. The patient had been seen in our office last week and at that time it was felt that he had ruptured the medial retinaculum. Patient had been seen by one of our [facility] physicians at the same time I saw him and was in agreement. x-rays were taken of the knee at that time last week which showed lateral translation of the patella. This was mostly noted on the lateral x-ray as well as the sunrise view. Patient was placed in a [place] brace kept in extension. Plans were to continue the daptomycin and plan for the surgical repair of his medial retinaculum, however it appears that he was feeling daptomycin therapy. Patient was placed on vancomycin on admission and he was seen by infectious disease team today Via Zoom conference. Physical Exam Physical Exam: Patient is examined at the bedside. The cellulitis continues to improve and his intra-articular swelling is minimal at this time. He is neurologically and vascularly intact. Results & Data Vital Signs (Past 12 Hours) Vital Signs Temp Pulse Resp BP Pulse Ox O2 Del Method 05/31/24 07:47 37 C 72 18 139/81 96 Room Air 05/30/24 20:37 36.6 C 73 14 142/75 H 96 Room Air Laboratory Results Labs are pending
[2024-05-31] MEDS: VANCOMYCIN LEVEL ONE (08:03)
[2024-05-31 08:17] LABS: Basophils # (auto) 0.09 K/uL (0.00-0.20); Basophils % (auto) 0.9 %; Eosinophils % (auto) 20.9 %; Hematocrit (blood only) 32.5 % (42.0-52.0); Hemoglobin 10.9 g/dl (14.0-18.0); Immature Granulocytes # (auto) 0.02 K/uL (0.01-0.20); Immature Granulocytes % (auto) 0.2 %; Lymphocytes # (auto) 2.31 K/uL (1.20-3.40); Lymphocytes % (auto) 24.1 %; Mean Corpuscular Hemoglobin 29.4 pg (25.0-34.0); Mean Corpuscular Hgb Conc 33.5 g/dL (32.0-36.0); Mean Corpuscular Volume 87.6 fL (80.0-100.0); Mean Platelet Volume 9.7 fL (9.4-12.4); Monocytes # (auto) 0.63 K/uL (0.11-0.59); Monocytes % (auto) 6.6 %; Neutrophils # (auto) 4.54 K/uL (1.40-6.50); Neutrophils % (auto) 47.3 %; Platelet Count 274 K/uL (130-400); RDW Coefficient of Variation 14.2 % (11.5-14.5); RDW Standard Deviation 45.7 fL (36.4-46.3); Red Blood Count 3.71 M/uL (4.70-6.10); White Blood Count 9.59 K/ul (4.8-10.8)
[2024-05-31 08:44] LABS: BUN Creatinine Ratio 27.6 (10-20); C Reactive Protein 4.86 mg/dl (0-0.5); Calcium 9.6 mg/dl (8.6-10.3); Creatinine Clr Calc Pharmacy 145.2 ml/min; Est GFR (African American) 114.9 ml/min; Est GFR (Non-African American) 99.2 ml/min; Potassium 3.9 mmol/L (3.5-5.1)
--- NOTE | 2024-05-31 09:35 | Pharmacy Report ---
Pharmacy PK ABX Note - Date of Service May 31, 2024 - Assessment and Plan Assessment 05/31: Today is day 4 of Vancomycin therapy. Vancomycin trough level obtained today AM at 07:58 is 17.6 mcg/ml. Renal function stable. Currently patient is on Vancomycin 1000 mg IV q8h. 05/29: Reviewed vancomycin level, predicting therapeutic AUC/TAMMI, continue current regimen. Blood cultures negative x24 hours. Repeat level in 2 days, patient is high risk for accumulation. 05/28: 58 year old M receiving vancomycin for treatment of left knee infection status post total knee replacement on 03/25/24. Admitted on 05/03 with redness and purulent drainage from knee, surface wound culture grew CoNS sensitive to daptomycin and vancomycin and deep wound culture grew thomas-sensitive enterococcus faecalis. Complicated by patient allergies. ID consulted and recommended ampicillin and ceftiaxone therapy after a successful amoxicillin challenge (suspected CoNS as a contaminant). Reported hives while on ampicillin/ceftriaxone and thus switched to daptomycin. Presented to ER due to concerns for worsening infection while on daptomycin. Blood cultures 05/28 pending. Orthopedics and Infectious disease consulted this admission. Day #1 of vancomycin therapy Plan Vancomycin * Current regimen: 1000 mg IV every 8 hours * Trough level obtained 05/31/24 at 07:58 AM resulted as 17.6 mcg/mL. This is predicted to achieve target AUC/TAMMI of 400-600 mg/L.hr * Predicted AUC at steady state: 524 mg/L.hr * Continue Vancomycin 1000 mg IV every 8 hours * Will repeat level in the next 48-72 hours if therapy is continued and/or change in patient clinical status Pharmacy will continue to follow and will adjust dose/frequency as necessary. Thank you. Pharmacy has transitioned to AUC monitoring for vancomycin. AUC/TAMMI is the preferred PK/PD target and is associated with decreased risk of nephrotoxicity compared to traditional trough targets.
--- NOTE | 2024-05-31 10:47 | Hospitalist Progress Note ---
Date of Service May 31, 2024 Assessment & Plan (1) Infection of left knee: Plan: -Left TKR with Dr. Houston on 03/25/24, with Washout procedure performed on 05/04/2024. -Wounds grew coagulase-negative staph as well as Enterococcus faecalis. -Initially treated with daptomycin and cefepime. Was discharged on 05/13 on ampicillin and Rocephin. -Hives reaction to ampicillin on 05/23, transition to daptomycin. After transition started to have redness and swelling in the knee. -concern for daptomycin resistance, transitioned to vancomycin -Knee x-rays taken:no acute fx or dislocation, soft tissue swelling w/ joint effusion -Blood cultures negative at 48 hour -Infectious disease consulted. - failing IV therapy will be difficult to suppress if hardware remains - continue vanco for now - obtain aerobic, anaerobic and fungal cultures in OR - possible suppression with cipro/levaquin based on prior sensitives --> EKG QTc 440 -Orthopedic surgery consulted, note reviewed 05/29 -Continue IV abx -Plan for OR 06/02 - plan to washout knee and repair the extensor mechanism and immobilize knee for extended period of time Rash noted on abdomen and groin, worsen in pannus fold, not itchy - nystatin ordered - benadryl PO x1 if residual from prior allergic reaction AM CBC, BMP, CRP Plan Chronic conditions: * Type 2 diabetes mellitus: Patient's home regimen held on admission -Continue BSG checks, sliding-scale insulin, hypoglycemic protocol * MAC on CPAP: Continue CPAP at night. * Gastroesophageal reflux disease: Continue omeprazole 20 mg. * Anxiety and depression: Continue Zoloft 200 mg and Wellbutrin 150 mg. * Hypertension: Continue Norvasc 2.5 mg and losartan 100 mg. DVT ppx: Lovenox q12 Dispo: continued inpatient stay Sister update by phone 05/31 Admission and Anticipated Discharge Date Admission Date: May 28, 2024 Supervising Physician Co-Signing Physician Notes PA Supervision Note: I did not personally see or examine the patient today, but I verified all pete points of HANNAH Msa's assessment and plan with the following exceptions/additions: None Subjective Patient sitting in bed. Spoke with Dr. Houston this morning and plan is for OR . Denies fevers or chills. had a bowel movement Rash over abdomen not itchy, unsure if it was itchy when he was having the reaction at rehab. Review of Systems Review of Systems: All systems reviewed & are unremarkable except as noted in Subjective Physical Exam Physical Exam: General: NAD, VS as above Resp: normal respiratory effort, lungs clear to auscultation CV: RRR, no murmur, Abd: normal bowel sounds, non tender, no hepatosplenomegaly Extremities:Left leg not in brace. Still with dark Erythema but improving and mildly warm Neuro: A&O x3, Skin - mild papular rash over abdomen, worsen in panus skin fold Results & Data Results & Data Vital Signs (Past 12 Hours) Vital Signs Temp Pulse Resp BP Pulse Ox O2 Del Method 05/31/24 07:47 37 C 72 18 139/81 96 Room Air Laboratory Results CBC, chemistry adn CRP reviewed Diagnostic Findings EKG reviewed PG Care Time/CCT Total # of Minutes Spent Total Time Spent with Patient: Total time spent is greater than 50% in coordination of care (as documented) at patient's floor/unit and/or counseling patient: Coding Level of Care Code 33218 SUB INP/OBS CARE 3/50MIN Diagnoses Infection of left knee M00.9
[2024-05-31] MEDS: diphenhydrAMINE Capsule 25 MG CAP PO ONE (11:00)
[2024-05-31] MEDS: NYSTATIN POWDER 15GM BTL EXT SCH (12:14)
--- NOTE | 2024-05-31 12:56 | Infectious Disease Progress Nt ---
Date of Service May 31, 2024 Assessment & Plan (1) Infection of left knee: Plan This is a 58 yo male DM2, osteoarthritis, GAVE, metabolic syndrome, obesity, L knee arthroplasty 03/25/25 He was admitted 05/04-05/13 for PJI left knee infection He was working with physical therapy on 04/29 and was using a sliding board when he felt his knee split open. He was started on Keflex but the area worsened with increased pain, erythema and swelling with drainage.. A superficial wound culture obtained on 05/03 grew CONS. He underwent incision and drainage,Poly Exchange, Synovectomy with orthopedics on 05/04 The wound communicated with the knee joint and appeared inflamed per OP report. Intraoperative cultures grew sensitive E faecalis. He was seen by ID . He initially received Daptomycin and Cefepime. He has a Penicillin allergy ( hives). Since there was no plan for hardware removal and he would require alf oral antibiotic suppression in the setting of retained hardware, he underwent PCN desensitization in the ICU during the last admission. He was also evaluated by Immunology/allergy who felt that he did not have a true Penicillin allergy but likely cellulitis form PCn injection. He tolerated Ampicillin and was discharged on combination therapy with IV ampicillin/Ceftriaxone for 6 weeks to end 06/08/24 followed by po suppression for at least 3-6 month with amoxicillin 500 mg po q 8hrs to start 06/09/24. He was discharged to a SNF. While there he apparently developed hives thought to be secondary to Ampicillin approximately 1 week ago. His SNF contact ID and his antibiotics were switched to Daptomycin as his Enterococcus was sensitive. On therapy with PCN as well as Daptomycin, he reports increasing Left knee swelling and erythema with continued pain. He was seen by orthopedics outpatient. Knee X-rays showed there was lateral translation of the patella. Plans were to continue Daptomycin with follow up on 05/31 for review of possible surgical intervention. He denied fever, chills, nausea, vomiting. He returns to the ED from rehab on 05/27 for increasing Left knee swelling and redness. In the ED he was afebrile and HDS. WBC 10.12, hemoglobin 10.3, hematocrit 32.1, platelets 242, BUN 15, creatinine 0.83, CRP i11.16 --->8.09, ESR 94. Left knee xray w/o acute fracture or dislocation.There is soft tissue swelling with joint effusion. He was evaluated by orthopedics. They have concerns for medial retinacular repeat tear. He is currently on IV vancomycin. ID consulted for left knee PJI. Micro: BC 05/28 NGTD Prior Micro: Blood culture 05/03 NG Wound culture superficial 05/03 CONS Intraop wound culture 05/04 E faecalis PanS ( Amp, van, dapto, cipr/lev ) Aero/Barbra Cult Final 05/09/24-1236 Organism 1 Enterococcus faecalis Quantity Moderate Sens Sensitivities to Follow No Anaerobes Isolated No Anaerobes Isolated E faecalis RX M.I.C. --- --------- Ampicillin S <=2 Ciprofloxacin S <=1 Daptomycin S 2 Gent Synergy S <=500 Levofloxacin S <=1 Penicillin S 2 Strep Synergy S <=1000 Tetracycline R >8 Vancomycin S 4 Abx: Vanco 05/27- ongoing #Worsening L knee erythema, swelling on IV antibiotics, new medial retinaculum tear # Prosthetic Left knee infection s/p traumatic wound dehiscence with communication with the knee joint - s/p DAIR 05/04, cx Pans E faecalis #Recent admission for PJI of left knee 05/04-05/13 #PCN allergy- rash - desensitized to Ampicillin 05/2024 but apparently developed rash outpatient on therapy # TMP-Sulf allergy- rash # Increased inflammatory markers On the last admission he grew SENSITIVE Enterococcus Faecalis ( Sensitive to Ampicillin, Daptomycin and Vancomycin) in OR cultures. Although he underwent Ampicillin graded challenge last admission, he apparently developed hives on therapy outpatient. On Amp/ Ceftriaxone--> daptomycin he developed worsening L knee erythema, swelling and increased inflammatory markers ( ESR 94 on 05/29- 77 on 05/13; CRP 11.16 on 05/29 -9.04 on 05/13. Plan for RTOR on 06/01 D/W Ortho Dr Houston . Plan is for repeat irrigation and aggressive debridement with repair of his medial retinaculum. Removal of hardware with implantation of antibiotic spacer would require an extensive procedure and would be challenging as he has well-fixed components. Procedure is considered high risk. At this time plan is for DAIR/retention of hardware on 06/02. Recommendations: -He seems to be failing IV antibiotic therapy. He has been receiving targeted Enterococcus Faecalis antibiotics since his OR on 05/04 and on discharge ( IV ampicillin--->daptomycin for at least 3 weeks) with s/o of continued infection- He will RTOR with ortho on 06/02 for repeat DAIR and repair of medial retinaculum; ortho will obtain aerobic, anaerobic and fungal cx. -Continue IV vancomycin per pharmacy protocol , which should also cover Enterococcus Faecalis. - Will follow up pending OR cx to ensure no other pathogens and need to adjust abx - If only E faecalis, will likely dc on continued IV abx with po suppression with Levaquin or Cipro based on prior E feac sensi - Check EKG to ensure QTC < 500. Discussed case with Ortho attending, Dr Houston. Appreciate input. Discussed ID plan with hospitalist, Dr Alvarez. ID will continue to follow Snow Bonds MD, MPH Infectious Disease ID Connect [facility], ID Division Call [phone] with questions. Admission and Anticipated Discharge Date Admission Date: May 28, 2024 Subjective This patient recommendation is based on a telemedicine consult request which was completed asynchronously through chart review and information provided by the primary physician. The patient was not seen or examined today. The evaluation is consultative in nature and all patient care and treatment decisions can either be accepted or rejected by the patient's primary hospital-based treating physician using their own independent medical judgment for their patient. Time Spent Reviewing Chart: 21 - 30 minutes Discussed case with ortho. Plan for OR tomorrow. Results & Data Vital Signs (Past 12 Hours) Vital Signs Temp Pulse Resp BP Pulse Ox O2 Del Method 05/31/24 07:47 37 C 72 18 139/81 96 Room Air Laboratory Results Short CBC 05/31/24 Range/Units 07:58 WBC 9.59 (4.8-10.8) K/ul Hgb 10.9 L (14.0-18.0) g/dl Hct 32.5 L (42.0-52.0) % Plt Count 274 (130-400) K/uL BMP 05/31/24 07:58 Sodium 139 Potassium 3.9 Chloride 103 Carbon Dioxide 28 BUN 21 Creatinine 0.76 Glucose 122 H Calcium 9.6 Diagnostic Findings Microbiology 05/28/24 00:42 Blood Aerobic Blood Culture - Preliminary No growth in Aerobic bottle after 48 hours. 05/28/24 00:42 Blood Anaerobic Blood Culture - Preliminary No growth in Anaerobic bottle after 48 hours. 05/28/24 00:10 Blood Aerobic Blood Culture - Preliminary No growth in Aerobic bottle after 48 hours. 05/28/24 00:10 Blood Anaerobic Blood Culture - Preliminary No growth in Anaerobic bottle after 48 hours. Chest X-Ray 05/28/24 14:09 XR chest 1V portable HISTORY: 58 years-old Male Check PICC line placement status post placement of a right-sided PICC COMPARISON: 02/16/2024 TECHNIQUE: AP view of the chest FINDINGS: Right-sided PICC distal tip is noted in expected location of the brachiocephalic SVC confluence. Heart is enlarged. Scattered alveolar opacities. No pneumothorax or large pleural effusion. Degenerative changes of the shoulders and spine. IMPRESSION: 1. Status post placement of a right-sided PICC. No postprocedural pneumothorax. 2. Scattered bilateral mixed interstitial and alveolar opacities suspicious for multifocal pneumonia. ACT 112: Negative or not required by law. The above report was generated using voice recognition software. It may contain grammatical, syntax or spelling errors. Electronically signed by: Terry Ware M.D. 05/28/2024 2:30 PM Medications Administered Home Medications Medication Instructions Recorded Confirmed Last Taken albuterol sulfate 90 mcg/actuation 2 puff inhalation Q6H PRN 04/10/19 05/03/24 Unknown aerosol inhaler (Ventolin HFA) Shortness Of Breath Or Wheezing bupropion HCl 150 mg tablet,12 hr 150 mg PO QAM 09/19/21 05/03/24 03/24/24 03:00 sustained-release (Wellbutrin SR) multivitamin 1 tab PO QPM 06/24/22 05/03/24 03/24/24 18:00 lancets 30 gauge (OneTouch Delica #100 ea 11/10/22 05/03/24 Unknown Lancets) furosemide 20 mg tablet (Lasix) 20 mg PO DAILY PRN edema #30 tabs 12/22/22 05/03/24 03/18/24 metformin 500 mg tablet,extended 500 mg PO TIDWMEAL 04/07/23 05/03/24 03/24/24 18:00 release 24 hr cyanocobalamin (vitamin B-12) 3,000 mcg PO QAM 06/03/23 05/03/24 03/24/24 03:00 3,000 mcg capsule sertraline 100 mg tablet (Zoloft) 200 mg PO QAM 09/10/23 05/03/24 03/24/24 03:00 montelukast 10 mg tablet 10 mg PO QPM #90 tabs 11/09/23 05/03/24 03/24/24 18:00 alfuzosin 10 mg tablet,extended 10 mg PO QPM 02/03/24 05/03/24 03/24/24 18:00 release 24 hr (Uroxatral) losartan 100 mg tablet 100 mg PO QAM 02/03/24 05/03/24 03/24/24 03:00 omeprazole 20 mg capsule,delayed 20 mg PO QAM 02/03/24 05/03/24 03/25/24 04:00 release aspirin 81 mg tablet,delayed 81 mg PO BID #60 tabs 03/27/24 05/03/24 Unknown release potassium chloride 20 mEq 20 meq PO .COMPLEX #90 tabs 04/26/24 05/03/24 Unknown tablet,extended release acetaminophen 500 mg tablet 1,000 mg PO TID fever or pain 05/03/24 05/03/24 Unknown (Tylenol Extra Strength) cholecalciferol (vitamin D3) 50 50 mcg PO BID 05/03/24 05/03/24 Unknown mcg (2,000 unit) tablet (Vitamin D3) tirzepatide 7.5 mg/0.5 mL 7.5 mg subcut .HOLD 05/03/24 05/03/24 Unknown subcutaneous pen injector (Mounjaro) amlodipine 2.5 mg tablet 2.5 mg PO HS #30 tabs 05/13/24 Unknown ampicillin sodium 2 gram 12 g IV .q 24 hours days 05/13/24 Unknown intravenous solution ceftriaxone 2 gram intravenous 2 g IV Q12H 26 days 05/13/24 Unknown solution oxycodone 5 mg capsule 5 mg PO Q6H PRN pain #14 caps 05/13/24 Unknown Active Medications Generic Name Dose Route Start Last Admin Trade Name Freq PRN Reason Stop Dose Admin Acetaminophen 650 mg 05/28/24 08:44 05/30/24 20:38 Acetaminophen 325 Mg Tab PO 06/27/24 08:43 650 mg Q4H PRN Administration pain/fever Amlodipine Besylate 2.5 mg 05/28/24 21:00 05/30/24 20:38 Amlodipine Besylate 5 Mg Tab PO 06/27/24 20:59 2.5 mg HS LISA Administration Bupropion HCl 150 mg 05/28/24 09:00 05/31/24 08:17 Bupropion Sr 150 Mg Tabcr PO 06/27/24 08:59 150 mg QAM LISA Administration Enoxaparin Sodium 40 mg 05/28/24 09:30 05/31/24 10:16 Enoxaparin Inj 40 Mg/0.4 Ml Syr SQ 06/27/24 09:29 40 mg Q12H LISA Administration Heparin Sodium (Beef Lung) 5 ml 05/28/24 13:45 05/31/24 09:42 Heparin 10 Unit/Ml 5 Ml Flush FLUSH 06/27/24 13:44 5 ml PRN PRN Administration Flush Vancomycin HCl 1,000 mg/ 270 mls @ 200 mls/hr 05/28/24 16:00 05/31/24 09:37 Sodium Chloride IV 07/09/24 15:59 Infused Q8H LISA Infusion Insulin Aspart 0 units 05/28/24 08:44 05/31/24 12:16 Insulin Aspart Per Unit Charge SC 06/27/24 08:43 3 units ACHS LISA Administration Losartan Potassium 100 mg 05/28/24 09:00 05/31/24 08:20 Losartan Potassium 50 Mg Tab PO 06/27/24 08:59 100 mg QAM LISA Administration Montelukast Sodium 10 mg 05/28/24 21:00 05/30/24 20:39 Montelukast Sodium 10 Mg Tablet PO 06/27/24 20:59 10 mg QPM LISA Administration Multivitamins 1 tab 05/28/24 21:00 05/30/24 20:38 Multivitamin Tab PO 06/27/24 20:59 1 tab QPM LISA Administration Nystatin 1 appln 05/31/24 11:00 05/31/24 12:14 Nystatin Powder 15gm Btl EXT 06/30/24 10:59 1 appln BID LISA Administration Pantoprazole Sodium 40 mg 05/28/24 09:00 05/31/24 08:17 Pantoprazole 40 Mg Tab PO 06/27/24 08:59 40 mg QAM LISA Administration Sertraline HCl 200 mg 05/28/24 09:00 05/31/24 08:17 Sertraline Hcl 100 Mg Tablet PO 06/27/24 08:59 200 mg QAM LISA Administration
[2024-06-01 06:33] LABS: BUN Creatinine Ratio 23.5 (10-20); C Reactive Protein 3.39 mg/dl (0-0.5); Calcium 9.4 mg/dl (8.6-10.3); Creatinine Clr Calc Pharmacy 129.8 ml/min; Est GFR (African American) 109.8 ml/min; Est GFR (Non-African American) 94.7 ml/min
[2024-06-01 06:35] LABS: Hematocrit (blood only) 32.2 % (42.0-52.0); Hemoglobin 10.3 g/dl (14.0-18.0); Mean Corpuscular Hemoglobin 28.9 pg (25.0-34.0); Mean Corpuscular Volume 90.2 fL (80.0-100.0); Mean Platelet Volume 9.8 fL (9.4-12.4); Platelet Count 271 K/uL (130-400); RDW Coefficient of Variation 14.3 % (11.5-14.5); RDW Standard Deviation 47.4 fL (36.4-46.3); Red Blood Count 3.57 M/uL (4.70-6.10); White Blood Count 8.45 K/ul (4.8-10.8)
[2024-06-01 07:10] LABS: Basophils # (auto) 0.08 K/uL (0.00-0.20); Basophils % (auto) 0.9 %; Eosinophils # (auto) 1.82 K/uL (0.00-0.50); Eosinophils % (auto) 21.5 %; Immature Granulocytes # (auto) 0.03 K/uL (0.01-0.20); Immature Granulocytes % (auto) 0.4 %; Lymphocytes # (auto) 2.24 K/uL (1.20-3.40); Lymphocytes % (auto) 26.5 %; Monocytes # (auto) 0.64 K/uL (0.11-0.59); Monocytes % (auto) 7.6 %; Neutrophils # (auto) 3.64 K/uL (1.40-6.50); Neutrophils % (auto) 43.1 %
--- NOTE | 2024-06-01 13:02 | Hospitalist Progress Note ---
Date of Service June 01, 2024 Assessment & Plan (1) Infection of left knee: Plan: -Left TKR with Dr. Houston on 03/25/24, with Washout procedure performed on 05/04/2024. -Wounds grew coagulase-negative staph as well as Enterococcus faecalis. -Initially treated with daptomycin and cefepime. Was discharged on 05/13 on ampicillin and Rocephin. -Hives reaction to ampicillin on 05/23, transition to daptomycin. After transition started to have redness and swelling in the knee. -concern for daptomycin resistance, transitioned to vancomycin -Knee x-rays taken:no acute fx or dislocation, soft tissue swelling w/ joint effusion -Blood cultures negative at 48 hour -Infectious disease consulted. - failing IV therapy will be difficult to suppress if hardware remains - continue vanco for now - obtain aerobic, anaerobic and fungal cultures in OR - possible suppression with cipro/levaquin based on prior sensitives --> EKG QTc 440 -Orthopedic surgery consulted, note reviewed 05/29 -Continue IV abx -Plan for OR 06/02 - plan to washout knee and repair the extensor mechanism and immobilize knee for extended period of time Rash noted on abdomen and groin, worsen in pannus fold, not itchy - nystatin ordered - benadryl PO x1 if residual from prior allergic reaction Plan Chronic conditions: * Type 2 diabetes mellitus: Patient's home regimen held on admission -Continue BSG checks, sliding-scale insulin, hypoglycemic protocol * MAC on CPAP: Continue CPAP at night. * Gastroesophageal reflux disease: Continue omeprazole 20 mg. * Anxiety and depression: Continue Zoloft 200 mg and Wellbutrin 150 mg. * Hypertension: Continue Norvasc 2.5 mg and losartan 100 mg. DVT ppx: Lovenox q12 - on hold for upcoming or procedure Dispo: continued inpatient stay, plan for OR tomorrow Sister update by phone 05/31 Admission and Anticipated Discharge Date Admission Date: May 28, 2024 Supervising Physician Co-Signing Physician Notes PA Supervision Note: I did not personally see or examine the patient today, but I verified all pete points of HANNAH Mas's assessment and plan with the following exceptions/additions: None Subjective Patient seen sitting in bed. No itching to rash on abdomen. Feels like his knee is visually improving. Did move bowels Asking about timing for surgery tomorrow Review of Systems Review of Systems: All systems reviewed & are unremarkable except as noted in Subjective Physical Exam Physical Exam: General: NAD, VS as above Resp: normal respiratory effort, lungs clear to auscultation CV: RRR, no murmur, Abd: normal bowel sounds, non tender, no hepatosplenomegaly Extremities:Left leg not in brace. Still with dark Erythema but improving, warmth has resolved Neuro: A&O x3, Skin - mild papular rash over abdomen, worsen in panus skin fold - improved from yesterday Results & Data Results & Data Vital Signs (Past 12 Hours) Vital Signs Temp Pulse Resp BP Pulse Ox O2 Del Method 06/01/24 08:37 36.7 C 80 24 140/80 97 Room Air Laboratory Results CBC, chemistry, CRP reviewed PG Care Time/CCT Total # of Minutes Spent Total Time Spent with Patient: Total time spent is greater than 50% in coordination of care (as documented) at patient's floor/unit and/or counseling patient: Coding Level of Care Code 89565 SUB INP/OBS CARE 2/35MIN Diagnoses Infection of left knee M00.9
[2024-06-02] MEDS: INSULIN ASPART PER UNIT CHARGE SC SCH ×2 (05:42→17:25)
--- NOTE | 2024-06-02 06:27 | Electrocardiogram Report ---
Test Reason : Blood Pressure : / mmHG Vent. Rate : 073 BPM Atrial Rate : 073 BPM P-R Int : 144 ms QRS Dur : 112 ms QT Int : 400 ms P-R-T Axes : 005 004 023 degrees QTc Int : 440 ms Normal sinus rhythm Normal ECG When compared with ECG of 16-FEB-2024 14:41, No significant change was found Confirmed by Jovani Gregorio ([id number]) on 06/02/2024 6:27:28 AM Referred By: REFERRED SELF Confirmed By:Jovani Gregorio
[2024-06-02] MEDS ORDERED: EPINEPHrine INJ 1 MG/ML AMP ONE (06:46)
[2024-06-02] MEDS ORDERED: DEXAMETHASONE SOD INJ 4 MG/ML VIAL ONE (06:47)
[2024-06-02] MEDS ORDERED: BUPIVACAINE 0.25% PF 30 ML VIAL ONE (06:47)
[2024-06-02] MEDS ORDERED: BUPIVACAINE 0.5 % 5 MG/1 ML PF 10ML VIAL ONE (06:47)
--- NOTE | 2024-06-02 10:33 | Hospitalist Progress Note ---
Date of Service June 02, 2024 Assessment & Plan (1) Infection of left knee: Plan: -Left TKR with Dr. Houston on 03/25/24, with Washout procedure performed on 05/04/2024. -Wounds grew coagulase-negative staph as well as Enterococcus faecalis. -Initially treated with daptomycin and cefepime. Was discharged on 05/13 on ampicillin and Rocephin. -Hives reaction to ampicillin on 05/23, transition to daptomycin. After transition started to have redness and swelling in the knee. -concern for daptomycin resistance, transitioned to vancomycin -Knee x-rays taken:no acute fx or dislocation, soft tissue swelling w/ joint effusion -Blood cultures negative, finalized. -Infectious disease consulted. 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 Discussed with IV team, preferable to keep current PICC in place and wait to see updated ID recommendations post OR, because it will be easier to replace new line (PICC or midline over the current line) vs completely take out and have to wait [address] a new one. Plan Chronic conditions: * Type 2 diabetes mellitus: Patient's home regimen held on admission -Continue BSG checks, sliding-scale insulin, hypoglycemic protocol * MAC on CPAP: Continue CPAP at night. * Gastroesophageal reflux disease: Continue omeprazole 20 mg. * Anxiety and depression: Continue Zoloft 200 mg and Wellbutrin 150 mg. * Hypertension: Continue Norvasc 2.5 mg and losartan 100 mg. DVT ppx: Lovenox on hold with OR Dispo: continued inpatient stay OR today Sister update by phone 05/31 Admission and Anticipated Discharge Date Admission Date: May 28, 2024 Supervising Physician Co-Signing Physician Notes HANNAH Supervision Note: I did not personally see or examine the patient today, but I verified all pete points of HANNAH Mas's assessment and plan with the following exceptions/additions: None Subjective Seen prior to OR. rash is improving. a little anxious for procedure today. discussed current state of PICC and wait to see ID recommendations before placing another Review of Systems Review of Systems: All systems reviewed & are unremarkable except as noted in Subjective Physical Exam Physical Exam: General: NAD, VS as above Resp: normal respiratory effort, lungs clear to auscultation CV: RRR, no murmur, Abd: normal bowel sounds, non tender, no hepatosplenomegaly Extremities:Left leg not in brace. Still with dark Erythema but improving, warmth has resolved Neuro: A&O x3, Skin - mild papular rash over abdomen, worsen in panus skin fold - improved from yesterday Results & Data Results & Data Vital Signs (Past 12 Hours) Vital Signs Temp Pulse Resp BP Pulse Ox O2 Del Method 06/02/24 07:10 36.5 C 70 16 132/75 92 Room Air Laboratory Results POC glucose reviewed PG Care Time/CCT Total # of Minutes Spent Total Time Spent with Patient: Total time spent is greater than 50% in coordination of care (as documented) at patient's floor/unit and/or counseling patient: Coding Level of Care Code 68424 SUB INP/OBS CARE 2/35MIN Diagnoses Infection of left knee M00.9
[2024-06-02] MEDS ORDERED: LIDOCAINE 2% 2 ML VIAL/AMP(20MG/ML) INFIL ONE (11:20)
[2024-06-02] MEDS ORDERED: KETOROLAC 30 MG/ML VIAL ONE (11:20)
[2024-06-02] MEDS ORDERED: MIDAZOLAM HCL 1 MG/ML 2ML VIAL ONE (11:20)
[2024-06-02] MEDS ORDERED: fentaNYL citrate PF 100 MCG/2 ML VIAL ONE (11:20)
[2024-06-02] MEDS ORDERED: PROPOFOL IV EMULSION 10 MG/ML 20 ML VIAL IV ONE ×2 (11:20→12:46)
[2024-06-02] MEDS ORDERED: ROCURONIUM BROMIDE 10 MG/ML 5 ML VIAL IV ONE (11:20)
[2024-06-02] MEDS: LACTATED RINGER'S 1,000 ML IV SCH (11:50)
--- NOTE | 2024-06-02 12:15 | History & Physical Bridge Note ---
Date of Service June 02, 2024 History & Physical Bridge Note I have examined the patient, reviewed the History & Physical and in the interval since the performance of the History & Physical I have noted the following changes of clinical significance: no changes noted
[2024-06-02] MEDS ORDERED: ATROPINE SULFATE 0.1 MG/ML 10ML SYR IV PRN (13:53)
[2024-06-02] MEDS ORDERED: ePHEDrine sulfate 50 MG/ML AMP IV PRN (13:53)
[2024-06-02] MEDS ORDERED: ONDANSETRON INJ 2 MG/ML 2 ML VIAL IV PRN ×2 (13:53→16:40)
--- NOTE | 2024-06-02 13:53 | Anesthesiology Consultation ---
Date of Service June 02, 2024 Assessment & Plan Chart Review Chart Review: Acceptable Risk for Surgery and Patient NOT seen in Pre Admission Testing Consults Requested none ASA ASA3 Proposed Anesthesia Anesthesia Type: MAC Spinal Regional Regional Laterality: Left Site: Adductor Canal Risk / Benefits Reviewed With: PT / POA / Parent / Guardian, Accepts Plan and Informed Consent Obtained History Surgery Operation Date: 06/02/24 12:15 Proposed Procedures p Left Knee Retinacular Repair, Possible Poly Exchange - Lukas Houston MD Height/Weight Height: 5 ft 9 in Weight: 142.2 kg Allergies Allergy/AdvReac Type Severity Reaction Status Date / Time sulfamethoxazole Allergy Intermediate Rash Verified 06/02/24 11:34 trimethoprim Allergy Intermediate Rash Verified 06/02/24 11:34 ampicillin Allergy Hives Verified 06/02/24 11:36 peanut AdvReac Intermediate Diarrhea, Verified 06/02/24 11:34 indigestion soy AdvReac Intermediate diarrhea, Verified 06/02/24 11:34 indigestion wheat AdvReac Intermediate Diarrhea, Verified 06/02/24 11:34 indigestion atorvastatin AdvReac Mild Myalgia Verified 06/02/24 11:34 ezetimibe [From Zetia] AdvReac Mild Myalgia Verified 06/02/24 11:34 rosuvastatin AdvReac Mild Muscle Pain Verified 06/02/24 11:34 Medications Home Medications Medication Instructions Recorded Confirmed Last Taken albuterol sulfate 90 mcg/actuation 2 puff inhalation Q6H PRN 04/10/19 05/03/24 Unknown aerosol inhaler (Ventolin HFA) Shortness Of Breath Or Wheezing bupropion HCl 150 mg tablet,12 hr 150 mg PO QAM 09/19/21 05/03/24 03/24/24 03:00 sustained-release (Wellbutrin SR) multivitamin 1 tab PO QPM 06/24/22 05/03/24 03/24/24 18:00 lancets 30 gauge (OneTouch Delica #100 ea 11/10/22 05/03/24 Unknown Lancets) furosemide 20 mg tablet (Lasix) 20 mg PO DAILY PRN edema #30 tabs 12/22/22 05/03/24 03/18/24 metformin 500 mg tablet,extended 500 mg PO TIDWMEAL 04/07/23 05/03/24 03/24/24 18:00 release 24 hr cyanocobalamin (vitamin B-12) 3,000 mcg PO QAM 06/03/23 05/03/24 03/24/24 03:00 3,000 mcg capsule sertraline 100 mg tablet (Zoloft) 200 mg PO QAM 09/10/23 05/03/24 03/24/24 03:00 montelukast 10 mg tablet 10 mg PO QPM #90 tabs 11/09/23 05/03/24 03/24/24 18:00 alfuzosin 10 mg tablet,extended 10 mg PO QPM 02/03/24 05/03/24 03/24/24 18:00 release 24 hr (Uroxatral) losartan 100 mg tablet 100 mg PO QAM 02/03/24 05/03/24 03/24/24 03:00 omeprazole 20 mg capsule,delayed 20 mg PO QAM 02/03/24 05/03/24 03/25/24 04:00 release aspirin 81 mg tablet,delayed 81 mg PO BID #60 tabs 03/27/24 05/03/24 Unknown release potassium chloride 20 mEq 20 meq PO .COMPLEX #90 tabs 04/26/24 05/03/24 Unknown tablet,extended release acetaminophen 500 mg tablet 1,000 mg PO TID fever or pain 05/03/24 05/03/24 Unknown (Tylenol Extra Strength) cholecalciferol (vitamin D3) 50 50 mcg PO BID 05/03/24 05/03/24 Unknown mcg (2,000 unit) tablet (Vitamin D3) tirzepatide 7.5 mg/0.5 mL 7.5 mg subcut .HOLD 05/03/24 05/03/24 Unknown subcutaneous pen injector (Mounjaro) amlodipine 2.5 mg tablet 2.5 mg PO HS #30 tabs 05/13/24 Unknown ampicillin sodium 2 gram 12 g IV .q 24 hours 26 days 05/13/24 Unknown intravenous solution ceftriaxone 2 gram intravenous 2 g IV Q12H 26 days 05/13/24 Unknown solution oxycodone 5 mg capsule 5 mg PO Q6H PRN pain #14 caps 05/13/24 Unknown Active Medications Generic Name Dose Route Start Last Admin Trade Name Freq PRN Reason Stop Dose Admin Acetaminophen 650 mg 05/28/24 08:44 06/01/24 20:21 Acetaminophen 325 Mg Tab PO 06/27/24 08:43 650 mg Q4H PRN Administration pain/fever Amlodipine Besylate 2.5 mg 05/28/24 21:00 06/01/24 20:13 Amlodipine Besylate 5 Mg Tab PO 06/27/24 20:59 2.5 mg HS LISA Administration Bupropion HCl 150 mg 05/28/24 09:00 06/02/24 08:30 Bupropion Sr 150 Mg Tabcr PO 06/27/24 08:59 150 mg QAM LISA Administration Enoxaparin Sodium 40 mg 05/28/24 09:30 06/01/24 08:12 Enoxaparin Inj 40 Mg/0.4 Ml Syr SQ 06/27/24 09:29 40 mg Q12H LISA Administration Heparin Sodium (Beef Lung) 5 ml 05/28/24 13:45 06/01/24 09:04 Heparin 10 Unit/Ml 5 Ml Flush FLUSH 06/27/24 13:44 5 ml PRN PRN Administration Flush Vancomycin HCl 1,000 mg/ 270 mls @ 200 mls/hr 05/28/24 16:00 06/02/24 09:07 Sodium Chloride IV 07/09/24 15:59 Infused Q8H LISA Infusion Lactated Ringer's 1,000 mls @ 15 mls/hr 06/02/24 12:00 06/02/24 11:50 Lr IV 07/02/24 11:59 15 mls/hr .Q24H LISA Administration Insulin Aspart 0 units 06/02/24 06:00 06/02/24 11:22 Insulin Aspart Per Unit Charge SC 07/02/24 05:59 Not Given Q6 LISA Losartan Potassium 100 mg 05/28/24 09:00 06/02/24 08:30 Losartan Potassium 50 Mg Tab PO 06/27/24 08:59 100 mg QAM LISA Administration Montelukast Sodium 10 mg 05/28/24 21:00 06/01/24 20:12 Montelukast Sodium 10 Mg Tablet PO 06/27/24 20:59 10 mg QPM LISA Administration Multivitamins 1 tab 05/28/24 21:00 06/01/24 20:12 Multivitamin Tab PO 06/27/24 20:59 1 tab QPM LISA Administration Nystatin 1 appln 05/31/24 11:00 06/02/24 08:30 Nystatin Powder 15gm Btl EXT 06/30/24 10:59 1 appln BID LISA Administration Pantoprazole Sodium 40 mg 05/28/24 09:00 06/02/24 08:30 Pantoprazole 40 Mg Tab PO 06/27/24 08:59 40 mg QAM LISA Administration Sertraline HCl 200 mg 05/28/24 09:00 06/02/24 08:30 Sertraline Hcl 100 Mg Tablet PO 06/27/24 08:59 200 mg QAM LISA Administration NPO Date Last Intake of Fluids: 06/01/24 Time Last Intake of Fluids: 21:00 Date Last Intake of Solids: 06/01/24 Time Last Intake of Solids: 21:00 Past Medical History Medical History Diabetes mellitus Morbid obesity BPH (benign prostatic hyperplasia) Osteoarthritis Bilateral chronic knee pain Allergic rhinitis Exercise / Class Metabolic Activity II 4-5 Yardwork/Stairs/Walk up hill Past Family History Family History Mother Diabetes Depression Father Heart disease Myocardial infarction Hypertension Prostate cancer Other No family history of adverse response to anesthesia Denies family history of Ovarian cancer Breast cancer Lung cancer Colorectal cancer Stroke Past Surgical History Surgical History History of esophageal dilatation Hx of prior ablation treatment venous ablation History of hernia surgery As child History of colonoscopy 06/2022 History of esophagogastroduodenoscopy (EGD) History of wisdom tooth extraction History of tooth extraction Status post uvulopalatopharyngoplasty History of repair of anterior cruciate ligament of right knee 1991 History of sinus surgery Past Anesthesia History No Hx of Anesthesia Complications and No Family Hx of Anesthesia Complications History of PONV No Hx of PONV and No Hx of Motion Sickness Social History Smoking Status: Never smoker Do You Dip or Chew Tobacco: No Hx Alcohol Use: No Alcohol Intake Frequency Comment: Quit when he was 27 Hx Substance Use: No substance use type: does not use Physical Exam Vital Signs Last Vital Signs Temp 36.8 C 06/02/24 11:36 Pulse 67 06/02/24 11:36 Resp 17 06/02/24 11:36 BP 148/71 H 06/02/24 11:36 Pulse Ox 98 06/02/24 11:36 O2 Del Method Room Air 06/02/24 11:36 O2 Flow Rate 2 05/31/24 18:49 Constitutional + obese ENMT Mouth: no dentition abnormality Thyromental Distance: > or= 3.5 Finger Breadths Mallampati Class: II Neck normal visual inspection Respiratory normal respiratory effort Auscultation: lungs clear to auscultation bilaterally Cardiovascular Rate/Rhythm: regular rate and regular rhythm Psychiatric Orientation: alert Testing Laboratory Results 06/01/24 05:42 06/01/24 05:42 Urine Color Yellow 05/28/24 00:37 Urine Appearance Clear (Clear) 05/28/24 00:37 Urine pH 6.5 (4.5-7.5) 05/28/24 00:37 Ur Specific Starke 1.027 (1.000-1.030) 05/28/24 00:37 Urine Protein Trace (Negative) H 05/28/24 00:37 Urine Glucose (UA) Negative (Negative) 05/28/24 00:37 Urine Ketones Trace (Negative) H 05/28/24 00:37 Urine Nitrite Negative (Negative) 05/28/24 00:37 Ur Leukocyte Esterase Negative (Negative) 05/28/24 00:37 Urine WBC (Auto) 0-5 /hpf (0-5) 05/28/24 00:37 Urine RBC (Auto) 0-2 /hpf (0-2) 05/28/24 00:37 U Hyaline Cast (Auto) 0-2 /lpf (0-2) 05/28/24 00:37 U Epithel Cells (Auto) 0-2 /hpf (0-2) 05/28/24 00:37 Urine Bacteria (Auto) None Seen (None Seen) 05/28/24 00:37 Blood Type A Positive 06/02/24 06:22 Antibody Screen NEGATIVE 06/02/24 06:22 05/28/24 00:42 Aerobic Blood Culture - Final Blood No growth in Aerobic bottle after 5 days. Anaerobic Blood Culture - Final No growth in Anaerobic bottle after 5 days. 05/28/24 00:10 Aerobic Blood Culture - Final Blood No growth in Aerobic bottle after 5 days. Anaerobic Blood Culture - Final No growth in Anaerobic bottle after 5 days. 06/02/24 06/02/24 06/02/24 11:17 07:35 05:39 POC Glucose 111 H 139 H 123 H
--- NOTE | 2024-06-02 13:59 | Infectious Disease Progress Nt ---
Date of Service June 02, 2024 Assessment & Plan (1) Infection of left knee: Plan This is a 58 yo male DM2, osteoarthritis, GAVE, metabolic syndrome, obesity, L knee arthroplasty 03/25/25 He was admitted 05/04-05/13 for PJI left knee infection He was working with physical therapy on 04/29 and was using a sliding board when he felt his knee split open. He was started on Keflex but the area worsened with increased pain, erythema and swelling with drainage.. A superficial wound culture obtained on 05/03 grew CONS. He underwent incision and drainage,Poly Exchange, Synovectomy with orthopedics on 05/04 The wound communicated with the knee joint and appeared inflamed per OP report. Intraoperative cultures grew sensitive E faecalis. He was seen by ID . He initially received Daptomycin and Cefepime. He has a Penicillin allergy ( hives). Since there was no plan for hardware removal and he would require termination clerk oral antibiotic suppression in the setting of retained hardware, he underwent PCN desensitization in the ICU during the last admission. He was also evaluated by Immunology/allergy who felt that he did not have a true Penicillin allergy but likely cellulitis form PCn injection. He tolerated Ampicillin and was discharged on combination therapy with IV ampicillin/Ceftriaxone for 6 weeks to end 06/08/24 followed by po suppression for at least 3-6 month with amoxicillin 500 mg po q 8hrs to start 06/09/24. He was discharged to a SNF. While there he apparently developed hives thought to be secondary to Ampicillin approximately 1 week ago. His SNF contact ID and his antibiotics were switched to Daptomycin as his Enterococcus was sensitive. On therapy with PCN as well as Daptomycin, he reports increasing Left knee swelling and erythema with continued pain. He was seen by orthopedics outpatient. Knee X-rays showed there was lateral translation of the patella. Plans were to continue Daptomycin with follow up on 05/31 for review of possible surgical intervention. He denied fever, chills, nausea, vomiting. He returns to the ED from rehab on 05/27 for increasing Left knee swelling and redness. In the ED he was afebrile and HDS. WBC 10.12, hemoglobin 10.3, hematocrit 32.1, platelets 242, BUN 15, creatinine 0.83, CRP i11.16 --->8.09, ESR 94. Left knee xray w/o acute fracture or dislocation.There is soft tissue swelling with joint effusion. He was evaluated by orthopedics. They have concerns for medial retinacular repeat tear. He is currently on IV vancomycin. ID consulted for left knee PJI. Micro: BC 05/28 NGTD Prior Micro: Blood culture 05/03 NG Wound culture superficial 05/03 CONS Intraop wound culture 05/04 E faecalis PanS ( Amp, van, dapto, cipr/lev ) Aero/Barbra Cult Final 05/09/24-1236 Organism 1 Enterococcus faecalis Quantity Moderate Sens Sensitivities to Follow No Anaerobes Isolated No Anaerobes Isolated E faecalis RX M.I.C. --- --------- Ampicillin S <=2 Ciprofloxacin S <=1 Daptomycin S 2 Gent Synergy S <=500 Levofloxacin S <=1 Penicillin S 2 Strep Synergy S <=1000 Tetracycline R >8 Vancomycin S 4 Abx: Vanco 05/27- ongoing #Worsening L knee erythema, swelling on IV antibiotics, new medial retinaculum tear ,possible ABX txt failure # Prosthetic Left knee infection s/p traumatic wound dehiscence with communication with the knee joint - s/p DAIR 05/04, cx Pans E faecalis #Recent admission for PJI of left knee 05/04-05/13 #PCN allergy- rash - desensitized to Ampicillin 05/2024 but apparently developed rash outpatient on therapy # TMP-Sulf allergy- rash # Increased inflammatory markers On the last admission he grew SENSITIVE Enterococcus Faecalis ( Sensitive to Ampicillin, Daptomycin and Vancomycin) in OR cultures. Although he underwent Ampicillin graded challenge last admission, he apparently developed hives on therapy outpatient. On Amp/ Ceftriaxone--> daptomycin he developed worsening L knee erythema, swelling and increased inflammatory markers ( ESR 94 on 05/29- 77 on 05/13; CRP 11.16 on 05/29 -9.04 on 05/13. Plan for RTOR on 06/01 D/W Ortho Dr Houston 05/31. Plan is for repeat irrigation and aggressive debridement with repair of his medial retinaculum. Removal of hardware with implantation of antibiotic spacer would require an extensive procedure and would be challenging as he has well-fixed components. Procedure is considered high risk. At this time plan is for DAIR/retention of hardware later today 06/02. He has been receiving targeted Enterococcus Faecalis antibiotics since his OR on 05/04 and on discharge ( IV ampicillin--->daptomycin for at least 3 weeks) with s/o of continued infection- Recommendations: -Follow up pending OR report and pending aerobic, anaerobic and fungal intraoperative cx and pathology. . -Continue IV vancomycin per pharmacy protocol , which should also cover Enterococcus Faecalis. - Will follow up pending OR cx to ensure no other pathogens and need to adjust abx - If only E faecalis, will likely dc on continued IV abx with vancomycin followed po suppression with Levaquin or Cipro based on prior E feac sensi ( qtc 440- 05/31) ID will continue to follow Snow Bonds MD, MPH Infectious Disease [facility], ID Division Call [phone] with questions. Admission and Anticipated Discharge Date Admission Date: May 28, 2024 Subjective This patient recommendation is based on a telemedicine consult request which was completed asynchronously through chart review and information provided by the primary physician. The patient was not seen or examined today. The evaluation is consultative in nature and all patient care and treatment decisions can either be accepted or rejected by the patient's primary hospital-based treating physician using their own independent medical judgment for their patient. Time Spent Reviewing Chart: 11 - 20 minutes Pending RtOR today Results & Data Vital Signs (Past 12 Hours) Vital Signs Temp Pulse Pulse Resp BP Pulse Ox O2 Del Method 06/02/24 11:36 36.8 C 67 17 148/71 H 98 Room Air 06/02/24 07:10 36.5 C 70 16 132/75 92 Room Air Laboratory Results Laboratory Results - last 48 hr 05/31/24 05/31/24 06/01/24 16:24 20:28 05:42 WBC 8.45 RBC 3.57 L Hgb 10.3 L Hct 32.2 L MCV 90.2 MCH 28.9 MCHC 32.0 RDW Std Deviation 47.4 H RDW Coeff of Migue 14.3 Plt Count 271 MPV 9.8 Immature Gran % (Auto) 0.4 Neut % (Auto) 43.1 Lymph % (Auto) 26.5 [place] % (Auto) 7.6 Eos % (Auto) 21.5 Baso % (Auto) 0.9 Neut # (Auto) 3.64 Lymph # (Auto) 2.24 [place] # (Auto) 0.64 H Eos # (Auto) 1.82 H Baso # (Auto) 0.08 Immature Gran # (Auto) 0.03 Sodium 139 Potassium 4.0 Chloride 103 Carbon Dioxide 31 Anion Gap 5 BUN 20 Creatinine 0.85 Est Cr Clr Drug Dosing 129.8 Est GFR ( Amer) 109.8 Est GFR (Non-Af Amer) 94.7 BUN/Creatinine Ratio 23.5 H Glucose 126 H POC Glucose 154 H 93 Calcium 9.4 C-Reactive Protein 3.39 H Blood Type Antibody Screen 06/01/24 06/01/24 06/01/24 07:32 11:34 16:29 WBC RBC Hgb Hct MCV MCH MCHC RDW Std Deviation RDW Coeff of Migue Plt Count MPV Immature Gran % (Auto) Neut % (Auto) Lymph % (Auto) [place] % (Auto) Eos % (Auto) Baso % (Auto) Neut # (Auto) Lymph # (Auto) [place] # (Auto) Eos # (Auto) Baso # (Auto) Immature Gran # (Auto) Sodium Potassium Chloride Carbon Dioxide Anion Gap BUN Creatinine Est Cr Clr Drug Dosing Est GFR ( Amer) Est GFR (Non-Af Amer) BUN/Creatinine Ratio Glucose POC Glucose 126 H 126 H 134 H Calcium C-Reactive Protein Blood Type Antibody Screen 06/01/24 06/02/24 06/02/24 20:04 05:39 06:22 WBC RBC Hgb Hct MCV MCH MCHC RDW Std Deviation RDW Coeff of Migue Plt Count MPV Immature Gran % (Auto) Neut % (Auto) Lymph % (Auto) [place] % (Auto) Eos % (Auto) Baso % (Auto) Neut # (Auto) Lymph # (Auto) [place] # (Auto) Eos # (Auto) Baso # (Auto) Immature Gran # (Auto) Sodium Potassium Chloride Carbon Dioxide Anion Gap BUN Creatinine Est Cr Clr Drug Dosing Est GFR ( Amer) Est GFR (Non-Af Amer) BUN/Creatinine Ratio Glucose POC Glucose 113 H 123 H Calcium C-Reactive Protein Blood Type A Positive Antibody Screen NEGATIVE 06/02/24 06/02/24 07:35 11:17 WBC RBC Hgb Hct MCV MCH MCHC RDW Std Deviation RDW Coeff of Migue Plt Count MPV Immature Gran % (Auto) Neut % (Auto) Lymph % (Auto) [place] % (Auto) Eos % (Auto) Baso % (Auto) Neut # (Auto) Lymph # (Auto) [place] # (Auto) Eos # (Auto) Baso # (Auto) Immature Gran # (Auto) Sodium Potassium Chloride Carbon Dioxide Anion Gap BUN Creatinine Est Cr Clr Drug Dosing Est GFR ( Amer) Est GFR (Non-Af Amer) BUN/Creatinine Ratio Glucose POC Glucose 139 H 111 H Calcium C-Reactive Protein Blood Type Antibody Screen Diagnostic Findings Microbiology 05/28/24 00:42 Blood Aerobic Blood Culture - Final No growth in Aerobic bottle after 5 days. 05/28/24 00:42 Blood Anaerobic Blood Culture - Final No growth in Anaerobic bottle after 5 days. 05/28/24 00:10 Blood Aerobic Blood Culture - Final No growth in Aerobic bottle after 5 days. 05/28/24 00:10 Blood Anaerobic Blood Culture - Final No growth in Anaerobic bottle after 5 days. Medications Administered Home Medications Medication Instructions Recorded Confirmed Last Taken albuterol sulfate 90 mcg/actuation 2 puff inhalation Q6H PRN 04/10/19 05/03/24 Unknown aerosol inhaler (Ventolin HFA) Shortness Of Breath Or Wheezing bupropion HCl 150 mg tablet,12 hr 150 mg PO QAM 09/19/21 05/03/24 03/24/24 03:00 sustained-release (Wellbutrin SR) multivitamin 1 tab PO QPM 06/24/22 05/03/24 03/24/24 18:00 lancets 30 gauge (OneTouch Delica #100 ea 11/10/22 05/03/24 Unknown Lancets) furosemide 20 mg tablet (Lasix) 20 mg PO DAILY PRN edema #30 tabs 12/22/22 05/03/24 03/18/24 metformin 500 mg tablet,extended 500 mg PO TIDWMEAL 04/07/23 05/03/24 03/24/24 18:00 release 24 hr cyanocobalamin (vitamin B-12) 3,000 mcg PO QAM 06/03/23 05/03/24 03/24/24 03:00 3,000 mcg capsule sertraline 100 mg tablet (Zoloft) 200 mg PO QAM 09/10/23 05/03/24 03/24/24 03:00 montelukast 10 mg tablet 10 mg PO QPM #90 tabs 11/09/23 05/03/24 03/24/24 18:00 alfuzosin 10 mg tablet,extended 10 mg PO QPM 02/03/24 05/03/24 03/24/24 18:00 release 24 hr (Uroxatral) losartan 100 mg tablet 100 mg PO QAM 02/03/24 05/03/24 03/24/24 03:00 omeprazole 20 mg capsule,delayed 20 mg PO QAM 02/03/24 05/03/24 03/25/24 04:00 release aspirin 81 mg tablet,delayed 81 mg PO BID #60 tabs 03/27/24 05/03/24 Unknown release potassium chloride 20 mEq 20 meq PO .COMPLEX #90 tabs 04/26/24 05/03/24 Unknown tablet,extended release acetaminophen 500 mg tablet 1,000 mg PO TID fever or pain 05/03/24 05/03/24 Unknown (Tylenol Extra Strength) cholecalciferol (vitamin D3) 50 50 mcg PO BID 05/03/24 05/03/24 Unknown mcg (2,000 unit) tablet (Vitamin D3) tirzepatide 7.5 mg/0.5 mL 7.5 mg subcut .HOLD 05/03/24 05/03/24 Unknown subcutaneous pen injector (Delores) amlodipine 2.5 mg tablet 2.5 mg PO HS #30 tabs 05/13/24 Unknown ampicillin sodium 2 gram 12 g IV .q 24 hours 26 days 05/13/24 Unknown intravenous solution ceftriaxone 2 gram intravenous 2 g IV Q12H 26 days 05/13/24 Unknown solution oxycodone 5 mg capsule 5 mg PO Q6H PRN pain #14 caps 05/13/24 Unknown Active Medications Generic Name Dose Route Start Last Admin Trade Name Freq PRN Reason Stop Dose Admin Acetaminophen 650 mg 05/28/24 08:44 06/01/24 20:21 Acetaminophen 325 Mg Tab PO 06/27/24 08:43 650 mg Q4H PRN Administration pain/fever Amlodipine Besylate 2.5 mg 05/28/24 21:00 06/01/24 20:13 Amlodipine Besylate 5 Mg Tab PO 06/27/24 20:59 2.5 mg HS LISA Administration Bupropion HCl 150 mg 05/28/24 09:00 06/02/24 08:30 Bupropion Sr 150 Mg Tabcr PO 06/27/24 08:59 150 mg QAM LISA Administration Enoxaparin Sodium 40 mg 05/28/24 09:30 06/01/24 08:12 Enoxaparin Inj 40 Mg/0.4 Ml Syr SQ 06/27/24 09:29 40 mg Q12H LISA Administration Heparin Sodium (Beef Lung) 5 ml 05/28/24 13:45 06/01/24 09:04 Heparin 10 Unit/Ml 5 Ml Flush FLUSH 06/27/24 13:44 5 ml PRN PRN Administration Flush Vancomycin HCl 1,000 mg/ 270 mls @ 200 mls/hr 05/28/24 16:00 06/02/24 09:07 Sodium Chloride IV 07/09/24 15:59 Infused Q8H LISA Infusion Lactated Ringer's 1,000 mls @ 15 mls/hr 06/02/24 12:00 06/02/24 11:50 Lr IV 07/02/24 11:59 15 mls/hr .Q24H LISA Administration Insulin Aspart 0 units 06/02/24 06:00 06/02/24 11:22 Insulin Aspart Per Unit Charge SC 07/02/24 05:59 Not Given Q6 LISA Losartan Potassium 100 mg 05/28/24 09:00 06/02/24 08:30 Losartan Potassium 50 Mg Tab PO 06/27/24 08:59 100 mg QAM LISA Administration Montelukast Sodium 10 mg 05/28/24 21:00 06/01/24 20:12 Montelukast Sodium 10 Mg Tablet PO 06/27/24 20:59 10 mg QPM LISA Administration Multivitamins 1 tab 05/28/24 21:00 06/01/24 20:12 Multivitamin Tab PO 06/27/24 20:59 1 tab QPM LISA Administration Nystatin 1 appln 05/31/24 11:00 06/02/24 08:30 Nystatin Powder 15gm Btl EXT 06/30/24 10:59 1 appln BID LISA Administration Pantoprazole Sodium 40 mg 05/28/24 09:00 06/02/24 08:30 Pantoprazole 40 Mg Tab PO 06/27/24 08:59 40 mg QAM LISA Administration Sertraline HCl 200 mg 05/28/24 09:00 06/02/24 08:30 Sertraline Hcl 100 Mg Tablet PO 06/27/24 08:59 200 mg QAM LISA Administration
--- NOTE | 2024-06-02 15:15 | Post Operative Brief Note ---
Immediate Post Op Note Date of Surgery June 02, 2024 Pre & Post Diagnosis Operation Date: 06/02/24 12:15 Pre-Op Diagnosis: Infection of Left Knee Post-Op Diagnosis: Infection of Left Knee I identified the patient and participated in the time-out.: Yes Procedure Operation Date: 06/02/24 12:15 Actual Procedures p Left Knee Medial Retinacular Repair with Lateral Release, Left Knee Poly Exchange(Left) - Lukas Houston MD Surgeon Lukas Houston MD Rn Operating Room Derick Canales PAAndre Estimated Blood Loss 25 Findings Consistent with Post-Op Diagnosis Drains Hemovac Drain
--- NOTE | 2024-06-02 15:47 | Operative Report ---
Post Operative Report Pre & Post Diagnosis Operation Date: 06/02/24 12:15 Pre-Op Diagnosis: Infection of Left Knee Post-Op Diagnosis: Torn left knee medial retinaculum. I identified the patient and participated in the time-out.: Yes Procedure Operation Date: 06/02/24 12:15 Actual Procedures p Left Knee Medial Retinacular Repair with Lateral Release, Left Knee Poly Exchange(Left) - Lukas Houston MD Surgeon Lukas Houston MD Deputy Felony Clerk Derick Canales PA-C Estimated Blood Loss 25 Findings Consistent with Post-Op Diagnosis 1. Patient did have disruption of a portion of the medial retinacular repair from the previous surgery. There was some hematoma in the knee but the knee overall benign. 2. Frozen sections were sent for white cells per high-power field and showed a maximum of 7 neutrophils in 1 field most of the other christiansen were 5 or less. 3.. The knee showed healthy granulation tissue without with some fibrinous hematoma material but definitely no gross purulence. Tissue fragments and synovial tissue was sent for culture as well as regular cultures taken. Specimens Explanted polyethylene synovial tissue and old hematoma Drains 1 Indications patient is an unfortunate morbidly obese 58-year-old male who was doing well after a uncomplicated total knee had a traumatic dehiscence of his knee while in physical therapy with aggressive forced flexion by a therapist. He was taken to the operating room for an open injury that showed secondary infection and was irrigated cleaned out and repaired. He was sent to a shelter where he was to ambulate but note with no forced motion. It sounds as though he was probably sitting in low chairs and low toilet seats. He is morbidly obese with a 142 kg weight. I believe that he will be getting up and stressing his knee in deep flexion with his weight resulted in a secondary rupture of the medial retinacular repair. He was brought in today for exploration. Description of Procedure Following satisfactory spinal anesthesia the patient was supine on the operating room table. A tourniquet was placed. The lower extremity was prepared with ChloraPrep and draped sterilely. A surgical timeout was performed. Following gravity exsanguination the tourniquet was inflated to 300 mmHg. Using the old midline incision the knee was opened. Again there was obvious lateral subluxation of the patella and a rent of the medial retinaculum that extended from about 2 cm proximal to the superior pole of the patella to 2 cm up to 3 cm distal to the distal pole of the patella. There was a lot of fibrinous hemorrhagic material. Deep cultures were taken. The the arthrotomy was opened proximally and distally for better exposure. A lot of the fibrinous hematoma was curetted out but the knee did show healthy granulation tissue. The tibial polyethylene was removed. This allowed access to the posterior gutter. Frozen sections were also sent and reported above. The wound was irrigated copiously with 4 L of pulse lavage and again appeared very clean. By this time the frozen sections have returned and showed again 7 white cells and 1 field otherwise less than 5 in all other christiansen. A trial reduction with a size 6.18 constrained poly was performed and tighten the knee nicely. The trial component was removed. The wound was irrigated with 300 cc of experience irrigation and a Hemovac drain was placed. The final polyethylene of the same size was placed and reduced. The wound was irrigated with the remainder of the experience irrigation. A Hemovac drain was placed. The arthrotomy was then addressed. With the knee in 45 degrees flexion and using towel clips and extensive lateral release was performed. This did improve patella tracking a great deal. After irrigation the arthrotomy was closed with a combination of #2 FiberWire interrupted [id number] andnumber two #1 PDS. The knee was checked with a gravity test and showed that the patella did track better there was not a lot of tension till about 30 degrees of flexion. Wound was irrigated again. The subcutaneous tissues were closed 2-0 Vicryl and 0 strata fix. The skin was closed with surgical bello. There was a small bit rent in the medial skin which was repaired with bello as well. Negative pressure wound dressing followed by a dry compression bandage and a Mazama knee immobilizer locked in extension was applied. Tourniquet was deflated. Total tourniquet time was 90 minutes at 300 mmHg. Patient was returned to his bed and taken to the recovery room in stable condition. Note: Derick YOUNG was present and assisted throughout due to the complicated nature of this case. He help with preparation and set up an general office assistant throughout. He assisted with hemostasis and exposure throughout the procedure. He also closed the capsule subcutaneous and skin layers and applied the postop dressing. I attest to the content of the Intraoperative Record and any orders documented therein. Any exceptions are noted below.
[2024-06-02] MEDS: fentaNYL citrate PF 100 MCG/2 ML VIAL IV PRN (15:57)
--- NOTE | 2024-06-02 16:30 | Anesthesiology Progress Note ---
Date of Service June 02, 2024 Anesthesia Post Procedure Vital Signs Vital Signs: Temp Pulse Pulse Pulse Resp BP Pulse Ox 06/02/24 16:13 97.5 F L 65 20 136/76 96 06/02/24 16:00 72 20 148/83 H 95 06/02/24 15:50 72 24 143/75 H 98 06/02/24 15:42 97.7 F 72 21 139/68 97 06/02/24 11:36 98.2 F 67 17 148/71 H 98 06/02/24 07:10 97.7 F 70 16 132/75 92 06/01/24 20:06 98.6 F 62 18 128/70 96 O2 Del Method 06/02/24 16:13 Room Air 06/02/24 16:00 Room Air 06/02/24 15:50 Room Air 06/02/24 15:42 Room Air 06/02/24 11:36 Room Air 06/02/24 07:10 Room Air 06/01/24 20:06 Room Air Pain Intensity Left Knee: Pain Intensity: 4 Transfer of Care Handoff Completed per policy Notes Mental Status: alert / awake / arousable and participated in evaluation Patient Amnestic to Procedure: Yes Nausea / Vomiting: adequately controlled Pain: adequately controlled Airway Patency, RR, SpO2: stable & adequate BP & HR: stable & adequate Hydration State: stable & adequate Neuraxial Anesthesia: was administered and sensory block is resolving Anesthetic Complications: no major complications apparent and Pt Satisfied with anesthetic care
[2024-06-02] MEDS ORDERED: bisacodyL 10 MG SUPP PR PRN (16:40)
[2024-06-02] MEDS ORDERED: ALBUTEROL HFA 8 GM INHALER INH PRN (16:40)
[2024-06-02] MEDS ORDERED: METOCLOPRAMIDE HCL INJ 5 MG/ML 2 ML VIAL IV PRN (16:40)
[2024-06-02] MEDS ORDERED: MAGNESIUM HYDROXIDE SUSP 30 ML UDC PO PRN (16:40)
[2024-06-02] MEDS ORDERED: NALOXONE HCL 0.4 MG/1 ML VIAL/CARP IV PRN (16:40)
[2024-06-02] MEDS: SODIUM CHLORIDE 0.9% 1,000 ML IV SCH (16:53)
[2024-06-02] MEDS: oxyCODONE HCL IR 5 MG TAB (IMMEDIATE RELEASE) PO PRN (17:24)
[2024-06-02] MEDS: MoRPHine SULFATE 2 MG/ML CARP IV STA (19:36)
[2024-06-02] MEDS: CHOLECALCIFEROL 25 MCG (1000 UNITS) TAB PO SCH (20:31)
[2024-06-02] MEDS: SENNA 8.6 MG TAB PO SCH (20:31)
[2024-06-02] MEDS: ACETAMINOPHEN 500 MG TAB PO SCH (20:31)
[2024-06-02] MEDS: TAMSULOSIN HCL 0.4 MG CAP PO SCH (20:32)
[2024-06-02] MEDS: DOCUSATE SODIUM 100 MG CAP PO SCH (20:32)
--- NOTE | 2024-06-03 06:40 | Orthopedic Progress Note ---
Date of Service June 03, 2024 Assessment & Plan (1) Infection of left knee: Plan: Postop day 1 status post I&D left knee with polyethylene bearing change and repair of torn medial retinaculum. PT/OT protocols. Weightbearing as tolerated on the left lower extremity. Absolutely no range of motion of the left knee at this time. Shayla brace is to be worn at all times and locked in extension. DVT prophylaxis-SCD's; patient was on Lovenox prior to surgery. Plans will be to hold off on Lovenox at this time. Consider restarting Eliquis 2.5 mg p.o. twice daily tomorrow. Pain management as written. Cultures pending. 1 Gram stain completed showing no organisms and few WBCs. Tissue sent to pathology yesterday during the case was sent for white cells per high-power field. This was recorded at 7 or less white cells. continue IV vancomycin at this point in time. DC planning-patient will likely require skilled facility upon discharge. Admission and Anticipated Discharge Date Admission Date: May 28, 2024 Subjective Patient sitting up in bed awake and alert. No complaints this morning. He is comfortable. Pain is controlled. Physical Exam Physical Exam: Dressings are clean, dry, and intact. Calves are soft nontender. Neurovascular is intact. Toes are mobile. He has good dorsiflexion and plantarflexion of the left foot. Shayla brace is in place. Hemovac drainage was 150 cc at midnight. 25 cc around 3 AM. Results & Data Vital Signs (Past 12 Hours) Vital Signs Temp Pulse Pulse Resp BP Pulse Ox O2 Del Method 06/03/24 03:45 37 C 59 L 18 130/66 97 Room Air 06/02/24 23:13 36.5 C 61 20 133/86 97 CPAP 06/02/24 19:40 37.0 C 68 18 148/67 H 97 Room Air 06/02/24 18:49 36.7 C 71 18 161/81 H 97 Room Air
[2024-06-03 08:06] LABS: Basophils # (auto) 0.07 K/uL (0.00-0.20); Basophils % (auto) 0.6 %; Eosinophils # (auto) 1.49 K/uL (0.00-0.50); Eosinophils % (auto) 12.3 %; Hemoglobin 10.7 g/dl (14.0-18.0); Immature Granulocytes # (auto) 0.05 K/uL (0.01-0.20); Immature Granulocytes % (auto) 0.4 %; Lymphocytes # (auto) 2.33 K/uL (1.20-3.40); Lymphocytes % (auto) 19.3 %; Mean Corpuscular Hemoglobin 28.8 pg (25.0-34.0); Mean Corpuscular Hgb Conc 32.4 g/dL (32.0-36.0); Mean Corpuscular Volume 88.7 fL (80.0-100.0); Mean Platelet Volume 9.4 fL (9.4-12.4); Monocytes # (auto) 0.85 K/uL (0.11-0.59); Neutrophils % (auto) 60.4 %; Platelet Count 302 K/uL (130-400); RDW Coefficient of Variation 14.2 % (11.5-14.5); RDW Standard Deviation 45.5 fL (36.4-46.3); Red Blood Count 3.72 M/uL (4.70-6.10); White Blood Count 12.09 K/ul (4.8-10.8)
[2024-06-03 08:21] LABS: BUN Creatinine Ratio 20.9 (10-20); Calcium 9.4 mg/dl (8.6-10.3); Creatinine Clr Calc Pharmacy 128.3 ml/min; Est GFR (African American) 109.2 ml/min; Est GFR (Non-African American) 94.3 ml/min; Potassium 3.5 mmol/L (3.5-5.1)
[2024-06-03] MEDS: VANCOMYCIN LEVEL ONE (08:43)
[2024-06-03] MEDS ORDERED: MULTIVITAMIN TAB PO SCH (09:00)
--- NOTE | 2024-06-03 09:08 | Pharmacy Report ---
Pharmacy PK ABX Note - Date of Service June 03, 2024 - Assessment and Plan Assessment 58 year old M receiving vancomycin for treatment of left knee infection status post total knee replacement on 03/25/24. Admitted on 05/03 with redness and purulent drainage from knee, surface wound culture grew CoNS sensitive to daptomycin and vancomycin and deep wound culture grew thomas-sensitive enterococcus faecalis. Complicated by patient allergies. ID consulted and recommended ampicillin and ceftiaxone therapy after a successful amoxicillin challenge (suspected CoNS as a contaminant). Reported hives while on ampicillin/ceftriaxone and thus switched to daptomycin. Presented to ER due to concerns for worsening infection while on daptomycin. Blood cultures 05/28 show no growth at 5 days. Patient now POD #1 s/p left knee repair w/ lateral release/poly exchange. Cultures of knee obtained and pending. ID consulted and recommending vancomycin at this time. Renal function stable, afebrile, increased WBC today (12.09) Day #7 of vancomycin therapy Plan Vancomycin * Current regimen: 1000 mg IV every 8 hours * Trough level obtained 06/03/24 resulted as 18.1 mcg/mL. This is predicted to achieve target AUC/TAMMI of 400-600 mg/L.hr * Predicted AUC at steady state: 556 mg/L.hr * Continue 1000 mg IV every 8 hours * Will repeat level if therapy is continued beyond another 72 hours and/or there is a change in patient clinical status Pharmacy will continue to follow and will adjust dose/frequency as necessary. Thank you. Pharmacy has transitioned to AUC monitoring for vancomycin. AUC/TAMMI is the preferred PK/PD target and is associated with decreased risk of nephrotoxicity compared to traditional trough targets.
--- NOTE | 2024-06-03 12:37 | Infectious Disease Progress Nt ---
Date of Service June 03, 2024 Assessment & Plan (1) Infection of left knee: Plan This is a 58 yo male DM2, osteoarthritis, GAVE, metabolic syndrome, obesity, L knee arthroplasty 03/25/25 He was admitted 05/04-05/13 for PJI left knee infection He was working with physical therapy on 04/29 and was using a sliding board when he felt his knee split open. He was started on Keflex but the area worsened with increased pain, erythema and swelling with drainage.. A superficial wound culture obtained on 05/03 grew CONS. He underwent incision and drainage,Poly Exchange, Synovectomy with orthopedics on 05/04. The wound communicated with the knee joint and appeared inflamed per OP report. Intraoperative cultures grew sensitive E faecalis. He was seen by ID . He initially received Daptomycin and Cefepime. He reported a Penicillin allergy ( hives). 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 He was also evaluated by Immunology/allergy who felt that he did not have a true Penicillin allergy but likely cellulitis from PCN injection. He tolerated Ampicillin Since CONS did not grown in OR culture, therapy focused on E faecalis. Concho therapy with IV ampicillin was an option but since prosthetic retained with purulence noted, communication with joint and no antibiotic impregnated material containing gentamicin was placed as well as the nature of Enterococcal infection with retained hardware , he was discharged on combination therapy with IV ampicillin/Ceftriaxone for 6 weeks to end 06/08/24 followed by po suppression for at least 3-6 month with amoxicillin 500 mg po q 8hrs to start 06/09/24. He was discharged to a SNF. While there he apparently developed hives thought to be secondary to Ampicillin approximately 1 week ago. His SNF contacted ID and his antibiotics were switched to Daptomycin as his Enterococcus was sensitive. On therapy with PCN as well as Daptomycin, he reports increasing Left knee swelling and erythema with continued pain. He was seen by orthopedics outpatient. Knee X-rays showed there was lateral translation of the patella. Plans were to continue Daptomycin with follow up on 05/31 for review of possible surgical intervention. He denied fever, chills, nausea, vomiting. He returns to the ED from rehab on 05/27 for increasing Left knee swelling and redness. In the ED, he was afebrile and HDS. WBC 10.12, hemoglobin 10.3, hematocrit 32.1, platelets 242, BUN 15, creatinine 0.83, CRP 11.16 --->8.09, ESR 94. Left knee xray w/o acute fracture or dislocation.There is soft tissue swelling with joint effusion. He was evaluated by orthopedics who had concerns for medial retinacular repeat tear. He was started on IV vancomycin. ID consulted for left knee PJI. Micro ( this admission): BC 05/28 NGTD Intra op cx 06/02 Prior Micro : Blood culture 05/03 NG Wound culture superficial 05/03 CONS Intraop wound culture 05/04 E faecalis PanS ( Amp, van, dapto, cipr/lev ) Aero/Barbra Cult Final 05/09/24-1236 Organism 1 Enterococcus faecalis Quantity Moderate Sens Sensitivities to Follow No Anaerobes Isolated No Anaerobes Isolated E faecalis RX M.I.C. 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 Although he underwent Ampicillin graded challenge last admission, he apparently developed hives on therapy outpatient. On Amp/ Ceftriaxone--> daptomycin he developed worsening L knee erythema, swelling and increased inflammatory markers ( ESR 94 on 05/29- 77 on 05/13; CRP 11.16 on 05/29 -9.04 on 05/13. Plan for RTOR on 06/01 D/W Ortho Dr Houston 05/31. Per discussion, removal of hardware with implantation of antibiotic spacer would require an extensive procedure and would be challenging as he has well-fixed components. Procedure is considered high risk. He has been receiving targeted Enterococcus Faecalis antibiotics since his OR on 05/04 and on discharge ( IV ampicillin--->daptomycin for at least 3 weeks) with s/o of continued infection- -06/02 he underwent left knee medial retinacular repair and lateral release, left knee poly exchange. Per operative report, he was found to have disruption of a portion of the medial retinacular repair for from the previous surgery. There was some hematoma in the knee but the knee appeared benign. Frozen sections were sent for white cells per high-power field and showed maximum of 7 neutrophils and 1 field most of the other christiansen were 5 or less. The knee showed healthy granulation with some fibrinous hematoma but no gross purulence. Tissue fragments and synovial tissue were sent for culture. -06/03 WBC up to 12.09 Recommendations: -Follow up aerobic, anaerobic, fungal intraoperative cx and pathology -Monitor WBC -Continue IV vancomycin per pharmacy protocol for now, which should also cover Enterococcus Faecalis. - If only E faecalis grows, continued IV abx --> consider changing to Daptomycin 8-10mg/lg IV daily ( if sensitive) as Less nephrotoxic than IV vanco and easier to manage outpatient, followed PO suppression with Levaquin or Cipro based on prior E feac sensi ( qtc 440- 05/31). The Initial plan for completion of IV antibiotics was 06/08 ( 6 wks from 05/04 OR date), but given interruption in antibiotics and repeat surgery, will consider extending for 3-4 weeks. lf sterile, then will consider 2 more weeks. Duration TBD based on pending culture data. - If another organisms grows, then will adjust antibiotics accordingly and plan for 6 weeks of pathogen targeted IV antibiotics from 06/02 OR date, followed by oral suppressive therapy. - On IV antibiotics, he will require weekly CBC with diff, CMP. ESR, CRP. If only option for therapy based on pending culture data is IV vancomycin: In addition to weekly labs, he will require BI weekly vanco trough to ensure appropriate levels. The Final dose will be based on Vanco trough of 15-18. If discharged on IV daptomycin: In addition to weekly labs, add weekly CPK. -Close Ortho follow up -Establish care with local ID. ID will continue to follow. [facility] will not round this weekend. Please call [phone] with questions. Snow Bonds MD, MPH Infectious Disease [facility], ID Division Admission and Anticipated Discharge Date Admission Date: May 28, 2024 Subjective Subsequent visit was provided via telemedicine using two-way real-time interactive telecommunication between the patient and the telemedicine provider. For the duration of the visit, the provider was performing the assessment from a different facility than the patient. This includesuse of bluetooth stethoscope forauscultationperformed by the telepresenter that the telemedicine provider can hear if described in the physical exam. Tube Balancer contact information: Please call [facility] Call Center [phone]. (Phone Number For Physician Use Only) After establishing a telemedicine visit, patient was: Patient was verified with two unique identifiers Time Spent with Patient: Subsequent => 35 min He feels some Left knee discomfort He is sp OR yesterday Physical Exam Physical Exam: GEN- NAD, obese, laying in bed HEENT- anicteric sclera Lung- No increased work of breathing, On RA Abdomen- Soft , obese, not tender Ext- RLE with no Edema. LLE dressed in rain dressing and brace. Hemovac with bloody draianage. Neuro- AAO*3 Psych- Normal mood, appropriate Results & Data Vital Signs (Past 12 Hours) Vital Signs Temp Pulse Pulse Resp BP Pulse Ox O2 Del Method 06/03/24 12:06 36.5 C 63 18 139/76 95 Room Air 06/03/24 07:31 36.6 C 70 18 141/68 H 98 Room Air 06/03/24 03:45 37 C 59 L 18 130/66 97 Room Air Laboratory Results Short CBC 06/03/24 Range/Units 07:48 WBC 12.09 H (4.8-10.8) K/ul Hgb 10.7 L (14.0-18.0) g/dl Hct 33.0 L (42.0-52.0) % Plt Count 302 (130-400) K/uL BMP 06/03/24 07:48 Sodium 137 Potassium 3.5 Chloride 102 Carbon Dioxide 28 BUN 18 Creatinine 0.86 Glucose 110 H Calcium 9.4 Diagnostic Findings Microbiology 06/02/24 Unknown Knee,Left Gram Stain - Final 06/02/24 Unknown Knee,Left Aerobic and Anaerobic Culture - Preliminary No growth to date. 06/02/24 Unknown Knee,Left Gram Stain - Final 06/02/24 Unknown Knee,Left Aerobic and Anaerobic Culture - Preliminary No growth to date. 05/28/24 00:42 Blood Aerobic Blood Culture - Final No growth in Aerobic bottle after 5 days. 05/28/24 00:42 Blood Anaerobic Blood Culture - Final No growth in Anaerobic bottle after 5 days. 05/28/24 00:10 Blood Aerobic Blood Culture - Final No growth in Aerobic bottle after 5 days. 05/28/24 00:10 Blood Anaerobic Blood Culture - Final No growth in Anaerobic bottle after 5 days. Medications Administered Home Medications Medication Instructions Recorded Confirmed Last Taken albuterol sulfate 90 mcg/actuation 2 puff inhalation Q6H PRN 04/10/19 05/03/24 Unknown aerosol inhaler (Ventolin HFA) Shortness Of Breath Or Wheezing bupropion HCl 150 mg tablet,12 hr 150 mg PO QAM 09/19/21 05/03/24 03/24/24 03:00 sustained-release (Wellbutrin SR) multivitamin 1 tab PO QPM 06/24/22 05/03/24 03/24/24 18:00 lancets 30 gauge (OneTouch Delica #100 ea 11/10/22 05/03/24 Unknown Lancets) furosemide 20 mg tablet (Lasix) 20 mg PO DAILY PRN edema #30 tabs 12/22/22 05/03/24 03/18/24 metformin 500 mg tablet,extended 500 mg PO TIDWMEAL 04/07/23 05/03/24 03/24/24 18:00 release 24 hr cyanocobalamin (vitamin B-12) 3,000 mcg PO QAM 06/03/23 05/03/24 03/24/24 03:00 3,000 mcg capsule sertraline 100 mg tablet (Zoloft) 200 mg PO QAM 09/10/23 05/03/24 03/24/24 03:00 montelukast 10 mg tablet 10 mg PO QPM #90 tabs 11/09/23 05/03/24 03/24/24 18:00 alfuzosin 10 mg tablet,extended 10 mg PO QPM 02/03/24 05/03/24 03/24/24 18:00 release 24 hr (Uroxatral) losartan 100 mg tablet 100 mg PO QAM 02/03/24 05/03/24 03/24/24 03:00 omeprazole 20 mg capsule,delayed 20 mg PO QAM 02/03/24 05/03/24 03/25/24 04:00 release aspirin 81 mg tablet,delayed 81 mg PO BID #60 tabs 03/27/24 05/03/24 Unknown release potassium chloride 20 mEq 20 meq PO .COMPLEX #90 tabs 04/26/24 05/03/24 Unknown tablet,extended release acetaminophen 500 mg tablet 1,000 mg PO TID fever or pain 05/03/24 05/03/24 Unknown (Tylenol Extra Strength) cholecalciferol (vitamin D3) 50 50 mcg PO BID 05/03/24 05/03/24 Unknown mcg (2,000 unit) tablet (Vitamin D3) tirzepatide 7.5 mg/0.5 mL 7.5 mg subcut .HOLD 05/03/24 05/03/24 Unknown subcutaneous pen injector (Delores) amlodipine 2.5 mg tablet 2.5 mg PO HS #30 tabs 05/13/24 Unknown ampicillin sodium 2 gram 12 g IV .q 24 hours 26 days 05/13/24 Unknown intravenous solution ceftriaxone 2 gram intravenous 2 g IV Q12H 26 days 05/13/24 Unknown solution oxycodone 5 mg capsule 5 mg PO Q6H PRN pain #14 caps 05/13/24 Unknown Active Medications Generic Name Dose Route Start Last Admin Trade Name Freq PRN Reason Stop Dose Admin Acetaminophen 1,000 mg 06/02/24 21:00 06/03/24 08:38 Acetaminophen 500 Mg Tab PO 07/02/24 20:59 1,000 mg TID LISA Administration Amlodipine Besylate 2.5 mg 05/28/24 21:00 06/02/24 20:30 Amlodipine Besylate 5 Mg Tab PO 06/27/24 20:59 2.5 mg HS LISA Administration Bupropion HCl 150 mg 05/28/24 09:00 06/03/24 08:40 Bupropion Sr 150 Mg Tabcr PO 06/27/24 08:59 150 mg QAM LISA Administration Docusate Sodium 100 mg 06/02/24 21:00 06/03/24 08:40 Docusate Sodium 100 Mg Cap PO 07/02/24 20:59 100 mg BID LISA Administration Heparin Sodium (Beef Lung) 5 ml 05/28/24 13:45 06/01/24 09:04 Heparin 10 Unit/Ml 5 Ml Flush FLUSH 06/27/24 13:44 5 ml PRN PRN Administration Flush Vancomycin HCl 1,000 mg/ 270 mls @ 200 mls/hr 05/28/24 16:00 06/03/24 09:43 Sodium Chloride IV 07/09/24 15:59 Infused Q8H LISA Infusion Lactated Ringer's 1,000 mls @ 15 mls/hr 06/02/24 12:00 06/03/24 12:34 Lr IV 07/02/24 11:59 Not Given .Q24H LISA Insulin Aspart 0 units 06/02/24 16:45 06/03/24 12:12 Insulin Aspart Per Unit Charge SC 07/02/24 16:44 3 units ACHS LISA Administration Losartan Potassium 100 mg 05/28/24 09:00 06/02/24 08:30 Losartan Potassium 50 Mg Tab PO 06/27/24 08:59 100 mg QAM LISA Administration Montelukast Sodium 10 mg 05/28/24 21:00 06/02/24 20:31 Montelukast Sodium 10 Mg Tablet PO 06/27/24 20:59 10 mg QPM LISA Administration Multivitamins 1 tab 05/28/24 21:00 06/02/24 20:32 Multivitamin Tab PO 06/27/24 20:59 1 tab QPM LISA Administration Nystatin 1 appln 05/31/24 11:00 06/03/24 08:42 Nystatin Powder 15gm Btl EXT 06/30/24 10:59 1 appln BID LISA Administration Oxycodone HCl 5 - 10 mg 06/02/24 16:40 06/03/24 13:57 Oxycodone Hcl Ir 5 Mg Tab (Immediate Release) PO 06/16/24 16:39 10 mg Q4H PRN Administration Pain or Pre PT Pantoprazole Sodium 40 mg 05/28/24 09:00 06/03/24 08:42 Pantoprazole 40 Mg Tab PO 06/27/24 08:59 40 mg QAM LISA Administration Sennosides 17.2 mg 06/02/24 21:00 06/02/24 20:31 Senna 8.6 Mg Tab PO 07/02/24 20:59 17.2 mg HS LISA Administration Sertraline HCl 200 mg 05/28/24 09:00 06/03/24 08:39 Sertraline Hcl 100 Mg Tablet PO 06/27/24 08:59 200 mg QAM LISA Administration Tamsulosin HCl 0.4 mg 06/02/24 21:00 06/02/24 20:32 Tamsulosin Hcl 0.4 Mg Cap PO 07/02/24 20:59 0.4 mg QPM LISA Administration Vitamin D 50 mcg 06/02/24 21:00 06/03/24 08:38 Cholecalciferol 25 Mcg (1000 Units) Tab PO 07/02/24 20:59 50 mcg BID LISA Administration
--- NOTE | 2024-06-03 13:06 | Hospitalist Progress Note ---
Date of Service June 03, 2024 Assessment & Plan (1) Infection of left knee: Plan: -Left TKR with Dr. Houston on 03/25/24, with Washout procedure performed on 05/04/2024. -Wounds grew coagulase-negative staph as well as Enterococcus faecalis. -Initially treated with daptomycin and cefepime. Was discharged on 05/13 on ampicillin and Rocephin. -Hives reaction to ampicillin on 05/23, transition to daptomycin. After transition started to have redness and swelling in the knee. -concern for daptomycin resistance, transitioned to vancomycin -Knee x-rays taken:no acute fx or dislocation, soft tissue swelling w/ joint effusion -Blood cultures negative, finalized. -Infectious disease consulted. - failing IV therapy will be difficult to suppress if hardware remains - continue vanco for now - obtain aerobic, anaerobic and fungal cultures in OR- awaiting OR cultures and sensitivities - possible suppression with cipro/levaquin based on prior sensitives --> EKG QTc 440 -ID recommendations appreciated- continue Vanco for now, may also include po fluoroquinolone on DC for suppression- will await final recommendations -PICC line as below- needs likely replacement -Orthopedic surgery consulted -Continue IV abx -S/p OR 06/02- for I and D of the left knee with polyethylene bearing change and repair of torn medial retinaculum -Holding DVT ppx for today per ortho- possibly to resume Eliquis 2.5 mg BID tomorrow. Rash noted on abdomen and groin, worsen in pannus fold, not itchy - nystatin ordered - benadryl PO x1 if residual from prior allergic reaction -Improving slowly Picc line has moved and likely not usable for intermediate use - have been using peripheral IV for abx at the current time. Evaluated by the IV team this AM- follow up final recommendations regarding replacing PICC. Per team it will be easier to replace new line (PICC or midline over the current line) vs completely take out and have to wait [address] a new one. Will await final decision Awaiting OR cultures from 06/02/24 procedure (2) Type 2 diabetes mellitus: Plan: Type 2 diabetes mellitus: -Patient's home regimen held on admission -Continue BSG checks -sliding-scale insulin -hypoglycemic protocol -Titrate accordingly (3) MAC on CPAP: Plan: MAC on CPAP: -Continue CPAP at night. (4) Gastroesophageal reflux disease: Plan: Gastroesophageal reflux disease: -Continue omeprazole 20 mg. (5) Hypertension: Plan: Hypertension: -Continue Norvasc 2.5 mg and losartan 100 mg. (6) Anxiety and depression: Plan: Anxiety and depression: -Continue Zoloft 200 mg and Wellbutrin 150 mg. Plan DVT ppx: Lovenox on hold per ortho- per ortho possibly can resume Eliquis 2.5 mg BID tomorrow- will await clearance from ortho team. Dispo: continued inpatient Called and updated sister over the phone. Admission and Anticipated Discharge Date Admission Date: May 28, 2024 Subjective Patient seen and evaluated bedside Patient is post op day #1 Reports getting out of bed earlier this AM Some mild pain in affected knee Denies acute complaints this AM PICC team evaluated this AM- will be determining replacement of PICC and timing of doing so Review of Systems Review of Systems: Negative unless otherwise indicated in subjective Results & Data Results & Data Vital Signs (Past 12 Hours) Vital Signs Temp Pulse Pulse Resp BP Pulse Ox O2 Del Method 06/03/24 12:06 36.5 C 63 18 139/76 95 Room Air 06/03/24 07:31 36.6 C 70 18 141/68 H 98 Room Air 06/03/24 03:45 37 C 59 L 18 130/66 97 Room Air PG Care Time/CCT Total # of Minutes Spent Total Time Spent with Patient: Total time spent is greater than 50% in coordination of care (as documented) at patient's floor/unit and/or counseling patient: Coding Level of Care Code 38564 SUB INP/OBS CARE 2/35MIN Diagnoses Infection of left knee M00.9 Type 2 diabetes mellitus without complication, without long-term current use of insulin E11.9 Diabetes mellitus complication status: without complication Diabetes mellitus intermediate insulin use: without intermediate use MAC on CPAP G47.33; Z99.89 Gastroesophageal reflux disease K21.9 Primary hypertension I10 Hypertension type: primary hypertension Anxiety and depression F41.9; F32.9 (2) Type 2 diabetes mellitus Diabetes mellitus complication status: without complication Diabetes mellitus rat exterminator insulin use: without rat exterminator use Qualified Code(s): E11.9 - Type 2 diabetes mellitus without complications (5) Hypertension Hypertension type: primary hypertension Qualified Code(s): I10 - Essential (primary) hypertension
[2024-06-04 07:51] LABS: Basophils % (auto) 1.1 %; Eosinophils # (auto) 2.18 K/uL (0.00-0.50); Eosinophils % (auto) 23.8 %; Hematocrit (blood only) 32.2 % (42.0-52.0); Hemoglobin 10.4 g/dl (14.0-18.0); Immature Granulocytes # (auto) 0.05 K/uL (0.01-0.20); Immature Granulocytes % (auto) 0.5 %; Lymphocytes # (auto) 2.33 K/uL (1.20-3.40); Lymphocytes % (auto) 25.4 %; Mean Corpuscular Hgb Conc 32.3 g/dL (32.0-36.0); Mean Corpuscular Volume 89.7 fL (80.0-100.0); Mean Platelet Volume 9.5 fL (9.4-12.4); Monocytes # (auto) 0.71 K/uL (0.11-0.59); Monocytes % (auto) 7.7 %; Neutrophils % (auto) 41.5 %; Platelet Count 280 K/uL (130-400); RDW Coefficient of Variation 14.5 % (11.5-14.5); RDW Standard Deviation 47.4 fL (36.4-46.3); Red Blood Count 3.59 M/uL (4.70-6.10); White Blood Count 9.17 K/ul (4.8-10.8)
--- NOTE | 2024-06-04 08:03 | Orthopedic Progress Note ---
Date of Service June 04, 2024 Assessment & Plan (1) Infection of left knee: Plan: patient is stable today. His dressing was changed and he is back in his immobilizer locked in extension. He may continue PT with a goal to assess him for ability to go home versus extended care facility. Knee cultures are negative. Plan going forward would be for 2 to 3 weeks of IV vancomycin followed by oral ciprofloxacin or Levaquin. Admission and Anticipated Discharge Date Admission Date: May 28, 2024 Subjective Postoperative day #2 status post exploration and repair extensor mechanism with polyethylene exchange Patient offers no complaints this morning. He was up and ambulated multiple times yesterday. His pain is controlled. Physical Exam Physical Exam: Patient is examined at the bedside. Dressing is removed. There is a little bit of bruising but the knee looks very good there is very little swelling and just mild drainage on the dressing. He is neurologically and vascularly intact. Results & Data Vital Signs (Past 12 Hours) Vital Signs Temp Pulse Resp BP Pulse Ox O2 Del Method 06/04/24 07:43 37.3 C 70 16 128/69 97 Room Air 06/03/24 20:40 Room Air, CPAP 06/03/24 20:19 36.6 C 72 20 130/72 96 Room Air Laboratory Results 48-hour culture results are pending but at 24 hours cultures were negative. Intraoperative frozen sections again showed only 1 field with 7 white cells per high-power field all other ones were less than 7
[2024-06-04 08:08] LABS: BUN Creatinine Ratio 20.2 (10-20); Calcium 9.2 mg/dl (8.6-10.3); Est GFR (African American) 107.7 ml/min; Est GFR (Non-African American) 92.9 ml/min; Potassium 3.9 mmol/L (3.5-5.1)
[2024-06-04] MEDS: APIXABAN 2.5 MG TAB PO SCH (11:23)
--- NOTE | 2024-06-04 12:45 | Hospitalist Progress Note ---
Date of Service June 04, 2024 Assessment & Plan (1) Infection of left knee: Plan: -Left TKR with Dr. Houston on 03/25/24, with Washout procedure performed on 05/04/2024. -Wounds grew coagulase-negative staph as well as Enterococcus faecalis. -Initially treated with daptomycin and cefepime. Was discharged on 05/13 on ampicillin and Rocephin. -Hives reaction to ampicillin on 05/23, transition to daptomycin. After transition started to have redness and swelling in the knee. -concern for daptomycin resistance, transitioned to vancomycin -Knee x-rays taken:no acute fx or dislocation, soft tissue swelling w/ joint effusion -Blood cultures negative, finalized. -Infectious disease consulted. - failing IV therapy will be difficult to suppress if hardware remains - continue vanco for now - obtain aerobic, anaerobic and fungal cultures in OR- awaiting final OR cultures and sensitivities - possible suppression with cipro/levaquin based on prior sensitives --> EKG QTc 440 -ID recommendations appreciated- continue Vanco for now, may also include po fluoroquinolone subsequently on DC for continued suppression- will await final recommendations -PICC line to be replaced. Consents signed and witnessed by RN -Orthopedic surgery consulted -Continue IV abx -S/p OR 06/02- for I and D of the left knee with polyethylene bearing change and repair of torn medial retinaculum -Holding DVT ppx per ortho- possibly to resume Eliquis 2.5 mg BID tomorrow 06/05/24- will discuss with ortho for final clearance prior to initiation. Rash noted on abdomen and groin, worsen in pannus fold, not itchy - nystatin ordered - Benadryl PO x1 if residual from prior allergic reaction -Improving slowly Picc line has moved and likely not usable for orthopedics teacher use - have been using peripheral IV for abx at the current time. Evaluated by the IV team PICC line needs to be replaced. Consents signed and witnessed by RN. Awaiting final OR cultures from 06/02/24 procedure (2) Type 2 diabetes mellitus: Plan: Type 2 diabetes mellitus: -Patient's home regimen held on admission -Continue BSG checks -sliding-scale insulin -hypoglycemic protocol -Titrate accordingly (3) MAC on CPAP: Plan: MAC on CPAP: -Continue CPAP at night. (4) Gastroesophageal reflux disease: Plan: Gastroesophageal reflux disease: -Continue omeprazole 20 mg. (5) Hypertension: Plan: Hypertension: -Continue Norvasc 2.5 mg and losartan 100 mg. (6) Anxiety and depression: Plan: Anxiety and depression: -Continue Zoloft 200 mg and Wellbutrin 150 mg. Plan DVT ppx: Lovenox on hold per ortho- likely can start back on Eliquis 2.5 mg BID tomorrow- will discuss with ortho for formal clearance prior to initiation. Dispo: continued inpatient Admission and Anticipated Discharge Date Admission Date: May 28, 2024 Subjective Patient seen and evaluated bedside Today is POD #2 Patient reports less pain then prior day Was able to ambulate during the afternoon yesterday Discussed with PICC team- for PICC line replacement. Consent was signed by patient, and witnessed by RN. Risks and benefits explained to which he expressed understanding. Review of Systems Review of Systems: Negative unless otherwise indicated in subjective Physical Exam Physical Exam: General: NAD, VS as above Resp: normal respiratory effort, lungs clear to auscultation CV: RRR, no murmur Abd: normal bowel sounds, non tender, no hepatosplenomegaly Extremities:Left leg with surgical dressing, clean dry intact. Moving toes Neuro: A&O x3, Skin - mild papular rash over abdomen, worsen in Panus skin fold -improving Results & Data Results & Data Vital Signs (Past 12 Hours) Vital Signs Temp Pulse Resp BP Pulse Ox O2 Del Method 06/04/24 09:31 Room Air 06/04/24 07:43 37.3 C 70 16 128/69 97 Room Air PG Care Time/CCT Total # of Minutes Spent Total Time Spent with Patient: Total time spent is greater than 50% in coordination of care (as documented) at patient's floor/unit and/or counseling patient: Coding Level of Care Code 44868 SUB INP/OBS CARE 2/35MIN Diagnoses Infection of left knee M00.9 Type 2 diabetes mellitus without complication, without long-term current use of insulin E11.9 Diabetes mellitus complication status: without complication Diabetes mellitus orthopedics teacher insulin use: without fci use MAC on CPAP G47.33; Z99.89 Gastroesophageal reflux disease K21.9 Primary hypertension I10 Hypertension type: primary hypertension Anxiety and depression F41.9; F32.9 (2) Type 2 diabetes mellitus Diabetes mellitus complication status: without complication Diabetes mellitus fci insulin use: without fci use Qualified Code(s): E11.9 - Type 2 diabetes mellitus without complications (5) Hypertension Hypertension type: primary hypertension Qualified Code(s): I10 - Essential (primary) hypertension
[2024-06-05 05:51] LABS: Basophils # (auto) 0.08 K/uL (0.00-0.20); Basophils % (auto) 0.9 %; Eosinophils % (auto) 25.2 %; Hemoglobin 9.8 g/dl (14.0-18.0); Immature Granulocytes # (auto) 0.04 K/uL (0.01-0.20); Immature Granulocytes % (auto) 0.5 %; Lymphocytes # (auto) 1.73 K/uL (1.20-3.40); Lymphocytes % (auto) 19.8 %; Mean Corpuscular Hemoglobin 28.5 pg (25.0-34.0); Mean Corpuscular Hgb Conc 31.6 g/dL (32.0-36.0); Mean Corpuscular Volume 90.1 fL (80.0-100.0); Mean Platelet Volume 9.5 fL (9.4-12.4); Monocytes # (auto) 0.69 K/uL (0.11-0.59); Monocytes % (auto) 7.9 %; Neutrophils # (auto) 3.99 K/uL (1.40-6.50); Neutrophils % (auto) 45.7 %; Platelet Count 247 K/uL (130-400); RDW Coefficient of Variation 14.5 % (11.5-14.5); Red Blood Count 3.44 M/uL (4.70-6.10); White Blood Count 8.73 K/ul (4.8-10.8)
[2024-06-05 06:07] LABS: BUN Creatinine Ratio 23.3 (10-20); Calcium 9.2 mg/dl (8.6-10.3); Creatinine Clr Calc Pharmacy 107.1 ml/min; Est GFR (African American) 91.1 ml/min; Est GFR (Non-African American) 78.6 ml/min; Potassium 3.6 mmol/L (3.5-5.1)
--- NOTE | 2024-06-05 08:10 | Orthopedic Progress Note ---
Date of Service June 05, 2024 Assessment & Plan (1) Infection of left knee: Plan: Postop day 3 status post irrigation and debridement/polyethylene bearing change left knee He may continue PT with a goal to assess him for ability to go home versus extended care facility. continue use of [place] brace with ambulation. Okay to leave the top strap loosened while lying in bed but must retighten when getting out of bed. I will place an order for orthotics to see if they can check on any type of padding for the straps for his current brace To help alleviate any pinching posteriorly. Recheck CRP and ESR tomorrow morning. Knee cultures remain negative. Plan going forward would be for 3 weeks of IV vancomycin followed by oral ciprofloxacin or Levaquin. Admission and Anticipated Discharge Date Admission Date: May 28, 2024 Subjective Postop day 3 Patient sitting up in bed awake and alert. Getting ready to eat his breakfast. Patient states he is having a little bit of pinching on the straps of his brace behind his leg on the top strap. No other complaints this morning. Physical Exam Physical Exam: [place] dressing is clean, dry, and intact. Functioning well. He has a small dressing incorporated into that medially covering a very small incision. This dressing was getting some bloody saturation but is dry today. No overt erythema of the knee this morning. Some bruising. Calves are soft nontender. Neurovascular intact. Toes are mobile. [place] brace is in place. Top strap was loosened and ABD pads were placed underneath the strap. Strap was retightened. Patient was requesting strap to be loosened while in bed. Results & Data Vital Signs (Past 12 Hours) Vital Signs Temp Pulse Resp BP BP Pulse Ox O2 Del Method 06/05/24 07:03 36.1 C L 58 L 18 129/71 98 CPAP 06/04/24 21:00 Room Air, CPAP 06/04/24 20:42 36.5 C 65 16 120/63 94 Room Air Laboratory Results 06/05/24 06/05/24 06/04/24 Range/Units 07:31 05:32 20:24 WBC 8.73 (4.8-10.8) K/ul RBC 3.44 L (4.70-6.10) M/uL Hgb 9.8 L (14.0-18.0) g/dl Hct 31.0 L (42.0-52.0) % MCV 90.1 (80.0-100.0) fL MCH 28.5 (25.0-34.0) pg MCHC 31.6 L (32.0-36.0) g/dL RDW Std Deviation 47.0 H (36.4-46.3) fL RDW Coeff of Migue 14.5 (11.5-14.5) % Plt Count 247 (130-400) K/uL MPV 9.5 (9.4-12.4) fL Immature Gran % (Auto) 0.5 % Neut % (Auto) 45.7 % Lymph % (Auto) 19.8 % Randolph % (Auto) 7.9 % Eos % (Auto) 25.2 % Baso % (Auto) 0.9 % Neut # (Auto) 3.99 (1.40-6.50) K/uL Lymph # (Auto) 1.73 (1.20-3.40) K/uL Randolph # (Auto) 0.69 H (0.11-0.59) K/uL Eos # (Auto) 2.20 H (0.00-0.50) K/uL Baso # (Auto) 0.08 (0.00-0.20) K/uL Immature Gran # (Auto) 0.04 (0.01-0.20) K/uL Sodium 138 (136-145) mmol/L Potassium 3.6 (3.5-5.1) mmol/L Chloride 104 (98-107) mmol/L Carbon Dioxide 28 (21-32) mmol/L Anion Gap 6 (3-11) BUN 24 H (6-23) mg/dl Creatinine 1.03 (0.6-1.4) mg/dl Est Cr Clr Drug Dosing 107.1 ml/min Est GFR ( Amer) 91.1 ml/min Est GFR (Non-Af Amer) 78.6 ml/min BUN/Creatinine Ratio 23.3 H (10-20) Glucose 120 H (70-99(Fasting)) mg/dl POC Glucose 129 H 133 H (70-99) mg/dl Calcium 9.2 (8.6-10.3) mg/dl 06/04/24 06/04/24 06/04/24 Range/Units 16:48 11:25 07:17 WBC (4.8-10.8) K/ul RBC (4.70-6.10) M/uL Hgb (14.0-18.0) g/dl Hct (42.0-52.0) % MCV (80.0-100.0) fL MCH (25.0-34.0) pg MCHC (32.0-36.0) g/dL RDW Std Deviation (36.4-46.3) fL RDW Coeff of Migue (11.5-14.5) % Plt Count (130-400) K/uL MPV (9.4-12.4) fL Immature Gran % (Auto) % Neut % (Auto) % Lymph % (Auto) % Randolph % (Auto) % Eos % (Auto) % Baso % (Auto) % Neut # (Auto) (1.40-6.50) K/uL Lymph # (Auto) (1.20-3.40) K/uL Randolph # (Auto) (0.11-0.59) K/uL Eos # (Auto) (0.00-0.50) K/uL Baso # (Auto) (0.00-0.20) K/uL Immature Gran # (Auto) (0.01-0.20) K/uL Sodium 137 (136-145) mmol/L Potassium 3.9 (3.5-5.1) mmol/L Chloride 103 (98-107) mmol/L Carbon Dioxide 28 (21-32) mmol/L Anion Gap 6 (3-11) BUN 18 (6-23) mg/dl Creatinine 0.89 (0.6-1.4) mg/dl Est Cr Clr Drug Dosing 124.0 ml/min Est GFR ( Amer) 107.7 ml/min Est GFR (Non-Af Amer) 92.9 ml/min BUN/Creatinine Ratio 20.2 H (10-20) Glucose 119 H (70-99(Fasting)) mg/dl POC Glucose 113 H 106 H (70-99) mg/dl Calcium 9.2 (8.6-10.3) mg/dl
--- NOTE | 2024-06-05 11:11 | Hospitalist Progress Note ---
Date of Service June 05, 2024 Assessment & Plan (1) Infection of left knee: Plan: -Left TKR with Dr. Houston on 03/25/24, with Washout procedure performed on 05/04/2024. -Wounds grew coagulase-negative staph as well as Enterococcus faecalis. -Initially treated with daptomycin and cefepime. Was discharged on 05/13 on ampicillin and Rocephin. -Hives reaction to ampicillin on 05/23, transition to daptomycin. After transition started to have redness and swelling in the knee. -concern for daptomycin resistance, transitioned to vancomycin -Knee x-rays taken:no acute fx or dislocation, soft tissue swelling w/ joint effusion -Blood cultures negative, finalized. -Infectious disease consulted. - failing IV therapy will be difficult to suppress if hardware remains - continue vanco for now - obtain aerobic, anaerobic and fungal cultures in OR- awaiting final OR cultures and sensitivities - possible suppression with cipro/levaquin based on prior sensitives --> EKG QTc 440 -ID recommendations appreciated- continue Vanco for now, may also include po fluoroquinolone subsequently on DC for continued suppression- will await final recommendations -PICC line replaced on 06/04/24. Now in [facility] [place] -Orthopedic surgery consulted -Continue IV abx -S/p OR 06/02- for I and D of the left knee with polyethylene bearing change and repair of torn medial retinaculum -DVT ppx resumed per ortho- now on Eliquis 2.5 mg BID Rash noted on abdomen and groin, worsen in pannus fold, not itchy - nystatin ordered - Benadryl PO x1 if residual from prior allergic reaction -Improving slowly Arrangements being made with case management team for home IV antibiotic therapy. Planning for likely IV vancomycin followed by po suppression with oral fluoroquinolone therapy. (2) Type 2 diabetes mellitus: Plan: Type 2 diabetes mellitus: -Patient's home regimen held on admission -Continue BSG checks -sliding-scale insulin -hypoglycemic protocol -Titrate accordingly (3) MAC on CPAP: Plan: MAC on CPAP: -Continue CPAP at night. (4) Gastroesophageal reflux disease: Plan: Gastroesophageal reflux disease: -Continue omeprazole 20 mg. (5) Hypertension: Plan: Hypertension: -Continue Norvasc 2.5 mg and losartan 100 mg. (6) Anxiety and depression: Plan: Anxiety and depression: -Continue Zoloft 200 mg and Wellbutrin 150 mg. Plan DVT ppx: Eliquis per ortho Dispo: continued inpatient Admission and Anticipated Discharge Date Admission Date: May 28, 2024 Subjective Patient seen and evaluated bedside POD#3 Patient is currently in NAD New PICC line placed yesterday afternoon in the LUE Patient denies pain this AM Denies chest pain, palpitations, SOB, fevers, chills nausea or vomiting Arrangements underway for home abx therapy Review of Systems Review of Systems: As indicated in subjective Physical Exam Physical Exam: General: NAD, VS as above Resp: normal respiratory effort, lungs clear to auscultation CV: RRR, no murmur Abd: normal bowel sounds, non tender, no hepatosplenomegaly Extremities:Left leg with surgical dressing, clean dry intact. Moving toes Neuro: A&O x3, Skin - mild papular rash over abdomen, worsen in Panus skin fold -improving Results & Data Results & Data Vital Signs (Past 12 Hours) Vital Signs Temp Pulse Resp BP Pulse Ox O2 Del Method 06/05/24 07:03 36.1 C L 58 L 18 129/71 98 CPAP PG Care Time/CCT Total # of Minutes Spent Total Time Spent with Patient: Total time spent is greater than 50% in coordination of care (as documented) at patient's floor/unit and/or counseling patient: Coding Level of Care Code 65624 SUB INP/OBS CARE 2/35MIN Diagnoses Infection of left knee M00.9 Type 2 diabetes mellitus without complication, without long-term current use of insulin E11.9 Diabetes mellitus complication status: without complication Diabetes mellitus prison insulin use: without prison use MAC on CPAP G47.33; Z99.89 Gastroesophageal reflux disease K21.9 Primary hypertension I10 Hypertension type: primary hypertension Anxiety and depression F41.9; F32.9 (2) Type 2 diabetes mellitus Diabetes mellitus complication status: without complication Diabetes mellitus assistant terminal manager insulin use: without prison use Qualified Code(s): E11.9 - Type 2 diabetes mellitus without complications (5) Hypertension Hypertension type: primary hypertension Qualified Code(s): I10 - Essential (primary) hypertension
[2024-06-06] MEDS: VANCOMYCIN LEVEL ONE (07:50)
[2024-06-06 08:42] LABS: Basophils # (auto) 0.05 K/uL (0.00-0.20); Basophils % (auto) 0.5 %; Eosinophils # (auto) 2.25 K/uL (0.00-0.50); Eosinophils % (auto) 24.3 %; Hematocrit (blood only) 30.1 % (42.0-52.0); Immature Granulocytes # (auto) 0.02 K/uL (0.01-0.20); Immature Granulocytes % (auto) 0.2 %; Lymphocytes # (auto) 1.41 K/uL (1.20-3.40); Lymphocytes % (auto) 15.2 %; Mean Corpuscular Hemoglobin 28.9 pg (25.0-34.0); Mean Corpuscular Hgb Conc 33.2 g/dL (32.0-36.0); Mean Platelet Volume 9.7 fL (9.4-12.4); Monocytes # (auto) 0.67 K/uL (0.11-0.59); Monocytes % (auto) 7.2 %; Neutrophils # (auto) 4.86 K/uL (1.40-6.50); Neutrophils % (auto) 52.6 %; Platelet Count 256 K/uL (130-400); RDW Coefficient of Variation 14.7 % (11.5-14.5); RDW Standard Deviation 46.8 fL (36.4-46.3); Red Blood Count 3.46 M/uL (4.70-6.10); White Blood Count 9.26 K/ul (4.8-10.8)
[2024-06-06 08:49] LABS: Calcium 9.4 mg/dl (8.6-10.3); Potassium 3.7 mmol/L (3.5-5.1)
[2024-06-06 08:55] LABS: BUN Creatinine Ratio 27.7 (10-20); C Reactive Protein 4.57 mg/dl (0-0.5); Creatinine Clr Calc Pharmacy 132.9 ml/min; Est GFR (African American) 110.8 ml/min; Est GFR (Non-African American) 95.6 ml/min
--- NOTE | 2024-06-06 09:09 | Pharmacy Report ---
Pharmacy PK ABX Note - Date of Service June 06, 2024 - Assessment and Plan Assessment 58 year old M receiving vancomycin for treatment of left knee infection status post total knee replacement on 03/25/24. Admitted on 05/03 with redness and purulent drainage from knee, surface wound culture grew CoNS sensitive to daptomycin and vancomycin and deep wound culture grew thomas-sensitive enterococcus faecalis. Complicated by patient allergies. ID consulted and recommended ampicillin and ceftiaxone therapy after a successful amoxicillin challenge (suspected CoNS as a contaminant). Reported hives while on ampicillin/ceftriaxone and thus switched to daptomycin. Presented to ER due to concerns for worsening infection while on daptomycin. Blood cultures 05/28 show no growth at 5 days. Patient now POD #1 s/p left knee repair w/ lateral release/poly exchange. Cultures of knee obtained and pending. ID consulted and recommending vancomycin at this time. Renal function stable, afebrile, increased WBC today (12.09) 06/06: Reviewed vancomycin level, predicting therapeutic AUC/TAMMI, slight creatinine bump yesterday, repeat this AM back to baseline. Will adjust dosing to Q12H dosing in case he is discharged on IV Vancomycin Day #7 of vancomycin therapy Plan Vancomycin * Current regimen: 1000 mg IV every 8 hours * Trough level obtained 06/06/24 resulted as 18.2 mcg/mL. This is predicted to achieve target AUC/TAMMI of 400-600 mg/L.hr * Predicted AUC at steady state: 502 mg/L.hr * Adjust to vancomycin 1750mg Q12H for potential discharge needs. This is predicted to achieve an AUC/TAMMI of 583 mg/L.hr * Repeat level 06/07/24 @ 0800 Pharmacy will continue to follow and will adjust dose/frequency as necessary. Thank you. Pharmacy has transitioned to AUC monitoring for vancomycin. AUC/TAMMI is the preferred PK/PD target and is associated with decreased risk of nephrotoxicity compared to traditional trough targets.
--- NOTE | 2024-06-06 09:22 | Orthopedic Progress Note ---
Date of Service June 06, 2024 Assessment & Plan (1) Infection of left knee: Plan: Patient is doing well with physical therapy. He was able to do steps therapy notes that he is able to walk long distances with no change or loss of balance with change of direction. Clinically his knee looks good there is a little bit of bruising but no redness or erythema and no drainage. At this point the patient is stable all cultures are negative and he seems to be improving. Per discussion with infectious disease plan would be for a total of 3 weeks of IV vancomycin starting from June 02 from his surgery. He will then be switched to oral levofloxacin or ciprofloxacin for a period of 6 months. Plan for arrangements for home health and home PT and will follow-up with us in the office. Admission and Anticipated Discharge Date Admission Date: May 28, 2024 Subjective Patient seen and evaluated bedside POD#4 Patient is currently in NAD New PICC line placed yesterday afternoon in the LUE Patient denies pain this AM Denies chest pain, palpitations, SOB, fevers, chills nausea or vomiting Arrangements underway for home abx therapy Physical Exam Physical Exam: Patient is examined at the bedside. Dressing is removed. There is a little bit of bruising but the knee looks very good there is very little swelling and just mild drainage on the dressing. He is neurologically and vascularly intact. Results & Data Vital Signs (Past 12 Hours) Vital Signs Temp Pulse Resp BP Pulse Ox O2 Del Method 06/06/24 08:02 36.6 C 68 20 166/90 H 94 Room Air
[2024-06-06] MEDS: VANCOMYCIN HCL 1,750 MG in SODIUM CHLORIDE 0.9% 500 ML IV SCH (10:26)
--- NOTE | 2024-06-06 10:36 | Infectious Disease Progress Nt ---
Date of Service June 06, 2024 Assessment & Plan (1) Infection of left knee: Plan This is a 58 yo male DM2, osteoarthritis, GAVE, metabolic syndrome, obesity, L knee arthroplasty 03/25/25 He was admitted 05/04-05/13 for PJI left knee infection He was working with physical therapy on 04/29 and was using a sliding board when he felt his knee split open. He was started on Keflex but the area worsened with increased pain, erythema and swelling with drainage.. A superficial wound culture obtained on 05/03 grew CONS. He underwent incision and drainage,Poly Exchange, Synovectomy with orthopedics on 05/04. The wound communicated with the knee joint and appeared inflamed per OP report. Intraoperative cultures grew sensitive E faecalis. He was seen by ID . He initially received Daptomycin and Cefepime. He reported a Penicillin allergy ( hives). Since there was no plan for hardware removal and he would require manager intermediate oral antibiotic suppression in the setting of retained hardware, he underwent PCN desensitization in the ICU during the last admission. He was also evaluated by Immunology/allergy who felt that he did not have a true Penicillin allergy but likely cellulitis from PCN injection. He tolerated Ampicillin Since CONS did not grown in OR culture, therapy focused on E faecalis. Gordon therapy with IV ampicillin was an option but since prosthetic retained with purulence noted, communication with joint and no antibiotic impregnated material containing gentamicin was placed as well as the nature of Enterococcal infection with retained hardware , he was discharged on combination therapy with IV ampicillin/Ceftriaxone for 6 weeks to end 06/08/24 followed by po suppression for at least 3-6 month with amoxicillin 500 mg po q 8hrs to start 06/09/24. He was discharged to a SNF. While there he apparently developed hives thought to be secondary to Ampicillin approximately 1 week ago. His SNF contacted ID and his antibiotics were switched to Daptomycin as his Enterococcus was sensitive. On therapy with PCN as well as Daptomycin, he reports increasing Left knee swelling and erythema with continued pain. He was seen by orthopedics outpatient. Knee X-rays showed there was lateral translation of the patella. Plans were to continue Daptomycin with follow up on 05/31 for review of possible surgical intervention. He denied fever, chills, nausea, vomiting. He returns to the ED from rehab on 05/27 for increasing Left knee swelling and redness. In the ED, he was afebrile and HDS. WBC 10.12, hemoglobin 10.3, hematocrit 32.1, platelets 242, BUN 15, creatinine 0.83, CRP 11.16 --->8.09, ESR 94. Left knee xray w/o acute fracture or dislocation.There is soft tissue swelling with joint effusion. He was evaluated by orthopedics who had concerns for medial retinacular repeat tear. He was started on IV vancomycin. ID consulted for left knee PJI. Micro ( this admission): BC 05/28 NGTD Intra op cx 06/02 Prior Micro : Blood culture 05/03 NG Wound culture superficial 05/03 CONS Intraop wound culture 05/04 E faecalis PanS ( Amp, van, dapto, cipr/lev ) Aero/Barbra Cult Final 05/09/24-1236 Organism 1 Enterococcus faecalis Quantity Moderate Sens Sensitivities to Follow No Anaerobes Isolated No Anaerobes Isolated E faecalis RX M.I.C. --- --------- Ampicillin S <=2 Ciprofloxacin S <=1 Daptomycin S 2 Gent Synergy S <=500 Levofloxacin S <=1 Penicillin S 2 Strep Synergy S <=1000 Tetracycline R >8 Vancomycin S 4 Abx: Vanco 05/27- ongoing ABX LINOLEUM PRINTER: Dapto 05/03- 05/11 Ampicillin/ Ceftriaxone 05/11- 05/18(approx) at [facility] ( stopped 12/04 rash) Dapto 05/[address] [facility]--05/27 #Worsening L knee erythema, swelling on IV antibiotics, new medial retinaculum tear , ? 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 Although he underwent Ampicillin graded challenge last admission, he apparently developed hives on therapy outpatient. On Amp/ Ceftriaxone--> daptomycin he developed worsening L knee erythema, swelling and increased inflammatory markers ( ESR 94 on 05/29- 77 on 05/13; CRP 11.16 on 05/29 -9.04 on 05/13. Plan for RTOR on 06/01 D/W Ortho Dr [place] 05/31. Per discussion, removal of hardware with implantation of antibiotic spacer would require an extensive procedure and would be challenging as he has well-fixed components. Procedure is considered high risk. He has been receiving targeted Enterococcus Faecalis antibiotics since his OR on 05/04 and on discharge ( IV ampicillin--->daptomycin for at least 3 weeks) with s/o of continued infection- -06/02 he underwent left knee medial retinacular repair and lateral release, left knee poly exchange. Per operative report, he was found to have disruption of a portion of the medial retinacular repair for from the previous surgery. There was some hematoma in the knee but the knee appeared benign. Frozen sections were sent for white cells per high-power field and showed maximum of 7 neutrophils and 1 field most of the other christiansen were 5 or less. The knee showed healthy granulation with some fibrinous hematoma but no gross purulence. Tissue fragments and synovial tissue were sent for culture. -06/03 WBC up to 12.09 Recommendations: -Follow up aerobic, anaerobic, fungal intraoperative cx and pathology -Monitor WBC -Continue IV vancomycin per pharmacy protocol for now, which should also cover Enterococcus Faecalis. - If only E faecalis grows, continued IV abx --> consider changing to Daptomycin 8-10mg/lg IV daily ( if sensitive) as Less nephrotoxic than IV vanco and easier to manage outpatient, followed PO suppression with Levaquin or Cipro based on prior E feac sensi ( qtc 440- 05/31). The Initial plan for completion of IV antibiotics was 06/08 ( 6 wks from 05/04 OR date), but given interruption in antibiotics and repeat surgery, will consider extending for 3-4 weeks. lf sterile, then will consider 2 more weeks. Duration TBD based on pending culture data. - If another organisms grows, then will adjust antibiotics accordingly and plan for 6 weeks of pathogen targeted IV antibiotics from 06/02 OR date, followed by oral suppressive therapy. - On IV antibiotics, he will require weekly CBC with diff, CMP. ESR, CRP. If only option for therapy based on pending culture data is IV vancomycin: In addition to weekly labs, he will require BI weekly vanco trough to ensure appropriate levels. The Final dose will be based on Vanco trough of 15-18. If discharged on IV daptomycin: In addition to weekly labs, add weekly CPK. -Close Ortho follow up -Establish care with local ID. ID will continue to follow. ID connect will not round this weekend. Please call [phone] with questions. Snow Bonds MD, MPH Infectious Disease [facility], ID Division Admission and Anticipated Discharge Date Admission Date: May 28, 2024 Subjective This patient recommendation is based on a telemedicine consult request which was completed asynchronously through chart review and information provided by the primary physician. The patient was not seen or examined today. The evaluation is consultative in nature and all patient care and treatment decisions can either be accepted or rejected by the patient's primary hospital-based treating physician using their own independent medical judgment for their patient. Time Spent Reviewing Chart: 31+ minutes Results & Data Vital Signs (Past 12 Hours) Vital Signs Temp Pulse Resp BP Pulse Ox O2 Del Method 06/06/24 08:02 36.6 C 68 20 166/90 H 94 Room Air Laboratory Results Short CBC 06/06/24 Range/Units 07:28 WBC 9.26 (4.8-10.8) K/ul Hgb 10.0 L (14.0-18.0) g/dl Hct 30.1 L (42.0-52.0) % Plt Count 256 (130-400) K/uL BMP 06/06/24 07:28 Sodium 138 Potassium 3.7 Chloride 103 Carbon Dioxide 28 BUN 23 Creatinine 0.83 Glucose 124 H Calcium 9.4 Diagnostic Findings Microbiology 06/02/24 Unknown Knee,Left Gram Stain - Final 06/02/24 Unknown Knee,Left Aerobic and Anaerobic Culture - Preliminary No growth to date. 06/02/24 Unknown Knee,Left Gram Stain - Final 06/02/24 Unknown Knee,Left Aerobic and Anaerobic Culture - Preliminary No growth to date. 05/28/24 00:42 Blood Aerobic Blood Culture - Final No growth in Aerobic bottle after 5 days. 05/28/24 00:42 Blood Anaerobic Blood Culture - Final No growth in Anaerobic bottle after 5 days. 05/28/24 00:10 Blood Aerobic Blood Culture - Final No growth in Aerobic bottle after 5 days. 05/28/24 00:10 Blood Anaerobic Blood Culture - Final No growth in Anaerobic bottle after 5 days. Medications Administered Current Inpatient Medications Acetaminophen (Acetaminophen 500 Mg Tab) 1,000 mg PO TID LISA Stop: 07/02/24 20:59 Last Admin: 06/06/24 08:58 Dose: 1,000 mg Albuterol (Albuterol Hfa 8 Gm Inhaler) 2 puffs INH Q6H PRN PRN Reason: Shortness Of Breath Or Wheezing Stop: 07/02/24 16:39 Amlodipine Besylate (Amlodipine Besylate 5 Mg Tab) 2.5 mg PO HS LISA Stop: 06/27/24 20:59 Last Admin: 06/05/24 21:22 Dose: 2.5 mg Apixaban (Apixaban 2.5 Mg Tab) 2.5 mg PO BID LISA Stop: 07/04/24 08:59 Last Admin: 06/06/24 09:00 Dose: 2.5 mg Bisacodyl (Bisacodyl 10 Mg Supp) 10 mg TX DAILY PRN PRN Reason: Constipation Stop: 07/02/24 16:39 Bupropion HCl (Bupropion Sr 150 Mg Tabcr) 150 mg PO QAM LISA Stop: 06/27/24 08:59 Last Admin: 06/06/24 09:00 Dose: 150 mg Dextrose (Dextrose 50% 50 Ml Syringe) 25 - 50 ml IV UD PRN; Protocol PRN Reason: Hypoglycemia Protocol Stop: 06/27/24 08:43 Docusate Sodium (Docusate Sodium 100 Mg Cap) 100 mg PO BID LISA Stop: 07/02/24 20:59 Last Admin: 06/06/24 09:01 Dose: 100 mg Glucagon (Glucagon For Inj 1 Mg Vial) 1 mg SQ UD PRN; Protocol PRN Reason: Hypoglycemia Protocol Stop: 06/27/24 08:43 Glucose (Glucose 40% Gel 15 Gm Tube) 15 - 30 gm PO UD PRN; Protocol PRN Reason: Hypoglycemia Protocol Stop: 06/27/24 08:43 Glucose (Glucose 10 Tab/Tube) 4 - 8 tab PO UD PRN; Protocol PRN Reason: Hypoglycemia Treatment Stop: 06/27/24 08:43 Heparin Sodium (Beef Lung) (Heparin 10 Unit/Ml 5 Ml Flush) 5 ml FLUSH PRN PRN PRN Reason: Flush Stop: 06/27/24 13:44 Last Admin: 06/05/24 23:54 Dose: 5 ml Lactated Ringer's (Lr) 1,000 mls @ 15 mls/hr IV .Q24H [facility] Stop: 07/02/24 11:59 Last Admin: 06/05/24 10:18 Dose: Not Given Vancomycin HCl 1,750 mg/ (Sodium Chloride) 535 mls @ 200 mls/hr IV Q12H [facility] Stop: 07/18/24 09:59 Last Admin: 06/06/24 10:26 Dose: 200 mls/hr Insulin Aspart (Insulin Aspart Per Unit Charge) 0 units SC ACHS [facility] Stop: 07/02/24 16:44 Last Admin: 06/06/24 09:12 Dose: 3 units Losartan Potassium (Losartan Potassium 50 Mg Tab) 100 mg PO QAM [facility] Stop: 06/27/24 08:59 Last Admin: 06/02/24 08:30 Dose: 100 mg Magnesium Hydroxide (Magnesium Hydroxide Susp 30 Ml Udc) 30 ml PO Q6H PRN PRN Reason: Constipation Stop: 07/02/24 16:39 Melatonin (Melatonin 3 Mg Tab) 3 mg PO HS PRN PRN Reason: Insomnia Stop: 06/27/24 08:43 Metoclopramide HCl (Metoclopramide Hcl Inj 5 Mg/Ml 2 Ml Vial) 10 mg IV Q6H PRN PRN Reason: Nausea And Vomiting Stop: 07/02/24 16:39 Miscellaneous (Carbohydrates For Hypoglycemia ) 15 - 30 gm PO UD PRN PRN Reason: Hypoglycemia Protocol Stop: 06/27/24 08:43 Miscellaneous Information (Vancomycin Consult Active) 1 each N/A UD PRN PRN Reason: Consult Stop: 06/27/24 04:42 Montelukast Sodium (Montelukast Sodium 10 Mg Tablet) 10 mg PO QPM [facility] Stop: 06/27/24 20:59 Last Admin: 06/05/24 21:24 Dose: 10 mg Multivitamins (Multivitamin Tab) 1 tab PO QPM LISA Stop: 06/27/24 20:59 Last Admin: 06/05/24 21:24 Dose: 1 tab Naloxone HCl (Naloxone Hcl 0.4 Mg/1 Ml Vial/Carp) 0.1 mg IV Q5M PRN PRN Reason: Oversedation/Resp Depression Stop: 07/02/24 16:39 Nystatin (Nystatin Powder 15gm Btl) 1 appln EXT BID LISA Stop: 06/30/24 10:59 Last Admin: 06/05/24 21:24 Dose: 1 appln Ondansetron HCl (Ondansetron Inj 2 Mg/Ml 2 Ml Vial) 4 mg IV Q6H PRN PRN Reason: Nausea Stop: 06/27/24 08:43 Oxycodone HCl (Oxycodone Hcl Ir 5 Mg Tab (Immediate Release)) 5 - 10 mg PO Q4H PRN PRN Reason: Pain or Pre PT Stop: 06/16/24 16:39 Last Admin: 06/05/24 23:53 Dose: 10 mg Pantoprazole Sodium (Pantoprazole 40 Mg Tab) 40 mg PO QAM LISA Stop: 06/27/24 08:59 Last Admin: 06/06/24 09:02 Dose: 40 mg Polyethylene Glycol (Polyethylene (Miralax) 17 Gm Pack) 17 gm PO DAILY PRN PRN Reason: Constipation Stop: 06/29/24 13:33 Sennosides (Senna 8.6 Mg Tab) 17.2 mg PO HS LISA Stop: 07/02/24 20:59 Last Admin: 06/05/24 21:24 Dose: 17.2 mg Sertraline HCl (Sertraline Hcl 100 Mg Tablet) 200 mg PO QAM LISA Stop: 06/27/24 08:59 Last Admin: 06/06/24 09:02 Dose: 200 mg Tamsulosin HCl (Tamsulosin Hcl 0.4 Mg Cap) 0.4 mg PO QPM LISA Stop: 07/02/24 20:59 Last Admin: 06/05/24 21:24 Dose: 0.4 mg Vitamin D (Cholecalciferol 25 Mcg (1000 Units) Tab) 50 mcg PO BID LISA Stop: 07/02/24 20:59 Last Admin: 06/06/24 09:01 Dose: 50 mcg
--- NOTE | 2024-06-06 10:46 | Infectious Disease Progress Nt ---
Date of Service June 06, 2024 Assessment & Plan (1) Infection of left knee: Plan 58 yo male DM2, osteoarthritis, GAVE, metabolic syndrome, obesity, L knee arthroplasty 03/25/25 He was admitted 05/04-05/13 for PJI left knee infection He was working with physical therapy on 04/29 and was using a sliding board when he felt his knee split open. He was started on Keflex but the area worsened with increased pain, erythema and swelling with drainage.. A superficial wound culture obtained on 05/03 grew CONS. He underwent incision and drainage,Poly Exchange, Synovectomy with orthopedics on 05/04. The wound communicated with the knee joint and appeared inflamed per OP report. Intraoperative cultures grew sensitive E faecalis. He was seen by ID . He initially received Daptomycin and Cefepime. He reported a Penicillin allergy ( hives). Since there was no plan for hardware removal and he would require intermediate designer oral antibiotic suppression in the setting of retained hardware, he underwent PCN desensitization in the ICU during the last admission. He was also evaluated by Immunology/allergy who felt that he did not have a true Penicillin allergy but likely cellulitis from PCN injection. He tolerated Ampicillin Since CONS did not grown in OR culture, therapy focused on E faecalis. Ross therapy with IV ampicillin was an option but since prosthetic retained with purulence noted, communication with joint and no antibiotic impregnated material containing gentamicin was placed as well as the nature of Enterococcal infection with retained hardware , he was discharged on combination therapy with IV ampicillin/Ceftriaxone for 6 weeks to end 06/08/24 followed by po suppression for at least 3-6 month with amoxicillin 500 mg po q 8hrs to start 06/09/24. He was discharged to a SNF. While there he apparently developed hives thought to be secondary to Ampicillin approximately 1 week ago. His SNF contacted ID and his antibiotics were switched to Daptomycin as his Enterococcus was sensitive. On therapy with PCN as well as Daptomycin, he reports increasing Left knee swelling and erythema with continued pain. He was seen by orthopedics outpatient. Knee X-rays showed there was lateral translation of the patella. Plans were to continue Daptomycin with follow up on 05/31 for review of possible surgical intervention. He denied fever, chills, nausea, vomiting. He returns to the ED from rehab on 05/27 for increasing Left knee swelling and redness. In the ED, he was afebrile and HDS. WBC 10.12, hemoglobin 10.3, hematocrit 32.1, platelets 242, BUN 15, creatinine 0.83, CRP 11.16 --->8.09, ESR 94. Left knee xray w/o acute fracture or dislocation.There is soft tissue swelling with joint effusion. He was evaluated by orthopedics who had concerns for medial retinacular repeat tear. He was started on IV vancomycin. ID consulted for left knee PJI. Micro ( this admission): BC 05/28 NGTD Intra op cx 06/02 No growth at day Pathology: PMNS in high power field noted Prior Micro : Blood culture 05/03 NG Wound culture superficial 05/03 CONS Intraop wound culture 05/04 E faecalis PanS ( Amp, van, dapto, cipr/lev ) Aero/Barbra Cult Final 05/09/24-1236 Organism 1 Enterococcus faecalis Quantity Moderate Sens Sensitivities to Follow No Anaerobes Isolated No Anaerobes Isolated E faecalis RX M.I.C. --- --------- Ampicillin S <=2 Ciprofloxacin S <=1 Daptomycin S 2 Gent Synergy S <=500 Levofloxacin S <=1 Penicillin S 2 Strep Synergy S <=1000 Tetracycline R >8 Vancomycin S 4 Abx: Vanco 05/27- ongoing ABX [place]: Dapto 05/03- 05/11 Ampicillin/ Ceftriaxone 05/11- 05/18(approx) at [facility] ( stopped / rash) Dapto 05/24 [facility]--05/27 #Worsening L knee erythema, swelling on IV antibiotics, new medial retinaculum tear , ? 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 Although he underwent Ampicillin graded challenge last admission, he apparently developed hives on therapy outpatient. On Amp/ Ceftriaxone--> daptomycin he developed worsening L knee erythema, swelling and increased inflammatory markers ( ESR 94 on 05/29- 77 on 05/13; CRP 11.16 on 05/29 -9.04 on 05/13. Plan for RTOR on 06/01 D/W Ortho Dr Houston 05/31. Per discussion, removal of hardware with implantation of antibiotic spacer would require an extensive procedure and would be challenging as he has well-fixed components. Procedure is considered high risk. He has been receiving targeted Enterococcus Faecalis antibiotics since his OR on 05/04 and on discharge ( IV ampicillin--->daptomycin for at least 3 weeks) with s/o of continued infection- -06/02 he underwent left knee medial retinacular repair and lateral release, left knee poly exchange. Per operative report, he was found to have disruption of a portion of the medial retinacular repair for from the previous surgery. There was some hematoma in the knee but the knee appeared benign. Frozen sections were sent for white cells per high-power field and showed maximum of 7 neutrophils and 1 field most of the other christiansen were 5 or less. The knee showed healthy granulation with some fibrinous hematoma but no gross purulence. Tissue fragments and synovial tissue were sent for culture. -06/06 Micro no new data, PICC line in place, WBC normal, Cr normal, On IV Vancomycin Recommendations: -Cultures are negative for aerobic, anaerobic, fungal intraoperative cx, pathology noted -Fluid cultures are reassuringly negative and sterile at this point. I discussed with patient outpatient IV Vanco vs Daptomycin. He was c/f knee worsening on daptomycin. Unclear of reason of progression? Therefore will plan for Vancomycin with close Primary care follow up with Dr. Ashish Onofre. -Continue IV vancomycin 750mg IV BID will plan for 3 weeks from debridement given sterility through 06/21/24 -patient will require weekly CBC with diff, CMP. ESR, CRP. In addition to weekly labs, he will require BI weekly vanco trough to ensure appropriate levels. The Final dose will be based on Vanco trough of 15- 18. - On 06/22 his IV Vancomycin should be disconitnued and followed PO suppression with Levaquin 500mg po daily ( qtc 440- 05/31) for at least 6 months (through 12/27). When he is changed to levaquin, he should have EKG every 4-8 weeks with CBC with, CMP checked every 6-8 weeks. -Close Ortho follow up -Establish care with local ID (Strongly recommended) -Please have him follow closely with PMD. ID will be available to answer any questions for his PMD and Orthopaedics when discharged by having them page [facility] and ask for physician covering Linden Schroeder MD Infectious Disease [facility], ID Division Admission and Anticipated Discharge Date Admission Date: May 28, 2024 Subjective Subsequent visit was provided via telemedicine using two-way real-time interactive telecommunication between the patient and the telemedicine provider. For the duration of the visit, the provider was performing the assessment from a different facility than the patient. This includesuse of bluetooth stethoscope forauscultationperformed by the telepresenter that the telemedicine provider can hear if described in the physical exam. Nursing Support Worker contact information: Please call [facility] Call Center [phone]. (Phone Number For Physician Use Only) After establishing a telemedicine visit, patient was: Patient was verified with two unique identifiers, Patient/authorized rep acknowledged consent and understanding and Gave permission to continue telehealth session Time Spent with Patient: Subsequent => 35 min Physical Exam Physical Exam: NAD L arm PICC c/d/i Knee wrapped Results & Data Vital Signs (Past 12 Hours) Vital Signs Temp Pulse Resp BP Pulse Ox O2 Del Method 06/06/24 08:02 36.6 C 68 20 166/90 H 94 Room Air Laboratory Results Laboratory Results - last 48 hr 06/04/24 06/04/24 06/04/24 11:25 16:48 20:24 WBC RBC Hgb Hct MCV MCH MCHC RDW Std Deviation RDW Coeff of Migue Plt Count MPV Immature Gran % (Auto) Neut % (Auto) Lymph % (Auto) Ross % (Auto) Eos % (Auto) Baso % (Auto) Neut # (Auto) Lymph # (Auto) Ross # (Auto) Eos # (Auto) Baso # (Auto) Immature Gran # (Auto) ESR Sodium Potassium Chloride Carbon Dioxide Anion Gap BUN Creatinine Est Cr Clr Drug Dosing Est GFR ( Amer) Est GFR (Non-Af Amer) BUN/Creatinine Ratio Glucose POC Glucose 106 H 113 H 133 H Calcium C-Reactive Protein Random Vancomycin 06/05/24 06/05/2406/05/24 05:32 07:31 11:25 WBC 8.73 RBC 3.44 L Hgb 9.8 L Hct 31.0 L MCV 90.1 MCH 28.5 MCHC 31.6 L RDW Std Deviation 47.0 H RDW Coeff of Migue 14.5 Plt Count 247 MPV 9.5 Immature Gran % (Auto) 0.5 Neut % (Auto) 45.7 Lymph % (Auto) 19.8 Ross % (Auto) 7.9 Eos % (Auto) 25.2 Baso % (Auto) 0.9 Neut # (Auto) 3.99 Lymph # (Auto) 1.73 Ross # (Auto) 0.69 H Eos # (Auto) 2.20 H Baso # (Auto) 0.08 Immature Gran # (Auto) 0.04 ESR Sodium 138 Potassium 3.6 Chloride 104 Carbon Dioxide 28 Anion Gap 6 BUN 24 H Creatinine 1.03 Est Cr Clr Drug Dosing 107.1 Est GFR ( Amer) 91.1 Est GFR (Non-Af Amer) 78.6 BUN/Creatinine Ratio 23.3 H Glucose 120 H POC Glucose 129 H 104 H Calcium 9.2 C-Reactive Protein Random Vancomycin 06/05/24 06/05/24 06/06/24 16:42 20:42 07:28 WBC 9.26 RBC 3.46 L Hgb 10.0 L Hct 30.1 L MCV 87.0 MCH 28.9 MCHC 33.2 RDW Std Deviation 46.8 H RDW Coeff of Migue 14.7 H Plt Count 256 MPV 9.7 Immature Gran % (Auto) 0.2 Neut % (Auto) 52.6 Lymph % (Auto) 15.2 Ross % (Auto) 7.2 Eos % (Auto) 24.3 Baso % (Auto) 0.5 Neut # (Auto) 4.86 Lymph # (Auto) 1.41 Ross # (Auto) 0.67 H Eos # (Auto) 2.25 H Baso # (Auto) 0.05 Immature Gran # (Auto) 0.02 ESR 67 H Sodium 138 Potassium 3.7 Chloride 103 Carbon Dioxide 28 Anion Gap 7 BUN 23 Creatinine 0.83 Est Cr Clr Drug Dosing 132.9 Est GFR ( Amer) 110.8 Est GFR (Non-Af Amer) 95.6 BUN/Creatinine Ratio 27.7 H Glucose 124 H POC Glucose 148 H 138 H Calcium 9.4 C-Reactive Protein 4.57 H Random Vancomycin 18.2 06/06/24 07:56 WBC RBC Hgb Hct MCV MCH MCHC RDW Std Deviation RDW Coeff of Migue Plt Count MPV Immature Gran % (Auto) Neut % (Auto) Lymph % (Auto) Ross % (Auto) Eos % (Auto) Baso % (Auto) Neut # (Auto) Lymph # (Auto) Ross # (Auto) Eos # (Auto) Baso # (Auto) Immature Gran # (Auto) ESR Sodium Potassium Chloride Carbon Dioxide Anion Gap BUN Creatinine Est Cr Clr Drug Dosing Est GFR ( Amer) Est GFR (Non-Af Amer) BUN/Creatinine Ratio Glucose POC Glucose 115 H Calcium C-Reactive Protein Random Vancomycin Microbiology 06/02/24 Unknown Knee,Left Gram Stain - Final 06/02/24 Unknown Knee,Left Aerobic and Anaerobic Culture - Preliminary No growth to date. 06/02/24 Unknown Knee,Left Gram Stain - Final 06/02/24 Unknown Knee,Left Aerobic and Anaerobic Culture - Preliminary No growth to date. 05/28/24 00:42 Blood Aerobic Blood Culture - Final No growth in Aerobic bottle after 5 days. 05/28/24 00:42 Blood Anaerobic Blood Culture - Final No growth in Anaerobic bottle after 5 days. 05/28/24 00:10 Blood Aerobic Blood Culture - Final No growth in Aerobic bottle after 5 days. 05/28/24 00:10 Blood Anaerobic Blood Culture - Final No growth in Anaerobic bottle after 5 days. Medications Administered Current Inpatient Medications Acetaminophen (Acetaminophen 500 Mg Tab) 1,000 mg PO TID [facility] Stop: 07/02/24 20:59 Last Admin: 06/06/24 08:58 Dose: 1,000 mg Albuterol (Albuterol Hfa 8 Gm Inhaler) 2 puffs INH Q6H PRN PRN Reason: Shortness Of Breath Or Wheezing Stop: 07/02/24 16:39 Amlodipine Besylate (Amlodipine Besylate 5 Mg Tab) 2.5 mg PO HS LISA Stop: 06/27/24 20:59 Last Admin: 06/05/24 21:22 Dose: 2.5 mg Apixaban (Apixaban 2.5 Mg Tab) 2.5 mg PO BID [facility] Stop: 07/04/24 08:59 Last Admin: 06/06/24 09:00 Dose: 2.5 mg Bisacodyl (Bisacodyl 10 Mg Supp) 10 mg CO DAILY PRN PRN Reason: Constipation Stop: 07/02/24 16:39 Bupropion HCl (Bupropion Sr 150 Mg Tabcr) 150 mg PO QAM LISA Stop: 06/27/24 08:59 Last Admin: 06/06/24 09:00 Dose: 150 mg Dextrose (Dextrose 50% 50 Ml Syringe) 25 - 50 ml IV UD PRN; Protocol PRN Reason: Hypoglycemia Protocol Stop: 06/27/24 08:43 Docusate Sodium (Docusate Sodium 100 Mg Cap) 100 mg PO BID LISA Stop: 07/02/24 20:59 Last Admin: 06/06/24 09:01 Dose: 100 mg Glucagon (Glucagon For Inj 1 Mg Vial) 1 mg SQ UD PRN; Protocol PRN Reason: Hypoglycemia Protocol Stop: 06/27/24 08:43 Glucose (Glucose 40% Gel 15 Gm Tube) 15 - 30 gm PO UD PRN; Protocol PRN Reason: Hypoglycemia Protocol Stop: 06/27/24 08:43 Glucose (Glucose 10 Tab/Tube) 4 - 8 tab PO UD PRN; Protocol PRN Reason: Hypoglycemia Treatment Stop: 06/27/24 08:43 Heparin Sodium (Beef Lung) (Heparin 10 Unit/Ml 5 Ml Flush) 5 ml FLUSH PRN PRN PRN Reason: Flush Stop: 06/27/24 13:44 Last Admin: 06/05/24 23:54 Dose: 5 ml Lactated Ringer's (Lr) 1,000 mls @ 15 mls/hr IV .Q24H LISA Stop: 07/02/24 11:59 Last Admin: 06/05/24 10:18 Dose: Not Given Vancomycin HCl 1,750 mg/ (Sodium Chloride) 535 mls @ 200 mls/hr IV Q12H LISA Stop: 07/18/24 09:59 Last Admin: 06/06/24 10:26 Dose: 200 mls/hr Insulin Aspart (Insulin Aspart Per Unit Charge) 0 units SC ACHS LISA Stop: 07/02/24 16:44 Last Admin: 06/06/24 09:12 Dose: 3 units Losartan Potassium (Losartan Potassium 50 Mg Tab) 100 mg PO QAM [facility] Stop: 06/27/24 08:59 Last Admin: 06/02/24 08:30 Dose: 100 mg Magnesium Hydroxide (Magnesium Hydroxide Susp 30 Ml Udc) 30 ml PO Q6H PRN PRN Reason: Constipation Stop: 07/02/24 16:39 Melatonin (Melatonin 3 Mg Tab) 3 mg PO HS PRN PRN Reason: Insomnia Stop: 06/27/24 08:43 Metoclopramide HCl (Metoclopramide Hcl Inj 5 Mg/Ml 2 Ml Vial) 10 mg IV Q6H PRN PRN Reason: Nausea And Vomiting Stop: 07/02/24 16:39 Miscellaneous (Carbohydrates For Hypoglycemia ) 15 - 30 gm PO UD PRN PRN Reason: Hypoglycemia Protocol Stop: 06/27/24 08:43 Miscellaneous Information (Vancomycin Consult Active) 1 each N/A UD PRN PRN Reason: Consult Stop: 06/27/24 04:42 Montelukast Sodium (Montelukast Sodium 10 Mg Tablet) 10 mg PO QPM LISA Stop: 06/27/24 20:59 Last Admin: 06/05/24 21:24 Dose: 10 mg Multivitamins (Multivitamin Tab) 1 tab PO QPM LISA Stop: 06/27/24 20:59 Last Admin: 06/05/24 21:24 Dose: 1 tab Naloxone HCl (Naloxone Hcl 0.4 Mg/1 Ml Vial/Carp) 0.1 mg IV Q5M PRN PRN Reason: Oversedation/Resp Depression Stop: 07/02/24 16:39 Nystatin (Nystatin Powder 15gm Btl) 1 appln EXT BID LISA Stop: 06/30/24 10:59 Last Admin: 06/06/24 10:43 Dose: 1 appln Ondansetron HCl (Ondansetron Inj 2 Mg/Ml 2 Ml Vial) 4 mg IV Q6H PRN PRN Reason: Nausea Stop: 06/27/24 08:43 Oxycodone HCl (Oxycodone Hcl Ir 5 Mg Tab (Immediate Release)) 5 - 10 mg PO Q4H PRN PRN Reason: Pain or Pre PT Stop: 06/16/24 16:39 Last Admin: 06/05/24 23:53 Dose: 10 mg Pantoprazole Sodium (Pantoprazole 40 Mg Tab) 40 mg PO QAM LISA Stop: 06/27/24 08:59 Last Admin: 06/06/24 09:02 Dose: 40 mg Polyethylene Glycol (Polyethylene (Miralax) 17 Gm Pack) 17 gm PO DAILY PRN PRN Reason: Constipation Stop: 06/29/24 13:33 Sennosides (Senna 8.6 Mg Tab) 17.2 mg PO HS LISA Stop: 07/02/24 20:59 Last Admin: 06/05/24 21:24 Dose: 17.2 mg Sertraline HCl (Sertraline Hcl 100 Mg Tablet) 200 mg PO QAM LISA Stop: 06/27/24 08:59 Last Admin: 06/06/24 09:02 Dose: 200 mg Tamsulosin HCl (Tamsulosin Hcl 0.4 Mg Cap) 0.4 mg PO QPM LISA Stop: 07/02/24 20:59 Last Admin: 06/05/24 21:24 Dose: 0.4 mg Vitamin D (Cholecalciferol 25 Mcg (1000 Units) Tab) 50 mcg PO BID LISA Stop: 07/02/24 20:59 Last Admin: 06/06/24 09:01 Dose: 50 mcg
--- NOTE | 2024-06-06 21:59 | Hospitalist Progress Note ---
Date of Service June 06, 2024 Assessment & Plan (1) Infection of left knee: Plan: -Left TKR with Dr. Houston on 03/25/24, with Washout procedure performed on 05/04/2024. -Wounds grew coagulase-negative staph as well as Enterococcus faecalis. -Initially treated with daptomycin and cefepime. Was discharged on 05/13 on ampicillin and Rocephin. -Hives reaction to ampicillin on 05/23, transition to daptomycin. After transition started to have redness and swelling in the knee. -concern for daptomycin resistance, transitioned to vancomycin -Knee x-rays taken:no acute fx or dislocation, soft tissue swelling w/ joint effusion -Blood cultures negative, finalized. -Infectious disease consulted. - failing IV therapy will be difficult to suppress if hardware remains - continue vanco for now - obtain aerobic, anaerobic and fungal cultures in OR- awaiting final OR cultures and sensitivities - possible suppression with cipro/levaquin based on prior sensitives --> EKG QTc 440 -ID recommendations appreciated- continue Vanco for now, may also include po fluoroquinolone subsequently on DC for continued suppression- will await final recommendations -PICC line replaced on 06/04/24. [place] [facility] [place] surgery consulted -Continue IV abx -S/p OR 06/02- for I and D of the left knee with polyethylene bearing change and repair of torn medial retinaculum -DVT ppx resumed per ortho- now on Eliquis 2.5 mg BID Rash noted on abdomen and groin, worsen in pannus fold, not itchy - nystatin ordered - Benadryl PO x1 if residual from prior allergic reaction -Improving slowly Arrangements being made with case management team for home IV antibiotic therapy. Planning for likely IV vancomycin followed by po suppression with oral fluoroquinolone therapy. Appreciate input from ID. will plan for Vancomycin with close Primary care follow up with Dr. Ashish Onofre. -Continue IV vancomycin 750mg IV BID will plan for 3 weeks from debridement given sterility through 06/21/24 -patient will require weekly CBC with diff, CMP. ESR, CRP. In addition to weekly labs, he will require BI weekly vanco trough to ensure appropriate levels. The Final dose will be based on Vanco trough of 15- 18. - On 06/22 his IV Vancomycin should be discontinued and followed PO suppression with Levaquin 500mg po daily ( qtc 440- 05/31) for at least 6 months (through 12/27). When he is changed to levaquin, he should have EKG every 4-8 weeks with CBC with, CMP checked every 6-8 weeks. -Close Ortho follow up -Establish care with local ID (Strongly recommended) -Please have him follow closely with PMD. (2) Type 2 diabetes mellitus: Plan: Type 2 diabetes mellitus: -Patient's home regimen held on admission -Continue BSG checks -sliding-scale insulin -hypoglycemic protocol -Titrate accordingly (3) MAC on CPAP: Plan: MAC on CPAP: -Continue CPAP at night. (4) Gastroesophageal reflux disease: Plan: Gastroesophageal reflux disease: -Continue omeprazole 20 mg. (5) Hypertension: Plan: Hypertension: -Continue Norvasc 2.5 mg and losartan 100 mg. (6) Anxiety and depression: Plan: Anxiety and depression: -Continue Zoloft 200 mg and Wellbutrin 150 mg. Plan DVT ppx: Eliquis per ortho Dispo: continued inpatient Admission and Anticipated Discharge Date Admission Date: May 28, 2024 Subjective Patient reports no new symptoms. Review of Systems Review of Systems: All systems reviewed & are unremarkable except as noted in HPI & below Physical Exam Physical Exam: General: NAD, VS as above Resp: normal respiratory effort, lungs clear to auscultation CV: RRR, no murmur Abd: normal bowel sounds, non tender, no hepatosplenomegaly Extremities:Left leg with surgical dressing, clean dry intact. Moving toes Neuro: A&O x3, Skin - mild papular rash over abdomen, worsen in Panus skin fold -improving Results & Data Results & Data Vital Signs (Past 12 Hours) Vital Signs Temp Pulse Pulse Resp BP Pulse Ox O2 Del Method 06/06/24 21:04 37.2 C 79 18 139/72 94 Room Air 06/06/24 15:14 36.7 C 75 18 118/66 93 Room Air 06/06/24 11:50 37.4 C 76 20 160/72 H 94 Room Air PG Care Time/CCT Total # of Minutes Spent Total Time Spent with Patient: Total time spent is greater than 50% in coordination of care (as documented) at patient's floor/unit and/or counseling patient: Coding Level of Care Code 68096 SUB INP/OBS CARE 2/35MIN Diagnoses Infection of left knee M00.9 Type 2 diabetes mellitus without complication, without long-term current use of insulin E11.9 Diabetes mellitus complication status: without complication Diabetes mellitus skilled nursing insulin use: without skilled nursing use MAC on CPAP G47.33; Z99.89 Gastroesophageal reflux disease K21.9 Primary hypertension I10 Hypertension type: primary hypertension Anxiety and depression F41.9; F32.9 (2) Type 2 diabetes mellitus Diabetes mellitus complication status: without complication Diabetes mellitus skilled nursing insulin use: without skilled nursing use Qualified Code(s): E11.9 - Type 2 diabetes mellitus without complications (5) Hypertension Hypertension type: primary hypertension Qualified Code(s): I10 - Essential (primary) hypertension
[2024-06-07 08:24] LABS: Basophils # (auto) 0.05 K/uL (0.00-0.20); Basophils % (auto) 0.5 %; Eosinophils # (auto) 2.21 K/uL (0.00-0.50); Eosinophils % (auto) 23.9 %; Hematocrit (blood only) 30.6 % (42.0-52.0); Hemoglobin 10.3 g/dl (14.0-18.0); Immature Granulocytes # (auto) 0.03 K/uL (0.01-0.20); Immature Granulocytes % (auto) 0.3 %; Lymphocytes % (auto) 14.1 %; Mean Corpuscular Hemoglobin 29.2 pg (25.0-34.0); Mean Corpuscular Hgb Conc 33.7 g/dL (32.0-36.0); Mean Corpuscular Volume 86.7 fL (80.0-100.0); Mean Platelet Volume 9.6 fL (9.4-12.4); Monocytes # (auto) 0.54 K/uL (0.11-0.59); Monocytes % (auto) 5.9 %; Neutrophils % (auto) 55.3 %; Platelet Count 233 K/uL (130-400); RDW Coefficient of Variation 14.7 % (11.5-14.5); RDW Standard Deviation 46.8 fL (36.4-46.3); Red Blood Count 3.53 M/uL (4.70-6.10); White Blood Count 9.23 K/ul (4.8-10.8)
[2024-06-07 08:27] LABS: BUN Creatinine Ratio 22.2 (10-20); Calcium 9.2 mg/dl (8.6-10.3); Creatinine Clr Calc Pharmacy 136.2 ml/min; Est GFR (Non-African American) 96.6 ml/min; Potassium 3.9 mmol/L (3.5-5.1)
--- NOTE | 2024-06-07 08:39 | Pharmacy Report ---
Pharmacy PK ABX Note - Date of Service June 07, 2024 - Assessment and Plan Assessment 58 year old M receiving vancomycin for treatment of left knee infection status post total knee replacement on 03/25/24. Admitted on 05/03 with redness and purulent drainage from knee, surface wound culture grew CoNS sensitive to daptomycin and vancomycin and deep wound culture grew thomas-sensitive enterococcus faecalis. Complicated by patient allergies. ID consulted and recommended ampicillin and ceftiaxone therapy after a successful amoxicillin challenge (suspected CoNS as a contaminant). Reported hives while on ampicillin/ceftriaxone and thus switched to daptomycin. Presented to ER due to concerns for worsening infection while on daptomycin. Blood cultures 05/28 show no growth at 5 days. Patient now POD #1 s/p left knee repair w/ lateral release/poly exchange. Cultures of knee obtained and pending. ID consulted and recommending vancomycin at this time. Renal function stable, afebrile, increased WBC today (12.09) 06/06: Reviewed vancomycin level, predicting therapeutic AUC/TAMMI, slight creatinine bump yesterday, repeat this AM back to baseline. Will adjust dosing to Q12H dosing in case he is discharged on IV Vancomycin 06/07: Vancomycin level this AM came back therapeutic today at ~18.7 mcg/ml, will continue current regimen of 1750 mg iv q 12 hours Plan Vancomycin * Continue current regimen 1750 mg iv q 12 hours. Level this AM predicated to achieve goal AUC/TAMMI 400-600 * Could consider rechecking another vancomycin level in next 3-4 days to ensure stable Pharmacy will continue to follow and will adjust dose/frequency as necessary. Thank you. Pharmacy has transitioned to AUC monitoring for vancomycin. AUC/TAMMI is the preferred PK/PD target and is associated with decreased risk of nephrotoxicity compared to traditional trough targets.
== END 2024-06-07 15:20 | disposition home health service (06) | DRG 908 ==
LOC: SUATTDRO → ED 23:10 → EDINP 05-28 05:25 → SUATTDRO 05-28 05:25 → 3E 05-28 08:45